=== PATIENT | male | born 1995 | race Caucasian/White ===

== ENCOUNTER 2023-02-12 14:50 | Outpatient (OUT) | payer BC, OTHER, SELFPAY ==
--- NOTE | 2023-02-12 15:43 | NUTR.NU ---
Diet education was provided for weight loss. Building a balanced meal handout was provided CBW 329.2#
== END 2023-02-12 14:51 | disposition home or self-care (01) ==
LOC: DE 14:56
PROVIDERS: PCP Family Medicine; Visit Provider Family Medicine
DX: E66.01 Morbid (severe) obesity due to excess calories (principal); Z68.41 Body mass index [BMI] 40.0-44.9, adult
CPT/HCPCS: 97802

== ENCOUNTER 2023-02-19 14:43 | Outpatient (OUT) | payer BC, OTHER, SELFPAY ==
--- OUTSIDE RECORDS SUMMARY | 2023-02-19 14:50 | XMS_ITS | CCD ---
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 Signed By:ANA GARCIA DO Transcribed By: MUS Dictated By: Ana Garcia DO 10/12/20 170 Signed By: 10/13/20 0154 Normal [facility] Magnesiumon 10-12-2020 Magnesium [Mass/Vol] 2.4 mg/dL Normal 1.6-2.6 [facility] Comment on above: Result Comment: PERF ORMED BY: [facility] [address] [place] [id number] PATHOLOGIST DOLL MAKER MYLA DOSHI M.D. Performed By: #### H S TROP, MG, BMP, CBC #### [facility] [address] [place] [id number] [facility] Troponin I High Sensitivityo n 10-12-2020 Troponin I High Sensitivity 9 pg/mL Normal 0-20 [facility] Comment on above: Result Comment: PERF ORMED BY: [facility] [address] [place] [address] PATHOLOGIST DOLL MAKER MYLA DOSHI M.D. Performed By: #### H S TROP, MG, BMP, CBC #### [facility] [address] [place] [address] [facility] [place] 09-20-2020 Consent [id number]#[id number]:127 Normal [facility] Registrationon 09-20-2020 Registration [id number]:127 Normal [facility] Covid-19 PCR (CVDTBH)on 06-09 SARS-CoV-2 (COVID-19) RNA KING+probe Ql (Unsp spec) Not detected Normal NOT DETECTED [facility] Comment on above: Result Comment: This test is not yet approved or cleared by the [place] FDA. When there are no FDA-approved or cleared tests available, and other criteria are met, FDA can make tests available under an emergency access mechanism called an Emergency Use Authorization (EUA). The EUA for this test is supported by the [place] of Health and Human Service's (HHS's) declaration that circumstances exist to justify the emergency use of in vitro diagnostics for the detection and/or diagnosis of the virus that causes COVID-19. This EUA will remain in effect (meaning this test can be used) for the duration of the COVID-19 declaration justifying emergency of IVDs, unless it is terminated or revoked by FDA (after which the test may no longer be used). When diagnostic testing is negative, the possibility of a false negative should be considered in the context of a patient's recent exposures and the presence of clinical signs and symptoms consistent with SARS-CoV-2. Performed By: #### [facility] #### [facility] [address] [address] Leonor Taylor Juan 06-06-2017 CNPN Telephone (FVPRAD) RAQUEL BLANCHARD JR ([id number]) 1995 MDate Time Provider Department06/06/17 GRACIE HURLEY During your visit today, we recorded the following information about you:Gracie Hurley MD 06/06/2017 10:06 AM SignedPatient called after hours Sat night feeling fatigue/tired on current dose ofKeppra 1000 mg BID; he works different shifts difficult to take med. Wanting totry extended release or different dose if possible.I told patient will pass this to his neurologist today and he will be in touchwith him.Neli Oliver NeurologyNeurological InstituteCherrington HospitalPager: [phone] Bailey MD PHD 06/07/2017 1:54 PM SignedCan we reach out. I will switch to extended release. It is once a day butsame total dose.Yazmin Bailey MD PHDApril 2017 1:52 PMWendy Moon RN, RN 06/07/2017 3:03 PM SignedI tried calling the patient to advise that Dr. Bailey ordered him Keppra 500 mgER to take 4 tablets by mouth once daily. His VM will not except any calls.Please advise patient if he calls back.'Owen Macias [facility] 06/07/2017 4:24 PM SignedPatient called back and message below was relayed.Allergies As of Date: 06/06/2017 Noted Allergy ReactionSULFA (SULFONAMIDE ANTIBIOTICS) 05/07/2017 10 - AnaphylaxisDate Reviewed: 05/20/2017Reviewed by: Yoon Hay Ma - Fully AssessedReason for Visit: Medication Problem [65]Order(s):levETIRAcetam XR (KEPPRA XR) 500 mg 24 hr tabletTake 4 tablets by mouth once daily.Disp: 120 tabletRfl: 11Prescriptions as of 06/06/2017 Sig: LEVETIRACETAM ER 500 MG TABLE* Take 4 tablets by mouth once * CALCIUM 600 ORAL Take by mouth once daily. CHOLECALCIFEROL (VITAMIN D3) * Take by mouth once daily. Not* LEVETIRACETAM 1,000 MG TABLET Take 1 tablet by mouth twice *Problem List As Of Date 06/06/2017 Noted Resolved Status epilepticus (HCC) [G40.901] INVALID FOR* Nicotine use disorder, F17.2 [F17.200] INVALID FOR*Prescriptions ordered this encounter Disp Refills Start End LEVETIRACETAM ER 500 MG TABLET,EXTEN* 120 * 11 06/07/2017 06/07/2018 Route: ORAL Sig: Take 4 tablets by mouth once daily. Status:Closed by YOHAN HUITORN, YAZMIN PHD on 06/07/17 [facility] CNCOon 05-20-2017 CNCO Letter TextApril 2017Grant Blanchard JRMRN: [id number] whom it may concern-Patient may return to work May 23, 2017 without restrictions.Thank you for your time and consideration.Sincerely,Yazmin Bailey MD, PhDStaff, [facility] NeurologyClinical Trust Manager Assistantmagneto specialist, CCLBoard Certified, Epilepsy and Neurology Normal [facility] CNOVon 05-20-2017 CNOV Office Visit (NEEPFV) RAQUEL BLANCHARD JR ([id number]) 1995 MDate Time Provider Department05/20/17 9:40 AM YAZMIN BAILEY During your visit today, we recorded the following information about you: Temperature Pulse Respiration Blood pressure 98.1 degrees 121/minute 20/minute 135/69 Weight Height 113.5 kg 1.829 Walter Bailey MD PHD 05/25/2017 1:34 PM SignedCCNI- CLINIC NOTE - INITIAL VISITReferral:SELFCHIEF COMPLAINT: This is a 21 year old right-handed man here for evaluation ofseizures.PRESENT ILLNESS:21 year old man here for follow up from hospital after presenting with seizure.He had a seizure on Good Wednesday. He was eating dinner. He was ANDquot;actingweirdANDquot; he fell asleep. He was not responding to questions, just veryslowly. No other behaviors. He is stable now, no seizures since being in thehospital. No other behavior changes or other neurological complaints. Noprior history of seizures and no known seizure risk factors.Prior History:He presented to with a 5 day history which began with some fatigue andheadache. He was not feeling well, missing work. He reported had episodeswhere he would ANDquot;stare,not respondANDquot;. He then presented after having [address] Mcdermott and Mark (see below and hospitalizaitonreviewed); treated with keppra; extensive imaging, lab work up unrevealing.Possible lateralizing signs by history: NoneBirth and Early Development: normalRISK FACTORS FOR SEIZURES:1. Head Trauma (Yes, concussion from football)2. LEAD INSTALLER Infections (Yes, see history)3. Family History of Seizures (yes, greatgrandmother, grandmother)4. Developmental Delay (No)5. Febrile Seizures (No)6. LEAD INSTALLER Tumors (No)7. LEAD INSTALLER Vascular Disease (No)8. Significant Medical History (No)CURRENT ANTICONVULSANTS:Keppra 1000 mg XR 1000 mg bidThe patient's side effects to the current medications: tired, fatiguePRIOR ANTICONVULSANT HISTORY: NonePrior Consult form Dr Mcdermott:Ruth;This is Grant Blanchard JR a 21 year old with history of insomniatakes Lunesta at times male who [facility] with a statusepilepticus. Mother at bedside is providing history.?~3 weeks ago patient developed infection in his right finger started antibioticciprofloxacin for 3 doses and stopped after pain resolved according to hismother he didn't not continue antibiotics.?~1 week mother reports her son having an upper respiratory tract infection. Hedid not seek any attention for that.?May 03, 2017 his mother reported her son having headaches and not feelingwell. She also tells me that he started to act weird, confused. He would notput his clothes on and walk in the house, when his mother asked him to putclothes on he goes back to his in his room when he comes back again with noclothes on. When she asked him again to put clothes on he becomes angryagitated and he tells her that he did, despite him not having any close on.The mother reports multiple episodes of around 1 per hour of blank stares andthen he would continue the conversation or whatever he was doing. Motherreported multiple episodes where he jerks in his sleep she reported no bloodfound on the peripheral or loss of bladder or bowels.?May 06, 2017 patient went to the ER for increased headaches and he wasdischarged. Patient followed up with his primary care and it took some bloodtests.?May 07, 2017 patient reported being with his girlfriend 1 he stopped to getat the gas station and he dropped to the floor according to the mother she wastold that he was having jerks police came and called the ambulance and theytook him to the ER. Mother denied any drug use. [facility] blood sugar was 90. While in the ER his blood pressure dropped to80/50 and he was given fluids. His WBC count was 11.64 hemoglobin 17hematocrit 48 and platelet counts were 371. Sodium level was 143, potassium of3.9, glucose of 104, BUN 17, creatinine of 1.05, ALT 47, AST 26,ANDquot;phosphatase 52, total bilirubin of 0.7. [facility] and I recommended another load of Keppra 15 mg and to assessfosphenytoin if he continues to seize at that time patient had received 7 mg ofAtivan and a load of 50 mg Keppra. He was not intubated at that time andaccording to the notes she was transferred to [facility] and he was not intubatedeither. Urine drug screen was negative. [facility] showed a WBC count of 21.89 with a hemoglobin of 16 and a plateletcount of 314. Urine drug screen was negative. His blood glucose was 141, BUN14, creatinine 0.088, sodium 141, potassium 4.1, chloride 103, CO2 25. She hadan LP done showed CSF culture stain no organism a few mononuclear cells. CSFcomponent results showed color of the CSF to be colorless clear fluid with atotal RBC of 40 and total nucleated cells of 11. His neutrophils were 2lymphocytes 91. CSF protein was 60 and glucose 91. His magnesium was 2.2.and phosphorus 4.3.MRI of the brain was within normal limits and EEG showed ANDquot;Impression:Continuous video-EEG monitoring was reviewed from 05/08/17 0053 until 0810 andis suggestive of bilateral cortical dysfunction maximum in the right parietaloccipital region. There is also evidence of a severeencephalopathy. No epileptiform discharges or EEG seizures wererecorded.ANDquot;. Per report. ANDquot;PAST MEDICAL HISTORY:PAST SURGICAL HISTORY:No past surgical history on file.SOCIAL HISTORY:Social History Marital status: Single Spouse name: Years of education: Number of children:Social History Main Topics Smoking status: Former Smoker Packs/day: 0.00 Years: 0.00 Quit date: 05/21/2015 Smokeless status: Current User Types: Chew Alcohol use: No Comment: Not drinking since seizure Good Wednesday Drug use: NoREVIEW OF SYSTEMS:The review of systems is positive for the symptoms mentioned in the history ofpresent illness. Additional review as follows:All other organ systems are unremarkable.GENERAL EXAMINATION:BP 135/69 (BP Site: Left Arm, BP Position: Sitting, BP Cuff Size: RegularAdult) Pulse (!) 121 Temp 36.7 ?C (98.1 ?F) Resp 20 Ht 182.9 cm (6') Wt 113.5 kg (250 lb 4.8 oz) SpO2 96% BMI 33.95 kg/c4Hsplj, in no acute distress. Skin is normal without neurocutaneous stigmata.Neurological:? Mental Status: Alert, oriented to person, place and time and Follows commands.Cranial Nerves:CNII: Visual acuity normal, Visual francisco full to confrontationCNIII, IV, : Pupils equal, round and reactive to light, full extraoccularmovements without nystagmusCN V: Facial sensation intact bilaterally to fine touch and pinprick, masseter5/5CN VII: Facial muscles symmetric and strongCN VIII: Hears finger rub well bilaterallyCN IX: Gag Reflex Not examinedCN X: Palate elevates symmetricallyCN XI: Full strength shoulder shrug bilaterallyCN XII: Tongue protrusion full and midline? Non-Dilated Fundiscopic Examination: Deferred Examination? Motor Exam: Tone - Normal Bulk - no muscle atrophy Delt Biceps Triceps Wrist Ext Wrist Flex Finger Flex Finger Ext Finger AbdFinger AddRight 5/5 5/5 5/5 5/5 5/5 5/5 5/5 5/5 5/5Left 5/5 5/5 5/5 5/5 5/5 5/5 5/5 5/5 5/5 Hip Flex Hip Ext BiFem (knee flex) Quads (knee ext) Gastroc (plantflx) TibAnt(Dorsiflx) TibPost (ank add) Ankle Eversion Ankle Inversion FlxHLong (ToeFlex)ExtHLong (ToeExt)Right 5/5 5/5 5/5 5/5 5/5 5/5 5/5 5/5 5/5 5/5 5/5Left /5 5/5 5/5 5/5 5/5 5/5 5/5 5/5 5/5 5/5 5/5Neck Flexors 5/5Neck Extensors /5REFLEXES Right LeftBicep 2/ 2/4Tricep 2/ 2/4BrRad 2/ 2/4Knee 2/ 2/4Ankle / 2/4Pathological Reflexes:none? Sensation: Intact to proprioception, light touch and stereognosis.? Coordination: Finger-to- nose-finger intact bilaterally.? Gait: Patient's gait is normalDATA:MRI brain personally reviewed and discussed with patientIMPRESSION:Normal study.Classification? Abnormal II (Awake, Sleep, 10-20 Scalp Electrodes, Standard electrodes,? Anterior temporal electrodes)? 1 ? ?Intermittent Slow, Generalized, Maximum Right tempro-parietal? 2 ? ?Background SlowImpression? Continuous video-EEG monitoring was reviewed from 0520 to 1047 on05/11/17? and shows evidence of a cortical dysfunction in the right temporal? parietal region. There is also evidence of a mild diffuse? encephalopathy. No epileptiform discharges or EEG seizures were? recorded.Classification? Abnormal II (Awake, Sleep, 10-20 Scalp Electrodes, Standard electrodes,? Anterior temporal electrodes)? 1 ? ?Intermittent Slow, Generalized, Maximum Right tempro-parietal? 2 ? ?Intermittent Rhythmic Slow, Generalized? 3 ? ?Background SlowImpression? Continuous video-EEG monitoring was reviewed from 0459 on 05/10/2017 to? 0520 on 05/11/2017 and shows evidence of a cortical dysfunction in the? right temporal parietal region. There is also evidence of a milddiffuse? encephalopathy, which improved towards the end of recording. No? epileptiform discharges or EEG seizure were recorded.Classification? Abnormal III (Awake, Sleep, Stupor, 10-20 Scalp Electrodes, Anterior? temporal electrodes, Standard electrodes)? 1 ? ?Continuous Slow, Generalized, Maximum Right temporal parietal? 2 ? ?Intermittent Rhythmic Slow, GeneralizedImpression? Continuous video-EEG monitoring was reviewed from 0721 on 05/09/2017 to? 0459 on 05/10/2017 and shows evidence of a right temporal parietal? dysfunction. There is also evidence of a moderate diffuse? encephalopathy. No epileptiform discharges or EEG seizure wererecorded.Classification? Abnormal III (10-20 Scalp Electrodes, Anterior temporal electrodes,? Coma)? 1 ? ?Continuous Slow, Generalized, Maximum right parietal occipital? 2 ? ?Intermittent Rhythmic Slow, GeneralizedImpression? Continuous video-EEG monitoring?was reviewed from 05/08/17 0053 until? 0810 and is suggestive of bilateral cortical dysfunction maximum in the? right parietal occipital region. There is also evidence of a severe? encephalopathy. No epileptiform discharges or EEG seizures were? recorded.? Addendum:? Continuous video-EEG monitoring was reviewed from 05/08/17 0810 until? 05/09/17720and is suggestive of bilateral cortical dysfunction maximum? in the right parietal occipital region. There is also evidence of a? severe encephalopathy. No epileptiform discharges or EEG seizures were? recorded.Component 05/08/2017 05/09/2017 05/09/2017 05/09/2017 05/09/2017 05/09/201705/10/2017 05/11/2017 05/20/2017 2:09 AM 2:10 AM 6:19 AM 10:14 AM 11:47 AM 5:27 PM 5:42 PMWBC 12.93 (H) 10.55 7.51RBC 4.76 5.01 5.11Hemoglobin 14.5 15.3 15.5Hematocrit 41.7 43.2 43.3MCV 87.6 86.2 84.7MCH 30.5 30.5 30.3MCHC 34.8 35.4 35.8Diff Type Auto Diff Auto Diff Auto DiffGlucose 109 (H) 106 (H) 90 90 92BUN 10 8 (L) 9 (L) 8 (L) 12Creatinine 0.85 0.84 0.84 0.75 0.76Sodium 143 141 143 140 141Potassium 4.1 3.7 3.9 3.5 3.8Chloride 108 105 105 101 103CO2 27 26 26 24 21 (L)Anion Gap 8 (L) 10 12 15 17Calcium 8.3 (L) 8.4 (L) 8.6 9.4 9.4eGFR- ANDgt;60 ANDgt;60 ANDgt;60 ANDgt;60 ANDgt;60eGFR-All Other Races ANDgt;60 ANDgt;60 ANDgt;60 ANDgt;60 ANDgt;60Hep A Ab, IgM NegativeHep B Surface Ag NegativeHep C Antibody IA NegativeHep B Core Ab, IgM NegativeHSV IgG 1 Qualitative NegativeHerpes simplex 1, IgG ANDlt;0.2HSV IgG 2 Qualitative Positive (A)Herpes simplex 2, IgG 7.1HIV 12 Combo (Ag/Ab) Non ReactiveSodium, Urine Random 71Osmolality, Urine 402Magnesium 2.2 2.2 2.2Phosphorus 2.7 2.6 3.6Glucose, Point of Care 100 96 80 89 92Neosensory Neuro Paraneo Prof (NOTE)Levetiracetam 26.8basic paraneoplatic negative (anti-Hu)anti-NMDA pendingComponent Latest Ref Rng ANDamp; Units 05/08/2017 05/08/2017 05/08/201705/08/2017 5:20 AM 5:20 AM 5:20 AM 5:20 AM 5:20 AM 5:41 AMColor, CSF Colorless ColorlessClarity, CSF Clear ClearRBC, CSF 0 - 1 /uL 40 (H)Total Nucleated Cells, CSF 0 - 5 /uL 11 (H)Neut%, CSF 0 - 3 % 2Lymph%, CSF 50 - 90 % 91 (H)Richardson%, CSF 10 - 50 % 7 (L)CSF Tube Nbr No 4Comment, CSF Some reference ranges and other method performance specificationshave not been . . .Specimen Request Less than optimal volume of specimen received and processed.Smear Result No organisms seen Few . . . Gram stain performed on cytospunspecimen. Gram stain results reviewed and confirmed by [facility]Micro[facility].Culture No growth 14 daysHSV PCR Spec Source Cerebrospinal FluidHSV-1 Negative for Herpes Simplex Virus Type 1 by PCRHSV-2 Negative for Herpes Simplex Virus Type 2 by PCREnterovirus PCR Negative for Enterovirus by PCR.Source (Enterovirus PCR) Cerebrospinal FluidGlucose, CSF 50 - 75 mg/dL 91 (H)Protein, CSF 15 - 45 mg/dL 60 (H)Director Product Specimen [facility] from [facility] . . .VDRL, CSF Non Reactive DILS Non ReactiveIMPRESSION:21 year old with new onset seizures etiology unclear. Testing to this pointunrevealing but for marginally abnormal CSF which could be from seizures butstill could be concerning for autoimmune/inflammatory condition. He is stablenow and back at baseline. Will pursue further testing and monitoring in lightof explosive on set of seizure and abnormal CSF.PLAN:Specific tests order in the case include:1. repeat MRI in 6 months2. paraneoplastic panel3. repeat EEG; in house eeg complicated by encephalopatic pattern from meds-look to see if pattern cleared and more evidence of epileptogencity.Following treatment in this case include:1. continue keppra2. baseline levelThe following instructions, counseling were provided to the patient:1. The following issues were discussed with the patient: no bathing, noswimming unsupervised, no driving, no use of heavy machinery, no use of sharpmoving objects, risks related to continued seizures and medication treatmentand testing2. Risks, benefits, side effects, and alternatives to use of Levetiracetamwere discussed with the patient.Return to clinic is planned for approximately 3-4 monthsAll questions were answered to the best of my ability and patient verbalizedunderstanding of the plan of care and agreed.Total time spent 50 minutes, ANDgt;50% of the time spent on support andcounseling.A copy of this note was electronically submitted to the referring physician:SELF. A copy of this note was also forwarded to the primary care physician by thesame route:To use this Smartlink, specify the provider ID whose address you want todisplay, e.g., .PROVADDR[1 (where 1 is the provider ID).Thank you for allowing me to participate in the neurologic care of this patient.Yazmin Bailey MD, PhDStaff, [facility] General NeurologyClinical Trust Manager Assistantmagneto specialist, [facility]IN[facility] CAMPUSBoard Certified, Epilepsy and NeurologyReferring Provider: SELF [[id number]]Allergies As of Date: 05/20/2017 Noted Allergy ReactionSULFA (SULFONAMIDE ANTIBIOTICS) 05/07/2017 10 - AnaphylaxisDate Reviewed: 05/20/2017Reviewed by: Yoon Hay Ma - Fully AssessedReason for Visit: New Patient [[id number]]Primary Visit Diagnosis:Partial idiopathic epilepsy with seizures of localized onset, not intractable, without status epilepticus (HCC) [G40.009] Other Visit Diagnosis:Abnormal finding in CSF [R83.9]Order(s):EEG LONG [[id number]] Order #: [id number] TUBES - DRAW EXTRA [SQXTUBE] Order #: [id number] FUTURE LEVETIRACETAM [SQLEVET] Order #: [id number] FUTURE MRI BRAIN WO IVCON [[id number]] Order #: [id number] FUTURE levETIRAcetam (KEPPRA) 1,000 mg tabletTake 1 tablet by mouth twice daily.Disp: 60 tabletRfl: 11Prescriptions as of 05/20/2017 Sig: CALCIUM 600 ORAL Take by mouth once daily. CHOLECALCIFEROL (VITAMIN D3) * Take by mouth once daily. Not* LEVETIRACETAM 1,000 MG TABLET Take 1 tablet by mouth twice *Problem List As Of Date 05/20/2017 Noted Resolved Status epilepticus (HCC) [G40.901] INVALID FOR* Nicotine use disorder, F17.2 [F17.200] INVALID FOR*Prescriptions ordered this encounter Disp Refills Start End LEVETIRACETAM 1,000 MG TABLET 60 t* 11 05/20/2017 Route: ORAL Sig: Take 1 tablet by mouth twice daily.Medications Discontinued During This Encounter levETIRAcetam (KEPPRA) 1,000 mg tabl* 60 t* 1 05/11/2017 05/20/2017 Class: Print RX Route: ORAL Sig: Take 1 tablet by mouth twice daily. Disc: Reason for discontinue is not on file.Disposition: Return in about 6 months (around 11/19/2017).Follow-up and Disposition History RecordedEncounter Number: [id number] Status:Closed by YOHAN HUITRON, YAZMIN PHD on 05/25/17 Normal [facility] Levetiracetamon 05-20-2017 Levetiracetam mass conc 26.8 ug/mL Normal 12.0-46.0 [facility] Comment on above: Result Comment: This test was developed and its performance characteristics determined by [facility]'s Adina Goetz [facility] Pathology [facility] [place] ([facility]). It has not been cleared or approved by the FDA. -[facility] is regulated under CLIA as qualified to perform high-complexity testing. This test is used for clinical purposes. It should not be regarded as investigational or for research. Performed By: #### L KULWANT ####[facility] [place], [place] [phone]#### MARILYN #### [facility]-[address] [phone] PROGRESSon 05-20-2017 PROGRESS HNO ID: [id number] thor: Yazmin Meade Ivoneice: (none)Author Type: PhysicianType: Progress NotesFiled: 05/25/2017 1:34 PMNote Text:CCNI- CLINIC NOTE - INITIAL VISITReferral:SELFCHIEF COMPLAINT: This is a 21 year old right-handed man here forevaluation of seizures.PRESENT ILLNESS:21 year old man here for follow up from hospital after presenting withseizure.He had a seizure on Good Wednesday. He was eating dinner. He was actingweird he fell asleep. He was not responding to questions, just veryslowly. No other behaviors. He is stable now, no seizures since being inthe hospital. No other behavior changes or other neurological complaints. No prior history of seizures and no known seizure risk factors.Prior History:He presented to with a 5 day history which began with some fatigue andheadache. He was not feeling well, missing work. He reported hadepisodes where he would stare,not respond . He then presented afterhaving [address] Mcdermott and [facility] treated with keppra; extensive imaging, labwork up unrevealing.Possible lateralizing signs by history: NoneBirth and Early Development: normalRISK FACTORS FOR SEIZURES:1. Head Trauma (Yes, concussion from football)2. LEAD INSTALLER Infections (Yes, see history)3. Family History of Seizures (yes, greatgrandmother, grandmother)4. Developmental Delay (No)5. Febrile Seizures (No)6. LEAD INSTALLER Tumors (No)7. LEAD INSTALLER Vascular Disease (No)8. Significant Medical History (No)CURRENT ANTICONVULSANTS:Keppra 1000 mg XR 1000 mg bidThe patient's side effects to the current medications: tired, fatiguePRIOR ANTICONVULSANT HISTORY: NonePrior Consult form Dr Mcdermott: This is Mr. Grant Blanchard JR a 21 year old with history of insomniatakes Lunesta at times male who presents to the [facility] with astatus epilepticus. Mother at bedside is providing history.?~3 weeks ago patient developed infection in his right finger startedantibiotic ciprofloxacin for 3 doses and stopped after pain resolvedaccording to his mother he didn't not continue antibiotics.?~1 week mother reports her son having an upper respiratory tractinfection. He did not seek any attention for that.?May 03, 2017 his mother reported her son having headaches and notfeeling well. She also tells me that he started to act weird, confused.He would not put his clothes on and walk in the house, when his motherasked him to put clothes on he goes back to his in his room when he comesback again with no clothes on. When she asked him again to put clothes onhe becomes angry agitated and he tells her that he did, despite him nothaving any close on. The mother reports multiple episodes of around 1 perhour of blank stares and then he would continue the conversation orwhatever he was doing. Mother reported multiple episodes where he jerksin his sleep she reported no blood found on the peripheral or loss ofbladder or bowels.?May 06, 2017 patient went to the ER for increased headaches and he wasdischarged. Patient followed up with his primary care and it took someblood tests.?May 07, 2017 patient reported being with his girlfriend 1 he stopped toget at the gas station and he dropped to the floor according to the mothershe was told that he was having jerks police came and called the ambulanceand they took him to the ER. Mother denied any drug use. Upon arrival [facility] patient's blood sugar was 90. While in the ER his blood pressuredropped to 80/50 and he was given fluids. His WBC count was 11.64hemoglobin 17 hematocrit 48 and platelet counts were 371. Sodium levelwas 143, potassium of 3.9, glucose of 104, BUN 17, creatinine of 1.05, ALT47, AST 26, phosphatase 52, total bilirubin of 0.7. [place] and I recommended another load of Keppra 15mg and to assess fosphenytoin if he continues to seize at that timepatient had received 7 mg of Ativan and a load of 50 mg Keppra. He wasnot intubated at that time and according to the notes she was transferredto [facility] and he was not intubated either. Urine drug screen wasnegative. Patient arrived to the ER at [facility] repeat CBC showed a WBCcount of 21.89 with a hemoglobin of 16 and a platelet count of 314. Urinedrug screen was negative. His blood glucose was 141, BUN 14, creatinine0.088, sodium 141, potassium 4.1, chloride 103, CO2 25. She had an LPdone showed CSF culture stain no organism a few mononuclear cells. CSFcomponent results showed color of the CSF to be colorless clear fluid witha total RBC of 40 and total nucleated cells of 11. His neutrophils were 2lymphocytes 91. CSF protein was 60 and glucose 91. His magnesium was2.2. and phosphorus 4.3.MRI of the brain was within normal limits and EEG showed Impression:Continuous video-EEG monitoring was reviewed from 05/08/17 0053 until 0810and is suggestive of bilateral cortical dysfunction maximum in the rightparietal occipital region. There is also evidence of a severeencephalopathy. No epileptiform discharges or EEG seizures wererecorded. . Per report. PAST MEDICAL HISTORY:PAST SURGICAL HISTORY:No past surgical history on file.SOCIAL HISTORY:Social History Marital status: Single Spouse name: Years of education: Number of children:Social History Main Topics Smoking status: Former Smoker Packs/day: 0.00 Years: 0.00 Quit date: 05/21/2015 Smokeless status: Current User Types: Chew Alcohol use: No Comment: Not drinking since seizure Good Wednesday Drug use: NoREVIEW OF SYSTEMS:The review of systems is positive for the symptoms mentioned in thehistory of present illness. Additional review as follows:All other organ systems are unremarkable.GENERAL EXAMINATION:BP 135/69 (BP Site: Left Arm, BP Position: Sitting, BP Cuff Size: RegularAdult) Pulse (!) 121 Temp 36.7 ?C (98.1 ?F) Resp 20 Ht 182.9 cm(6') Wt 113.5 kg (250 lb 4.8 oz) SpO2 96% BMI 33.95 kg/o0Kuker, in no acute distress. Skin is normal without neurocutaneousstigmata.Neurologi vanessa:? Mental Status: Alert, oriented to person, place and time and Followscommands.Cranial Nerves:CNII: Visual acuity normal, Visual francisco full to confrontationCNIII, IV, : Pupils equal, round and reactive to light, fullextraoccular movements without nystagmusCN V: Facial sensation intact bilaterally to fine touch and pinprick,masseter 5/5CN VII: Facial muscles symmetric and strongCN VIII: Hears finger rub well bilaterallyCN IX: Gag Reflex Not examinedCN X: Palate elevates symmetricallyCN XI: Full strength shoulder shrug bilaterallyCN XII: Tongue protrusion full and midline? Non-Dilated Fundiscopic Examination: Deferred Examination? Motor Exam: Tone - Normal Bulk - no muscle atrophy Delt Biceps Triceps Wrist Ext Wrist Flex Finger Flex Finger Ext FingerAbd Finger AddRight 06/12 06/12 06/12 06/12 06/12 06/12 06/12 06/12 06/12Left 06/12 06/12 06/12 06/12 06/12 06/12 06/12 06/12 06/12 Hip Flex Hip Ext BiFem (knee flex) Quads (knee ext) Gastroc (plantflx)TibAnt (Dorsiflx) TibPost (ank add) Ankle Eversion Ankle InversionFlxHLong (ToeFlex) ExtHLong (ToeExt)Right 06/12 06/12 06/12 06/12 06/12 06/12 06/12 06/12 06/12 06/12 06/12Left 06/12 06/12 06/12 06/12 06/12 06/12 06/12 06/12 06/12 06/12 06/12Neck Flexors 06/12Neck Extensors 06/12REFLEXES Right LeftBicep 2/ 2/4Tricep 2/ 2/4BrRad 2/4 2/4Knee /05 10/4Ankle /05 10/4Pathological Reflexes:none? Sensation: Intact to proprioception, light touch and stereognosis.? Coordination: Finger-to- nose-finger intact bilaterally.? Gait: Patient's gait is normalDATA:MRI brain personally reviewed and discussed with patientIMPRESSION:Normal study.Classification? Abnormal II (Awake, Sleep, 10-20 Scalp Electrodes, Standardelectrodes,? Anterior temporal electrodes)? 1 ? ?Intermittent Slow, Generalized, Maximum Righttempro-parietal? 2 ? ?Background SlowImpression? Continuous video-EEG monitoring was reviewed from 519 to 1046 on05/11/17? and shows evidence of a cortical dysfunction in the right temporal? parietal region. There is also evidence of a mild diffuse? encephalopathy. No epileptiform discharges or EEG seizures were? recorded.Classification? Abnormal II (Awake, Sleep, 10-20 Scalp Electrodes, Standardelectrodes,? Anterior temporal electrodes)? 1 ? ?Intermittent Slow, Generalized, Maximum Righttempro-parietal? 2 ? ?Intermittent Rhythmic Slow, Generalized? 3 ? ?Background SlowImpression? Continuous video-EEG monitoring was reviewed from 0459 on 05/10/2017to? 0520 on 05/11/2017 and shows evidence of a cortical dysfunction inthe? right temporal parietal region. There is also evidence of a milddiffuse? encephalopathy, which improved towards the end of recording. No? epileptiform discharges or EEG seizure were recorded.Classification? Abnormal III (Awake, Sleep, Stupor, 10-20 Scalp Electrodes,Anterior? temporal electrodes, Standard electrodes)? 1 ? ?Continuous Slow, Generalized, Maximum Right temporalparietal? 2 ? ?Intermittent Rhythmic Slow, GeneralizedImpression? Continuous video-EEG monitoring was reviewed from 07 on 05/09/2017to? 0459 on 05/10/2017 and shows evidence of a right temporal parietal? dysfunction. There is also evidence of a moderate diffuse? encephalopathy. No epileptiform discharges or EEG seizure wererecorded.Classification? Abnormal III (10-20 Scalp Electrodes, Anterior temporalelectrodes,? Coma)? 1 ? ?Continuous Slow, Generalized, Maximum right parietaloccipital? 2 ? ?Intermittent Rhythmic Slow, GeneralizedImpression? Continuous video-EEG monitoring?was reviewed from 05/08/17 0053until? 0810 and is suggestive of bilateral cortical dysfunction maximumin the? right parietal occipital region. There is also evidence of asevere? encephalopathy. No epileptiform discharges or EEG seizures were? recorded.? Addendum:? Continuous video-EEG monitoring was reviewed from 05/08/17 0810until? 05/09/17 0721and is suggestive of bilateral cortical dysfunctionmaximum? in the right parietal occipital region. There is also evidence ofa? severe encephalopathy. No epileptiform discharges or EEG seizureswere? recorded.Component 05/08/2017 05/09/2017 05/09/2017 05/09/2017 05/09/2017 05/09/201705/10/2017 05/11/2017 05/20/2017 2:09 AM 2:10 AM 6:19 AM 10:14 AM 11:47 AM 5:27 PM 5:42 PMWBC 12.93 (H) 10.55 7.51RBC 4.76 5.01 5.11Hemoglobin 14.5 15.3 15.5Hematocrit 41.7 43.2 43.3MCV 87.6 86.2 84.7MCH 30.5 30.5 30.3MCHC 34.8 35.4 35.8Diff Type Auto Diff Auto Diff Auto DiffGlucose 109 (H) 106 (H) 90 90 92BUN 10 8 (L) 9 (L) 8 (L) 12Creatinine 0.85 0.84 0.84 0.75 0.76Sodium 143 141 143 140 141Potassium 4.1 3.7 3.9 3.5 3.8Chloride 108 105 105 101 103CO2 27 26 26 24 21 (L)Anion Gap 8 (L) 10 12 15 17Calcium 8.3 (L) 8.4 (L) 8.6 9.4 9.4eGFR- >60 >60 >60 >60 >60eGFR-All Other Races >60 >60 >60 >60 >60Hep A Ab, IgM NegativeHep B Surface Ag NegativeHep C Antibody IA NegativeHep B Core Ab, IgM NegativeHSV IgG 1 Qualitative NegativeHerpes simplex 1, IgG <0.2HSV IgG 2 Qualitative Positive (A)Herpes simplex 2, IgG 7.1HIV 12 Combo (Ag/Ab) Non ReactiveSodium, Urine Random 71Osmolality, Urine 402Magnesium 2.2 2.2 2.2Phosphorus 2.7 2.6 3.6Glucose, Point of Care 100 96 80 89 92Neosensory Neuro Paraneo Prof (NOTE)Levetiracetam 26.8basic paraneoplatic negative (anti-Hu)anti-NMDA pendingComponent Latest Ref Rng AND Units 05/08/2017 05/08/2017 05/08/201705/08/2017 5:20 AM 5:20 AM 5:20 AM 5:20 AM 5:20 AM 5:41 AMColor, CSF Colorless ColorlessClarity, CSF Clear ClearRBC, CSF 0 - 1 /uL 40 (H)Total Nucleated Cells, CSF 0 - 5 /uL 11 (H)Neut%, CSF 0 - 3 % 2Lymph%, CSF 50 - 90 % 91 (H)Richardson%, CSF 10 - 50 % 7 (L)CSF Tube Nbr No 4Comment, CSF Some reference ranges and other method performancespecifications have not been . . .Specimen Request Less than optimal volume of specimen received andprocessed.Smear Result No organisms seen Few . . . Gram stain performed oncytospun specimen. Gram stain results reviewed and confirmed by [facility] Microbiology.Culture No growth 14 daysHSV PCR Spec Source Cerebrospinal FluidHSV-1 Negative for Herpes Simplex Virus Type 1 by PCRHSV-2 Negative for Herpes Simplex Virus Type 2 by PCREnterovirus PCR Negative for Enterovirus by PCR.Source (Enterovirus PCR) Cerebrospinal FluidGlucose, CSF 50 - 75 mg/dL 91 (H)Protein, CSF 15 - 45 mg/dL 60 (H)Director Product Specimen [facility] . . .VDRL, CSF Non Reactive DILS Non ReactiveIMPRESSION:21 year old with new onset seizures etiology unclear. Testing to thispoint unrevealing but for marginally abnormal CSF which could be fromseizures but still could be concerning for autoimmune/inflammatorycondition . He is stable now and back at baseline. Will pursue furthertesting and monitoring in light of explosive on set of seizure andabnormal CSF.PLAN:Specific tests order in the case include:1. repeat MRI in 6 months2. paraneoplastic panel3. repeat EEG; in house eeg complicated by encephalopatic pattern frommeds- look to see if pattern cleared and more evidence of epileptogencity.Following treatment in this case include:1. continue keppra2. baseline levelThe following instructions, counseling were provided to the patient:1. The following issues were discussed with the patient: no bathing, noswimming unsupervised, no driving, no use of heavy machinery, no use ofsharp moving objects, risks related to continued seizures and medicationtreatment and testing2. Risks, benefits, side effects, and alternatives to use ofLevetiracetam were discussed with the patient.Return to clinic is planned for approximately 3-4 monthsAll questions were answered to the best of my ability and patientverbalized understanding of the plan of care and agreed.Total time spent 50 minutes, >50% of the time spent on support andcounseling.A copy of this note was electronically submitted to the referringphysician:SELF. A copy of this note was also forwarded to the primary care physician bythe same route:To use this Smartlink, specify the provider ID whose address you want todisplay, e.g., .PROVADDR[1 (where 1 is the provider ID).Thank you for allowing me to participate in the neurologic care of thispatient.Yazmin Bailey MD, PhDStaff, [facility] General NeurologyClinical Trust Manager Assistantmagneto specialist, [facility] CAMPUSBoard Certified, Epilepsy and Neurology Normal [facility] Paraneoplast Autoabson 05-20 ACh Receptor Bind Ab 0.00 nmol/L Normal <=0.02 [facility] Comment on above: Result Comment: (NOT E) ADDITIONAL INFORMATION This test was developed and its performance characteristicsdetermined by [facility] in a manner consistent with CLIArequirements. This test has not been cleared or approved bythe U.S. Food and Drug Administration. Performed By: #### L KULWANT ####[facility] [address] [place], [place] [phone]#### MARILYN #### [facility]-[address] [phone] AChR Ganglionic Neur 0.00 nmol/L Normal <=0.02 [facility] Comment on above: Result Comment: (NOT E) ADDITIONAL INFORMATION This test was developed and its performance characteristicsdetermined by [facility] in a manner consistent with CLIArequirements. This test has not been cleared or approved bythe .. Food and Drug Administration. Performed By: #### L EVET ####[address] [phone]#### GERTRUDISO #### [facility] [place] [place], [place] [phone] Amphiphysin Ab, S Negative Normal <1:240 [facility] Comment on above: Result Comment: (NOT E) ADDITIONAL INFORMATION This test was developed and its performance characteristicsdetermined by [facility] in a manner consistent with CLIArequirements. This test has not been cleared or approved bythe .. Food and Drug Administration. Performed By: #### L EVET ####[address] [phone]#### GERTRUDISO #### [facility] [address] [place], [place] [phone] LEANDER 1, S Negative Normal <1:240 [facility] Comment on above: Performed By: #### L EVET ####[address] [phone]#### PARNEO #### [facility] [place] [facility], [place] [phone] LEANDER 2, S Negative Normal <1:240 [facility] Comment on above: Result Comment: (NOT E) ADDITIONAL INFORMATION This test was developed and its performance characteristicsdetermined by [facility] in a manner consistent with CLIArequirements. This test has not been cleared or approved bythe U.S. Food and Drug Administration. Performed By: #### L LETHAET ####[place] [id number] [place], [place] [phone]#### MARILYN #### [facility] [address] [place], [place] [phone] LEANDER 3, S Negative Normal <1:240 [facility] Comment on above: Result Comment: (NOT E) ADDITIONAL INFORMATION This test was developed and its performance characteristicsdetermined by [facility] in a manner consistent with CLIArequirements. This test has not been cleared or approved bythe .[place]. Food and Drug Administration. Performed By: #### L EVET ####[address] [phone]#### MARILYN #### [facility] [place] [place], [place] [phone] Anti-glial Nuc Ab 1 Negative Normal <1:240 [facility] Comment on above: Result Comment: (NOT E) ADDITIONAL INFORMATION This test was developed and its performance characteristicsdetermined by [facility] in a manner consistent with CLIArequirements. This test has not been cleared or approved bythe U.S. Food and Drug Administration. Performed By: #### L EVET ####[address] [phone]#### GERTRUDISO #### [facility] [place] [place], [place] [phone] Ca Ch Bind Ab,N Type 0.00 nmol/L Normal <=0.03 [facility] Comment on above: Result Comment: (NOT E) ADDITIONAL INFORMATION This test was developed and its performance characteristicsdetermined by [facility] in a manner consistent with CLIArequirements. This test has not been cleared or approved by[facility] Food and Drug Administration. Performed By: #### L LETHAET ####[address] [phone]#### MARILYN #### [address] [phone] Ca Chn Bind Ab, P/Q 0.00 nmol/L Normal <=0.02 [facility] Comment on above: Result Comment: (NOT E) ADDITIONAL INFORMATION This test was developed and its performance characteristicsdetermined by [facility] in a manner consistent with CLIArequirements. This test has not been cleared or approved by[facility] Food and Drug Administration. Performed By: #### L EVET ####[address] [phone]#### MARILYN #### [address] [phone] CRMP 5 IgG, S Negative Normal <1:240 [facility] Comment on above: Result Comment: (NOT E) ADDITIONAL INFORMATION This test was developed and its performance characteristicsdetermined by [facility] in a manner consistent with CLIArequirements. This test has not been cleared or approved by[facility].S. Food and Drug Administration. Performed By: #### L EVET ####[address] [phone]#### GERTRUDISO #### [facility], [place] [place], [place] [phone] Interpretive Comment (NOTE) Normal [facility] Comment on above: Result Comment: No i nformative autoantibodies were detected in theParaneoplastic Evaluation. However, a negative result doesnot exclude neurological autoimmunity with or withoutassociated neoplasia. Sensitivity and specificity ofantibody testing are enhanced by testing both serum andCSF. Performed By: #### L EVET ####[address] [phone]#### GERTRUDISO #### [facility] [place] [place], [place] [phone] Neur V-G K+ Chann Ab 0.00 nmol/L Normal <=0.02 [facility] Comment on above: Result Comment: (NOT E) ADDITIONAL INFORMATION This test was developed and its performance characteristicsdetermined by [facility] in a manner consistent with CLIArequirements. This test has not been cleared or approved bythe .[place]. Food and Drug Administration. Performed By: #### L EVET ####[address] [phone]#### GERTRUDISO #### [facility] [place] [place], [place] [phone] PARNEO Reflex Tests None. Normal [facility] Comment on above: Result Comment: (NOT E) ADDITIONAL INFORMATION This test was developed and its performance characteristicsdetermined by [facility] in a manner consistent with CLIArequirements. This test has not been cleared or approved bythe U.S. Food and Drug Administration. Performed By: #### L EVET ####[address] [phone]#### MARILYN #### [facility], [place] [facility], [place] [phone] SPRAY OPERATOR 1, S Negative Normal <1:240 [facility] Comment on above: Result Comment: (NOT E) ADDITIONAL INFORMATION This test was developed and its performance characteristicsdetermined by [facility] in a manner consistent with CLIArequirements. This test has not been cleared or approved bythe U.S. Food and Drug Administration. Performed By: #### L EVET ####[address] [phone]#### MARILYN #### [facility], [place] [facility], [place] [phone] SPRAY OPERATOR 2, S Negative Normal <1:240 [facility] Comment on above: Result Comment: (NOT E) ADDITIONAL INFORMATION This test was developed and its performance characteristicsdetermined by [facility] in a manner consistent with CLIArequirements. This test has not been cleared or approved bythe U.S. Food and Drug Administration. Performed By: #### L EVET ####[address] [phone]#### PARNEO #### [facility], [place] [facility], [place] [phone] SPRAY OPERATOR Tr, S Negative Normal <1:240 [facility] Comment on above: Result Comment: (NOT E) ADDITIONAL INFORMATION This test was developed and its performance characteristicsdetermined by [facility] in a manner consistent with CLIArequirements. This test has not been cleared or approved bythe U.S. Food and Drug Administration. Performed By: #### Susie MONAEET ####[place] [id number] [place], [place] [phone]#### MARILYN #### [facility], [place] [place], [place] [phone] Striational Ab, S Negative Normal <1:120 [facility] Comment on above: Result Comment: (NOT E) ADDITIONAL INFORMATION This test was developed and its performance characteristicsdetermined by [facility] in a manner consistent with CLIArequirements. This test has not been cleared or approved bythe .S. Food and Drug Administration. Performed By: #### L EVET ####[place] [id number] [place], [place] [phone]#### MARILYN #### [facility], [place] [place], [place] [phone] Basic Metabolic Panlon 05-11 Anion gap 3 molar conc 17 mmol/L Normal 9-18 [facility] Comment on above: Performed By: #### C BCDIF, BMP, MG1, PHOS ####[facility] [place], [place] [phone] Calcium mass conc 9.4 mg/dL Normal 8.5-10.5 [facility] Comment on above: Performed By: #### C BCDIF, BMP, MG1, PHOS ####[facility] [place] [address] [phone] Chloride molar conc 103 mmol/L Normal 98-110 [facility] Comment on above: Performed By: #### C BCDIF, BMP, MG1, PHOS ####[place] [phone] CO2 molar conc 21 mmol/L Low 23-32 [facility] Comment on above: Performed By: #### C BCDIF, BMP, MG1, PHOS ####[place] [phone] Creatinine mass conc 0.76 mg/dL Normal 0.70-1.40 [facility] Comment on above: Performed By: #### C BCDIF, BMP, MG1, PHOS ####[place] [phone] eGFR- Amer. >60 Normal >60 [facility] Comment on above: Performed By: #### C BCDIF, BMP, MG1, PHOS ####[place] [phone] GFR/1.73 sq M predicted among non-blacks MDRD vol rate/area (S/P/Bld) mL/min/{1.73_m2} Normal >60 [facility] Comment on above: Performed By: #### C BCDIF, BMP, MG1, PHOS ####[place] [phone] Glucose mass conc 92 mg/dL Normal 65-100 [facility] Comment on above: Performed By: #### C BCDIF, BMP, MG1, PHOS ####[place] [phone] Potassium molar conc 3.8 mmol/L Normal 3.5-5.0 [facility] Comment on above: Performed By: #### C BCDIF, BMP, MG1, PHOS ####[place] [phone] Sodium molar conc 141 mmol/L Normal 135-146 [facility] Comment on above: Performed By: #### C BCDIF, BMP, MG1, PHOS ####[place] [phone] Urea nitrogen mass conc 12 mg/dL Normal 10-25 [facility] Comment on above: Performed By: #### C BCDIF, BMP, MG1, PHOS ####[place] [phone] CBC and Differentialon 05-11 Abs Baso 0.04 k/uL Normal <0.11 [facility] Comment on above: Performed By: #### C BCDIF, BMP, MG1, PHOS ####[place] [phone] Abs Richardson 0.69 k/uL Normal <0.87 [facility] Comment on above: Performed By: #### C BCDIF, BMP, MG1, PHOS ####[address] Abs Neut 4.43 k/uL Normal 1.45-7.50 [facility] Comment on above: Performed By: #### C BCDIF, BMP, MG1, PHOS ####[address]10 Basophils/100 WBC Auto (Bld) 0.5 % Normal [facility] Comment on above: Performed By: #### C BCDIF, BMP, MG1, PHOS ####[place] [phone] DTYPE Auto Diff Normal [facility] Comment on above: Performed By: #### C BCDIF, BMP, MG1, PHOS ####[place] [phone] Eosinophils Auto #/vol (Bld) 0.24 10*3/uL Normal <0.46 [facility] Comment on above: Performed By: #### C BCDIF, BMP, MG1, PHOS ####[place] [phone] Eosinophils/100 WBC Auto (Bld) 3.2 % Normal [facility] Comment on above: Performed By: #### C BCDIF, BMP, MG1, PHOS ####[place] [address] Erythrocyte distribution width Auto Ratio (RBC) 11.9 % Normal 11.5-15.0 [facility] Comment on above: Performed By: #### C BCDIF, BMP, MG1, PHOS ####[place] [address] Hematocrit Auto Volume Fraction (Bld) 43.3 % Normal 39.0-51.0 [facility] Comment on above: Performed By: #### C BCDIF, BMP, MG1, PHOS ####[place] [address] Hemoglobin mass conc (Bld) 15.5 g/dL Normal 13.0-17.0 [facility] Comment on above: Performed By: #### C BCDIF, BMP, MG1, PHOS ####[place] [address] Lymphocytes Auto #/vol (Bld) 2.11 10*3/uL Normal 1.00-4.00 [facility] Comment on above: Performed By: #### C BCDIF, BMP, MG1, PHOS ####[place] [address] Lymphocytes/100 WBC Auto (Bld) 28.1 % Normal [facility] Comment on above: Performed By: #### C BCDIF, BMP, MG1, PHOS ####[place] [address] MCH Auto Entitic mass (RBC) 30.3 pG Normal 26.0-34.0 [facility] Comment on above: Performed By: #### C BCDIF, BMP, MG1, PHOS ####[place] [phone] MCHC Auto mass conc (RBC) 35.8 g/dL Normal 30.5-36.0 [facility] Comment on above: Performed By: #### C BCDIF, BMP, MG1, PHOS ####[place] [address] MCV Auto Entitic volume (RBC) 84.7 fL Normal 80.0-100.0 [facility] Comment on above: Performed By: #### C BCDIF, BMP, MG1, PHOS ####[place] [phone] Monocytes/100 WBC Auto (Bld) 9.2 % Normal [facility] Comment on above: Performed By: #### C BCDIF, BMP, MG1, PHOS ####[place] [address] Neutrophils/100 WBC Auto (Bld) 59.0 % Normal [facility] Comment on above: Performed By: #### C BCDIF, BMP, MG1, PHOS ####[place] [address] Platelet mean volume Auto Entitic volume (Bld) 9.9 fL Normal 9.0-12.7 [facility] Comment on above: Performed By: #### C BCDIF, BMP, MG1, PHOS ####[place] [phone] Platelets Auto #/vol (Bld) 286 10*3/uL Normal 150-400 [facility] Comment on above: Performed By: #### C BCDIF, BMP, MG1, PHOS ####[place] [phone] RBC Auto #/vol (Bld) 5.11 10*6/uL Normal 4.20-6.00 [facility] Comment on above: Performed By: #### C BCDIF, BMP, MG1, PHOS ####[place] [phone] WBC Auto #/vol (Bld) 7.51 10*3/uL Normal 3.70-11.00 [facility] Comment on above: Performed By: #### C BCDIF, BMP, MG1, PHOS ####[facility] [place], [place] [phone] CNDSon 05-11-2017 CNDS HNO ID: [id number] thor: Arvind Huervice: General Internal MedicineAuthor Type: PhysicianType: Discharge SummariesFiled: 05/18/2017 12:37 PMNote Text:DISCHARGE NOTE (Patient Admitted Less than 48 Hours)ADMISSION DATE: 05/07/2017CONDITION OF PATIENT ON DISCHARGE: STABLEDIET: RESUME DIETACTIVITY: Resume pre-hospital activityFOLLOW UP CARE REQUIRED: PCPDISCHARGE MEDICATIONS: Discharge Medication List as of 05/11/2017 11:11 AMSTART taking these medicationslevETIRAcetam (KEPPRA) 1,000 mg tabletTake 1 tablet by mouth twice daily.Print RX, Disp-60 tablet, R-1, Long-termFINAL DIAGNOSIS: LOSS OF CONSCIOUSNESSArvind Prado MD [facility] CONSULT PROGon 05-11-2017 Protein mass conc HNO ID: [id number] thor: Mónica Barreraervice: NeurologyAuthor Type: PhysicianType: Consult Progress NoteFiled: 05/11/2017 10:36 AMNote Text:As per the patient's nurse, patient has been alert and oriented ?3. Thisincludes 24 hours without confusion. EEG report until 5 p.m. yesterday didnot show any seizures or seizure propensity. There was some slowing righttemporal parietal.Paraneoplastic panel still pending. But patient wants to go home andyesterday threatened to leave AMA.Bedside EEG monitoring can be discontinued and patient can be dischargedhome with follow-up in epilepsy clinic. He should continue same outpatientdose of Keppra until he comes to clinic.Mónica Flores [facility] [id number] [facility]/ [place] [phone] [facility] HSVG Typ 1 and 2 Abson 05-11 Herpes Simplex IgG 1 <0.2 [facility] Comment on above: Result Comment: INDE X VALUES ARE INTERPRETED FOLLOWS:NEGATIVE SPECIMENS <0.9EQUIVOCAL SPECIMENS 0.9 TO 1.0POSITIVE SPECIMENS >=1.1 Performed By: #### H SVG12 ####[place] [address] Herpes Simplex IgG 2 7.1 AI Normal [facility] Comment on above: Result Comment: INDE X VALUES ARE INTERPRETED FOLLOWS:NEGATIVE SPECIMENS <0.9EQUIVOCAL SPECIMENS 0.9 TO 1.0POSITIVE SPECIMENS >=1.1 Performed By: #### H SVG12 ####[place] [address] HSV IgG 1 Qualitative Negative Normal Negative [facility] Comment on above: Result Comment: No H SV-1 IgG antibodies detected.Patient is presumed not to have hada previous HSV-1 infection. 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 Performed By: #### H SVG12 ####[place] [address] Magnesiumon 05-11-2017 Magnesium mass conc 2.2 mg/dL Normal 1.7-2.6 [facility] Comment on above: Performed By: #### C BCDIF, BMP, MG1, PHOS ####[facility] [place], [place] [phone] NURSING PROGon 05-11-2017 Protein mass conc HNO ID: [id number] thor: Ambrose (Rn) Ryan, RNService: (none)Author Type: Registered NurseType: Nursing Progress NoteFiled: 05/11/2017 1:28 PMNote Text: Nursing Progress NotePatient Name: Grant Blanchard JRMRN: [id number] Location: [place] [address]/BM-ICLZ-23 Daily Note: Patient discharged to home with instructions given, verbalizedunderstanding on medications, diet, activity and follow up.This note was completed by: Ambrose Davis RN [facility] Protein mass conc HNO ID: [id number] thor: Ambrose Bose) Maki Davisice: (none)Author Type: Registered NurseType: Nursing Progress NoteFiled: 05/11/2017 10:54 AMNote Text: Nursing Progress NotePatient Name: Grant Blanchard JRMRN: [id number] Location: /KM-FXQY-64 Daily Note: Patient alert and oriented, denies dizziness, denies pain,anxious to leave this morning, BEM still on but is discontinued, waitingfor last reading from , lungs clear, 96 RA, Tele SR 94, toleratingregular diet, ambulates with stable gait, will continue Seizureprecautions, family at bedside, currently resting in bed with call lightin reach.This note was completed by: Ambrose Davis RN [facility] Protein mass conc HNO ID: [id number] thor: Michelle Porter Rn: (none)Author Type: Registered NurseType: Nursing Progress NoteFiled: 05/11/2017 5:56 AMNote Text: Nursing Progress NotePatient Name: Grant Blanchard JRMRN: [id number] Location: TB/DQ-QFFK-97 Daily Note:Pt AANDOx3 and appears easily arousable. 24 hour EEG ongoing. Pt told EEGtech he did not want to be on EEG any more. RN convinced pt to have it onovernight and pt accepted. Normal Sinus Rhythm/ Sinus Tachycardia on tele.Call light in reach and bed alarm on. No further complaints at this time.This note was completed by: Karen Frey RN [facility] PLAN OF CAREon 05-11-2017 PLAN OF CARE HNO ID: [id number] thor: Karen Marin (Pharmacist)Service: PharmacyAuthor Type: PharmacistType: Plan of CareFiled: 05/11/2017 1:30 PMNote Text:DISCHARGE MEDICATION REVIEW BY PHARMACYPatient Name: Grant Blanchard JR : [id number] Admission Date: 05/07/2017Date of Contact: May 11, 2017 Time of Contact: 1:30 PMMedication list was reviewed by a Pharmacist for drug interactions or drugrelated problems:YesBelow is a summary of pharmacist recommendations discussed with LIP:No Recommendations at this time from Discharge Medication List.Karen Marin PharmacistApril 2017 1:30 PMPager: [phone]/04/2017 1:30 PMMedication ListSTART taking these medications levETIRAcetam 1,000 mg tabletCommonly known as: KEPPRATake 1 tablet by mouth twice daily.Where to Get Your MedicationsInformation about where to get these medications is not yet available ! Ask your nurse or doctor about these medications - levETIRAcetam 1,000 mg tablet Normal [facility] Phosphoruson 05-11-2017 Phosphate mass conc 3.6 mg/dL Normal 2.5-4.5 [facility] Comment on above: Performed By: #### C BCDIF, BMP, MG1, PHOS ####[facility] [place], [place] [phone] Basic Metabolic Panlon 05-10 Anion gap 3 molar conc 15 mmol/L Normal 9-18 [facility] Comment on above: Performed By: #### C BCDIF, BMP ####[facility] [place], [place] [phone] Calcium mass conc 9.4 mg/dL Normal 8.5-10.5 [facility] Comment on above: Performed By: #### C BCDIF, BMP ####[place] [phone] Chloride molar conc 101 mmol/L Normal 98-110 [facility] Comment on above: Performed By: #### C BCDIF, BMP ####[place] [phone] CO2 molar conc 24 mmol/L Normal 23-32 [facility] Comment on above: Performed By: #### C BCDIF, BMP ####[place] [phone] Creatinine mass conc 0.75 mg/dL Normal 0.70-1.40 [facility] Comment on above: Performed By: #### C BCDIF, BMP ####[place] [phone] eGFR- Amer. >60 Normal >60 [facility] Comment on above: Performed By: #### C BCDIF, BMP ####[place] [phone] GFR/1.73 sq M predicted among non-blacks MDRD vol rate/area (S/P/Bld) mL/min/{1.73_m2} Normal >60 [facility] Comment on above: Performed By: #### C BCDIF, BMP ####[place] [phone] Glucose mass conc 90 mg/dL Normal 65-100 [facility] Comment on above: Performed By: #### C BCDIF, BMP ####[place] [phone] Potassium molar conc 3.5 mmol/L Normal 3.5-5.0 [facility] Comment on above: Performed By: #### C BCDIF, BMP ####[place] [phone] Sodium molar conc 140 mmol/L Normal 135-146 [facility] Comment on above: Performed By: #### C BCDIF, BMP ####[facility] [place], [place] [phone] Urea nitrogen mass conc 8 mg/dL Low 10- [facility] Comment on above: Performed By: #### C BCDIF, BMP ####[facility] [place], [place] [phone] CASE MGT INIT ASSNICOon 2017 CASE MGT INIT AUBREY HNO ID: [id number]: Katerine () GurgolService: Case ManagementAuthor Type: Social WorkerType: Care Mgt Initial AssessmentFiled: 05/10/2017 1:14 PMNote Text:CARE MANAGEMENT: ASSESSMENT AND DISCHARGE PLANSERVICE DATE: 05/10/2017SERVICE TIME: 12:03 PMPRIMARY CARE PHYSICIAN:Pt reports primary PCP is Dr. Glen Coombsone: NoneADMISSION STATUS: InpatientNeeds Prior to Discharge: To Be Determined;OT/PT EvaluationMEDICAL:Patient/Repres entative Stated Goals:To return home to life as it [facility] Insurance:Firecomms Issues Impacting Discharge Plan: Newly diagnosed seizuresLast Admission Date: noneIs this Within the Past 30 days? N/AAdvance Directive:Health Literacy:1. How often do you need to have someone help you when you readinstructions, pamphlets, or other written material from your doctor orpharmacy? Never - 12. How confident are you filling out medical forms by yourself? Extremely- 1If Patient scores > 3 on either question, the following interventions wereput into place:Patient did not score > 3FUNCTIONAL AND COGNITIVE/BEHAVIORALPRIOR TO ADMISSION:Baseline Mental Status: Alert AND Oriented, Person, Place , Time andSituationFunctional Status: IndependentDoes Patient Currently Receive Any Community Services or Home Care? NoneEquipment Prior to Admission: NoneHas the Patient Been in a Fdc Facility in the Past 30 days?N/ASOCIAL:Living Arrangement: HomeLives With: familyFinancial Resources: Employed: [employer]Primary Contact: Extended Emergency Contact InformationPrimary Emergency Contact: Grant Henning [place]: ParentSupportive: YesOther Important Patient Contacts: Family: Name: mother, Mai Duenas Cchvcczmg Assessment:Caregiver is ready, willing and able to meet the patient's needs asrecommended by the inter-professional team? No Caregiver NeededPatient's transition needs and plan for meeting these needs: TBD; possiblehome with self-careDoes the patient have an acute stroke diagnosis, or has the patient had astroke during this admission? NoMedication Adherence:I am convinced of the importance of my prescription medication: Agreecompletely - 0I worry that my prescription medication will do more harm than good to meDisagree completely - 0I feel financially burdened by my ytf-or-ugulra expenses for myprescription medication: Disagree completely - 0Patient is categorized as low risk < 2Are you interested in bedside delivery of your medications? YesFood Concerns:In the Last Month, Have You had Trouble Getting Food? No trouble gettingfoodDuring the Last Month, Have You Worried Whether Your Food Would Run OutBefore You Had Enough Money to Buy More? NoIs the Patient Psychosocially Complex? NoASSESSMENT AND PLAN:Medical Needs: NonePsychosocial Needs: NoneFREEDOM OF CHOICE EXPLAINED:N/APOTENTIAL TRANSITION PLANSHomeTo Be DeterminedMet with Pt and family at bedside to complete assessment and introducerole of CM. Pt presented after having a seizure at a local gas station. Ptreports no prior history of seizures. Pt was previously intubated; is nowextubated and is alert and appropriate. [place] with [place], he is working and is fully independent. Pt denies needs at thistime. Discussed CM will follow in his care to assist with his transitionplanning as needs evolve.ADDENDUM 12:45PMPt requested to meet with CM again. Pt inquired if he could be D/C'dtoday; expressing some level of wanting to leave AMA. Advised will notifyPt's MD.Dr. Juan Daniel phan and discharge specialist notified of Pt's request.SIGNATURE: SOPHIA Brown PATIENT NAME: Grant Blanchard JRDATE: May 10, 2017 : 12:03 PM PAGER/CONTACT #: [phone] [facility] and Differentialon 05-10 Abs Baso 0.05 k/uL Normal <0.11 [facility] Comment on above: Performed By: #### C BCDIF, BMP ####[place] [address] Abs Richardson 0.89 k/uL High <0.87 [facility] Comment on above: Performed By: #### C BCDIF, BMP ####[place] [address] Abs Neut 6.62 k/uL Normal 1.45-7.50 [facility] Comment on above: Performed By: #### C BCDIF, BMP ####[address] Basophils/100 WBC Auto (Bld) 0.5 % Normal [facility] Comment on above: Performed By: #### C BCDIF, BMP ####[place] [address] DTYPE Auto Diff Normal [facility] Comment on above: Performed By: #### C BCDIF, BMP ####[place] [address] Eosinophils Auto #/vol (Bld) 0.18 10*3/uL Normal <0.46 [facility] Comment on above: Performed By: #### C BCDIF, BMP ####[place] [address] Eosinophils/100 WBC Auto (Bld) 1.7 % Normal [facility] Comment on above: Performed By: #### C BCDIF, BMP ####[place] [phone] Erythrocyte distribution width Auto Ratio (RBC) 11.7 % Normal 11.5-15.0 [facility] Comment on above: Performed By: #### C BCDIF, BMP ####[place] [phone] Hematocrit Auto Volume Fraction (Bld) 43.2 % Normal 39.0-51.0 [facility] Comment on above: Performed By: #### C BCDIF, BMP ####[place] [phone] Hemoglobin mass conc (Bld) 15.3 g/dL Normal 13.0-17.0 [facility] Comment on above: Performed By: #### C BCDIF, BMP ####[place] [phone] Lymphocytes Auto #/vol (Bld) 2.81 10*3/uL Normal 1.00-4.00 [facility] Comment on above: Performed By: #### C BCDIF, BMP ####[place] [phone] Lymphocytes/100 WBC Auto (Bld) 26.6 % Normal [facility] Comment on above: Performed By: #### C BCDIF, BMP ####[place] [phone] MCH Auto Entitic mass (RBC) 30.5 pG Normal 26.0-34.0 [facility] Comment on above: Performed By: #### C BCDIF, BMP ####[place] [phone] MCHC Auto mass conc (RBC) 35.4 g/dL Normal 30.5-36.0 [facility] Comment on above: Performed By: #### C BCDIF, BMP ####[place] [phone] MCV Auto Entitic volume (RBC) 86.2 fL Normal 80.0-100.0 [facility] Comment on above: Performed By: #### C BCDIF, BMP ####[place] [phone] Monocytes/100 WBC Auto (Bld) 8.4 % Normal [facility] Comment on above: Performed By: #### C BCDIF, BMP ####[place] [phone] Neutrophils/100 WBC Auto (Bld) 62.8 % Normal [facility] Comment on above: Performed By: #### JAMES WELDON ####[place] [phone] Platelet mean volume Auto Entitic volume (Bld) 9.7 fL Normal 9.0-12.7 [facility] Comment on above: Performed By: #### Kj MIRANDA, BMP ####[place] [phone] Platelets Auto #/vol (Bld) 260 10*3/uL Normal 150-400 [facility] Comment on above: Performed By: #### Kj MIRANDA, BMP ####[place] [phone] RBC Auto #/vol (Bld) 5.01 10*6/uL Normal 4.20-6.00 [facility] Comment on above: Performed By: #### Kj MIRANDA, BMP ####[place] [phone] WBC Auto #/vol (Bld) 10.55 10*3/uL Normal 3.70-11.00 [facility] Comment on above: Performed By: #### jK MIRANDA, BMP ####[place] [phone] CONSULT PROGon 05-10-2017 Protein mass conc HNO ID: [id number] thor: Mónica Barreraervice: NeurologyAuthor Type: PhysicianType: Consult Progress NoteFiled: 05/10/2017 4:00 PMNote Text:TEAM PROGRESS NOTE (GENERAL) NEUROLOGYSERVICE DATE: 05/10/2017SERVICE TIME: 230 PMSubjectivePatient evaluated in ICU bed. Surrounded by family.Current hospital medications:levETIRAcetam 1,000 mg tab(s) (KEPPRA) 1,000 mg ORAL BIDheparin 5,000 Units injection 5,000 Units SUBCUTANEOUS q 12 Hmetoclopramide HCl 5 mg injection (REGLAN) 5 mg INTRAVENOUS q 6 H PRNlactated ringers infusion 150 mL/hr INTRAVENOUS CONTINUOUSdextrose 40 % 15 g 15 g ORAL PRNglucagon 1 mg injection (GLUCAGEN) 1 mg INTRAMUSCULAR PRNdextrose 50% in water 25 mL syringe 12.5 g INTRAVENOUS PRNacetaminophen 650 mg suppository (TYLENOL) 650 mg RECTAL q 4 H PRNVITAL SIGNS 24 HOUR REVIEW:BP 128/72 Pulse 109 Temp 37.4 ?C (99.3 ?F) (Oral) Resp 16 Ht 180.3cm (5' 11 ) Wt 119.2 kg (262 lb 12.6 oz) SpO2 96% BMI 36.65 kg/r6RvgghscxdMfrlbbg is alert and oriented to time person and place.All questions answered appropriately. Following commands.Pupils reactive to light. Extraocular movements intact.Moves all extremities spontaneously. No focal weakness.DATA:BEMDiagnostic tests reviewed for today's visit:Most recent labs and imaging results.Assessment/Plan- HSV was negative. Paraneoplastic panel still pending. Likelyencephalitic process of unknown etiology. Since he has become orientedsince this morning. I want him to keep the bedside EEG monitoring for 24hours, at least until tomorrow morning and we should watch clinically forany altered mental status. If he continues oriented and there are noabnormalities on EEG tomorrow morning then it can be discontinued. Sinceetiology of encephalopathy at home not clear, and inclined to continue hisKeppra outpatient and reevaluate him in clinic and assess for need ofcontinuous antiepileptic medication.I have requested a follow-up with outpatient neurology.I spent 25 minutes with this patient, more than half that time oneducation.SIGNATURE: Mónica Flores MD PATIENT NAME: Grant Blanchard DATE: May 10, 2017 : 3:53 PM PAGER/CONTACT #: Normal [facility] Magnesiumon 05-10-2017 Magnesium mass conc 2.2 mg/dL Normal 1.7-2.6 [facility] Comment on above: Performed By: #### M THOMAS Terrell ####[facility] [place], [place] [phone] NURSING PROGon 05-10-2017 Protein mass conc HNO ID: [id number] thor: Darcy Bose) CrumService: NursingAuthor Type: Registered NurseType: Nursing Progress NoteFiled: 05/10/2017 5:27 PMNote Text: Nursing Progress NotePatient Name: Grant Blanchard JRMRN: [id number] [facility]VT-[id number] Transfer Note:Patient transferred into room/unit pk in stable condition. Actionstaken: No futher actions taken at this time. Will continue to monitor andcheck with patient.1723- Pt c/o generalized throbbing headache after ambulating x1 assist tothe bathroom, x1 unwitnessed bm. Pt resting in bed, follow up orderentered for tylenol po from tylenol sup, awaiting pharmacy to verify.Seizure px maintained, call light within reach, girlfriend and family atbedside.This note was completed by: Darcy Ramirez RN [facility] Protein mass conc HNO ID: [id number] thor: Kari (Rn) NEFTALY Maguireervice: NursingAuthor Type: Registered NurseType: Nursing Progress NoteFiled: 05/10/2017 2:34 PMNote Text: Nursing Progress NotePatient Name: Grant Blanchard JRMRN: [id number] [facility]Q-DSZ-83 Daily Note:0700 Report received from cooler service supervisor RN.0800 Assessment completed, see ICU flow sheet.0845 ICU team rounding. Patient updated on Plan of care.0900 Trauma at bedside to see patient.1200 No changes in assessment.1430 Report called to PKT.This note was completed by: Kari Duenas RN [facility] PLAN OF CAREon 05-10-2017 PLAN OF CARE HNO ID: [id number] Author: Reji Frances MD Service: General Internal Medicine Author Type: Resident Type: Plan of Care Filed: 05/10/2017 2:05 PM Note Text: Dr. Copeland spoke to Dr. Fermin and agreed to transfer the patient under his service [facility] PROGRESSon 05-10-2017 Protein mass conc HNO ID: [id number] thor: Shay Echeverriaice: Infectious DiseaseAuthor Type: PhysicianType: Progress NotesFiled: 05/10/2017 4:21 PMNote Text:INPATIENT PROGRESS NOTESPATIENT NAME: Grant Blanchard JRMRN: [id number] DATE: 05/10/2017SERVICE TIME: 4:12 PMPRIMARY SERVICE: Infectious DiseaseASSESSMENT AND PLANSeizures Assessment: has awakened, out of ICU. Initial temps gone. Wbcsnormalized. ATBs stopped after single doses, cxs neg. Ddx then is ofan encephalitis or just a primary seizure disorder. Favoringencephalitis is the initial fever, and leukocytosis to some degree. TheCSF is consistent with that, but the CSF was also typical of any seizure,50% of seizure produce CSF like this. Encephalitis due to causes otherthan HSV is unusual in the winter - arboviruses are not present. Againsta primary seizure disorder is an absence of a seizure focus on EEG. Atthis point, I am ok with stopping acyclovir. If neurology wishes toretap, I think that is reasonable. If not, should this be pcr neg HSVencephalitis, I would expect a deterioration with recurrence of confusionand fever, and should those recur, he should be readmitted and retapped. Plan: Dc acyclovir. I will send HSV 1 and 2 antibodies, their absencewould further exclude HSV encephalitisSUBJECTIVEINTERVAL HPI: No new symptoms defining new problems.CURRENT ANTI-INFECTIVES: noneOBJECTIVEPHYSICAL EXAM:Temp (24hrs), Av.2 ?C (99 ?F), Min:37.1 ?C (98.8 ?F), Max:37.4 ?C(99.3 ?F)Patient Vitals for the past 24 hrs: BP Temp Temp src Pulse Resp LaA407/18 1528 128/72 37.4 ?C (99.3 ?F) Oral 109 16 96 %05/10/17 1400 123/76 - - 110 20 -05/10/17 1300 131/76 - - 114 22 -05/10/17 1200 139/79 37.2 ?C (99 ?F) Oral 99 17 95 %05/10/17 1100 128/83 - - 96 (!) 33 99 %05/10/17 1000 136/68 - - 95 20 -05/10/17 0900 139/71 - - 115 23 97 %05/10/17 0800 138/85 37.1 ?C (98.8 ?F) Oral 93 - 99 %05/10/17 0700 133/95 - - 112 22 97 %05/10/17 0600 130/87 - - 107 20 -05/10/17 0500 122/65 - - 106 27 -05/10/17 0400 132/93 37.2 ?C (99 ?F) Oral 103 (!) 35 -05/10/17 0300 139/90 - - 106 15 91 %05/10/17 0200 131/81 - - 101 25 95 %05/10/17 0100 133/92 - - 109 - 88 %05/10/17 0000 138/87 - - 111 - (!) 84 %05/09/17 2300 148/92 - - 112 - (!) 84 %05/09/17 2200 146/83 - - 117 24 98 %05/09/17 2100 132/80 - - 113 21 95 %05/09/17 2000 130/80 37.3 ?C (99.1 ?F) Oral 114 22 97 %05/09/17 1900 (!) 152/131 - - (!) 121 16 (!) 87 %05/09/17 1800 142/96 - - 110 21 94 %05/09/17 1700 115/74 - - 97 25 95 %Body mass index is 36.65 kg/(m2).General - no distress, alert and oriented x 3, getting EEG placed again.DATA: Diagnostic tests reviewed for today's visit.WBCDate Value Ref Range Yqnmab7405/10/2017 10.55 3.70 - 11.00 k/uL Final05/09/2017 12.93 (H) 3.70 - 11.00 k/uL Final05/07/2017 21.89 (H) 3.70 - 11.00 k/uL Final ]SIGNATURE: Shay Gomez MDDATE: May 10, 2017TIME: 4:12 PM [facility] Protein mass conc HNO ID: [id number] thor: Alex Osorioe: General Internal MedicineAuthor Type: PhysicianType: Progress NotesFiled: 05/10/2017 4:00 PMNote Text:MICU PROGRESS NOTE WITH COORD CARESERVICE DATE: 05/10/2017SERVICE TIME: 9:30 AMADMISSION DATE: 05/07/2017Day #: 2 in the MICU.HPI on admission:This is a 21 year old male with no significant PMHx who presents withseizure like activity. ?This history was taken from chart as patient isnon responsive. ?For the prior week the patient has been acting oddaccording to his mother. ?He has been coming out to the hallway naked andnot realizing it. ?He has head headaches and is vomiting. ?According tohis girlfriend he has been feeling off balance, dizzy and havingheadaches. ?Him and his girlfriend went to the gas station and he turnedand grabbed her and said he was going to fall. ?After this he hit his headand started to have tonic and clonic movements along with bladderincontinence. ?They than presented to [facility] where he was found in apost-itcal state. ?He went for CT scan of the head where he had anotherseizure and was given ativan. ?CT scan of the head was limited due toasymmetry and atrifact from backboard. ?However the radiologist did callthe ED physician and raised concern for possible subdural hematoma alongthe tentorium and posterior falx. ?[facility] ?[facility] he was intubated due to hismental status and transferred to SICU and than a MRI was done which wasnormal. ?A LP was done and the patient was than transferred to MICU forfurther management.??Interval events:- May 09, 2017Overnight, no issuesToday, patient extubated. Tolerate it well.EEG: evidence of a severe encephalopathyLabs: WBC dropped from 21 to 12. creatinine 0.84Urine osmolarity, NMDA receptor antibody pendingMicro: acute hepatitis panel and cultures negative till nowPlan for today:Monitor mental status off extubationContinue EEG and watch for seizuresContinue acyclovir and Keppra and reassess tomorrow.- May 10, 2017Neurology yesterday: continue BEM, Keppra and acyclovir.No seizures on EEGOvernight, no issuesLabs: WBC 10.55 (from 12.9), Hb 15.3, PLT 260, K 3.5, Na 140, creatinine0.75Plan for today:Transfer outMonitor overnight for mental status change and seizures on the floorStop acyclocir (spoke with Dr. Gomez)??Assessment and plan:?Summary:21 y old male presented for altered mental status due to viralencephalitis. Extubated and stable to go to the floor.??Altered mental status due to viral encephalitis- Today back to his baseline mental status- patient presented with seizure like activity- Wbc count 21.89 on admission, currently 10.55- LP was done which showed colorless CSF with high opening pressure 37 cmof water with a corrected WBC in the CSF of 11 with predominantlylymphocytes, and elevated glucose and elevated protein., consistent withviral encephalitis. However hsv pcr of CSF is negative along withenterovirus pcr- ID and Neuro on consultPlan:- keppra 1000 mg bid and continue EEG- per ID can stop acyclovir since herpes PCR negative- Was intubated for airway protection, extubated yesterday?DVT prophylaxis: heparinGI prophylaxis: not indicated???Plan discussed with Dr. ShinjectivePHYSICAL EXAM PERFORMED: VITAL SIGNS (last 24hrs min/max):Temp Av.2 ?C (98.9 ?F) Min: 36.9 ?C (98.5 ?F) Max: 37.3 ?C (99.1?F)Pulse Av.6 Min: 93 Max: 122No Data RecordedCuff BP Min: 115/74 Max: 152/131Pain Score: 0/10Vital signs reviewed. Relevant comments- stableNET FLUID BALANCEIntake/Output Summary (Last 24 hours) at 05/10/17 0824Last data filed at 05/10/17 0600 Gross per 24 hourIntake 2194 mlOutput 2565 mlNet -371 mlMEDICATIONS Hospital/inpatient medications reviewedHEENT:Oral Mucosa: Moist mucous membranes Feeding Tube: NoEyes: PERRLA Neck: Unremarkable; No adenopathy or JVDCardiovascular: Regular rhythmRelevant Hemodynamic Data: stableRespiratory: Clear to auscultationRoom airAbdomen: Soft, Nontender and Positive bowel soundsExtremities: Edema- No Peripheral Pulses- Present all extremitiesCapillary Refill- less than 3 secondsSkin: Abnormalities- No Breakdown- NoNeurologic: Awake, oriented, Alert, Follows commands, Moving allextremities and motor power/cranial nerves grossly normalNUTRITION: regularEnteral Feeds: NoDATA:Diagnostic tests reviewed for today's visit:Most recent labs and imaging results.Assessment/PlanActive Hospital Problems Diagnosis- Nicotine use disorder, F17.2- Status epilepticus (HCC)PATIENT CHECKLIST? Are restraints necessary: No? Deep vein thrombosis prophylaxis administered? Yes? Stress ulcer prophylaxis? No, not indicated.? Nasogastric tube? No? Hogan catheter necessary? No? Is central line essential? No? Plan discussed with assigned RN? Yes? Family updated within last 24 hours? YesSIGNATURE: Reji Frances MD PATIENT NAME: Grant Blanchard JRDATE: May 10, 2017 : 8:24 AM PAGER/CONTACT #: [phone] [place] PH[facility]ICIAN NOTE OF PERSONAL INVOLVEMENT IN CAREI have reviewed the progress note obtained and documented by the residentand I personally participated in the renae components. I have discussed thecase and management of the patient's care. The following comments reviseor confirm relevant renae components of the note.IMPRESSION: 21 yo m with h/o insomnia admitted in setting of fall withwitnessed seizure activity intubated for airway protection s/p extubationwith viral encephalitis1. Viral encephalitis2. seizuresPLAN:Cont IV acylovirAlert, followign commandsID on boardCont keppraHeparin for VTE pxTransfer to floorSIGNATURE: NEPTALI Quiroz INSTITUTEPAGER:[id number] of SERVICE: 05/10/17TIME of SERVICE: 3:59 PM [facility] Protein mass conc HNO ID: [id number] thor: George Meade ([facility]) SereikaService: TraumaAuthor Type: Nurse PractitionerType: Progress NotesFiled: 05/10/2017 9:14 AMNote Text:TRAUMA PROGRESS NOTESERVICE DATE: 05/10/2017SERVICE TIME: 7:40 AMSubjectiveHISTORY (LAST 24 HOURS): pt is 21 yo male who was in gas station when hesuddenly fell having seizures. sent to [facility] ED where on scan leesathey saw small SDh ( now thought to be false read, MRI ruled out anybleed) s/p seizures requiring intubation upon tx and arrival at ED . Ptworkup and thought to have viral encephalitis. Extubated. A and O x3 Cspine cleared. no acute traumatic injuries found. trauma service will signoff . please reconsult if neededPERTINENT ROS:REVIEW OF SYSTEMSGENERAL: No weight loss, malaise or feversHEENT: SEE HPINECK: Negative for lumps, goiter, pain and significant neck swellingRESPIRATORY: Negative for cough, hemoptysis, wheezing, COPD, dyspnea orshortness of breathCARDIOVASCULAR: Negative for chest pain, leg swelling, hypertension, CHFor palpitationsGI: No nausea, vomiting, or diarrheaMUSCULOSKELETAL: Negative for joint pain or swelling, back pain or musclepainSKIN: Negative for lesions, rash, and itchingPSYCH: Negative for sleep disturbance, mood disorder and recentpsychosocial stressorsNEURO: SEE HPICurrent hospital medications:fentaNYL 20 mcg/mL iv infusion in NaCl 0.9% 100 mL 25-250 mcg/hrINTRAVENOUS CONTINUOUSheparin 5,000 Units injection 5,000 Units SUBCUTANEOUS q 12 Hacyclovir 750 mg in D5W 250 mL (ZOVIRAX) 10 mg/kg/dose ([place]) INTRAVENOUSq 8 Hmetoclopramide HCl 5 mg injection (REGLAN) 5 mg INTRAVENOUS q 6 H PRNlevETIRAcetam 1,000 mg in NaCl 0.9% 100 mL (KEPPRA) 1,000 mg INTRAVENOUSBIDlactated ringers infusion 150 mL/hr INTRAVENOUS CONTINUOUSfentaNYL 50 mcg/mL 25-50 mcg injection (SUBLIMAZE) 25-50 mcg INTRAVENOUS q5 MIN PRNpantoprazole 40 mg injection (PROTONIX) 40 mg INTRAVENOUS DAILY (6 AM)propofol infusion (DIPRIVAN) 5-50 mcg/kg/min INTRAVENOUS CONTINUOUSdextrose 40 % 15 g 15 g ORAL PRNglucagon 1 mg injection (GLUCAGEN) 1 mg INTRAMUSCULAR PRNdextrose 50% in water 25 mL syringe 12.5 g INTRAVENOUS PRNacetaminophen 650 mg suppository (TYLENOL) 650 mg RECTAL q 4 H PRNObjectiveASSESSMENT:BP 133/95 Pulse 112 Temp (Src) 99 (Oral) Resp 22 Ht 5' 11 (1.80m) Wt 262 lb 12.6 oz (119.2kg) SpO2 79% BMI 36.67 kg/(m2).NEURO: Alert AND Oriented x 3, GCS 15, Cranial Nerves II-XII Intact, MovesAll Extremities, Strength Symmetrical, No Sensory DeficitsHEENT: Head: No lacerations or abrasions, no bony step offs, midfacestable to palpation, Eyes: PERRL, conjunctiva/corneas without lesions, EOMintact, Ears: Canals without blood or CSF drainage, TMs clear, externalears without lacerations, Nose: Septum midline, no crepitus with motion,Throat: Oral mucosa without lacerations, teeth in place, tongue withoutlacerationsNECK: No midline pain with palpation, No pain with active ROM, Nolacerations/wounds, No JVD, Trachea midlineRESPIRATORY:No abrasions or contusions, No crepitus, No TTP, EqualExcursionCARDIOVASCULAR: Heart rate regular, S1S2 with no R/M/G, Radial pulsepresent bilaterally, Femoral pulse present bilaterally, Dorsalis pulsepresent bilaterallyABDOMEN: Non-distended, No scars or lacerations, Non-tenderness orperitoneal signs, No masses or organomegaly, Bowel sounds present allquadsPELVIC/PERINEAL: Normal male genitalia, Pelvis stable to palpationBACK/SPINE: Thoracolumbar spinal column non-tender, No step off ordeformity noted, No external injury notedEXTREMITIES: Arm/Shoulder normal bilaterally, Forearm/Elbow normalbilaterally, Hand/Wrist normal bilaterally, Thigh/Hip normal bilaterally,Leg/Knee normal bilaterally, Foot/Ankle normal bilaterallyDATA:LABS:Recent Labs 549 0405/09/1801854WBC 10.55 -- 12.93* -- -- -- 21.89* 11.64*HB 15.3 -- 14.5 -- -- -- 16.0 17.0HCT 43.2 -- 41.7 -- -- -- 44.4 48.8PLT 260 -- 235 -- -- -- 314 371NA 140 143 -- 141 < > 137 141 143K 3.5 3.9 -- 3.7 < > 5.5* 4.1 3.9CHLOR 101 105 -- 105 < > 103 103 102CO2 24 26 -- 26 < > 16* 25 24CREAT 0.75 0.84 -- 0.84 < > 0.90 0.88 1.05P 2.6 -- 2.7 -- -- 4.3 -- --BUN 8* 9* -- 8* < > 13 14 17GLUC 90 90 -- 106* < > 128* 141* 104*TPROT -- -- -- -- -- -- 7.1 8.1ALB -- -- -- -- -- -- 4.4 4.8MG 2.2 -- 2.2 -- -- 2.2 -- --CA 9.4 8.6 -- 8.4* < > 8.9 7.9* 9.5ALKPHOS -- -- -- -- -- -- 44 52TBILI -- -- -- -- -- -- 0.7 0.7AST -- -- -- -- -- -- 25 26ALT -- -- -- -- -- -- 45 47AMYLASE -- -- -- -- -- -- 43 --LIPASE -- -- -- -- -- -- 24 --APTT -- -- -- -- -- -- 23.3 22.0*INR -- -- -- -- -- -- 1.1 1.0< > = values in this interval not displayed.Assessment/PlanACTIVE PROBLEM LISTStatus Epilepticus (Hcc)Nicotine use disorder, F17.2Seizure activity with fallNo traumatic injuries noted on tertiary exam or all imaging- Transfer to MICU/Medicine service- EEG in place and neuro followingNo acute traumatic injuriestrauma service will sign off. Please re consult if neededSIGNATURE: George Jeronimo APRN.PLANT CUSTODIAN PATIENT NAME: Grant Blanchard JRDATE: May 10, 2017 : 7:40 AM PAGER/CONTACT #: [phone] cell [facility] Phosphoruson 05-10-2017 Phosphate mass conc 2.6 mg/dL Normal 2.5-4.5 [facility] Comment on above: Performed By: #### M G1, PHOS ####[place] [phone] Basic Metabolic Panlon 05-09 Anion gap 3 molar conc 12 mmol/L Normal 9-18 [facility] Comment on above: Performed By: #### B MP ####[place] [phone] Calcium mass conc 8.6 mg/dL Normal 8.5-10.5 [facility] Comment on above: Performed By: #### B MP ####[place] [phone] Chloride molar conc 105 mmol/L Normal 98-110 [facility] Comment on above: Performed By: #### B MP ####[place] [phone] CO2 molar conc 26 mmol/L Normal 23-32 [facility] Comment on above: Performed By: #### B MP ####[place] [phone] Creatinine mass conc 0.84 mg/dL Normal 0.70-1.40 [facility] Comment on above: Performed By: #### B MP ####[place] [phone] eGFR- Amer. >60 Normal >60 [facility] Comment on above: Performed By: #### B MP ####[place] [phone] GFR/1.73 sq M predicted among non-blacks MDRD vol rate/area (S/P/Bld) mL/min/{1.73_m2} Normal >60 [facility] Comment on above: Performed By: #### B MP ####[place] [phone] Glucose mass conc 90 mg/dL Normal 65-100 [facility] Comment on above: Performed By: #### B MP ####[place] [phone] Potassium molar conc 3.9 mmol/L Normal 3.5-5.0 [facility] Comment on above: Performed By: #### B MP ####[place] [phone] Sodium molar conc 143 mmol/L Normal 135-146 [facility] Comment on above: Performed By: #### B MP ####[place] [phone] Urea nitrogen mass conc 9 mg/dL Low 10-25 [facility] Comment on above: Performed By: #### B MP ####[place] [phone] Anion gap 3 molar conc 10 mmol/L Normal 9-18 [facility] Comment on above: Performed By: #### B MP ####[place] [phone] Calcium mass conc 8.4 mg/dL Low 8.5-10.5 [facility] Comment on above: Performed By: #### B MP ####[place] [phone] Chloride molar conc 105 mmol/L Normal 98-110 [facility] Comment on above: Performed By: #### B MP ####[place] [phone] CO2 molar conc 26 mmol/L Normal 23-32 [facility] Comment on above: Performed By: #### B MP ####[place] [phone] Creatinine mass conc 0.84 mg/dL Normal 0.70-1.40 [facility] Comment on above: Performed By: #### B MP ####[place] [phone] eGFR- Amer. >60 Normal >60 [facility] Comment on above: Performed By: #### B MP ####[place] [phone] GFR/1.73 sq M predicted among non-blacks MDRD vol rate/area (S/P/Bld) mL/min/{1.73_m2} Normal >60 [facility] Comment on above: Performed By: #### B MP ####[place] [phone] Glucose mass conc 106 mg/dL High 65-100 [facility] Comment on above: Performed By: #### B MP ####[place] [phone] Potassium molar conc 3.7 mmol/L Normal 3.5-5.0 [facility] Comment on above: Performed By: #### B MP ####[place] [phone] Sodium molar conc 141 mmol/L Normal 135-146 [facility] Comment on above: Performed By: #### B MP ####[place] [phone] Urea nitrogen mass conc 8 mg/dL Low 10-25 [facility] Comment on above: Performed By: #### B MP ####[place] [phone] CBC and Differentialon 05-09 Abs Baso 0.03 k/uL Normal <0.11 [facility] Comment on above: Performed By: #### C BCDIF ####[place] [phone] Abs Richardson 1.30 k/uL High <0.87 [facility] Comment on above: Performed By: #### C BCDIF ####[place] [phone] Abs Neut 9.13 k/uL High 1.45-7.50 [facility] Comment on above: Performed By: #### C BCDIF ####[place] [phone] Basophils/100 WBC Auto (Bld) 0.2 % [facility] Comment on above: Performed By: #### C BCDIF ####[address] DTYPE Auto Diff [facility] Comment on above: Performed By: #### C BCDIF ####[address] Eosinophils Auto #/vol (Bld) 10*3/uL Normal <0.46 [facility] Comment on above: Performed By: #### C BCDIF ####[place] [phone] Eosinophils/100 WBC Auto (Bld) 0.2 % [facility] Comment on above: Performed By: #### C BCDIF ####[address] Erythrocyte distribution width Auto Ratio (RBC) 12.1 % Normal 11.5-15.0 [facility] Comment on above: Performed By: #### C BCDIF ####[address] Hematocrit Auto Volume Fraction (Bld) 41.7 % Normal 39.0-51.0 [facility] Comment on above: Performed By: #### C BCDIF ####[place] [phone] Hemoglobin mass conc (Bld) 14.5 g/dL Normal 13.0-17.0 [facility] Comment on above: Performed By: #### C BCDIF ####[place] [phone] Lymphocytes Auto #/vol (Bld) 2.45 10*3/uL Normal 1.00-4.00 [facility] Comment on above: Performed By: #### C BCDIF ####[phone] Lymphocytes/100 WBC Auto (Bld) 18.9 % [facility] Comment on above: Performed By: #### C BCDIF ####[place] [phone] MCH Auto Entitic mass (RBC) 30.5 pG Normal 26.0-34.0 [facility] Comment on above: Performed By: #### C BCDIF ####[place] [phone] MCHC Auto mass conc (RBC) 34.8 g/dL Normal 30.5-36.0 [facility] Comment on above: Performed By: #### C BCDIF ####[place] [phone] MCV Auto Entitic volume (RBC) 87.6 fL Normal 80.0-100.0 [facility] Comment on above: Performed By: #### C BCDIF ####[place] [phone] Monocytes/100 WBC Auto (Bld) 10.1 % [facility] Comment on above: Performed By: #### C BCDIF ####[place] [phone] Neutrophils/100 WBC Auto (Bld) 70.6 % [facility] Comment on above: Performed By: #### C BCDIF ####[place] [phone] Platelet mean volume Auto Entitic volume (Bld) 10.0 fL Normal 9.0-12.7 [facility] Comment on above: Performed By: #### C BCDIF ####[place] [phone] Platelets Auto #/vol (Bld) 235 10*3/uL Normal 150-400 [facility] Comment on above: Performed By: #### C BCDIF ####[place] [phone] RBC Auto #/vol (Bld) 4.76 10*6/uL Normal 4.20-6.00 [facility] Comment on above: Performed By: #### C BCDIF ####[place] [phone] WBC Auto #/vol (Bld) 12.93 10*3/uL High 3.70-11.00 [facility] Comment on above: Performed By: #### C BCDIF ####[phone] Magnesiumon 05-09-2017 Magnesium mass conc 2.2 mg/dL Normal 1.7-2.6 [facility] Comment on above: Performed By: #### M G1, PHOS ####[phone] NMDA-Receptor Ab CBA LAB USE ONLYon 05-09-2017 NMDA-Receptor Ab CBA View results in Scanned Documents link when available. [facility] Comment on above: Performed By: #### N MDCBA ####[facility] [address] [place], [place] [phone] NURSING PROGon 05-09-2017 Protein mass conc HNO ID: [id number] thor: Danika (Rn) Jose Miguel, RNService: Critical CareAuthor Type: Registered NurseType: Nursing Progress NoteFiled: 05/10/2017 6:45 AMNote Text: Nursing Progress NotePatient Name: Grant Blanchard JRMRN: [id number] Location: [place] [address]/[id number]-BUI-[id number] Daily Note:1930 Report received from day shift RN. VSS, complete assessment tofollow.2000 Assessment performed and documented. See ICU flowsheet.2200 Pt restless at times and confused but not combative. VSS.0000 Reassessment performed and documented. See ICU flowsheet. Pt is nowAANDOx3, no other changes from previous assessment.0200 Pt resting quietly, VSS.0400 Reassessment performed and documented. See ICU flowsheet. No changesfrom previous assessment.0545 Lab at bedside for AM labs.0600 Pt resting comfortably, VSS.0700 Report given to day shift RN.This note was completed by: Danika Gillespie RN [facility] Protein mass conc HNO ID: [id number] thor: Paty (Rn) NEFTALY Orrervice: NursingAuthor Type: Registered NurseType: Nursing Progress NoteFiled: 05/09/2017 3:55 PMNote Text: Nursing Progress NotePatient Name: Grant Blanchard Location: [place] [address]/YC-[id number] Daily Note:0800 Assessment as charted. Family at bedside. Support given. Ptopening one eye with noxious stimuli. Weaning Fentanyl and Propofol downfor SBT.1000 Continuing to wean sedation. Pt more awake. Maintaining eyecontact and following commands.1200 Dr. Singh at bedside. ETT removed after successful SBT. Pt isalert and awake, oriented to self and able to follow commands.1400 Family at bedside. Neck brace remains in place.1535 Neck brace removed by trauma resident. Edison d/c'bonita by RN.This note was completed by: Paty Orr RN [facility] Protein mass conc HNO ID: [id number] thor: Brandie BradfordRn) NEFTALY Duranervice: NursingAuthor Type: Registered NurseType: Nursing Progress NoteFiled: 05/09/2017 1:10 PMNote Text: Nursing Progress NotePatient Name: Grant Blanchard JRMRN: [id number] Location: [place] [address]/BL-[id number] Daily Note:1305: Dr. Singh by to see patient. Updated that SROC was paged to clearc-spine. Order to stop maintenance fluids.This note was completed by: Brandie Duran RN [facility] Protein mass conc HNO ID: [id number] thor: Paty Bose) NEFTALY Orrervice: NursingAuthor Type: Registered NurseType: Nursing Progress NoteFiled: 05/09/2017 2:04 PMNote Text: Nursing Progress: Topic: RESTRAINT NON-VIOLENTPATIENT NAME: Grant Blanchard JRMRN: [id number] LOCATION: [place] [id number] patient demonstrates Attempting to Remove Medical Devices Vital toMedical Stability, Confusion, Lack of Understanding/Ability to Comply withSafety Directions, Impulsive Behavior as evidenced by the followingbehaviors reaching for ETT which pose an imminent danger to self orothers.The following interventions were attempted but were not effective inprotecting the patient's safety: Bed in Low/Locked Position, Call LightWithin Reach, IV/Feeding Bag/Pump Out of Vision, Frequent Observation,Pain/Discomfort ReliefNext, a comprehensive assessment was performed and warranted placing thepatient in Soft Bilateral Wrists, the least restrictive restraint neededto protect the patient's safety.Ongoing safety assessments and evaluation for earliest removal ofrestraints will be performed.DATE: May 09, 2017TIME: 0800 AMPaty Orr RN [facility] [place] Neuro Paraneoon 05-09 Neosens Neur Paraneo (NOTE) [facility] Comment on above: Result Comment: INTE RPRETATIONNEGATIVEThis panel of tests did not identify any positive results.TECHNICAL RESULTS Interpretive Result Table --------TEST: anti-amphiphysinMETHODOLOGY: Nanoliter scale immunoassayINTERPRETATION: NegativeTECHNICAL RESULT: <1:100REFERENCE RANGE: Serum <1:100 ---------TEST: anti-GE0LYMRNSIRUXN: Nanoliter scale immunoassayINTERPRETATION: NegativeTECHNICAL RESULT: <1:100REFERENCE RANGE: Serum <1:100 ---------TEST: anti-HuMETHODOLOGY: Nanoliter scale immunoassayINTERPRETATION: NegativeTECHNICAL RESULT: <1:100REFERENCE RANGE: Serum <1:100 COMMENTSThis result does not exclude a diagnosis of an autoimmuneetiology for PNS.Recommendations:Health care providers, please contact the [facility] ClientServices Department at if you wish to consult with [facility] Director regarding this test result.Background information: Paraneoplastic neurological syndromes ordisorders (PNS or PND) are rare immune-mediated disorders resultingfrom nervous system damage due to the remote effects of a tumor. PNDof the central nervous system may occur in association with eitheronconeural antibodies directed against intracellular antigens, orantibodies targeted against neuronal surface antigens. Theseautoantibodies have been associated with various clinicalpresentations and malignancies.Methods: Detection of antibodies was performed by automated nanoliterscale immunoassay.Limitations of analysis: Although rare, false positive or falsenegative results may occur in any of the methods used. All resultsshould be interpreted in the context of clinical findings, relevanthistory, and other laboratory data.Background References:1. ZAIRA Hannah, et al. (2011) Eur J Neurol 18: 19-e3. (PMID:95565592)2. Susie Holcomb et al. (2012) J Neurol Neurosurg Psychiatry 83: 638-45.(PMID: 40763317)This test was developed and its analytical performance characteristicshave been determined by [facility]. It has not been cleared orapproved by the U.S. Food and Drug Administration. This assay has beenvalidated pursuant to the CLIA regulations and is used for clinicalpurposes.Laboratory oversight provided by Hans Leon, Ph.D., [facility], [place], [facility] (CLIA# [id number])Testing performed at:[facility] [address] [place] [id number] PROGRESSon 05-09-2017 Protein mass conc HNO ID: [id number] thor: Anusha Ferreraice: NeurologyAuthor Type: PhysicianType: Progress NotesFiled: 05/09/2017 4:17 PMNote Text: Neurology ConsultDate: May 08, 2017Patient Name: Grant Blanchard JRMRN: [id number] Attending Provider: Greg Bell for Evaluation: SeizuresHistory of Present Illness:This is Mr. Grant Blanchard JR a 21 year old with history of insomnia takesLunesta at times male who presents to the [facility] with a statusepilepticus. Mother at bedside is providing history.~3 weeks ago patient developed infection in his right finger startedantibiotic ciprofloxacin for 3 doses and stopped after pain resolvedaccording to his mother he didn't not continue antibiotics.~1 week mother reports her son having an upper respiratory tractinfection. He did not seek any attention for that.May 03, 2017 his mother reported her son having headaches and notfeeling well. She also tells me that he started to act weird, confused.He would not put his clothes on and walk in the house, when his motherasked him to put clothes on he goes back to his in his room when he comesback again with no clothes on. When she asked him again to put clothes onhe becomes angry agitated and he tells her that he did, despite him nothaving any close on. The mother reports multiple episodes of around 1 perhour of blank stares and then he would continue the conversation orwhatever he was doing. Mother reported multiple episodes where he jerksin his sleep she reported no blood found on the peripheral or loss ofbladder or bowels.May 06, 2017 patient went to the ER for increased headaches and he wasdischarged. Patient followed up with his primary care and it took someblood tests.May 07, 2017 patient reported being with his girlfriend 1 he stopped toget at the gas station and he dropped to the floor according to the mothershe was told that he was having jerks police came and called the ambulanceand they took him to the ER. Mother denied any drug use. Upon arrival [facility] patient's blood sugar was 90. While in the ER his blood pressuredropped to 80/50 and he was given fluids. His WBC count was 11.64hemoglobin 17 hematocrit 48 and platelet counts were 371. Sodium levelwas 143, potassium of 3.9, glucose of 104, BUN 17, creatinine of 1.05, ALT47, AST 26, phosphatase 52, total bilirubin of 0.7. Contacted [facility] emergency physician and I recommended another load of Keppra 15mg and to assess fosphenytoin if he continues to seize at that timepatient had received 7 mg of Ativan and a load of 50 mg Keppra. He wasnot intubated at that time and according to the notes she was transferredto [facility] and he was not intubated either. Urine drug screen wasnegative. Patient arrived to the ER at [facility] repeat CBC showed a WBCcount of 21.89 with a hemoglobin of 16 and a platelet count of 314. Urinedrug screen was negative. His blood glucose was 141, BUN 14, creatinine0.088, sodium 141, potassium 4.1, chloride 103, CO2 25. She had an LPdone showed CSF culture stain no organism a few mononuclear cells. CSFcomponent results showed color of the CSF to be colorless clear fluid witha total RBC of 40 and total nucleated cells of 11. His neutrophils were 2lymphocytes 91. CSF protein was 60 and glucose 91. His magnesium was2.2. and phosphorus 4.3.MRI of the brain was within normal limits and EEG showed Impression:Continuous video-EEG monitoring was reviewed from 05/08/17 0053 until 0810and is suggestive of bilateral cortical dysfunction maximum in the rightparietal occipital region. There is also evidence of a severeencephalopathy. No epileptiform discharges or EEG seizures wererecorded. . Per report.May 09, 2017 patient evaluated bedside continued to be on both propofoland fentanyl. Per note he was agitated last night. No other acutechanges.Medical History:No past medical history on file.Surgical History:No past surgical history on file.Social History:Social History Marital status: Single Spouse name: Years of education: Number of children:Social History Main TopicsFamily history:No family history on file.Allergies:ALLERGIESAllergen Reactions- Sulfa (Sulfonamide * UnknownGeneral Physical Examination:Vital Signs: BP 151/93 Pulse 110 Temp 36.9 ?C (98.5 ?F) (Oral) Resp12 Ht 180.3 cm (5' 11 ) Wt 119.2 kg (262 lb 12.6 oz) SpO2 94% BMI36.65 kg/k8CDFAFDXJ EXAM:Neurological Examination:? Mental Status: Does not follow commands would with painful stimuli rub.Cranial Nerves: Pupils equal round reactive to light although sluggish,corneals reflexes intact, VOR intact, intact cough and gag.? Motor Exam: He doesn't be assessed properly but patient exhibitsmovements in all extremities.? Reflexes: Full symetrical and toes down-going.? Sensation: Withdraws to painful stimuli.? Coordination: Unable to assess due to condition.? Gait: Deferred due to condition.Labs/Data:BLOODWORK:WB C (k/uL)Date Value05/09/2017 12.9305/07/2017 21.8905/07/2017 11.64 RBC (m/uL)Date Value05/09/2017 4.7603 5.21005/07/2017 5.73 Platelet Count (k/uL)Date Value05/09/2017 61161 9988805/07/2017 371 BUN (mg/dL)Date Value05/09/2017 904 803 1003/ 1303 14 Creatinine (mg/dL)Date Value05/09/2017 0.8404 0.8403 0.8503 0.90005/07/2017 0.88 Lab ResultsComponent Value DateNEUTP 85.7 05/07/2017ABSNEUT 18.74 05/07/2017LYMPHP 8.0 05/07/2017ABSLYMPH 1.76 05/07/2017ABSMONO 1.36 05/07/2017EODINP 0.0 05/07/2017ABSEOSIN <0.03 05/07/2017BASOP 0.1 05/07/2017ABSBASO 0.03 05/07/2017Lab ResultsComponent Value DatePLT 314 05/07/2017HB 16.0 05/07/2017HCT 44.4 05/07/2017ALB 4.4 05/07/2017CA 8.9 05/08/2017TBILI 0.7 05/07/2017ALKPHOS 44 05/07/2017AST 25 05/07/2017GLUC 128 05/08/2017BUN 13 05/08/2017NA 137 05/08/2017K 5.5 05/08/2017CHLOR 103 05/08/2017CO2 16 05/08/2017ANION 18 05/08/2017ALT 45 05/07/2017No results found for: WSR, CRP, IGGIMAGING:Mentioned in the HPIFormulation:May 10, 2007 This is Grant Blanchard JR, a 21 year old male with a historyof insomnia who presents with status epilepticus. So far his MRI showedno evidence of an intracranial mass, CSF studies showed high openingpressure 37 cm of water with a corrected WBC in the CSF of 11 withpredominantly lymphocytes, and elevated glucose and elevated protein.Gram stain showed mononuclear cells without organisms. His CSF picturemay reflect vital meningitis, like picture. On the differentialautoimmune encephalitis although EEG is not suggestive.Current Hospital Diagnosis List:Status epilepticus (HCC) (05/07/2017)Nicotine use disorder, F17.2 (05/08/2017)Plan:-Continue BEM for monitoring for subclinical status-Seizure precautions:-We'll obtain paraneoplastic from the serum.-Continue Keppra 1000mg IV form 750 mg IV.-Currently on acyclovirFabio Pratt Neurology and Neuroimmunology/Multiple SclerosisPager: [phone]:[phone]/ 11:42 AM [facility] Protein mass conc HNO ID: [id number] thor: Iris (Do) BishopService: Critical CareAuthor Type: PhysicianType: Progress NotesFiled: 05/09/2017 3:03 PMNote Text:[facility] [place] PHYSICIAN NOTE OF PERSONAL INVOLVEMENT IN CAREI have reviewed the progress note obtained and documented by the residentand I personally participated in the renae components. I have discussed thecase and management of the patient's care. The following comments reviseor confirm relevant renae components of the note.IMPRESSION: 21 yo m with h/o insomnia admitted in setting of fall withwitnessed seizure activity intubated for airway protection. Initially feltto be in status now with burst suppression on EEG.Admitted to traumaservice due to initial concerns for SDH-->now negative on repeat CTH andMRI. Following d/w pts mom he has been acting unusual x 1 week (awalkingnaked around the house) c/o HERRERA. No reported fevers. Pt transferred to [facility] with :?Acute respiratory failure; intubated due to MSEncephalopathy lumbar puncture results: rbc 40 tnc 11 lymph 91% prot 60gluc 91SeizureFeverVomiting . KUB normal?Sedation minima on exam pt awake following commands.Moving all extremities. Perrl. Lungs clear, no rash. New tattoos per fam.UOP decreased to normal range.Family reports recent RUE infection, no appreciable infections on digits?PLAN:Cont MV:tolerating CPAP; unable to extubate given neuro statusCont BEM monitoring. Cont Keppra 1g bid. Neuro followingPicture c/w viral encephalitis. Neg hsv pcr however ID recommends contacyclovir-will dw. IDHigh uop initially concerning for DI -brain imaging is normal, Na 143,plasma osm not obtained. DC ivfAcute hepatitis panel pending given recent tattoosVomiting resolved.Trauma team following, pt remains in c-collar, cspine not yet clearedmicu prophPatient/Family Updated: Patient's Next of Kin/Point of Contact,spouse/significant other and parents, updated regarding the goals of care, medical plan for the day, solutions sales consultant recommendations, medical dispositionand current medical condition/prognosis as and if clinically indicated.All questions and concerns were answered and addressed at this juncture.They were notified on May 09, 2017.This patient has a high probability of sudden, clinically significantdeterioration, which requires the highest level of physician preparednessto intervene urgently. I managed/supervised life or organ supportinginterventions that required frequent physician assessment. I devoted myfull attention to the direct care of this patient for the amount of timeindicated below. Time I spent with family or surrogate(s) is includedonly if the patient was incapable of providing the necessary informationor participating in medical decision making. Time devoted to teaching andto any procedures I billed separately is not included.Critical Care Documentation: The patient has the following organ/systemimpairment(s): Encephalopathy and Respiratory failure (Acute)Time spent providing critical care services: 40 minutes.SIGNATURE: ENA Montez INSTITUTEPAGER: [id number] of SERVICE: 05/09/2017 [facility] Protein mass conc HNO ID: [id number] thor: Reji (Res) Zenaida Francesice: General Internal MedicineAuthor Type: ResidentType: Progress NotesFiled: 05/09/2017 4:41 PMNote Text:MICU PROGRESS NOTE WITH COORD CARESERVICE DATE: 05/09/2017SERVICE TIME: 7:30 AMADMISSION DATE: 05/07/2017Day #: 1 in the MICU.HPI on admission:This is a 21 year old male with no significant PMHx who presents withseizure like activity. This history was taken from chart as patient isnon responsive. For the prior week the patient has been acting oddaccording to his mother. He has been coming out to the hallway naked andnot realizing it. He has head headaches and is vomiting. According tohis girlfriend he has been feeling off balance, dizzy and havingheadaches. Him and his girlfriend went to the gas station and he turnedand grabbed her and said he was going to fall. After this he hit his headand started to have tonic and clonic movements along with bladderincontinence. They than presented to [facility] where he was found in apost-itcal state. He went for CT scan of the head where he had anotherseizure and was given ativan. CT scan of the head was limited due toasymmetry and atrifact from backboard. However the radiologist did callthe ED physician and raised concern for possible subdural hematoma alongthe tentorium and posterior falx. Due to this [facility] he was intubated due to hismental status and transferred to SICU and than a MRI was done which wasnormal. A LP was done and the patient was than transferred to MICU forfurther management.Interval events:- May 09, 2017Overnight, no issuesToday, patient extubated. Tolerate it well.EEG: evidence of a severe encephalopathyLabs: WBC dropped from 21 to 12. creatinine 0.84Urine osmolarity, NMDA receptor antibody pendingMicro: acute hepatitis panel and cultures negative till nowPlan for today:Monitor mental status off extubationContinue EEG and watch for seizuresContinue acyclovir and Keppra and reassess tomorrow.Assessment and plan:Summary:21 y old male presented for altered mental status due to viralencephalitis. Extubated today.Altered mental status due to viral encephalitis- patient presented with seizure like activity- Wbc count 21.89 on admission, currently 12.93- LP was done which showed colorless CSF with high opening pressure 37 cmof water with a corrected WBC in the CSF of 11 with predominantlylymphocytes, and elevated glucose and elevated protein., consistent withviral encephalitis. However hsv pcr of CSF is negative along withenterovirus pcr- ID and Neuro on consultPlan:- keppra 1000 mg bid and continue EEG- per ID no need for antibiotics but will continue acyclovir- Was intubated for airway protection, extubate today.- Still confused after extubation: monitor mental status??PolyuriaResolved todaySerum osmolarity: 294, urine osmolarity: 402, urine sodium 71, Na 143Urine osmolarity too high for diabetes insipidusIntake/Output Summary (Last 24 hours) at 05/09/17 1622Last data filed at 05/09/17 1600 Gross per 24 hourIntake 5522.5 mlOutput 2636 mlNet 2886.5 mlContinue to monitor I/ODVT prophylaxis: heparinGI prophylaxis: protonixPlan discussed with Dr. SinghObjectivePHYSICAL EXAM PERFORMED: VITAL SIGNS (last 24hrs min/max):Temp Av.6 ?C (99.7 ?F) Min: 37.3 ?C (99.1 ?F) Max: 38.4 ?C (101.1?F)Pulse Av.7 Min: 94 Max: 121No Data RecordedCuff BP Min: 109/62 Max: 129/106Pain Score: 0/10Vital signs reviewed. Relevant comments- stableNET FLUID BALANCEIntake/Output Summary (Last 24 hours) at 05/09/17 0713Last data filed at 05/09/17 0600 Gross per 24 hourIntake 4887.5 mlOutput 5111 mlNet -223.5 mlMEDICATIONS Hospital/inpatient medications reviewedHEENT:Oral Mucosa: Moist mucous membranes Feeding Tube: NoEyes: PERRLA Neck: Unremarkable; No adenopathy or JVDCardiovascular: Regular rhythmRelevant Hemodynamic Data: stableRespiratory: Rhonchi bilatRoom airAbdomen: Soft, Nontender and Positive bowel soundsExtremities: Edema- No Peripheral Pulses- Present all extremitiesCapillary Refill- less than 3 secondsSkin: Abnormalities- No Breakdown- NoNeurologic: Alert and ConfusedNUTRITION: liquid dietEnteral Feeds: NoDATA:Diagnostic tests reviewed for today's visit:Most recent labs and imaging results.Assessment/PlanActive Hospital Problems Diagnosis- Nicotine use disorder, F17.2- Status epilepticus (HCC)PATIENT CHECKLIST? Are restraints necessary: No? Deep vein thrombosis prophylaxis administered? Yes? Stress ulcer prophylaxis? Yes? Nasogastric tube? No? Hogan catheter necessary? No? Is central line essential? No? Plan discussed with assigned RN? Yes? Family updated within last 24 hours? YesSIGNATURE: Reji Frances MD PATIENT NAME: Grant Blanchard JRDATE: May 09, 2017 : 7:13 AM PAGER/CONTACT #: [phone] [facility] Phosphoruson 05-09-2017 Phosphate mass conc 2.7 mg/dL Normal 2.5-4.5 [facility] Comment on above: Performed By: #### M G1, PHOS ####[place] [phone] ABG Complete Eval FOR WEST U SE ONLYon 05-08-2017 Base Excess 1 mmol/L [facility] Comment on above: Result Comment: -3 t o 3 Performed By: #### A BGRTC, VENTLA ####[place] [id number] [place] [phone] Calcium mass conc 1.18 mmol/L Normal 1.15-1.35 [facility] Comment on above: Performed By: #### A BGRTC, VENTLA ####[place] [phone] Carboxyhemoglobin, Art 1.2 % Normal <2.0 [facility] Comment on above: Performed By: #### A BGRTC, VENTLA ####[place] [phone] [place] [phone] Chloride, Whole Bld FOR WEST USE ONLY 109 mmol/L High 98-107 [facility] Comment on above: Performed By: #### A BGRTC, VENTLA ####[place] [phone] CO2 molar conc 27 mmol/L Normal 22.0-28.0 [facility] Comment on above: Performed By: #### A BGRTC, VENTLA ####[place] [phone] Device Ventilator [facility] Comment on above: Performed By: #### A BGRTC, VENTLA ####[place] [phone] Drawsite Rt Radial + [facility] Comment on above: Performed By: #### A BGRTC, VENTLA ####[place] [phone] Glucose mass conc 110 mg/dL High 65-100 [facility] Comment on above: Performed By: #### A BGRTC, VENTLA ####[place] [phone] HCO3 molar conc (Bld) 25 mmol/L Normal 22-26 [facility] Comment on above: Performed By: #### A BGRTC, VENTLA ####[place] [phone] Hematocrit Auto Volume Fraction (Bld) 46 % Normal 42.0-52.0 [facility] Comment on above: Performed By: #### A BGRTC, VENTLA ####[place] [phone] Hemoglobin mass conc (Bld) 15 g/dL Normal 14-18 [facility] Comment on above: Performed By: #### A BGRTC, VENTLA ####[place] [phone] Lactate molar conc 1.1 mmol/L Normal 0.4-2.0 [facility] Comment on above: Performed By: #### A BGRTC, VENTLA ####[place] [phone] Methemoglobin 0.7 % Normal 0.4-1.5 [facility] Comment on above: Performed By: #### A BGRTC VENTLA ####[place] [phone] O2 Administered 30.0 [facility] Comment on above: Performed By: #### A BGRTC VENTLA ####[place] [phone] Oxygen ppres (Bld) 97 % Normal 90-98 [facility] Comment on above: Performed By: #### A BGRTC VENTLA ####[place] [phone] Oxygen ppres (BldA) 88 mm Hg Normal 80-100 [facility] Comment on above: Performed By: #### A BGRTC VENTLA ####[place] [phone] Oxyhemoglobin, Art. 96 % Normal 94-100 [facility] Comment on above: Performed By: #### A [facility]RTC VENTLA ####[place] [phone] pCO2 42 mm Hg Normal 35-48 [facility] Comment on above: Performed By: #### A BGRTC VENTLA ####[place] [phone] pH (Bld) 7.40 [pH] Normal 7.35-7.45 [facility] Comment on above: Performed By: #### A [facility]RTC VENTLA ####[place] [phone] PO2FI FOR WEST USE ONLY 293 mmHG Low 400-500 [facility] Comment on above: Performed By: #### A [facility]RTC VENTLA ####[place] [phone] Potassium molar conc 3.7 mmol/L Normal 3.5-5.0 [facility] Comment on above: Performed By: #### A BGRTC, VENTLA ####[place] [phone] Sodium molar conc 142 mmol/L Normal 135-145 [facility] Comment on above: Performed By: #### A BGRTC, VENTLA ####[place] [phone] Base Excess Negative [facility] Comment on above: Result Comment: -3 t o 3 Performed By: #### A BGRTC, VENTLA ####[place] [phone] Calcium mass conc 1.08 mmol/L Low 1.15-1.35 [facility] Comment on above: Performed By: #### A BGRTC, VENTLA ####[place] [phone] Carboxyhemoglobin, Art 0.9 % Normal <2.0 [facility] Comment on above: Performed By: #### A BGRTC, VENTLA ####[place] [phone] Chloride, Whole Bld FOR WEST USE ONLY 109 mmol/L High 98-107 [facility] Comment on above: Performed By: #### A BGRTC, VENTLA ####[place] [phone] CO2 molar conc 26 mmol/L Normal 22.0-28.0 [facility] Comment on above: Performed By: #### A BGRTC, VENTLA ####[place] [phone] Device Ventilator [facility] Comment on above: Performed By: #### A BGRTC, VENTLA ####[place] [phone] Drawsite Left Radial + [facility] Comment on above: Performed By: #### A BGRTC, VENTLA ####[place] [phone] Glucose mass conc 136 mg/dL High 65-100 [facility] Comment on above: Performed By: #### A BGRTC VENTLA ####[place] [phone] HCO3 molar conc (Bld) 25 mmol/L Normal 22-26 [facility] Comment on above: Performed By: #### A [facility]RTC VENTLA ####[place] [phone] Hematocrit Auto Volume Fraction (Bld) 46 % Normal 42.0-52.0 [facility] Comment on above: Performed By: #### A [facility]RTC VENTLA ####[place] [phone] Hemoglobin mass conc (Bld) 15 g/dL Normal 14-18 [facility] Comment on above: Performed By: #### A [facility] VENTLA ####[place] [phone] Lactate molar conc 1.0 mmol/L Normal 0.4-2.0 [facility] Comment on above: Performed By: #### A [facility]RTC VENTLA ####[place] [phone] Methemoglobin 0.6 % Normal 0.4-1.5 [facility] Comment on above: Performed By: #### A [facility]RTC VENTLA ####[place] [phone] O2 Administered 30.0 [facility] Comment on above: Performed By: #### A BGRTC VENTLA ####[place] [phone] Oxygen ppres (Bld) 97 % Normal 90-98 [facility] Comment on above: Performed By: #### A [facility] VENTLA ####[place] [phone] Oxygen ppres (BldA) 95 mm Hg Normal 80-100 [facility] Comment on above: Performed By: #### A BGRTC, VENTLA ####[place] [phone] Oxyhemoglobin, Art. 96 % Normal 94-100 [facility] Comment on above: Performed By: #### A BGRTC, VENTLA ####[place] [phone] pCO2 45 mm Hg Normal 35-48 [facility] Comment on above: Performed By: #### A BGRTC, VENTLA ####[place] [address] pH (Bld) 7.36 [pH] Normal 7.35-7.45 [facility] Comment on above: Performed By: #### A BGRTC, VENTLA ####[place] [address] PO2FI FOR WEST USE ONLY 317 mmHG Low 400-500 [facility] Comment on above: Performed By: #### A BGRTC, VENTLA ####[place] [address] Potassium molar conc 3.7 mmol/L Normal 3.5-5.0 [facility] Comment on above: Performed By: #### A BGRTC, VENTLA ####[place] [address] Sodium molar conc 136 mmol/L Normal 135-145 [facility] Comment on above: Performed By: #### A BGRTC, VENTLA ####[place] [phone] Base Excess Negative Normal [facility] Comment on above: Result Comment: -3 t o 3 Performed By: #### A BGRTC, VENTLA ####[place] [phone] Calcium mass conc 1.06 mmol/L Low 1.15-1.35 [facility] Comment on above: Performed By: #### A BGRTC, VENTLA ####[place] [phone] Carboxyhemoglobin, Art 0.8 % Normal <2.0 [facility] Comment on above: Performed By: #### A BGRTC, VENTLA ####[place] [phone] Chloride, Whole Bld FOR WEST USE ONLY 111 mmol/L High 98-107 [facility] Comment on above: Performed By: #### A BGRTC, VENTLA ####[place] [phone] CO2 molar conc 25 mmol/L Normal 22.0-28.0 [facility] Comment on above: Performed By: #### A BGRTC, VENTLA ####[place] [phone] Device Ventilator Normal [facility] Comment on above: Performed By: #### A BGRTC, VENTLA ####[phone] Drawsite Left Radial + Normal [facility] Comment on above: Performed By: #### A BGRTC, VENTLA ####[place] [phone] Glucose mass conc 133 mg/dL High 65-100 [facility] Comment on above: Performed By: #### A BGRTC, VENTLA ####[place] [phone] HCO3 molar conc (Bld) 24 mmol/L Normal 22-26 [facility] Comment on above: Performed By: #### A BGRTC, VENTLA ####[place] [phone] Hematocrit Auto Volume Fraction (Bld) 48 % Normal 42.0-52.0 [facility] Comment on above: Performed By: #### A BGRTC, VENTLA ####[place] [phone] Hemoglobin mass conc (Bld) 15.8 g/dL Normal 14-18 [facility] Comment on above: Performed By: #### A BGRTC VENTLA ####[place] [address] Lactate molar conc 0.7 mmol/L Normal 0.4-2.0 [facility] Comment on above: Performed By: #### A BGRTC VENTLA ####[place] [address] Methemoglobin 0.7 % Normal 0.4-1.5 [facility] Comment on above: Performed By: #### A BGRTCALESHALA ####[place] [address] O2 Administered 100.0 Normal [facility] Comment on above: Performed By: #### A BGRTC VENTLA ####[place] [address] Oxygen ppres (Bld) 99 % High 90-98 [facility] Comment on above: Performed By: #### A BGRTC VENTLA ####[place] [address] Oxygen ppres (BldA) 193 mm Hg High 80-100 [facility] Comment on above: Performed By: #### A BGRTC VENTLA ####[place] [address] Oxyhemoglobin, Art. 98 % Normal 94-100 [facility] Comment on above: Performed By: #### A BGRTC VENTLA ####[place] [phone] pCO2 47 mm Hg Normal 35-48 [facility] Comment on above: Performed By: #### A BGRTC, VENTLA ####[place] [phone] pH (Bld) 7.33 [pH] Low 7.35-7.45 [facility] Comment on above: Performed By: #### A BGRTC, VENTLA ####[place] [address] [place], [place] [phone] PO2FI FOR WEST USE ONLY 193 mmHG Low 400-500 [facility] Comment on above: Performed By: #### A BGRTC, VENTLA ####[place] [address] [place], [place] [phone] Potassium molar conc 3.7 mmol/L Normal 3.5-5.0 [facility] Comment on above: Performed By: #### A BGRTC, VENTLA ####[place] [address] [place] [phone] Sodium molar conc 136 mmol/L Normal 135-145 [facility] Comment on above: Performed By: #### A BGRTC, VENTLA ####[facility] [place], [place] [phone] ALLIED HEALTHon 05-08-2017 ALLIED HEALTH HNO ID: [id number] thor: Cathy Hutchins RTService: (none)Author Type: (none)Type: Allied HealthFiled: 05/08/2017 6:51 AMNote Text: Radiology Service Progress NotePATIENT NAME: Grant Blanchard OF SERVICE: May 08, 2017TIME: 6:51 AMPATIENT IDENTITY VERIFICATION COMPLETED USING TWO (2) METHODS: ID Band .PATIENT GENDER DATA: MalePATIENT RELEVANT IMPLANT DATA REVIEWED: Not ApplicableRADIOLOGY DEPARTMENT: General X-ray: Exam(s) Completed: Chest X-RayAbdomen X-Ray AbdomenPERIPHERAL IV DATA: Not applicableSIGNED BY: Cathy Hutchins [facility] 2017 6:51 AM Normal [facility] APTTon 05-08-2017 aPTT Coag time (Bld) 23.3 s Normal 23.0-32.4 [facility] Comment on above: Result Comment: Unfr actionated Heparin Therapeutic Ranges:Standard Heparin Nomogram: 53 to 78 seconds (anti-Xa level of 0.3 to 0.7 U/ml)Low Dose/ACS Nomogram: 49 to 67 seconds (anti-Xa level of 0.2 to 0.5 U/ml)Stroke Treatment Nomogram: 49 to 67 seconds (anti-Xa level of 0.2 to 0.5 U/ml)Note: The APTT therapeutic range has been determined for the current lot of laboratory APTT reagent in use throughout the [facility]. Performed By: #### C BCDIF, AMYL, CMP, LIPA, ROSIE, PT, PTT ####[place] [phone] Amylaseon 05-08-2017 Amylase enzyme act/vol 43 U/L Normal 0-137 [facility] Comment on above: Performed By: #### C BCDIF, AMYL, CMP, LIPA, ROSIE, PT, PTT ####[place] [phone] Basic Metabolic Panlon 05-08 Anion gap 3 molar conc 8 mmol/L Low 9-18 [facility] Comment on above: Performed By: #### B MP ####[place] [phone] Calcium mass conc 8.3 mg/dL Low 8.5-10.5 [facility] Comment on above: Performed By: #### B MP ####[place] [phone] Chloride molar conc 108 mmol/L Normal 98-110 [facility] Comment on above: Performed By: #### B MP ####[place] [phone] CO2 molar conc 27 mmol/L Normal 23-32 [facility] Comment on above: Performed By: #### B MP ####[place] [phone] Creatinine mass conc 0.85 mg/dL Normal 0.70-1.40 [facility] Comment on above: Performed By: #### B MP ####[place] [phone] eGFR- Amer. >60 Normal >60 [facility] Comment on above: Performed By: #### B MP ####[place] [phone] GFR/1.73 sq M predicted among non-blacks MDRD vol rate/area (S/P/Bld) mL/min/{1.73_m2} Normal >60 [facility] Comment on above: Performed By: #### B MP ####[place] [phone] Glucose mass conc 109 mg/dL High 65-100 [facility] Comment on above: Performed By: #### B MP ####[place] [phone] Potassium molar conc 4.1 mmol/L Normal 3.5-5.0 [facility] Comment on above: Performed By: #### B MP ####[place] [phone] Sodium molar conc 143 mmol/L Normal 135-146 [facility] Comment on above: Performed By: #### B MP ####[place] [phone] Urea nitrogen mass conc 10 mg/dL Normal 10-25 [facility] Comment on above: Performed By: #### B MP ####[place] [phone] Anion gap 3 molar conc 18 mmol/L Normal 9-18 [facility] Comment on above: Performed By: #### B JOSE MILLER PHOS ####[place] [phone] Calcium mass conc 8.9 mg/dL Normal 8.5-10.5 [facility] Comment on above: Result Comment: Revi ewed Performed By: #### B JOSE MILLER PHOS ####[place] [phone] Chloride molar conc 103 mmol/L Normal 98-110 [facility] Comment on above: Performed By: #### B JOSE MILLER PHOS ####[place] [phone] CO2 molar conc 16 mmol/L Low 23-32 [facility] Comment on above: Performed By: #### B ANGELA MG1, PHOS ####[place] [phone] Creatinine mass conc 0.90 mg/dL Normal 0.70-1.40 [facility] Comment on above: Performed By: #### B ANGELA MGHerson, PHOS ####[place] [phone] eGFR- Amer. >60 Normal >60 [facility] Comment on above: Performed By: #### B ANGELA MGHerson, PHOS ####[place] [phone] GFR/1.73 sq M predicted among non-blacks MDRD vol rate/area (S/P/Bld) mL/min/{1.73_m2} Normal >60 [facility] Comment on above: Performed By: #### B ANGELA MGHerson, PHOS ####[place] [phone] Glucose mass conc 128 mg/dL High 65-100 [facility] Comment on above: Performed By: #### B ANGELA MG1, PHOS ####[place] [phone] Potassium molar conc 5.5 mmol/L High 3.5-5.0 [facility] Comment on above: Result Comment: Resu lts may be falsely increased due to interference by hemolysis. Suggest reorder as clinically indicated.Reviewed Performed By: #### B ANGELA MG1, PHOS ####[place] [phone] Sodium molar conc 137 mmol/L Normal 135-146 [facility] Comment on above: Performed By: #### B ANGELA MG1, PHOS ####[place] [phone] Urea nitrogen mass conc 13 mg/dL Normal 10-25 [facility] Comment on above: Performed By: #### B MP, MG1, PHOS ####[place] [address] CBC and Differentialon 05-08 Abs Baso 0.03 k/uL Normal <0.11 [facility] Comment on above: Performed By: #### C BCDIF, AMYL, CMP, LIPA, ROSIE, PT, PTT ####[place] [address] Abs Richardson 1.36 k/uL High <0.87 [facility] Comment on above: Performed By: #### C BCDIF, AMYL, CMP, LIPA, ROSIE, PT, PTT ####[place] [address] Abs Neut 18.74 k/uL High 1.45-7.50 [facility] Comment on above: Performed By: #### C BCDIF, AMYL, CMP, LIPA, ROSIE, PT, PTT ####[place] [address] Basophils/100 WBC Auto (Bld) 0.1 % [facility] Comment on above: Performed By: #### C BCDIF, AMYL, CMP, LIPA, ROSIE, PT, PTT ####[address] DTYPE Auto Diff Normal [facility] Comment on above: Performed By: #### C BCDIF, AMYL, CMP, LIPA, ROSIE, PT, PTT ####[place] [phone] Eosinophils Auto #/vol (Bld) 10*3/uL Normal <0.46 [facility] Comment on above: Performed By: #### C BCDIF, AMYL, CMP, LIPA, ROSIE, PT, PTT ####[address] Eosinophils/100 WBC Auto (Bld) 0.0 % Normal [facility] Comment on above: Performed By: #### C BCDIF, AMYL, CMP, LIPA, ROSIE, PT, PTT ####[place] [address] Erythrocyte distribution width Auto Ratio (RBC) 11.8 % Normal 11.5-15.0 [facility] Comment on above: Performed By: #### C BCDIF, AMYL, CMP, LIPA, ROSIE, PT, PTT ####[place] [phone] Hematocrit Auto Volume Fraction (Bld) 44.4 % Normal 39.0-51.0 [facility] Comment on above: Performed By: #### C BCDIF, AMYL, CMP, LIPA, ROSIE, PT, PTT ####[address] Hemoglobin mass conc (Bld) 16.0 g/dL Normal 13.0-17.0 [facility] Comment on above: Performed By: #### C BCDIF, AMYL, CMP, LIPA, ROSIE, PT, PTT ####[place] [phone] Lymphocytes Auto #/vol (Bld) 1.76 10*3/uL Normal 1.00-4.00 [facility] Comment on above: Performed By: #### C BCDIF, AMYL, CMP, LIPA, ROSIE, PT, PTT ####[place] [phone] Lymphocytes/100 WBC Auto (Bld) 8.0 % Normal [facility] Comment on above: Performed By: #### C BCDIF, AMYL, CMP, LIPA, ROSIE, PT, PTT ####[place] [phone] MCH Auto Entitic mass (RBC) 30.7 pG Normal 26.0-34.0 [facility] Comment on above: Performed By: #### C BCDIF, AMYL, CMP, LIPA, ROSIE, PT, PTT ####[place] [phone] MCHC Auto mass conc (RBC) 36.0 g/dL Normal 30.5-36.0 [facility] Comment on above: Performed By: #### C BCDIF, AMYL, CMP, LIPA, ROSIE, PT, PTT ####[place] [phone] MCV Auto Entitic volume (RBC) 85.2 fL Normal 80.0-100.0 [facility] Comment on above: Performed By: #### C BCDIF, AMYL, CMP, LIPA, ROSIE, PT, PTT ####[place] [phone] Monocytes/100 WBC Auto (Bld) 6.2 % Normal [facility] Comment on above: Performed By: #### C BCDIF, AMYL, CMP, LIPA, ROSIE, PT, PTT ####[place] [phone] Neutrophils/100 WBC Auto (Bld) 85.7 % Normal [facility] Comment on above: Performed By: #### C BCDIF, AMYL, CMP, LIPA, ROSIE, PT, PTT ####[place] [phone] Platelet mean volume Auto Entitic volume (Bld) 9.6 fL Normal 9.0-12.7 [facility] Comment on above: Performed By: #### C BCDIF, AMYL, CMP, LIPA, ROSIE, PT, PTT ####[place] [phone] Platelets Auto #/vol (Bld) 314 10*3/uL Normal 150-400 [facility] Comment on above: Performed By: #### C BCDIF, AMYL, CMP, LIPA, ROSIE, PT, PTT ####[place] [phone] RBC Auto #/vol (Bld) 5.21 10*6/uL Normal 4.20-6.00 [facility] Comment on above: Performed By: #### C BCDIF, AMYL, CMP, LIPA, ROSIE, PT, PTT ####[facility] [place], [place] [phone] WBC Auto #/vol (Bld) 21.89 10*3/uL High 3.70-11.00 [facility] Comment on above: Performed By: #### C BCDIF, AMYL, CMP, LIPA, ROSIE, PT, PTT ####[facility] [place], [place] [phone] CONSULTon 05-08-2017 CONSULT HNO ID: [id number] thor: Shay Scottervice: Infectious DiseaseAuthor Type: PhysicianType: ConsultsFiled: 05/08/2017 8:25 PMNote Text:[facility] - ConsultationGRANT BLANCHARD PDOB: 1995 AGE: 21 SEX: MMRN: [id number] ACCTNUM: [id number] SVC: PULM LOCATION: [id number] PHYSICIAN: IRIS GONSALEZENCOMPASS HEALTHDATE OF CONSULTATION: 05/08/2017CONSULTING PHYSICIAN: Shay Gomez M.D.REASON FOR CONSULT: Consult is requested to rule out meningitis.HISTORY OF PRESENT ILLNESS: This is a 21-year-old, who presents to the emergency room in transfer from [facility] due to statusepilepticus.The patient apparently was acting strangely for the previous 4-5days prior to admission, confused, complaining of headache, walkingaround, taking his clothes off, and not realizing when they were off. Hewas described to be dizzy. He was in a car with his girlfriend, at [facility], where he said he began to feel funny, held on to her,but fell to the ground, and did strike his head, tonic- colonicseizures were described, with urine incontinence. He was sent to the Emergency Room at [facility] and transferred to [facility] and had moreseizures on the way, despite th increasing benzodiazepine and Kepprause. Imaging does show a small subdural, which has been thought notimportant.He is reported to have had did have a finger infection, and a short courseof ciprofloxacin 3 weeks ago, which resolved. His mother also said hehad a URI a week ago, which resolved..Here, he has as spinal tap performed around at 0500 this morning.Looking thru the MAR, ceftriaxone and vancomycin were given thereafter.There is no visible MAR from [facility], but the only meds mentioned wereseizure meds in the notes. There were no preceding steroids. He then was seen by Neurology later, and has orders for acyclovir primitivo begun, that begun later this morning.The spinal tap results showed about 40 red cells, 11 white cells of which91% were polys, 60% proteins, 91 mg% glucose. These have been sent forherpes simplex PCR and enteroviral PCR, and they are resulted alreadynegative for both. I do not know the sensitivity of either of thesetests, or where they were done, I am surprised at the rapidity of theresults, and no one else seems to have noticed those results.. CSFculture and VDRL are also underway.The patient has been febrile and the temperature is 38.4,leukocytosis has developed. White count yesterday 11.6, up to21.2 last evening. Hepatic transaminases, chemistries are allunremarkable.The patient has no history of illicit drug use. Drug tox tests werenegative, both at [facility] and at [facility], looks like the same simpletest.The patient is undergoing 24-hour EEG. He has sedated appearance andgirlfriend Remained.Review of systems is not possible.PHYSICAL EXAMINATION: Sedated young person, looking well-developed,well-nourished. Pharynx poorly seen. Lungs: Clear anteriorly andposteriorly. Heart: No murmur or gallop. Abdomen: Muscular,nonrigid. No masses. Extremities: Without lesions.LABORATORY DATA: Fairly well described above.IMPRESSION: Subacute personality changes for half a week, moving ontostatus epilepticus, is compatible with a seizure disorder of its own, butthat can be compatible to seizures that are triggered by somethingelse. With fevers, this is compatible with herpes encephalitis. Fevers are common in HSV encephalitis, and the CSF cell counts here arereasonable for herpes encephalitis. However the HSV PCR here isnegative, which almost excludes the diagnosis. I do not know thesensitivity of the test used here, so it is possible this is afalse-negative. Because of that, I will continue acyclovir nonetheless,since clinically, herpes simplex encephalitis is still possible. Ifthere is clinical improvement, I would consider requesting another spinaltap to repeat this test at a 2nd point.The mosquito borne vencephalitis viruses are very uncommon in the winterhere, and can be disregarded.This is not likely bacterial meningitis by its presentation, or bythe cell counts. Antibiotics can be stopped now or he can wait untilthe cultures are negative. It appears that cultures were obtainedprior to antibiotics.SUGGESTIONS:1. I will add an HIV serology out of thoroughness.2. Continue acyclovir empirically, consider repeat LP later looking atHSV PCR 2nd time.3. Okay to discontinue antibiotics at any time.Shay Gomez M.D.Infectious DiseaseWR:[id number]: 05/08/2017 15:49:34T: 05/08/2017 17:12:15Job #: [id number] or bedside care time approximately 75 minutes. Normal [facility] CONSULT HNO ID: [id number] thor: Anusha Ferreraice: NeurologyAuthor Type: PhysicianType: ConsultsFiled: 05/08/2017 12:17 PMNote Text: Neurology ConsultDate: May 08, 2017Patient Name: Grant Blanchard JRMRN: [id number] Attending Provider: Greg Bell for Evaluation: SeizuresHistory of Present Illness:This is Mr. Grant Blanchard JR a 21 year old with history of insomnia takesLunesta at times male who presents to the [facility] with a statusepilepticus. Mother at bedside is providing history.~3 weeks ago patient developed infection in his right finger startedantibiotic ciprofloxacin for 3 doses and stopped after pain resolvedaccording to his mother he didn't not continue antibiotics.~1 week mother reports her son having an upper respiratory tractinfection. He did not seek any attention for that.May 03, 2017 his mother reported her son having headaches and notfeeling well. She also tells me that he started to act weird, confused.He would not put his clothes on and walk in the house, when his motherasked him to put clothes on he goes back to his in his room when he comesback again with no clothes on. When she asked him again to put clothes onhe becomes angry agitated and he tells her that he did, despite him nothaving any close on. The mother reports multiple episodes of around 1 perhour of blank stares and then he would continue the conversation orwhatever he was doing. Mother reported multiple episodes where he jerksin his sleep she reported no blood found on the peripheral or loss ofbladder or bowels.May 06, 2017 patient went to the ER for increased headaches and he wasdischarged. Patient followed up with his primary care and it took someblood tests.May 07, 2017 patient reported being with his girlfriend 1 he stopped toget at the gas station and he dropped to the floor according to the mothershe was told that he was having jerks police came and called the ambulanceand they took him to the ER. Mother denied any drug use. Upon arrival [facility] ER patient's blood sugar was 90. While in the ER his blood pressuredropped to 80/50 and he was given fluids. His WBC count was 11.64hemoglobin 17 hematocrit 48 and platelet counts were 371. Sodium levelwas 143, potassium of 3.9, glucose of 104, BUN 17, creatinine of 1.05, ALT47, AST 26, phosphatase 52, total bilirubin of 0.7. [facility] [place] [place] I recommended another load of Keppra 15mg and to assess fosphenytoin if he continues to seize at that timepatient had received 7 mg of Ativan and a load of 50 mg Keppra. He wasnot intubated at that time and according to the notes she was transferredto [facility] and he was not intubated either. Urine drug screen wasnegative. Patient arrived to the ER at [facility] repeat CBC showed a WBCcount of 21.89 with a hemoglobin of 16 and a platelet count of 314. Urinedrug screen was negative. His blood glucose was 141, BUN 14, creatinine0.088, sodium 141, potassium 4.1, chloride 103, CO2 25. She had an LPdone showed CSF culture stain no organism a few mononuclear cells. CSFcomponent results showed color of the CSF to be colorless clear fluid witha total RBC of 40 and total nucleated cells of 11. His neutrophils were 2lymphocytes 91. CSF protein was 60 and glucose 91. His magnesium was2.2. and phosphorus 4.3.MRI of the brain was within normal limits and EEG showed Impression:Continuous video-EEG monitoring was reviewed from 05/08/17 0053 until 0810and is suggestive of bilateral cortical dysfunction maximum in the rightparietal occipital region. There is also evidence of a severeencephalopathy. No epileptiform discharges or EEG seizures wererecorded. . Per report.Medical History:No past medical history on file.Surgical History:No past surgical history on file.Social History:Social History Marital status: Single Spouse name: Years of education: Number of children:Social History Main TopicsFamily history:No family history on file.Allergies:ALLERGIESAllergen Reactions- Sulfa (Sulfonamide * UnknownReview of Systems:GENERAL: He is a modest sleep patient sleeps 2-3 hours per day. He takesLunesta at times.HEENT: Positive for headaches.NECK: Unable to obtainRESPIRATORY: Suspect respiratory infectionCARDIOVASCULAR: Negative for chest pain, syncope, lightheadness or heartracing.GI: Negative for abdominal discomfort, blood in stools or black stools orchange in bowel habitsGU: No history of dysuria, frequency or incontinenceMUSCULOSKELETAL: Negative for joint pain or swelling, back pain or musclepain.SKIN: Negative for lesions, rash, and itching.NEURO: See HPIGeneral Physical Examination:Vital Signs: BP 116/68 Pulse 103 Temp (Src) 101.1 (Axillary) Resp 21 Ht 5' 11 (1.80m) Wt 262 lb 12.6 oz (119.2kg) SpO2 98% BMI 36.67kg/(m2).General appearance: IntubatedSkin: Not examinedHead: Normocephalic.Nose/Sinuses: Not examinedOropharynx: Patient is intubatedNeck: SuppleLungs: no wheezing.Heart: Regular rate and rhythmCarotid Auscultation: Without bruitsAbdomen: Normal abdominal examExtremities: Negative findings: No cyanosis, clubbing or edemaPeripheral pulses: NormalPHYSICAL EXAM:Neurological Examination:? Mental Status: Does not follow commands would not wake up one calledupon or 2 painful stimuli rub.Cranial Nerves: Pupils equal round reactive to light although sluggish,corneals reflexes intact, VOR intact, intact cough and gag.? Motor Exam: He doesn't be assessed properly but patient exhibitsmovements in all extremities.? Reflexes: Full symetrical and toes down-going.? Sensation: Withdraws to painful stimuli.? Coordination: Unable to assess due to condition.? Gait: Deferred due to condition.Labs/Data:BLOODWORK:WB C (k/uL)Date Value05/07/2017 21.8903 11.64 RBC (m/uL)Date Value05/07/2017 5.2103 5.73 Platelet Count (k/uL)Date Value05/07/2017 55576 371 BUN (mg/dL)Date Value05/08/2017 1303 1403 17 Creatinine (mg/dL)Date Value05/08/2017 0.9003 0.8805/07/2017 1.05 Lab ResultsComponent Value DateNEUTP 85.7 05/07/2017ABSNEUT 18.74 05/07/2017LYMPHP 8.0 05/07/2017ABSLYMPH 1.76 05/07/2017ABSMONO 1.36 05/07/2017EODINP 0.0 05/07/2017ABSEOSIN <0.03 05/07/2017BASOP 0.1 05/07/2017ABSBASO 0.03 05/07/2017Lab ResultsComponent Value DatePLT 314 05/07/2017HB 16.0 05/07/2017HCT 44.4 05/07/2017ALB 4.4 05/07/2017CA 8.9 05/08/2017TBILI 0.7 05/07/2017ALKPHOS 44 05/07/2017AST 25 05/07/2017GLUC 128 05/08/2017BUN 13 05/08/2017NA 137 05/08/2017K 5.5 05/08/2017CHLOR 103 05/08/2017CO2 16 05/08/2017ANION 18 05/08/2017ALT 45 05/07/2017No results found for: WSR, CRP, IGGIMAGING:Mentioned in the HPIFormulation: May 08, 2017 This is Grant Blanchard JR, a 21 year old male with ahistory of insomnia who presents with status epilepticus. So far his MRIshowed no evidence of an intracranial mass, CSF studies showed highopening pressure 37 cm of water with a corrected WBC in the CSF of 11 withpredominantly lymphocytes, and elevated glucose and elevated protein.Gram stain showed mononuclear cells without organisms. His CSF picturemay reflect vital meningitis, like picture.Current Hospital Diagnosis List:Status epilepticus (HCC) (05/07/2017)Plan:-Continue BEM for monitoring for subclinical status-Seizure precautions: Currently sedation is off propofol and fentanyl.-Increase Keppra 1000mg IV form 750 mg IV.-Start acyclovir-Recommend infectious disease consult.Of the 80 minutes long appointment visit, I spent at least 50% of [id number] time in counseling, explanation of diagnosis and planning offurther management.Fabio Pratt Neurology and Neuroimmunology/Multiple SclerosisPager: [phone]:[phone]/ 11:42 AM [facility] CONSULT PROGon 05-08-2017 Protein mass conc HNO ID: [id number] thor: Shay Echeverriaice: Infectious DiseaseAuthor Type: PhysicianType: Consult Progress NoteFiled: 05/08/2017 3:40 PMNote Text:Consult dictated.Subacute personality changes evolving to status epilepticus can be seen inherpes encephalitis, but HSV pcrs are neg, which almost excludes thatdiagnosis. I will continue acyclovir nonetheless, and if there isclinical improvement, would consider getting another sample. This is notlikely bacterial meningitis, so ATBs can be stopped now, or wait tillcultures are negative. [facility] CSF Cult and Stainon 018 CSF Cult and Stain Sp. Request/Comment: - Less than optimal volume of specimen received and processed.Smear Result - No organisms seen Few Mononuclear cells Gram stain performed on cytospun specimen. Gram stain results reviewed and confirmed by [facility] Microbiology.Culture Result - No growth 14 days [facility] Comment on above: Performed By: #### C SFCUL ####[facility] [place], [place] [phone] Cell Count/Diff CSFon 2017 Clarity Nom (U) Clear Normal Clear [facility] Comment on above: Performed By: #### C CCSF ####[place] [phone] Color Nom (U) Colorless Normal Colorless [facility] Comment on above: Performed By: #### C CCSF ####[place] [phone] CSF Comment Some reference range s and other method performance specifications have not been established for this body fluid. Normal [facility] Comment on above: Performed By: #### C CCSF ####[place] [phone] CSF Tube No. FOR EAST AND WEST USE ONLY No 4 [facility] Comment on above: Performed By: #### C CCSF ####[place] [phone] Lymphocytes/100 WBC Auto (Bld) 91 % High 50-90 [facility] Comment on above: Performed By: #### C CCSF ####[place] [phone] Monocytes/100 WBC Auto (Bld) 7 % Low 10-50 [facility] Comment on above: Performed By: #### C CCSF ####[place] [phone] Neutrophils/100 WBC Auto (Bld) 2 % Normal 0-3 [facility] Comment on above: Performed By: #### C CCSF ####[place] [phone] Nucleated Cells, CSF 11 /uL High 0-5 [facility] Comment on above: Result Comment: This test was developed and its performance characteristics determined by [facility] [place] ([facility]).It has not been cleared or approved by the FDA. [facility] is regulated under CLIA as qualified to perform high-complexity testing.This test is used for clinical purposes. It should not be regarded as investigational or for research. Performed By: #### C CCSF ####[place] [phone] RBC Auto #/vol (Bld) 0.53127 10*6/uL High 0-1 [facility] Comment on above: Performed By: #### C CCSF ####[place] [phone] Comp Metabolic Panelon 05-08 Albumin mass conc 4.4 g/dL Normal 3.5-5.0 [facility] Comment on above: Performed By: #### C BCDIF, AMYL, CMP, LIPA, ROSIE, PT, PTT ####[place] [phone] ALP enzyme act/vol 44 U/L Normal 40-150 [facility] Comment on above: Performed By: #### C BCDIF, AMYL, CMP, LIPA, ROSIE, PT, PTT ####[place] [phone] ALT enzyme act/vol 45 U/L Normal 5-50 [facility] Comment on above: Performed By: #### C BCDIF, AMYL, CMP, LIPA, ROSIE, PT, PTT ####[place] [phone] Anion gap 3 molar conc 13 mmol/L Normal 9-18 [facility] Comment on above: Performed By: #### C BCDIF, AMYL, CMP, LIPA, ROSIE, PT, PTT ####[address] AST enzyme act/vol 25 U/L Normal 7-40 [facility] Comment on above: Performed By: #### C BCDIF, AMYL, CMP, LIPA, ROSIE, PT, PTT ####[place] [phone] Bilirubin mass conc 0.7 mg/dL Normal 0.0-1.5 [facility] Comment on above: Performed By: #### C BCDIF, AMYL, CMP, LIPA, ROSIE, PT, PTT ####[place] [address] Calcium mass conc 7.9 mg/dL Low 8.5-10.5 [facility] Comment on above: Performed By: #### C BCDIF, AMYL, CMP, LIPA, ROSIE, PT, PTT ####[place] [address] Chloride molar conc 103 mmol/L Normal 98-110 [facility] Comment on above: Performed By: #### C BCDIF, AMYL, CMP, LIPA, ROSIE, PT, PTT ####[place] [address] CO2 molar conc 25 mmol/L Normal 23-32 [facility] Comment on above: Performed By: #### C BCDIF, AMYL, CMP, LIPA, ROSIE, PT, PTT ####[place] [address] Creatinine mass conc 0.88 mg/dL Normal 0.70-1.40 [facility] Comment on above: Performed By: #### C BCDIF, AMYL, CMP, LIPA, ROSIE, PT, PTT ####[place] [phone] eGFR- Amer. >60 Normal >60 [facility] Comment on above: Performed By: #### C BCDIF, AMYL, CMP, LIPA, ROSIE, PT, PTT ####[place] [phone] GFR/1.73 sq M predicted among non-blacks MDRD vol rate/area (S/P/Bld) mL/min/{1.73_m2} Normal >60 [facility] Comment on above: Performed By: #### C BCDIF, AMYL, CMP, LIPA, ROSIE, PT, PTT ####[place] [phone] Glucose mass conc 141 mg/dL High 65-100 [facility] Comment on above: Performed By: #### C BCDIF, AMYL, CMP, LIPA, ROSIE, PT, PTT ####[place] [phone] Potassium molar conc 4.1 mmol/L Normal 3.5-5.0 [facility] Comment on above: Performed By: #### C BCDIF, AMYL, CMP, LIPA, ROSIE, PT, PTT ####[place] [phone] Protein mass conc 7.1 g/dL Normal 6.0-8.4 [facility] Comment on above: Performed By: #### C BCDIF, AMYL, CMP, LIPA, ROSIE, PT, PTT ####[place] [phone] Sodium molar conc 141 mmol/L Normal 135-146 [facility] Comment on above: Performed By: #### C BCDIF, AMYL, CMP, LIPA, ROSIE, PT, PTT ####[place] [phone] Urea nitrogen mass conc 14 mg/dL Normal 10-25 [facility] Comment on above: Performed By: #### C BCDIF, AMYL, CMP, LIPA, ROSIE, PT, PTT ####[place] [phone] Enterovirus PCRon 05-08-2017 Enterovirus PCR Negative [facility] Comment on above: Result Comment: This test was developed and its performance characteristics determined by [facility] [place] ([facility]).It has not been cleared or approved by the FDA. [facility] is regulated under CLIA as qualified to perform high-complexity testing.This test is used for clinical purposes. It should not be regarded as investigational or for research. Performed By: #### E NTPCR ####[facility] [address] [place], [place] [phone] Enterovirus PCR Srce Cerebrospinal Fluid [facility] Comment on above: Performed By: #### E NTPCR ####[facility] [address] [place], [place] [phone] Ethanolon 05-08-2017 Ethanol mass conc mg/dL Normal <11 [facility] Comment on above: Performed By: #### A LCO ####[facility] [place], [place] [phone] Glucose, CSFon 05-08-2017 Glucose, CSF 91 mg/dL High 50-75 [facility] Comment on above: Performed By: #### C GLUC, CPROT ####[facility] [place], [place] [phone]#### HSPCRC, VDRLCF ####[facility] [place], [place] [phone] HISTORY PHYSICALon 8 HISTORY PHYSICAL HNO ID: [id number] thor: ANDREA Randhawa Reservice: General Internal MedicineAuthor Type: ResidentType: HANDPFiled: 05/08/2017 5:54 PMNote Text:HISTORY AND PHYSICAL EXAMINATIONSERVICE DATE: 05/08/2017SERVICE TIME: 5:23 [facility]PR[facility] PH[facility]ICIAN: No primary care provider on file.Kai is a 21 year old male with no significant PMHx who presents withseizure like activity. This history was taken from chart as patient isnon responsive. For the prior week the patient has been acting oddaccording to his mother. He has been coming out to the hallway naked andnot realizing it. He has head headaches and is vomiting. According tohis girlfriend he has been feeling off balance, dizzy and havingheadaches. Him and his girlfriend went to the gas station and he turnedand grabbed her and said he was going to fall. After this he hit his headand started to have tonic and clonic movements along with bladderincontinence. They than presented to [facility] where he was found in apost-itcal state. He went for CT scan of the head where he had anotherseizure and was given ativan. CT scan of the head was limited due toasymmetry and atrifact from backboard. However the radiologist did callthe ED physician and raised concern for possible subdural hematoma alongthe tentorium and posterior falx. Due to this [facility] he was intubated due to hismental status and transferred to SICU and than a MRI was done which wasnormal. A LP was done and the patient was than transferred to MICU forfurther management.FUNCTIONAL STATUS: IndependentNo past medical history on file.No past surgical history on file.No family history on file.Social HistorySubstance Use Topics- Smoking status: Not on file- Smokeless tobacco: Not on file- Alcohol use Not on fileNo prescriptions prior to admission.ALLERGIESAllergen Reactions- Sulfa (Sulfonamide * UnknownCOMPLETE REVIEW OF SYSTEMS:Review of SystemsUnable to obtain as patient is intubated and sedatedObjectivePHYSICAL EXAM:Physical ExamBP 112/59 Pulse 108 Temp 37.6 ?C (99.7 ?F) (Oral) Resp 22 Ht 180.3cm (5' 11 ) Wt 119.2 kg (262 lb 12.6 oz) SpO2 97% BMI 36.65 kg/m2Body mass index is 36.65 kg/(m2).Neuro: patient is non responsive to pain, moves limbs randomlyHEENT: No JVD, no tongue bitesCardiac: normal s1 and s2, no murmurs or gallopsRespiratory:Clear breath sounds bilaterally, no wheezing or cracklesAbdomen:Soft non tender abdomen, no rebound tenderness or guardingExtremities: no pitting edemaPulses: 2 plus radial pulsesIntegument: No rash seenDATA:Diagnostic tests reviewed for today's visit:Most recent labs and imaging results.Assessment/PlanActive Problems:Neuro- patient presented with seizure like activity- at OSH received 7 mg of ativan and 3 mg of phenytoin- elevated wbc count 21.89- LP was done which showed colorless CSF fluid, clear looking, 40 rbc,total nucleated cells 11, lymphocyte 91 percent- protein elevated at 60 and glucose elevated at 91- consistent with viral encephalitis- however hsv pcr of CSF is negative along with enterovirus pcr- ID and Neuro on consult- keppra 1000 mg bid- EEG- per ID no need for antibiotics but will continue acyclovir- f/u LP labs- SAT dailyRespiratory- patient intubated due to mental status- continue mechanical ventilation with SBT dailyNephrology- patient making lots of urine 200 cc/hr- r/o Diabetes Insipidus- bmp q 8- f/u urine sodium, urine osmolarity,- unable to get blood osmolarity due to hard stick- IVF LR 150 cc/hrGI- patient is vomiting- reglan- hepatitis panel due to new tatoo'sDVT Prophylaxis - subq heparinGI Prophylaxis - protonixDiscussed with GNATURE: Qasim Holly MD PATIENT NAME: Grant Blanchard JRDATE: May 08, 2017 : 5:22 PM PAGER/CONTACT #: [phone] [facility] HISTORY PHYSICAL HNO ID: [id number] thor: Iris (Do) Service: Critical CareAuthor Type: PhysicianType: HANDPFiled: 05/08/2017 4:45 PMNote Text:[facility] [place] PH[facility]IC[facility] NOTE OF PERSONAL INVOLVEMENT IN CAREI have reviewed the history and physical examination obtained anddocumented by the resident and I personally participated in the keycomponents. I have discussed the case and management of the patient'scare. The following comments revise or confirm relevant renae components ofthe note.IMPRESSION: 21 yo m with h/o insomnia admitted in setting of fall withwitnessed seizure activity intubated for airway protection. Initially feltto be in status now with burst suppression on EEG.Admitted to traumaservice due to initial concerns for SDH-->now negative on repeat CTH andMRI. Following d/w pts mom he has been acting unusual x 1 week (awalkingnaked around the house) c/o HERRERA. No reported fevers. Pt transferred to [facility] with :Acute respiratory failure; intubated due to MSEncephalopathy lumbar puncture results: rbc 40 tnc 11 lymph 91% prot 60gluc 91SeizureFeverVomiting . KUB normalSedation held, on exam pt remains lethargic does not follow commands.Moving all extremities. Perrl. Lungs clear, no rash. New tattoos per fam.Per nursing had high urinary output as well as multiple episodes of emesisFamily reports recent RUE infection, no appreciable infections on digitsPLAN:Cont MV:tolerating CPAP; unable to extubate given neuro statusCont BEM monitoring. Cont Keppra 1g bid Neuro consultedI do not suspect bacterial meningitis based on LP results. May dc abx.Picture c/w viral encephalitis. Await hsv pcr. Cont acyclovirHigh uop is concerning for DI however brain imaging is normal--will repeatBMP, check UA with urine and serum osm and NA. COnt IVF to match UOP. Mayneed ddavpCheck acute hepatitis panelTF held due to vomitingMonitor QTC-cont reglan prnmicu prophPatient/Family Updated: Patient's Next of Kin/Point of Contact, parent,updated regarding the goals of care, medical plan for the day, consultantrecommendations, medical disposition and current medicalcondition/prognosis as and if clinically indicated. All questions andconcerns were answered and addressed at this juncture.They were notified on May 08, 2017 . The duration of the conversationwas 16 minutes.This patient has a high probability of sudden, clinically significantdeterioration, which requires the highest level of physician preparednessto intervene urgently. I managed/supervised life or organ supportinginterventions that required frequent physician assessment. I devoted myfull attention to the direct care of this patient for the amount of timeindicated below. Time I spent with family or surrogate(s) is includedonly if the patient was incapable of providing the necessary informationor participating in medical decision making. Time devoted to teaching andto any procedures I billed separately is not included.Critical Care Documentation: The patient has the following organ/systemimpairment(s): Complex life-threatening medical problem(s),Encephalopathy, Respiratory failure (Acute) and seizureTime spent providing critical care services: 46 minutes.SIGNATURE: ENA Montez INSTITUTEPAGER:[id number] of SERVICE: 05/08/2017 [facility] HISTORY PHYSICAL HNO ID: [id number] thor: Greg Mckeon: TraumaAuthor Type: PhysicianType: HANDPFiled: 05/08/2017 10:47 AMNote Text:TRAUMA HANDP CCHSARRIVAL DATE: 05/07/2017ARRIVAL TIME: 2119CATEGORY: Level 1INJURY DATE: 05/07/2017INJURY TIME: ~1800SubjectiveThiedmar is a 21 year old White male. GCS at Scene was 3 .HPI/CHIEF COMPLAINT:This is a 21 year old male h/o insomnia on who presents after fallfrom standing and new-onset seizure like activity. History obtained fromchart and family. Per mother pt has been acting strangely since Wednesday. he would come out into the hallway naked and not realize it He c/oheadaches and vomited occasionally . They took him to the ED and was told to get more sleep . Today he was at a gas station with his girlfriend andsuddenly felt unwell, fell and began having tonic clonic seizure likeactivity. +urinary incontinence. Per the girlfriend a nearby policeofficer began compressions and gave mouth to mouth before EMS arrived. Hewas then taken to [facility] where he continued to have seizures andgiven 7mg ativan and 1.5g Keppra x2. A CT Head and C-spine was performedbut limited 2/2 motion artifact. A hogan was placed and he was trans[facility]to [facility].BRIEF DESCRIPTION OF INJURIES: superficial abrasion to lateral left elbowLAST FLUIDS/MEAL: unknownALLERGIESAllergen Reactions- Sulfa (Sulfonamide * UnknownNo prescriptions prior to admission.DATE OF LAST TETANUS: unknwonThere is no immunization history on file for this patient.No past medical history on file.No past surgical history on file.Social History Marital status: Single Spouse name: Years of education: Number of children:Social History Main TopicsROS:Is the patient having any pain? No 0 on a scale of 0 to 10Constitutional: Unable to obtain due to mental status or language barrierEye/Ear/Nose: Unable to obtain due to mental status or language barrierRespiratory: Unable to obtain due to mental status or language barrierCardiovascular: Unable to obtain due to mental status or language barrierGI/Liver/Biliary: Unable to obtain due to mental status or languagebarrierGenitourinary: Unable to obtain due to mental status or language barrierPsychiatric: Unable to obtain due to mental status or language barrierNeurologic: Unable to obtain due to mental status or language barrierMusculoskeletal: Unable to obtain due to mental status or language barrierIntegument: Unable to obtain due to mental status or language barrierEndocrine: Unable to obtain due to mental status or language barrierHeme/Lymph: Unable to obtain due to mental status or language barrierObjectivePRIMARY SURVEYAIRWAY: Patent and Suction RequiredBREATHING: Breath sounds equalCIRCULATION: PT/DP 2, Radials 2, Femoral 2DISABILITY: Eye: 1=No Response Verbal: 2=Incomprehensible Sounds Motor: 2=Extension Total GCS: 5=1 Resp Rate: 10 to 29=4 Syst BP: > than 89=4REVISED TRAUMA SCORE: 9EXPOSE / ENVIRONMENT: Warm Blankets PROCEDURES: Intubation: OralSECONDARY SURVEYVITALS: 105 140/68 20 37.3NEURO: Obtunded, moves limbs spontaneously, not purposefullyHEENT: Head: No lacerations or abrasions, no bony step offs, midfacestable to palpation, Eyes: PERRL, conjunctiva/corneas without lesions, EOMintact, Ears: Canals without blood or CSF drainage, TMs clear, externalears without lacerations, Nose: Septum midline, no crepitus with motion,Throat: Oral mucosa without lacerations, teeth in place, tongue withoutlacerationsNECK: No midline pain with palpation, No JVD, Trachea midlineRESPIRATORY: No abrasions or contusions, No crepitus, Equal ExcursionCARDIOVASCULAR: Heart rate regular, S1S2 with no R/M/GABDOMEN: Non-distended, No scars or lacerations, No masses or organomegalyPELVIC/PERINEAL: Normal male genitalia, Pelvis stable to palpation, Noblood noted at urethra meatusBACK/SPINE: No step off or deformity noted, No external injury notedEXTREMITIES: Forearm/Elbow left superficial abrasion RADIOLOGICAL/OTHERTEST DATA:CXR: No traumatic injuriesCervical Spine Clearance: No traumatic injuriesCT Head: No traumatic injuriesPRIOR TO ARRIVAL: C.P.R.Loss of Consciousness for unknown minutesIMAGESLABS: CBC, Coags, BMP, Mg, PhosRecent Labs 05/07/18214WBC -- 21.89* -- 11.64*HB -- 16.0 -- 17.0HCT -- 44.4 -- 48.8PLT -- 314 -- 371INR -- 1.1 -- 1.0APTT -- 23.3 -- 22.0*NA -- 141 -- 143K -- 4.1 -- 3.9CHLOR -- 103 -- 102CO2 -- 25 -- 24BUN -- 14 -- 17CREAT -- 0.88 -- 1.05GLUC -- 141* -- 104*IC 1.08* -- 1.06* --CA -- 7.9* -- 9.5Liver Function, Amylase, AND LipaseRecent Labs 05/07/1821TPROT -- 7.1 -- -- 8.1ALB -- 4.4 -- -- 4.8ALT -- 45 -- -- 47AST -- 25 -- -- 26ALKPHOS -- 44 -- -- 52TBILI -- 0.7 -- -- 0.7AMYLASE -- 43 -- -- --LIPASE -- 24 -- -- --LACT 1.0 -- 0.7 1.03 --ABGsRecent Labs 05/07/1821PH 7.36 7.33*PCO2 45 47PO2 95 193*BE NEG 1 NEG 2HCO3 25 52WY1SS 26 25O2HB 96 98COHB 0.9 0.8MHGB 0.6 0.7O2AD 30.0 100.0Assessment/PlanDIAGNOSES: New onset seizuresTREATMENT/EVALUATION PLANS: IntubationED DISPOSITION: To ICUFINAL INJURIES: No new injuries were identified after physical examinationand review of final radiological reading(s) of all studies.SENIOR RESIDENT NOTE:- Admit to Inpatient - ICU - Trauma Surgery - Dr. Boyle forTrauma/Fall/Seizures- Condition: Stable but critically ill requiring ventilator support- Vitals/Neurochecks q1h. BEM/EEG- Activity: Bedrest- GI/Diet: NPO, IVFs, Zofran PRN- Abx: None. But high c/f asp PNA- Labs: CMP, CBC, Mg/Phos, PT/PTT, A/L, T+S/Con ABO- Tests: EKG, CXR, KUB, EEG- Pain: Fentanyl- PPx: SQH q12, SCDs,- Consults: Neurology, ?NSGY- Will need MRI, Epilepsy/seizure work-up- Patient seen and examined. To be d/w Surgery Staff Dr. Aamir Davis MDHighlands Medical Center SurgeryFor any questions please contactSurgery Green Team pager [phone] weekdays.Or [phone] weeknights (6pm - 6am) and weekends.Date: 05/08/2017Time: 2:03 AMGreg Boyle, [facility] 2017 10:47 AM [facility] HISTORY PHYSICAL HNO ID: [id number] thor: Barrera (Do) EloService: Critical CareAuthor Type: AnesthesiologistType: HANDPFiled: 05/08/2017 9:38 AMNote Text:.CRITICAL CAREHISTORY AND PHYSICAL EXAMINATIONPLEASE DO NOT REMOVE FROM THE CHART OR MODIFY PRINTED COPYPatient Name: Grant Blanchard CARE PHYSICIAN: No primary care provider on file.CHIEF COMPLAINT: Trauma - Fall from standing/SeizureHPI: This is a 21 year old male h/o insomnia on who presentsafter fall from standing and new-onset seizure like activity. Historyobtained from chart and family. Per mother pt has been acting strangelysince Wednesday. he would come out into the hallway naked and not realizeit He c/o headaches and vomited occasionally . They took him to the EDand was told to get more sleep . Today he was at a gas station with hisgirlfriend and suddenly felt unwell, fell and began having tonic clonicseizure like activity. +urinary incontinence. Per the girlfriend a nearbypolice officer began compressions and gave mouth to mouth before EMSarrived. He was then taken to [facility] where he continued to haveseizures and given 7mg ativan and 1.5g Keppra x2. A CT Head and C-spinewas performed but limited 2/2 motion artifact. A hogan was placed and hewas transfered to [facility]. On arrival he was intubated and taken for repeatscans which were negative.PAST MEDICAL HISTORY: InsomniaPAST SURGICAL HISTORY: No prior SurgeriesFAMILY HISTORY: DM, Brain tumorsSOCIAL HISTORY:Per mother3 cigs/dayNo Recreational Drug useNo daily EtOH useMEDICATIONS:Prior to Admission Medications:- [facility] hospital medications:fentaNYL 20 mcg/mL iv infusion in NaCl 0.9% 100 mL 25-250 mcg/hrINTRAVENOUS CONTINUOUSfentaNYL 50 mcg/mL 25-50 mcg injection (SUBLIMAZE) 25-50 mcg INTRAVENOUS q5 MIN PRNpropofol infusion (DIPRIVAN) 5-50 mcg/kg/min INTRAVENOUS CONTINUOUSNaCl 0.9% iv infusion 150 mL/hr INTRAVENOUS CONTINUOUSfosphenytoin 2,000 mg PE in NaCl 0.9% 100 mL (CEREBYX) 2,000 mg PEINTRAVENOUS ONCE[START ON 05/08/2017] pantoprazole 40 mg injection (PROTONIX) 40 mgINTRAVENOUS DAILY (6 AM)ALLERGIES:ALLERGIESAllergen Reactions- Sulfa (Sulfonamide * UnknownCOMPLETE REVIEW OF SYSTEMS:Unable to completePHYSICAL EXAM: BP 134/90 Pulse 87 Temp 37.1 ?C (98.8 ?F) (Oral) Resp21 Wt 119.2 kg (262 lb 12.6 oz) SpO2 100%General appearance/Neuro: Obtunded, GCS 2/2/2 = 6Skin: skin color, texture, turgor normal, small superficial abrasion tolateral left elbowHEENT: Normocephalic, fixed gaze, pupils equal and reactive, emesis inmouth around ETT noted. OG placedLungs: b/l rohnci, cracklesHeart: RRR without murmur, gallop, or rubs.Abdomen: Abdomen soft, non-tender, non-distended. bowel sounds normal. Nomasses, organomegaly.Lines/Tubes/Drains: [id number]: No deformities, edema, normal peripheral pulsesDATA: Laboratory:CBC, Coags, BMP, Mg, PhosRecent Labs 05/07/18214WBC 21.89* -- 11.64*HB 16.0 -- 17.0HCT 44.4 -- 48.8PLT 314 -- 371INR 1.1 -- 1.0APTT 23.3 -- 22.0*NA 141 -- 143K 4.1 -- 3.9CHLOR 103 -- 102CO2 25 -- 24BUN 14 -- 17CREAT 0.88 -- 1.05GLUC 141* -- 104*IC -- 1.06* --CA 7.9* -- 9.5Liver Function, Amylase, AND LipaseRecent Labs 05/07/1821TPROT 7.1 -- -- 8.1ALB 4.4 -- -- 4.8ALT 45 -- -- 47AST 25 -- -- 26ALKPHOS 44 -- -- 52TBILI 0.7 -- -- 0.7AMYLASE 43 -- -- --LIPASE 24 -- -- --LACT -- 0.7 1.03 --Cardiac EnzymesRecent Labs TROPT <0.010ABGsRecent Labs 05/07/1821PH 7.36 7.33*PCO2 45 47PO2 95 193*BE NEG 1 NEG 2HCO3 25 58ZF2JO 26 25O2HB 96 98COHB 0.9 0.8MHGB 0.6 0.7O2AD 30.0 100.0Lactate, POC (mmol/L)Date Value05/07/2017 1.03 Radiology:No acute fracture identified cervical spine.No acute intracranial hemorrhage or acute intracranial abnormalityidentified.Question some low lying cerebellar tonsils in the foramen magnum whichcould be further and better evaluated with MRI.ASSESSMENT/PLAN:Grant Blanchard JR is a 21 year old male with no significant past medicalhistory who was admitted on 05/07/2017 for trauma/mall in the setting ofnew onset seizures. Intubated in ED. High likelyhood of aspiration PNA.Indication for ICU admission: respiratory support and neuro monitoring inthe setting of the above surgeryNeuro:- Seizure W/o: MRI, LP- Analgesia: Fentanyl prn- Anxiety/Sedation: propofol gttCardiovascular:- ICU monitoring- IV Access: pIVRespiratory:- Respiratory Insufficiency on Mechanical Ventilator- ABG- Daily CXRGI:- Nutrition/Diet: NPO- OGT to LIWS.Renal: (Baseline sCr: 1.05)- Urine output will follow. sCr 1.05. Hogan indicated.- IVF NS at 100- Electrolytes replete K >4, Phos >3, Mag >2.Heme/ID:- Hemoglobin 16. No evidence of bleeding. Transfuse for hgb < 7- WBC 21- Abx: None- DVT Prophylaxis: IPCs, SQH tomorrowEndo:- Glucose 141.MSK- Activity Level: BedrestDispo: SICUPlan to be discussed with ICU Staff Dr. Pedersen.Cirilo Davis MDHigh[facility] Surgery[C]: [phone] [P]: [id number]: 05/07/2017Time: 10:32 [facility] STAFF PHYSICIAN NOTE OF PERSONAL INVOLVEMENT IN CAREI have reviewed the progress note obtained and documented by the residentand I personally participated in the renae components. I have discussed thecase and management of the patient's care. The following comments reviseor confirm relevant renae components of their note.IMPRESSION/PLAN:21M benign pMHx with about 1 weeks worth of vague mental status changespresented with seizure complicated by fall.Initial head CT positive for SDH - not seen on repeat - likely movementartifact - NSGY signed off - does not explain seizure activity.MRI negative for abnormalities.LP thus far negative for bacterial etiology - labs pending - will leaveABX for now (vanco/Rocephin) - ?Viral---?need anit-viral - will discusswith ID - consult placed.BEM - no seizure activity seen - will continue Keppra and defer toneurology.Minimize sedation - off if possible.C-collar until cleared.Intubated, aspiration/hypoxic respiratory failure - wean to extubate astolerated.NPO for now.Adequate UOP.PPI/SQH.CARE COORDINATION: Critical Care: I personally spent 60 minutes ofcritical care time involved in the care of this patient.SIGNATURE: Barrera Pedersen DOPAGER: [id number] of SERVICE: May 08, 2017TIME of SERVICE: 9:38 AM [facility] HIV 12 Combo (Ag/Ab)on 05-08 HIV 12 Ag/Ab Non Reactive Normal Non Reactive [facility] Comment on above: Result Comment: (NOT E)HIV Information: [place] Rev. Code 3701.243(E):This information has been disclosed to you from confidential recordsprotected from disclosure by state law. You shall make no furtherdisclosure of this information without the specific, written, andinformed release of the individual to whom it pertains, or asotherwise permitted by state law. A general authorization for therelease of medical or other information is not sufficient for thepurpose of the release of HIV test results or diagnoses. Performed By: #### H IV12C ####[place] [id number] Hepatitis Acute Panel * OUTS [place] CLIENTS ONLY *on 05-08-2017 Hep B Core Ab, IgM Negative Normal Negative [facility] Comment on above: Performed By: #### H ACUTP ####[place] [address] Hepatitis A Ab IgM Negative Normal Negative [facility] Comment on above: Performed By: #### H ACUTP ####[address] Hepatitis C Ab IA Negative Normal Negative [facility] Comment on above: Performed By: #### H ACUTP ####[address] Herpes Simpl PCR CSFon 05-08 HSV PCR Spec Source Cerebrospinal Fluid [facility] Comment on above: Performed By: #### C GLUC, CPROT ####[address]#### HSPCRC, VDRLCF ####[place] [address] HSV-1 Negative [facility] Comment on above: Performed By: #### C GLUC, CPROT ####[address]#### HSPCRC, VDRLCF ####[address], [place] [phone] HSV-2 Negative [facility] Comment on above: Performed By: #### C GLUC, CPROT ####[facility] [place], [place] [phone]#### HSPCRC, VDRLCF ####[place] [id number] [place], [place] [phone] Lipaseon 05-08-2017 Lipase enzyme act/vol 24 U/L Normal 12-70 [facility] Comment on above: Performed By: #### C BCDIF, AMYL, CMP, LIPA, ROSIE, PT, PTT ####[facility] [place], [place] [phone] MRI BRAIN WO/W IVCONon 05-08 MRI BRAIN WO/W IVCON * * *Final Report* * *DATE OF EXAM: May 08 2017 3:05AM [facility] 0295 - MRI BRAIN WO/W IVCON / REASON: Seizure (HCC) * * * * Physician Interpretation * * * * EXAMINATION: MRI BRAIN WO/W IVCONHISTORY: Seizures, increased white blood cell countTECHNIQUE: Routine brain MRI protocol without and with contrast including diffusion and gradient echo images.M: [id number]: 20CC mL Dotarem IVCOMPARISON: None.RESULT:Acute Change: There is no evidence of restricted diffusion to suggest an acute infarct.Hemorrhage: No evidence of prior parenchymal hemorrhage on the gradient echo images.Mass Lesion/ Mass Effect: No evidence of an intracranial mass or extra-axial fluid collection. No significant mass effect.Chronic Change: The white matter is within normal limits of signal intensity for age.Parenchyma: No significant volume loss for age. The brain parenchyma is otherwise within normal limits of signal intensity and morphology. No abnormal enhancement is present.Ventricles: Normal caliber and morphology.Skull Base: Cerebellar tonsils show minimal ectopia, within normal limits. Hypothalamic and pituitary region are grossly normal. No significant marrow replacement process.Vasculature: Major intracranial arterial structures, and dural venous sinuses show typical flow void, suggesting patency by spin echo criteria.Other: The visualized paranasal sinuses and mastoid air cells are clear. The orbits and extracranial soft tissues are unremarkable.IMPRESSION:Normal study.Ssn/Ssbn Weapons Equipment Operator: PSCB Transcribe Date/Time: May 08 2017 3:08ADictated by : DAVID NAYLOR MDThis examination was interpreted and the report reviewed and electronically signed by: DAVID NAYLOR MD on May 08 2017 3:11AM [id number] [facility] Magnesiumon 05-08-2017 Magnesium mass conc 2.2 mg/dL Normal 1.7-2.6 [facility] Comment on above: Performed By: #### B MP, MG1, PHOS ####[facility] [place] [phone] NURSING PROGon 05-08-2017 Protein mass conc HNO ID: [id number] thor: Danika BradfordRnNEFTALY Jaimeservice: Critical CareAuthor Type: Registered NurseType: Nursing Progress NoteFiled: 05/08/2017 7:27 PMNote Text: Nursing Progress: Topic: RESTRAINT NON-VIOLENTPATIENT NAME: Grant Elaine Santo JRMRN: [id number] LOCATION: [place] [address]/[id number] patient demonstrates Attempting to Remove Medical Devices Vital toMedical Stability as evidenced by the following behaviors attempting toremoved medical devices which pose an imminent danger to self or others.The following interventions were attempted but were not effective inprotecting the patient's safety: Contraindicated - Imminent Safety RiskNext, a comprehensive assessment was performed and warranted placing thepatient in Soft Bilateral Wrists, the least restrictive restraint neededto protect the patient's safety.Ongoing safety assessments and evaluation for earliest removal ofrestraints will be performed.DATE: May 08, 2017TIME: 7:26 PMDanika Gillespie RN [facility] Protein mass conc HNO ID: [id number] thor: NEFTALY Piper Rnervice: Critical CareAuthor Type: Registered NurseType: Nursing Progress NoteFiled: 05/09/2017 7:32 AMNote Text: Nursing Progress NotePatient Name: Grant Elaine Santo JRMRN: [id number] Location: [place] [address]/SG-FGL-[id number] Daily Note:1920 Report received from day shift RN. VSS, complete assessment tofollow.2000 Assessment performed and documented. See ICU flowsheet.2200 Pt repositioned, VSS.0000 Reassessment performed and documented. See ICU flowsheet. No changesfrom previous assessment.0130 Pt becoming increasingly restless, Dr. Gregg notified will orderFentanyl gtt.0200 Pt repositioned, VSS.0400 Reassessment performed and documented. See ICU flowsheet. No changesfrom previous assessment.0600 Pt repositioned.0700 Report given to day shift RN.This note was completed by: Danika Gillespie RN [facility] Protein mass conc HNO ID: [id number] thor: Renae (Rn) Coty, RNService: NursingAuthor Type: Registered NurseType: Nursing Progress NoteFiled: 05/08/2017 7:56 PMNote Text: Nursing Progress NotePatient Name: Grant Blanchard JRMRN: [id number] Location: [place] [address]/JN-[id number]-25 Daily Note: Received pt on CPAP with ET tube 7.5 with setting PS 5, PEEP 5, Fio2 30%., at Lip Line 26cm. Pt on Propofol drip @ 35mcg/hr. Family atbedside. Foleys catheter drining clear yellow urine. Urine sent forOsmolality AND Sodium. Pt repositioned q 2 hrs,. Pt undergoing EEGmonitoring. Maintained on Seizure Precautions with seizure Pads on. Alsomaintained on Tel;e with Sinus Tachy. WBC -21.89. Pt on IV Vanco, IVAcylovir AND IV Rocephine. Maintained on soft bilateral wrist Restraints.Would monitor.This note was completed by: Renae Ansari RN [facility] Protein mass conc HNO ID: [id number] thor: Katerine (Rn) NEFTALY Gomeservice: Critical CareAuthor Type: Registered NurseType: Nursing Progress NoteFiled: 05/08/2017 3:39 PMNote Text: Nursing Progress NotePatient Name: Grant Blanchard JRMRN: [id number] Location: [place] [address]/YE-ZQK-31 Daily Note:0700: Bedside report received from ZEFERINO Sultana. Patient intubated, sedated,and restrained. Full assessment to follow.0800: Full assessment completed. See documentation for details.0815: Patient placed in CPAP per Dr. Pedersen.0830: Pt began vomiting, oral suctioned for about 200 mL.0900: Dr. Mcdermott bedside.0945: Dr. Pedersen bedside to replace darrick collar.1245: Patient now on MICU service, Dr. Singh bedside for assessment.1500: Patient moved to ICU 31, report given ZEFERINO Robertson and ZEFERINO Guevara.This note was completed by: Katerine Gomes RN [facility] Protein mass conc HNO ID: [id number] thor: Katerine (Rn) NEFTALY Gomeservice: Critical CareAuthor Type: Registered NurseType: Nursing Progress NoteFiled: 05/08/2017 8:08 AMNote Text: Nursing Progress: Topic: RESTRAINT NON-VIOLENTPATIENT NAME: Grant Blanchard JRMRN: [id number] LOCATION: [place] [address]/[id number] patient demonstrates Attempting to Remove Medical Devices Vital toMedical Stability as evidenced by the following behaviors attempting toremove ETT which pose an imminent danger to self or others.The following interventions were attempted but were not effective inprotecting the patient's safety: Contraindicated - Imminent Safety RiskNext, a comprehensive assessment was performed and warranted placing thepatient in Soft Bilateral Wrists, the least restrictive restraint neededto protect the patient's safety.Ongoing safety assessments and evaluation for earliest removal ofrestraints will be performed.DATE: May 08, 2017TIME: 8:08 Dot Gomes RN [facility] Protein mass conc HNO ID: [id number] thor: Debo BradfordRn) NEFTALY Marinervice: NursingAuthor Type: Registered NurseType: Nursing Progress NoteFiled: 05/08/2017 4:52 AMNote Text: Nursing Progress NotePatient Name: Grant Blanchard JRMRN: [id number] Location: [place] [address]/QG-ILL-13 Daily Note:0425: RT called to bedside to prepare for lumbar puncture.0435: chemistry technical officer to come in at 0500 to replace EEG leads.0438: Dr. Godfrey at bedside to supervise. Kristopher Irwin at bedside as well.0441: Timeout completed for procedure.0451: 100 mcg fentanyl given per Dr. Godfrey.This note was completed by: Debo Marin RN [facility] Protein mass conc HNO ID: [id number] thor: Gavi BradfordRn) NEFTALY Payneervice: (none)Author Type: Registered NurseType: Nursing Progress NoteFiled: 05/07/2017 10:24 PMNote Text: Nursing Progress: Topic: RESTRAINT NON-VIOLENTPATIENT NAME: Grant Blanchard LOCATION: [place] [address]/[id number]-STM-05Hvn patient demonstrates Attempting to Remove Medical Devices Vital toMedical Stability, Inability to be Redirected, Inability to RetainInformation Regarding Safety Directions as evidenced by the followingbehaviors attempting to pull ET tube which pose an imminent danger to selfor others.The following interventions were attempted but were not effective inprotecting the patient's safety: Contraindicated - Imminent Safety RiskNext, a comprehensive assessment was performed and warranted placing thepatient in Soft Bilateral Wrists, the least restrictive restraint neededto protect the patient's safety.Ongoing safety assessments and evaluation for earliest removal ofrestraints will be performed.DATE: May 07, 2017TIME: 10:24 PMGavi Payne RN [facility] Osmolality, Urineon 05-09-19 18 Osmolality, Urine 402 mOsm/kg Normal 50-1200 [facility] Comment on above: Performed By: #### U [place] ####[facility] [address] [place], [place] [phone]#### UOSM ####[facility] [place], [place] [phone] PROCEDUREon 05-08-2017 Protein mass conc HNO ID: [id number] thor: Cirilo (Res) PhilipService: Critical CareAuthor Type: ResidentType: ProceduresFiled: 05/08/2017 5:40 AMNote Text: Attestation signed by Jerrell Godfrey at 05/08/2017 6:54 AMAttending NoteFor the Bedside procedure, I was physically present during the entireprocedure.Signature: Jerrell Godfrey,MDDate: 05/08/2017Time: 6:54 AM SICU PROCEDURE NOTEPROCEDURE DATE: 05/08/2017PROCEDURE START TIME: 0500INFORMED CONSENTPlease refer to the signed consent form, located in the paper chart andscanned into the electronic medical record on hospital discharge.[place] Protocol / Safety ChecklistThe sign in communication was completed.The procedural team confirmed the correct patient, the correct procedureand the correct site during the audible time out.The time out was affirmed.The sign out discussion was completed.UNIVERSAL PROTOCOL / SAFETY CHECKLISTSign in Communication: CompletedTime Out: Team Confirms the Correct Patient, Correct Procedure, CorrectSite and Site Marking, Correct Position (if applicable), Prep and Dry Time(if applicable). Time: 0500Affirmation of Time Out: YESSign Out Discussion: CompletedLUMBAR PUNCTUREIndication: New Onset SeizuresAnesthesia: Anesthesia was obtained with local infiltration of 1%lidocaine.Patient Position: Lateral DecubitusSite: L3-4 spaceSite Prep: Povidone iodine, allowed to dry for 30 secondsThe subarachnoid space was located using the iliac crests and spinousprocesses as landmarks. A 22 gauge spinal needle was introduced into thearachnoid space. The stylet was removed with 2mL fluid return. The needlewas removed after adequate fluid (roughly 15cc) was collected.Opening Pressure: 37 cm Q2COmpdklm Pressure: Not assessedFluid Appearance: ClearPatient tolerated procedure well.Complications: NoneSpecimens: Cell Count, Culture, Gram Stain, Glucose, Protein and CytologyEstimated Blood Loss 0ccSIGNATURE: Cirilo Davis MD PATIENT NAME: Grant Blanchard JRDATE: May 08, 2017 : 5:36 AM PAGER/CONTACT #: [phone] [facility] PROGRESSon 05-08-2017 Protein mass conc HNO ID: [id number] thor: Greg BoyleService: TraumaAuthor Type: PhysicianType: Progress NotesFiled: 05/08/2017 10:49 AMNote Text:TRAUMA TERTIARY SURVEYSERVICE DATE: 05/08/2017SERVICE TIME: 8:54 AMTERTIARY SURVEYSUBJECTIVE: Unable to obtain. No injuries found on CT scan afterintubation. EEG in place. Transfer to MICU/ medicine for seizure work upand extubationBP 111/65 Pulse 94 Temp (Src) 99.9 (Oral) Resp 20 Ht 5' 11 (1.80m) Wt 262 lb 12.6 oz (119.2kg) SpO2 97% BMI 36.67 kg/(m2).GCS: 3NEURO: Unable to obtain due to mental status or language barrierHEENT: Unable to obtain due to mental status or language barrierNECK: Unable to obtain due to mental status or language barrierRESPIRATORY: Unable to obtain due to mental status or language barrierCARDIOVASCULAR: Unable to obtain due to mental status or language barrierABDOMEN: Unable to obtain due to mental status or language barrierPELVIC/PERINEAL: Unable to obtain due to mental status or language barrierBACK/SPINE: Unable to obtain due to mental status or language barrierEXTREMITIES: Unable to obtain due to mental status or language barrierMEDICATIONS:Current hospital medications:cefTRIAXone 2 g in D5W 100 mL MB+ (ROCEPHIN) 2 g INTRAVENOUS q 24 Hvancomycin 1.5 g in D5W 250 mL (VANCOCIN) 1.5 g INTRAVENOUS q 12 HRfentaNYL 50 mcg/mL 25-50 mcg injection (SUBLIMAZE) 25-50 mcg INTRAVENOUS q5 MIN PRNNaCl 0.9% iv infusion 150 mL/hr INTRAVENOUS CONTINUOUSpantoprazole 40 mg injection (PROTONIX) 40 mg INTRAVENOUS DAILY (6 AM)propofol infusion (DIPRIVAN) 5-50 mcg/kg/min INTRAVENOUS CONTINUOUSdextrose 40 % 15 g 15 g ORAL PRNglucagon 1 mg injection (GLUCAGEN) 1 mg INTRAMUSCULAR PRNdextrose 50% in water 25 mL syringe 12.5 g INTRAVENOUS PRNinsulin lispro injection (rapid acting) (HumaLOG) SUBCUTANEOUS q 6 Hacetaminophen 650 mg suppository (TYLENOL) 650 mg RECTAL q 4 H PRNiv contrast (radiology procedure) INTRAVENOUS DIRECTED PRNlevETIRAcetam 750 mg in NaCl 0.9% 100 mL (KEPPRA) 750 mg INTRAVENOUS BIDPHYSICAL EXAM:BP 97/57 Pulse 71 Resp 15 Ht 167.6 cm (5' 6 ) Wt 70.8 kg (156 lb) SpO2 (!) 94% BMI 25.18 kg/m2Genl: Appears age appropriate. No acute distress. Resting comfortably.Head/Face: Normocephalic. Atraumatic. EEG in placeNeck: Soft darrick C- collar in placeBack: T AND L Spine non-tender, no step-offs noted. No flank tenderness.Resp: Lungs clear bilat. No wheezes. No rales. ON vent and INtubatedCVS: RRR. No murmur, rub, gallop. 2+ pulses at RA, DP, PT bilat.GI: Abdomen is soft, non-tender, not distended. Bowel sounds normal. Noperitonitis.MSK: Extremities without clubbing, cyanosis, edema.Skin: Warm and dry. No lesions of concern. Not jaundiced. Noabrasions/contusions.Neuro: Intubated and non respsoinve AANDOx0 GCS3.LABS/IMAGING (pertinent to today's evaulation):CBC, Coags, BMP, Mg, PhosRecent Labs 05/07/1821WBC -- 21.89* -- 11.64*HB -- 16.0 -- 17.0HCT -- 44.4 -- 48.8PLT -- 314 -- 371INR -- 1.1 -- 1.0APTT -- 23.3 -- 22.0*NA -- 141 -- 143K -- 4.1 -- 3.9CHLOR -- 103 -- 102CO2 -- 25 -- 24BUN -- 14 -- 17CREAT -- 0.88 -- 1.05GLUC -- 141* -- 104*IC 1.08* -- 1.06* --CA -- 7.9* -- 9.5Liver Function, Amylase, AND LipaseRecent Labs 05/07/1821TPROT -- 7.1 -- -- 8.1ALB -- 4.4 -- -- 4.8ALT -- 45 -- -- 47AST -- 25 -- -- 26ALKPHOS -- 44 -- -- 52TBILI -- 0.7 -- -- 0.7AMYLASE -- 43 -- -- --LIPASE -- 24 -- -- --LACT 1.0 -- 0.7 1.03 --Cardiac EnzymesRecent Labs TROPT <0.010A/PSeizure activity with fallNo traumatic injuries noted on tertiary exam or all imaging- Transfer to MICU/Medicine- EEG in place and neuro followingSIGNATURE: RICK Menard PATIENT NAME: Grant Blanchard JRDATE: May 08, 2017 : 8:54 AM PAGER/CONTACT #:Agree with above note. Patient has no evidence of injury/trauma. Suspectsame level fall after seizures began.He has cleared trauma evaluation and workup.Plan transfer to MICU/Medical service for ongoing workup and treatment ofseizure disorder.Greg Boyle, [facility] 2017 10:49 AM [facility] PROGRESS HNO ID: [id number] thor: Madeline (Elevator Attendant) Ludin: (none)Author Type: Nurse PractitionerType: Progress NotesFiled: 05/08/2017 2:34 AMNote Text:[facility] TRANSPORT NOTEPatient Name: Grant Blanchard JRMRN: [id number]: 1995Service Date: May 07, 2017Referring Facility: Health system [facility] Phys[facility]: [place] Accepting Physician: LisaJECTIVE/CHIEF COMPLAINT: Fall/SeizureREASON FOR TRANSPORT: Necessary services unavailable at referring facilityHistory of Present Illness/Injury: Known to CCT team at time of given careand summarized through review of available medical records, patient/familyinterview and from referring physician and staff.Grant Blanchard JR is a 21 year old male with a past history known to [facility] at time of transport, significant for nothing who presented [facility] s/p fall. Patient was walking out of a gas station with hisgirlfriend when he stated he didn't feel well, grabbed her arm then fellto the ground, hitting his head on the cement. Patient then began havingwhat was described as tonic-clonic seizures. Positive loss of bladderfunction. Patient was postictal upon arrival to ER. He had a secondseizure in CT and also vomited. Patient was given Ativan 2 mg [address] Zofran [address]. [address] head showed suspected subdural hematoma. Patient then had 6 moreseizures per RN. Patient received a total of Ativan 7 mg and Keppra 3 gm.Patient did at one point become hypotensive into the 80's and desaturated.He was given 1 liter IVF and placed on a NRB. Lab work unremarkable exceptfor elevated WBC's. Tox screen negative. Per family, no history of druguse. Had been acting strange over the last couple days per report, but nofevers. At time of transport arrival, patient was in c-collar, moaning.Does not follow commands or attempt to open eyes. With minimalstimulation, patient does become rigid initially, but then will move feetand upper extremities spontaneously. Per RN, his movements would stop whennot stimulated. Patient protecting airway.At this time, the physician managing the patient requested transfer to [facility] for tertiary and/or quaternary trauma services unavailable at thereferring facility.The physician managing the patient requested the [facility] CriticalCare Transport Team transport and treat the patient for the purpose oftertiary care, evaluation, and management of his emergent medicalcondition. Patient condition at time of exam was: acutely ill andcritically ill. Due to the unique circumstances of the patient, it wasdetermined that this was the closest, most appropriate facility byreferring physician.ROS:Unable to complete secondary inability to communicate due to alteredmental status.PAST MEDICAL HISTORY:None reported to transport teamPAST SURGICAL HISTORY:None reported to transport teamALLERGIES:Sulfa (Sulfonamide Antibiotics)SOCIAL HISTORY:Unknown to transport teamFAMILY HISTORY:Unknown to transport teamHOME MEDICATIONS:Unknown to transport teamMedications Administered by Referring Facility:Ativan 7 mg totalKeppra 1.5 gm x 2 dosesZofran 4 mg x 1 doseNS x 2 literOBJECTIVE:Recent Labs, Diagnostics AND Procedure Reports reviewed as available.Referring Facility LabsCBC: WBC 11.64k, Hgb 17.0, Plt 371KCHEMISTRY: Na 143, K 3.9, Cl 102, CO2 24, BUN 17, SCr 1.05, Glu 104Coags: INR 1.0Drug Screen: negativeLactate 1.03Diagnostics AND Procedure ReportsECG: Results reviewed, Rhythm STCXR: Results reviewed, Unremarkable chest x-rayHead CT Scan: Results reviewed Possible small Subdural Hematoma along thetentorium and posterior falxC-Cpine CT Scan: Results reviewed No fractureInvasive Lines/Devices/Tubes Placed by Referring Facility:PIV x 2Foley CatheterPHYSICAL EXAM: Upon CCT Arrival at Referring FacilityVital Signs: BP 128/76mmHg, HR 122bpm, RR 20, SpO2 100%Oxygen/Ventilator Settings: 15 lpm via NRBPrimary Survey:Airway/C-Spine: Patent. Patient only moaning. Cervical collar in placewith inline stabilizationBreathing: Spontaneous, tachypneic, trachea midline, lung sounds withscattered rhonchi equal. Oxygen in place via NRBCirculation: Strong carotid, radial and femoral pulses. No bleedingnoted. Skin pink, warm and dry. IV access obtained and labs sent by ER.Disability: GCS 7.Exposure: Exposure achieved. Warming blankets placed on patient.Secondary Survey:General: Obtunded, no open eyes. Moans with stimulation Lying on cotwith cervical spine precautions in place. Patient in mild distress.Appears stated age.Head: Atraumatic/normocephalic, no abrasions, contusions, swelling,tenderness or wounds noted, no step-off or deformities noted. Does notfollow commandsEENT: Atraumatic. JANIA ~ 4mm/brisk, EOMI, conjunctiva slightly reddened,no contusions or bony step-off noted around orbit, face or sinuses. Nodrainage noted from ears. No ecchymosis to posterior ear. Nasal mucosapink without drainage. No attempts to verbalize. Able to handlesecretions without difficulty.Neck: Supple, no crepitus noted, trachea midline, no JVD, no abrasions,cervical collar in place, no midline tenderness with palpation.Chest: Lungs with scattered rhonchi bilaterally, good air exchange, equalrise and fall of chest, apical regular rate and rhythm, S1S2, no murmurs,rubs, gallops noted, no abrasions, contusions, ecchymosis, crepitus ortenderness to chest wall and clavicles.Carotid, radial, femoral, and pedalpulses are intact and equal.No edema of the extremities.Abdomen: Abdomen soft, non-tender, no rebound, non-distended with + bowelsounds present. No abrasions, contusions, ecchymosis or wounds noted.Pelvis: Stable, no crepitus, no bleeding , abrasions, contusions, orhematomas noted in perineal or rectal area. No meatus bleeding noted.Extremities: Able to move all extremities spontaneously with stimulation,no deformities, abrasions, contusions, swelling noted. Radial, brachial,carotid, femoral and dorsalis pedis pulses 2+ bilaterally. Strength in allfour extremities difficult to ascertain secondary to rigidity withstimulation.Back/Spine: Patient not turned to assessSkin: Normal color, warm to touch, normal skin texture. Capillary refillbrisk.CRITICAL CARE TRANSPORT COURSEUpon bedside arrival at referring facility the patient was assessedaccording to ATLS standards. Initial exam findings as described above. Thepatient was placed on the transport monitor and all transport equipmenttransitioned in standard fashion. The patient was transferred to thetransport cot and transported to the aircraft and loaded without incident.The patient was medically managed, monitored, and reassessed duringtransport. Patient respiratory status was monitored closely throughouttransport. No obvious seizures noted. Patient noted to have increasedmoaning and rigidity primarily with stimulation.Medications Managed AND Administered by CCT:NoneProcedures Performed by CCT:NoneASSESSMENT/PLAN:Seizures - Patient given a total of 7 mg Ativan in an effort to control seizures- Patient given Keppra 1.5 gm x 2 doses at referring facility- Patient able to protect airway- No obvious seizures noted during transport- Neurologic and respiratory status monitored closely throughout transportS/p Fall with possible Subdural Hematoma- Unclear if fall or seizure came first- CT head showed possible small SDH but repeat imaging recommendedsecondary to artifact- C-Collar maintained- C-Spine imaging negative for fractureThe transport was completed without significant incident or change in thepatient's status. The patient was transported to [facility] by Rotor(Helicopter) for tertiary and/or quaternary evaluation and management ofhis Emergent and Critical Medical condition.Upon arrival to the receiving facility, a [id number]-[id number]-iliv report was [facility]. Patient care was transferred. The patientcondition was Critical at the time of transferVital Signs at time care transferred to the receiving facility unit:BP 127/78 mmHg, HR 125bpm, RR 39, SpO2 100% on 15 lpm NRBSPECIAL EQUIPMENT: NoneMODE OF TRANSPORT: Rotor (Helicopter)CRITICAL CARE TIME:I personally performed 30 minutes of critical care time exclusive of separately billable procedures, ambulance charges andtreating other patients. This was necessary to treat or prevent furtherdeterioration of the following condition(s): Respiratory compromise andSeizures Cardiovascular impairment, Respiratory impairment and CNSimpairment which the patient had and/or had a high probability of suddenlydeveloping.SIGNATURE:Frank Mccullough APRN-CNPAcute Care Nurse PractitionerCherrington Hospital Critical Care Transport Team Normal [facility] Phosphoruson 05-08-2017 Phosphate mass conc 4.3 mg/dL Normal 2.5-4.5 [facility] Comment on above: Performed By: #### B MP, MG1, PHOS ####[facility] [place], [place] [phone] Protein, CSFon 05-08-2017 Protein, CSF 60 mg/dL High 15-45 [facility] Comment on above: Performed By: #### C GLUC, CPROT ####[place] [id number] [place], [place] [phone]#### HSPCRC, VDRLCF ####[facility] [address] [place], [place] [phone] Protimeon 05-08-2017 INR Coag RelTime (Bld) 1.1 {INR} Normal 0.9-1.3 [facility] Comment on above: Result Comment: Xiao min K Antagonist (VKA) Therapeutic Range: INR 2 to 3 (Target INR of 2.5)Note: For patients treated with VKA drugs, such as warfarin, the [employer] 2012 Guideline recommends a therapeutic INR range of 2 to 3 (target INR of 2.5). This recommendation includes high-risk patients with antiphospholipid syndrome with previous arterial or venous thromboembolism, current-generation mechanical or bioprosthetic aortic heart valve replacement.Note: Patients with mechanical aortic valve replacement and additional risk factors for thromboembolic events (atrial fibrillation, previous thromboembolism, LV dysfunction, hypercoagulable conditions) or an older generation mechanical AVR (i.e., ball in-Cage) or any mechanical MVR should have a INR therapeutic range of 2.5 to 3.5 (target INR of 3).Vasiliy GH, et al. Chest 2012, 141:7S-47SDany CHEW et al. [facility] 2017, 70: 252-289 Performed By: #### C BCDIF, AMYL, CMP, LIPA, ROSIE, PT, PTT ####[place] [phone] PT Sec 10.9 sec Normal 9.7-13.0 [facility] Comment on above: Performed By: #### C BCDIF, AMYL, CMP, LIPA, ROSIE, PT, PTT ####[place] [phone] Sodium,Urine,Randomon 2017 Sodium,Urine,Rando m 71 mmol/L Normal 14-216 [facility] Comment on above: Performed By: #### U VIRGINIA ####[facility] [address] [place] [phone]#### UOSM ####[place] [phone] Toxicology Screen,Uron 05-08 Amphetamines, Urine Negative Normal Negative [facility] Comment on above: Result Comment: Cuto ff threshold at 1000 ng/mL. Performed By: #### U TOX2, UAWMIC ####[place] [phone] Barbiturates, Urine Negative Normal Negative [facility] Comment on above: Result Comment: Cuto ff threshold at 200 ng/mL. Performed By: #### U TOX2, UAWMIC ####[place] [phone] Benzodiazepines, Ur Negative Normal Negative [facility] Comment on above: Result Comment: Cuto ff threshold at 200 ng/mL. Performed By: #### U TOX2, UAWMIC ####[place] [phone] Cannabinoids, Urine Negative Normal Negative [facility] Comment on above: Result Comment: Cuto ff threshold at 50 ng/mL. Performed By: #### U TOX2, UAWMIC ####[place] [phone] Cocaine, Urine Negative Normal Negative [facility] Comment on above: Result Comment: Cuto ff threshold at 300 ng/mL. Performed By: #### U TOX2, UAWMIC ####[place] [phone] Ethanol, Urine <11 Normal <11 [facility] Comment on above: Performed By: #### U TOX2, UAWMIC ####[place] [phone] Opiates, Urine Negative Normal Negative [facility] Comment on above: Result Comment: Cuto ff threshold at 300 ng/mL. Performed By: #### U TOX2, UAWMIC ####[place] [phone] Oxycodone, Urine Negative Normal Negative [facility] Comment on above: Result Comment: Cuto ff threshold at 100 ng/mL.Comment:Immunoassay screen only. Cross reactivity with other substances can occur with immunoassay screening. Detection of any drug(s) in this urine toxicology panel is presumptive only. These tests are for medical purposes only and should not be used for compliance monitoring, legal, or forensic use.In clinical settings, confirmatory testing is at the practitioner's discretion [1]. If clinically indicated, confirmation by high specificity, quantitative methodology may be requested on the same specimen through Client Services ([phone]) if contacted within 48 hours of initial testing.[1]Substance Abuse and Mental Health Services Administration (2012). Clinical Drug Testing in Primary Care Technical Assistance Publication Series 32. Department of Health and Human Services, [place], p.10. Performed By: #### U TOX2, UAWMIC ####[place] [phone] Phencyclidine, Urine Negative Normal Negative [facility] Comment on above: Result Comment: Cuto ff threshold at 25 ng/mL. Performed By: #### U TOX2, UAWMIC ####[phone] Troponin Ton 05-08-2017 Troponin T.cardiac mass conc ug/L Normal 0.000-0.02 9 [facility] Comment on above: Performed By: #### C BCDIF, AMYL, CMP, LIPA, ROSIE, PT, PTT ####[place] [phone] Type and Screenon 05-08-2017 ABO/RH(D) Positive Normal [facility] Comment on above: Performed By: #### T SCR ####[place] [address] Urinalysison 05-08-2017 Bilirubin, Urine Negative Normal Negative [facility] Comment on above: Performed By: #### U A ####[place] [address] Clarity Clear Normal Clear [facility] Comment on above: Performed By: #### U A ####[place] [address] Color Straw Critically abnormal Yellow [facility] Comment on above: Performed By: #### U A ####[address] Comments SEE COMMENT Normal [facility] Comment on above: Result Comment: Micr oscopic not warranted Performed By: #### U A ####[address] Glucose Ql (U) Negative Normal Negative [facility] Comment on above: Performed By: #### U A ####[address] Hemoglobin/Blood,U r Negative Normal Negative [facility] Comment on above: Performed By: #### U A ####[place] [address] Ketones Ql (U) Negative Normal Negative [facility] Comment on above: Performed By: #### U A ####[address] Leukest Negative Normal Negative [facility] Comment on above: Performed By: #### U A ####[address] Nitrites Negative Normal Negative [facility] Comment on above: Performed By: #### U A ####[place] [phone] pH 6.0 Normal 5.0-8.0 [facility] Comment on above: Performed By: #### U A ####[place] [address] Protein, Urine Negative Normal Negative [facility] Comment on above: Performed By: #### U A ####[place] [address] Specific [place], Ur <1.005 Low 1.005-1.03 0 [facility] Comment on above: Result Comment: Resu lt checked and verified Performed By: #### U A ####[place] [address] Urobilinogen <2.0 Normal <2.0 [facility] Comment on above: Performed By: #### U A ####[place] [address] Urinalysis with Microscopico n 05-08-2017 Bilirubin, Urine Negative Normal Negative [facility] Comment on above: Performed By: #### U TOX2, UAWMIC ####[place] [address] Clarity Clear Normal Clear [facility] Comment on above: Performed By: #### U TOX2, UAWMIC ####[place] [address] Color Yellow Normal Yellow [facility] Comment on above: Performed By: #### U TOX2, UAWMIC ####[place] [address] Comments SEE COMMENT Normal [facility] Comment on above: Result Comment: Micr oscopic Examination Performed Performed By: #### U TOX2, UAWMIC ####[place] [address] Glucose Ql (U) Negative Normal Negative [facility] Comment on above: Performed By: #### U TOX2, UAWMIC ####[place] [phone] Hemoglobin/Blood,U r Small Critically abnormal Negative [facility] Comment on above: Performed By: #### U TOX2, UAWMIC ####[place] [address] INR Coag RelTime (Bld) 0-5 Critically abnormal Negative [facility] Comment on above: Performed By: #### U TOX2, UAWMIC ####[place] [address] Ketones Ql (U) Trace Critically abnormal Negative [facility] Comment on above: Performed By: #### U TOX2, UAWMIC ####[place] [address] Leukest Negative Normal Negative [facility] Comment on above: Performed By: #### U TOX2, UAWMIC ####[place] [address] Mucus Present Normal [facility] Comment on above: Performed By: #### U TOX2, UAWMIC ####[address] Nitrites Negative Normal Negative [facility] Comment on above: Performed By: #### U TOX2, UAWMIC ####[address] pH 7.0 Normal 5.0-8.0 [facility] Comment on above: Performed By: #### U TOX2, UAWMIC ####[address] Protein, Urine Negative Normal Negative [facility] Comment on above: Performed By: #### U TOX2, UAWMIC ####[address] Specific [place], Ur 1.014 Normal 1.005-1.03 0 [facility] Comment on above: Performed By: #### U TOX2, UAWMIC ####[place] [phone] Urobilinogen <2.0 Normal <2.0 [facility] Comment on above: Performed By: #### U TOX2, UAWMIC ####[place] [address] WBC Rare Critically abnormal Negative [facility] Comment on above: Performed By: #### U TOX2, UAWMIC ####[address] VDRL on CSFon 05-08-2017 VDRL on CSF Non Reactive Normal Non Reactive [facility] Comment on above: Performed By: #### C GLUC, CPROT ####[address]#### HSPCRC, VDRLCF ####[facility] [place] [phone] Vent Settings FOR WEST USE O NLYon 05-08-2017 MODE CPAP/PS [facility] Comment on above: Performed By: #### A BGRTC, VENTLA ####[place] [phone] PEEP 5 [facility] Comment on above: Performed By: #### A BGRTC, VENTLA ####[address] PRESSURE SUPPORT 5 [facility] Comment on above: Performed By: #### A BGRTC, VENTLA ####[address] MODE Mode Assist Control [facility] Comment on above: Performed By: #### A BGRTC, VENTLA ####[address] PEEP 10 [facility] Comment on above: Performed By: #### A BGRTC, VENTLA ####[place] [phone] RATE 14 [facility] Comment on above: Performed By: #### A BGRTC, VENTLA ####[facility] [address] [place] [phone] MODE Mode Assist Control [facility] Comment on above: Performed By: #### A BGRTC, VENTLA ####[facility] [address] [place] [phone] PEEP 5 [facility] Comment on above: Performed By: #### A BGRTC, VENTLA ####[phone] RATE 16 [facility] Comment on above: Performed By: #### A BGRTC, VENTLA ####[facility] [place] [phone] TIDAL VOLUME 480 [facility] Comment on above: Performed By: #### A BGRTC, VENTLA ####[facility] [place] [phone] XR ABDOMEN 1V SUPINEon 05-08 XR ABDOMEN 1V SUPINE * * *Final Report* * *DATE OF EXAM: May 08 2017 6:50AM FVX 5289 - XR ABDOMEN 1V SUPINE / REASON: Encounter for feeding tube placement * * * * Physician Interpretation * * * * KUB:INDICATION: Encounter for feeding tube placementTECHNIQUE: XR ABDOMEN 1V SUPINECOMPARISON:IMPRESSION: Single image of the lower chest and upper abdomen for NG tube placement. The tip of the NG tube is in the region of the gastric antrum. An endotracheal tube is noted with the tip appropriately above the jose. Visualized bowel gas pattern is nonobstructive.Ssn/Ssbn Weapons Equipment Operator: PSCRenata Transcribe Date/Time: May 08 2017 2:51PDictated by : NATA PEREZ MDThis examination was interpreted and the report reviewed and electronically signed by: NATA PEREZ MD on May 08 2017 2:52PM [id number] [facility] XR CHEST 1V FRONTAL PORTon 0 05-08-2017 XR CHEST 1V FRONTAL PORT * * *Final Report* * *DATE OF EXAM: May 08 2017 6:50AM FVX 5376 - XR CHEST 1V FRONTAL PORT / REASON: On mechanically assisted ventilation (HCC) * * * * Physician Interpretation * * * * EXAMINATION: CHEST RADIOGRAPH (PORTABLE SINGLE VIEW AP)Exam Date/Time: 05/08/2017 6:50 AMIndication: On mechanically assisted ventilation (HCC)MQ: XCPR_5Comparison: 1 day priorRESULT:Lines, tubes, and devices: Endotracheal tube appears appropriate in positioning. NG tube travels into the region of the stomach.Lungs and pleura: Mild left basilar subsegmental atelectasis. Other interstitial opacities have largely resolvedCardiomediastinal silhouette: Stable cardiomediastinal silhouette.Other: .IMPRESSION:Mild left basilar subsegmental atelectasis. Near-complete resolution of vascular congestionTranscriptionist: NICO Transcribe Date/Time: May 08 2017 9:34ADictated by : PAM LEWIS MDThis examination was interpreted and the report reviewed and electronically signed by: PAM LEWIS MD on May 08 2017 9:35AM [id number] [facility] HNO ID: [id number] thor: Ra Moreno (Rt): RadiologyAuthor Type: TechnicianType: [facility] HealthFiled: 05/07/2017 9:46 PMNote Text: Radiology Service Progress NotePATIENT NAME: Grant Blanchard JRMRN: [id number] OF SERVICE: May 07, 2017TIME: 9:45 PMPATIENT IDENTITY VERIFICATION COMPLETED USING TWO (2) METHODS: Patientconfirmed name verbally and ID band matches..PATIENT GENDER DATA: MalePATIENT RELEVANT IMPLANT DATA REVIEWED: Not ApplicableRADIOLOGY DEPARTMENT: CT; Exam(s) Completed: Brain and NeckPERIPHERAL IV DATA: Not applicableSIGNED BY: RT JoshMay 07, 2017 9:45 PM [facility] HNO ID: [id number] thor: Ra Moore (Rt): RadiologyAuthor Type: TechnicianType: Allied HealthFiled: 05/07/2017 9:36 PMNote Text: Radiology Service Progress NotePATIENT NAME: Grant Blanchard JRMRN: [id number] OF SERVICE: May 07, 2017TIME: 9:35 PMPATIENT IDENTITY VERIFICATION COMPLETED USING TWO (2) METHODS: ID Band .PATIENT GENDER DATA: MalePATIENT RELEVANT IMPLANT DATA REVIEWED: Not ApplicableRADIOLOGY DEPARTMENT: General X-ray: Exam(s) Completed: Chest X-RayPERIPHERAL IV DATA: Not applicableSIGNED BY: Jewell Moore 2017 9:35 PM Normal [facility] APTTon 05-07-2017 aPTT 22.0 s Low 23.0-32.4 [facility] Comment on above: Result Comment: Unfr actionated Heparin Therapeutic Ranges:Standard Heparin Nomogram: 53 to 78 seconds (anti-Xa level of 0.3 to 0.7 U/ml)Low Dose/ACS Nomogram: 49 to 67 seconds (anti-Xa level of 0.2 to 0.5 U/ml)Stroke Treatment Nomogram: 49 to 67 seconds (anti-Xa level of 0.2 to 0.5 U/ml)Note: The APTT therapeutic range has been determined for the current lot of laboratory APTT reagent in use throughout the [facility]. CBC and Differentialon 05-07 Abs Baso 0.06 k/uL Normal <0.11 [facility] Abs Richardson 1.37 k/uL High <0.87 [facility] Abs Neut 5.42 k/uL Normal 1.45-7.50 [facility] Basophils/100 WBC Auto (Bld) 0.5 % Normal [facility] Eosinophils 0.10 10*3/uL Normal <0.46 [facility] Eosinophils/100 leukocytes 0.9 % Normal [facility] Erythrocyte distribution width Auto Ratio (RBC) 12.1 % Normal 11.5-15.0 [facility] Erythrocytes (RBC) 5.73 10*6/uL Normal 4.20-6.00 [facility] Hematocrit (HCT) 48.8 % Normal 39.0-51.0 [facility] Hemoglobin mass conc (Bld) 17.0 g/dL Normal 13.0-17.0 [facility] Lymphocytes 4.69 10*3/uL High 1.00-4.00 [facility] Lymphocytes/100 leukocytes 40.3 % Normal [facility] MCH 29.7 pG Normal 26.0-34.0 [facility] MCHC mass conc (RBC) 34.8 g/dL Normal 30.5-36.0 [facility] MCV 85.2 fL Normal 80.0-100.0 [facility] Monocytes/100 leukocytes 11.8 % Normal [facility] Neutrophils/100 WBC Auto (Bld) 46.5 % Normal [facility] Platelet mean volume (PMV) 9.2 fL Normal 9.0-12.7 [facility] Platelets 371 10*3/uL Normal 150-400 [facility] WBC (Leukocytes) 11.64 10*3/uL High 3.70-11.00 [facility] CNCRITCRon 05-07-2017 CNCRITCR Critical Care Transp ort (CCT) GRANT BLANCHARD JR ([id number]) 1995 [facility] Department05/07/17 MADELINE MCCULLOUGH (ANNA) CCT During your visit today, we recorded the following information about you:Madeline Mccullough APRN.CNP 05/08/2017 2:[address] [facility] TRANSPORT NOTEPatient Name: Grant Blanchard JRMRN: [id number]: 1995Service Date: May 07, 2017Referring Facility: Health [facility] Phys[facility]: Brandon Accepting Physician: LisaJECTIVE/CHIEF COMPLAINT: Fall/SeizureREASON FOR TRANSPORT: Necessary services unavailable at referring facilityHistory of Present Illness/Injury: Known to CCT team at time of given care andsummarized through review of available medical records, patient/familyinterview and from referring physician and staff.Grant Blanchard JR is a 21 year old male with a past history known to our team attime of transport, significant for nothing who presented to Health system s/bhavin. Patient was walking out of a gas station with his girlfriend when hestated he didn't feel well, grabbed her arm then fell to the ground, hittinghis head on the cement. Patient then began having what was described astonic-clonic seizures. Positive loss of bladder function. Patient was postictalupon arrival to ER. He had a second seizure in CT and also vomited. Patient wasgiven Ativan 2 mg and Zofran [address] head showed suspected subdural hematoma.Patient then had 6 more seizures per RN. Patient received a total of Ativan 7mg and Keppra 3 gm. Patient did at one point become hypotensive into the 80'sand desaturated. He was given 1 liter IVF and placed on a NRB. Lab workunremarkable except for elevated WBC's. Tox screen negative. Per family, nohistory of drug use. Had been acting strange over the last couple days perreport, but no fevers. At time of transport arrival, patient was in c-collar,moaning. Does not follow commands or attempt to open eyes. With minimalstimulation, patient does become rigid initially, but then will move feet andupper extremities spontaneously. Per RN, his movements would stop when notstimulated. Patient protecting airway.At this time, the physician managing the patient requested transfer to [facility] for tertiary and/or quaternary trauma services unavailable at thereferring facility.The physician managing the patient [facility] and treat the patient for the purpose of tertiarycare, evaluation, and management of his emergent medical condition. Patientcondition at time of exam was: acutely ill and critically ill. Due to theunique circumstances of the patient, it was determined [facility] by referring physician.ROS:Unable to complete secondary inability to communicate due to altered mentalstatus.PAST MEDICAL HISTORY:None reported to transport teamPAST SURGICAL HISTORY:None reported to transport teamALLERGIES:Sulfa (Sulfonamide Antibiotics)SOCIAL HISTORY:Unknown to transport teamFAMILY HISTORY:Unknown to transport teamHOME MEDICATIONS:Unknown to transport teamMedications Administered by Referring Facility:Ativan 7 mg totalKeppra 1.5 gm x 2 dosesZofran 4 mg x 1 doseNS x 2 literOBJECTIVE:Recent Labs, Diagnostics ANDamp; Procedure Reports reviewed as available.Referring Facility LabsCBC: WBC 11.64k, Hgb 17.0, Plt 371KCHEMISTRY: Na 143, K 3.9, Cl 102, CO2 24, BUN 17, SCr 1.05, Glu 104Coags: INR 1.0Drug Screen: negativeLactate 1.03Diagnostics ANDamp; Procedure ReportsECG: Results reviewed, Rhythm STCXR: Results reviewed, Unremarkable chest x-rayHead CT Scan: Results reviewed Possible small Subdural Hematoma along thetentorium and posterior falxC-Cpine CT Scan: Results reviewed No fractureInvasive Lines/Devices/Tubes Placed by Referring Facility:PIV x 2Foley CatheterPHYSICAL EXAM: Upon CCT Arrival at Referring FacilityVital Signs: BP 128/76mmHg, HR 122bpm, RR 20, SpO2 100%Oxygen/Ventilator Settings: 15 lpm via NRBPrimary Survey:Airway/C-Spine: Patent. Patient only moaning. Cervical collar in place withinline stabilizationBreathing: Spontaneous, tachypneic, trachea midline, lung sounds with scatteredrhonchi equal. Oxygen in place via NRBCirculation: Strong carotid, radial and femoral pulses. No bleeding noted.Skin pink, warm and dry. IV access obtained and labs sent by ER.Disability: GCS 7.Exposure: Exposure achieved. Warming blankets placed on patient.Secondary Survey:General: Obtunded, no open eyes. Moans with stimulation Lying on cot withcervical spine precautions in place. Patient in mild distress. Appears statedage.Head: Atraumatic/normocephalic, no abrasions, contusions, swelling, tendernessor wounds noted, no step-off or deformities noted. Does not follow commandsEENT: Atraumatic. JANIA ~ 4mm/brisk, EOMI, conjunctiva slightly reddened, nocontusions or bony step-off noted around orbit, face or sinuses. No drainagenoted from ears. No ecchymosis to posterior ear. Nasal mucosa pink withoutdrainage. No attempts to verbalize. Able to handle secretions withoutdifficulty.Neck: Supple, no crepitus noted, trachea midline, no JVD, no abrasions,cervical collar in place, no midline tenderness with palpation.Chest: Lungs with scattered rhonchi bilaterally, good air exchange, equal riseand fall of chest, apical regular rate and rhythm, S1S2, no murmurs, rubs,gallops noted, no abrasions, contusions, ecchymosis, crepitus or tenderness tochest wall and clavicles.Carotid, radial, femoral, and pedal pulses are intactand equal.No edema of the extremities.Abdomen: Abdomen soft, non-tender, no rebound, non-distended with + bowelsounds present. No abrasions, contusions, ecchymosis or wounds noted.Pelvis: Stable, no crepitus, no bleeding , abrasions, contusions, or hematomasnoted in perineal or rectal area. No meatus bleeding noted.Extremities: Able to move all extremities spontaneously with stimulation, nodeformities, abrasions, contusions, swelling noted. Radial, brachial, carotid,femoral and dorsalis pedis pulses 2+ bilaterally. Strength in all fourextremities difficult to ascertain secondary to rigidity with stimulation.Back/Spine: Patient not turned to assessSkin: Normal color, warm to touch, normal skin texture. Capillary refillbrisk.CRITICAL CARE TRANSPORT COURSEUpon bedside arrival at referring facility the patient was assessed accordingto ATLS standards. Initial exam findings as described above. The patient wasplaced on the transport monitor and all transport equipment transitioned instandard fashion. The patient was transferred to the transport cot andtransported to the aircraft and loaded without incident. The patient wasmedically managed, monitored, and reassessed during transport. Patientrespiratory status was monitored closely throughout transport. No obviousseizures noted. Patient noted to have increased moaning and rigidity primarilywith stimulation.Medications Managed ANDamp; Administered by CCT:NoneProcedures Performed by CCT:NoneASSESSMENT/PLAN:Seizures - Patient given a total of 7 mg Ativan in an effort to control seizures- Patient given Keppra 1.5 gm x 2 doses at referring facility- Patient able to protect airway- No obvious seizures noted during transport- Neurologic and respiratory status monitored closely throughout transportS/p Fall with possible Subdural Hematoma- Unclear if fall or seizure came first- CT head showed possible small SDH but repeat imaging recommended secondary toartifact- C-Collar maintained- C-Spine imaging negative for fractureThe transport was completed without significant incident or change in thepatient's status. The patient was transported to [place] by [facility]otor(Helicopter) for tertiary and/or quaternary evaluation and management of hisEmergent and Critical Medical condition.Upon arrival to the receiving facility, a [id number] report was given [facility] in [facility]. Patient care was transferred. The patientcondition was Critical at the time of transferVital Signs at time care transferred to the receiving facility unit:BP 127/78 mmHg, HR 125bpm, RR 39, SpO2 100% on 15 lpm NRBSPECIAL EQUIPMENT: NoneMODE OF TRANSPORT: [employer]otor (Helicopter)CRITICAL CARE TIME:I personally performed 30 minutes of critical care timeexclusive of separately billable procedures, ambulance charges and treatingother patients. This was necessary to treat or prevent further deteriorationof the following condition(s): Respiratory compromise and SeizuresCardiovascular impairment, Respiratory impairment and LEAD INSTALLER impairment which thepatient had and/or had a high probability of suddenly developing.SIGNATURE:Madeline Mccullough APRN-CNPAcute Care Nurse PractitionerCherrington Hospital Critical Care Transport TeamAllergies As of Date: 05/07/2017 Noted Allergy ReactionSULFA (SULFONAMIDE ANTIBIOTICS) 05/07/2017 16 - UnknownDate Reviewed: 05/07/2017Reviewed by: Nasreen (Rn) Martinez - Cristela AssessedReason for Visit: Critical Care Transport [1718]Problem List As Of Date 05/07/2017 Noted Resolved Status epilepticus (HCC) [G40.901] INVALID FOR*Follow-up and Disposition History RecordedEncounter Number: [id number] Status:Closed by MADELINE MCCULLOUGH on 05/08/17 Normal [facility] CT BRAIN WO IVCONon 05-08-[address] BRAIN WO IVCON * * *Final Report* * *DATE OF EXAM: May 07 2017 9:43PM [facility] 0504 - CT BRAIN WO IVCON / REASON: Trauma * * * * Physician Interpretation * * * * EXAMINATION: CT BRAIN WO IVCON, CT CERVICAL SPINE WO IVCONHISTORY: Trauma. Repeat.TECHNIQUE: Serial axial images without IV contrast were obtained from the vertex to the foramen magnum. Axial unenhanced imaging through the cervical spine with coronal and sagittal reconstructed images generated.MQ: CTBWO_3CT Dose-Length Product (DLP): 1287 mGy*cmCT Dose Reduction Employed: No dose reduction techniques were requiredCOMPARISON: CT brain and cervical spine earlier same date.RESULT:CT BRAIN:Post-operative change: None.Hemorrhage: No evidence of acute intracranial hemorrhage.Mass Lesion / Mass Effect: There is no evidence of an intracranial mass or extraaxial fluid collection. No significant mass effect.Chronic change: None apparent.Parenchyma: There is no significant volume loss. There is question of some cerebellar tonsillar tissue in the foramen magnum which could indicate low-lying cerebellar tonsils. The brain parenchyma is otherwise within normal limits for age.Ventricles: The ventricles are within normal limits of size and configuration for age.Paranasal sinuses and skull: Small polyp left maxillary sinus. The visualized paranasal sinuses are otherwise grossly clear. No skull fracture.CT CERVICAL SPINE:No cervical spine malalignment. Body heights and disc spaces are maintained. Prevertebral soft tissues within normal limits. No acute fracture identified.There is a endotracheal tube present.IMPRESSION:No acute fracture identified cervical spine.No acute intracranial hemorrhage or acute intracranial abnormality identified.Question some low lying cerebellar tonsils in the foramen magnum which could be further and better evaluated with MRI.Details above.Ssn/Ssbn Weapons Equipment Operator: PSCB Transcribe Date/Time: May 07 2017 9:55PDictated by : CAYLA DOBBINS MDThis examination was interpreted and the report reviewed and electronically signed by: CAYLA DOBBINS MD on May 07 2017 10:30PM [id number] [facility] CT BRAIN WO IVCON * * *Final Report* * * * SEE BOTTOM OF REPORT FOR ADDENDED TEXT * * *DATE OF EXAM: May 07 2017 7:13PM [facility] 0504 - CT BRAIN WO IVCON / REASON: Seizure (HCC) * * * * Physician Interpretation * * * * * * * * * * * * ORIGINAL REPORT * * * * * * * *EXAMINATION: CT BRAIN WO IVCONHISTORY: Seizure (HCC) status post fallTECHNIQUE: Serial axial images without IV contrast were obtained from the vertex to the foramen magnum.MQ: CTBWO_3CT Dose-Length Product (DLP): 906 mGy*cmCT Dose Reduction Employed: No dose reduction techniques were requiredCOMPARISON: None.RESULT:Exam is limited by asymmetric positioning and artifact from a backboardPost-operative change: None.Acute change: No obvious acute infarct or other acute parenchymal process.Hemorrhage: No definite acute intracranial hemorrhage.Mass Lesion / Mass Effect: There is no evidence of an intracranial mass or extraaxial fluid collection. No significant mass effect.Chronic change: None apparent.Parenchyma: There is no significant volume loss. The brain parenchyma is otherwise within normal limits for age.Ventricles: The ventricles are within normal limits of size and configuration for age.Paranasal sinuses and skull : The visualized paranasal sinuses demonstrate polyp or mucous retention cyst in the left maxillary sinus The skull and imaged soft tissues are grossly unremarkable.IMPRESSION:Very limited exam due to asymmetry and artifact from a backboard. Suggest a follow-up study when clinically possible.* * * * * * * * ADDENDUM #1 * * * * * * * *There may be a small subdural hematoma along the tentorium and posterior falx. This was discussed with the emergency room doctor on 05/07/2017 at 8:00 PM.Ssn/Ssbn Weapons Equipment Operator: NICO Transcribe Date/Time: May 07 2017 7:58PDictated by : KAYLAH COOPER MDThiedmar examination was interpreted and the report reviewed and electronically signed by: KAYLAH COOPER MD on May 07 2017 7:31PM ESTThis document has been addended by: KAYLAH COOPER MD on May 07 2017 8:03PM [id number] Normal [facility] CT CERVICAL SPINE WO IVCONon 05-07-2017 CT CERVICAL SPINE WO IVCON * * *Final Report* * *DATE OF EXAM: May 07 2017 9:43PM [facility] 0505 - CT CERVICAL SPINE WO IVCON / REASON: Trauma * * * * Physician Interpretation * * * * EXAMINATION: CT BRAIN WO IVCON, CT CERVICAL SPINE WO IVCONHISTORY: Trauma. Repeat.TECHNIQUE: Serial axial images without IV contrast were obtained from the vertex to the foramen magnum. Axial unenhanced imaging through the cervical spine with coronal and sagittal reconstructed images generated.MQ: CTBWO_3CT Dose-Length Product (DLP): 1287 mGy*cmCT Dose Reduction Employed: No dose reduction techniques were requiredCOMPARISON: CT brain and cervical spine earlier same date.RESULT:CT BRAIN:Post-operative change: None.Hemorrhage: No evidence of acute intracranial hemorrhage.Mass Lesion / Mass Effect: There is no evidence of an intracranial mass or extraaxial fluid collection. No significant mass effect.Chronic change: None apparent.Parenchyma: There is no significant volume loss. There is question of some cerebellar tonsillar tissue in the foramen magnum which could indicate low-lying cerebellar tonsils. The brain parenchyma is otherwise within normal limits for age.Ventricles: The ventricles are within normal limits of size and configuration for age.Paranasal sinuses and skull: Small polyp left maxillary sinus. The visualized paranasal sinuses are otherwise grossly clear. No skull fracture.CT CERVICAL SPINE:No cervical spine malalignment. Body heights and disc spaces are maintained. Prevertebral soft tissues within normal limits. No acute fracture identified.There is a endotracheal tube present.IMPRESSION:No acute fracture identified cervical spine.No acute intracranial hemorrhage or acute intracranial abnormality identified.Question some low lying cerebellar tonsils in the foramen magnum which could be further and better evaluated with MRI.Details above.Ssn/Ssbn Weapons Equipment Operator: NICO Transcribe Date/Time: May 07 2017 9:55PDictated by : CAYLA DOBBINS MDThis examination was interpreted and the report reviewed and electronically signed by: CAYLA DOBBINS MD on May 07 2017 10:30PM [id number] [facility] CT CERVICAL SPINE WO IVCON * * *Final Report* * *DATE OF EXAM: May 07 2017 7:13PM [facility] 0505 - CT CERVICAL SPINE WO IVCON / REASON: Trauma * * * * Physician Interpretation * * * * EXAMINATION: CT CERVICAL SPINE WO IVCONHISTORY: TraumaTECHNIQUE: CT of the cervical spine without IV contrast. Spiral, high resolution axial images were obtained from the skull base to the cervicothoracic junction with sagittal and coronal planar reconstructions.MQ: CTCSPWO_4CT Dose-Length Product (DLP): 536 mGy*cmCT Dose Reduction Employed: Automated exposure control (AEC)COMPARISON: None.RESULT:Limited by asymmetric position.Counting reference: Craniocervical junction.Alignment: Alignment is anatomic.Osseous structures/fracture: No evidence of a lytic or blastic process in the visualized spine. No obvious acute or chronic fracture.Cervical soft tissues: No prevertebral soft tissue swelling.Degenerative changes: No significant degenerative changes.IMPRESSION:Limited study. No obvious displaced fracture.Ssn/Ssbn Weapons Equipment Operator: PSCB Transcribe Date/Time: May 07 2017 7:32PDictated by : KAYLAH COOPER MDThiedmar examination was interpreted and the report reviewed and electronically signed by: KAYLAH COOPER MD on May 07 2017 7:36PM [id number] Normal [facility] Comp Metabolic Panelon 05-07 Alanine aminotransferase (ALT) 47 U/L Normal 5-50 [facility] Albumin 4.8 g/dL Normal 3.5-5.0 [facility] Alkaline phosphatase (ALP) 52 U/L Normal 40-150 [facility] Anion gap 17 mmol/L Normal 9-18 [facility] Aspartate aminotransferase (AST) 26 U/L Normal 7-40 [facility] Bilirubin (total) 0.7 mg/dL Normal 0.0-1.5 [facility] Calcium 9.5 mg/dL Normal 8.5-10.5 [facility] Chloride 102 mmol/L Normal 98-110 [facility] CO2 24 mmol/L Normal 23-32 [facility] Creatinine 1.05 mg/dL Normal 0.70-1.40 [facility] Glucose mass conc 104 mg/dL High 65-100 [facility] Potassium molar conc 3.9 mmol/L Normal 3.5-5.0 [facility] Protein 8.1 g/dL Normal 6.0-8.4 [facility] Sodium 143 mmol/L Normal 135-146 [facility] Urea nitrogen 17 mg/dL Normal 10-25 [facility] ED NOTEon 05-07-2017 ED NOTE HNO ID: [id number] Author: Kalyn (Rn) Jason, RN Service: Quality Author Type: Registered Nurse Type: ED Notes Filed: 05/07/2017 9:27 PM Note Text: propofol started at 10mcg, c-collar in place, ET size 7.5, 26mm at lip. Normal [facility] ED NOTE HNO ID: [id number] thor: Ernie Yanez (Rn) Sasha, RNService: Emergency MedicineAuthor Type: Registered NurseType: ED NotesFiled: 05/07/2017 8:23 PMNote Text:Dr. Taylor ordered Not to continue external stimuli to for full NeuroAssessment at this time. Due to increased agitation Normal [facility] ED NOTE HNO ID: [id number] Author: Dieter BradfordMinilab Operator) CHALO Sheriff Service: Emergency Medicine Author Type: Registered Resp Therapist Type: ED Notes Filed: 05/07/2017 8:08 PM Note Text: Pt placed on 100% NRB. Pt did vomit and started to desat. Normal [facility] ED PROV NOTEon 05-07-2017 Protein mass conc HNO ID: [id number] thor: Romulo Osorio, ANDREAervice: (none)Author Type: PhysicianType: ED Provider NotesFiled: 05/07/2017 9:49 PMNote Text:ED Provider NotePatient Name: Grant Blanchard DATE: 05/07/17HistoryNo chief complaint on file.History provided by: EMS personnelChief Complaint: SeizuresHistory: Approximately 3 hours prior to presentation, the patient was [place] [employer] [place] and fell striking his head. There is a question of whetherhe had a seizure first or a seizure after he had his head. The patienthas had multiple seizures since that time. He was taking a [facility] and treated with multiple doses of Ativan and IVKeppra. He arrives obtunded as a level I TRAUMA ALERT. [place] there was a question of whether the patient also had a subduralhematoma. The patient is obtunded and no further history is obtainable.EMS reports the patient vomited multiple times before they picked him up.Quality: UnresponsiveSeverity: SevereTiming: For: Approximately 3 hours Constant/Present NowModifying Factors: NoneContext: Normal setting and activityAssociated Symptoms: None, except as noted above.Due to the patient's current condition and mental status I am unable toget any history from the patient.I am also unable to obtain a complete review of systems, past medicalhistory, medications, family history, social history, and allergies due tothis altered mental state.Review of SystemsNeurological: Positive for seizures.Due to the patient's current condition and mental status I am unable toobtain a review of systems from the patient.Physical ExamBP 134/90 Pulse 112 Wt 220 lb 7.4 oz (100.0kg) SpO2 100%Physical Exam Vitals signs and Nurses Notes reviewed General Appearance: The patient arrives lethargic Neck: Arrives in C-collar Trachea midline No JVD No subcutaneous air Eyes: Pupils equal round and reactive No hyphema No diplopia EOMI No proptosis No racoon's eyes ENT/Mouth: Pooling of secretions in the oropharynx No hoarse voice or voice change No Facial laceration No Nasal bleeding No CSF rhinnorhea No hemotympanum No CSF otorrhea Teeth and facial bones stable and non-tender to palpation No intraoral laceration It does appear the patient bit his tongue No Salmeron sign Diminished gag reflex Cardiovascular: Regular rate and rhythm but tachycardic No murmurs, gallops, or rubs 2+ R/U/DP/PT pulses equal and symmetric bilaterally No carotid bruits Respiratory: Lungs show rhonchi bilaterally No flail segments No subcutaneous air No wheeze or rubs No rales or rhonchi GI: No abdominal tenderness or distention No rebound or guarding : No blood at urethral meatus No bladder enlargement/tenderness Musculoskeletal: No upper extremity tenderness No lower extremity tenderness No thoracic spine crepitus or stepoff No lumbar spine crepitus or stepoff No Pelvis instability or tenderness No open fractures Neurological: Plantar reflexes are equivocal bilaterally No response to pain in all extremities Psychiatric: Obtunded Skin: No lacerationsDiagnostic TestingED Labs Ordered and ReviewedEMERGENCY RELEASEABG COMPLETE EVALUATION (RT) (AV,FV)ALCOHOL / ETHANOL BLOOD (AK,AV,EU,FV,HL,SUSHANT,MM,SP)CBC + AUTO DIFF (AK,AV,EU,FV,HL,SUSHANT,MM,SP)LIPASE BLOOD (AK,AV,EU,FV,HL,SUSHANT,MM,SP)PROTHRO MBIN TIME / PT (AK,AV,EU,FV,HL,SUSHANT,MM,SP)ACTIVAT ED PTT (AK,AV,EU,FV,HL,SUSHANT,MM,SP)COMPREH ENSIVE METABOLIC PANEL (AK,AV,EU,FV,HL,SUSHANT,MM,SP)AMYLASE BLOOD (AK,AV,EU,FV,HL,SUSHANT,MM,SP)TROPONI N T (AV,EU,FV,HL,SUSHANT,MM,SP)URINALYSIS WITH MICROSCOPIC (AK,AV,EU,FV,HL,SUSHANT,MM,SP)URINE DRUG SCREEN (AK,AV,EU,FV,HL,SUSHANT,MM,SP)TYPE + SCREEN (AK,AV,EU,FV,HL,SUSHANT,MM,SP)Procedu resProcedure Note: Endotracheal Intubation.RSI was performed with etomidate and zemuron.Manual in line stabilization was maintained.Number 7.5 endotracheal tube was placed to 26 cm at the lip.Equal breath sounds were heard bilaterally.No breath sounds were heard over the abdomen.Good capnography color change was noted after 6 breaths were instilled.Patient tolerated procedure well. No complications.Medical Decision Making / ED CourseED CourseStatus epilepticus. Reported subdural hematoma.Neurosurgery/neurology/ ICU consultation.Encounter Diagnosis ICD-10-CM1. Acute respiratory failure, unspecified whether with hypoxia orhypercapnia ([facility]) J96.002. Status epilepticus ([facility]) G40.9013. Subdural hematoma ([facility]) I62.00PlanThe Patient was ADMITTED TO: SICU.Case discussed with admitting physician, Dr. Boyle.Condition at time of disposition: criticalCritical CareI spent a total of 40 minutes of critical care time in the evaluation andmanagement of this patient. This was necessary to treat or preventdeterioration of the following condition(s): Respiratory impairment andCNS impairment, which the patient had and/or has a high probability ofsuddenly developing. The patient received Ventilator management, andConsultation by Critical care medicine, neurology, and neurosurgery duringthe time that critical care was provided. Critical care time excludesseparately billed procedures.SIGNATURE: OSCAR Flores NOTE: Portions of the medical record may have been produced usingelectronic assurance assistant and may contain errors with respect totranslation of words which may not have been identified prior tofinalization of the chart.Romulo Osorio MD05/07/17 2149 [facility] ED PROV NOTE HNO ID: [id number] thor: ANDREA Álvarezervice: Emergency MedicineAuthor Type: PhysicianType: ED Provider NotesFiled: 05/07/2017 9:25 PMNote Text:ED Provider NotePatient Name: Grant Blanchard JRMRN: [id number] DATE: 05/07/17HistoryPatient presents with:SeizuresHPIHPI:21-year-old male with negative past medical history presents to theemergency department by EMS for evaluation of a seizure. Patient isunable to provide history upon arrival. History is provided by hisgirlfriend. She states that for the past couple days patient has givingcomplaining that he does not feel well. He went to see his familyphysician and had blood work ordered. Patient was unable to have theblood work drawn yet because girlfriend states he is terrified of needles. Patient's girlfriend states they went to the gas station and were walkingout after getting something to drink. She states the patient grabbed herand said that he felt like he was going to fall. She states he fell tothe ground, hit his head off the cement and started seizing. Shedescribes tonic-clonic activity. Patient did urinate himself. She deniesany past history of seizures. She denies any drug use to her knowledge.Patient arrived on a backboard with c-collar in place. Fingerstick glucosewas 90.Patient's girlfriend denies any trauma prior to the patient's seizure. Shestates he has been complaining of feeling off balance, dizzy and aheadache for the past couple days.PMH:No past medical history on file.No past surgical history on file.Medications:No current facility-administered medications on file prior to encounter.No current outpatient prescriptions on file prior to encounter.Allergies:Sulfa (Sulfonamide Antibiotics)Family History:No family history on file.Social History:Social History Marital status: Single Spouse name: Years of education: Number of children:Social History Main TopicsReview of SystemsUnable to perform ROS: Patient unresponsivePhysical ExamBP 156/76 Pulse 109 Resp 24 SpO2 92%Physical Exam Nurses note and vital signs reviewed and patient is not hypoxic.General: Patient is on back board and c-collar. He is postictal and notresponding.Skin: Warm, dry, no pallor noted.Head: Normocephalic, atraumaticNeck: Patient is in c-collar.Eyes: Pupils are fixed and deviated.ENT: TM's clear, no hemotympanum detected, no blood in posteriororopharynxCardiovascula r: Regular tachycardiaRespiratory: Patient is in no distress, no accessory muscle use, lungsare clear to auscultation, no wheezing, rales or rhonchiChest Wall: no tenderness, no flail chest, contusion, abrasion, or signsof trauma.Back: Back has no evidence of trauma, including contusion, abrasion,swelling or ecchymosis. Patient is on back board.Musculoskeletal: No swelling. Pulses at femoral, DP, PT, and popitealwere 2+ bilaterally.GI: Normal bowel sounds, no tenderness to palpation, no massesappreciated. No rebound, guarding, or rigidity noted.Neurological: Patient is postictal. He responds to painful stimuli.Diagnostic TestingResults for orders placed or performed during the hospital encounter of05/07/17CBC + DIFFResult Value Ref Range WBC 11.64 (H) 3.70 - 11.00 k/uL RBC 5.73 4.20 - 6.00 m/uL Hemoglobin 17.0 13.0 - 17.0 g/dL Hematocrit 48.8 39.0 - 51.0 % MCV 85.2 80.0 - 100.0 fL MCH 29.7 26.0 - 34.0 pG MCHC 34.8 30.5 - 36.0 g/dL RDW-CV 12.1 11.5 - 15.0 % Platelet Count 371 150 - 400 k/uL MPV 9.2 9.0 - 12.7 fL Neut% 46.5 % Abs Neut (ANC) 5.42 1.45 - 7.50 k/uL Lymph% 40.3 % Abs Lymph 4.69 (H) 1.00 - 4.00 k/uL Richardson% 11.8 % Abs Richardson 1.37 (H) <0.87 k/uL Eosin% 0.9 % Abs Eosin 0.10 <0.46 k/uL Baso% 0.5 % Abs Baso 0.06 <0.11 k/uLCOMP METABOLIC PANELResult Value Ref Range Protein, Total 8.1 6.0 - 8.4 g/dL Albumin 4.8 3.5 - 5.0 g/dL Calcium 9.5 8.5 - 10.5 mg/dL Bilirubin, Total 0.7 0.0 - 1.5 mg/dL Alkaline Phosphatase 52 40 - 150 U/L AST 26 7 - 40 U/L Glucose 104 (H) 65 - 100 mg/dL BUN 17 10 - 25 mg/dL Creatinine 1.05 0.70 - 1.40 mg/dL Sodium 143 135 - 146 mmol/L Potassium 3.9 3.5 - 5.0 mmol/L Chloride 102 98 - 110 mmol/L CO2 24 23 - 32 mmol/L Anion Gap 17 9 - 18 mmol/L ALT 47 5 - 50 U/LTOX SCREEN ROUT URResult Value Ref Range Phencyclidine Negative Negative Benzodiazepines Urine Negative Negative Cocaine Urine Negative Negative Amphetamines Negative Negative Cannabinoids, Urine Negative Negative Opiates Negative Negative Barbiturates Negative Negative Ethanol, Urine <11 <11 mg/dL Oxycodone, Urine Negative NegativeUA DIP, URINE (POC)Result Value Ref Range GLUCOSE UA (POCT) Negative Negative mg/dL BILIRUBIN UA (POCT) Small (A) Negative KETONE UA (POCT) Negative Negative mg/dL SPECIFIC GRAVITY UA (POCT) >=1.030 1.005 - 1.030 HEMOGLOBIN/BLOOD UA (POCT) Negative Negative PH UA (POCT) 5.0 4.5 - 8.0 PROTEIN UA (POCT) 100 (A) Negative mg/dL UROBILINOGEN UA (POCT) 0.2 Normal E.U./dL NITRITE UA (POCT) Negative Negative LEUKOCYTES UA (POCT) Negative Negative COLOR UA (POCT) Dark yellow CLARITY UA (POCT) ClearProceduresMedical Decision Making / ED CourseED CourseThe patient upon arrival was postictal. Vital signs were reviewed andnoted to be stable. Patient is presenting as described above. Patient'sgirlfriend was providing history. She denies any past history of seizuredisorder. She denies any drug use. She states the patient had not beenfeeling well over the past couple days. EKG was obtained. Laboratorystudies were drawn. Chest x-ray as well as CT brain and cervical spinewere ordered.While in CT scan the patient had another seizure. He was given 2 mg ofAtivan. He did vomit. He was given 4 mg of Zofran.Urinalysis reveals small bilirubin and 100 protein. CBC reveals a whitecount 11,600. Comprehensive metabolic panel unremarkable except a glucoseof 104. Chest x-ray reveals hypoinflation, no obvious acute findings. CTof the brain was a very limited exam due to asymmetry and artifact from abackboard. CT scan was also limited study but there is no obviousdisplaced fracture. Radiology does recommend repeat imaging when thepatient's condition allows.Patient had a second seizure since arriving to the emergency department.He was given an additional 2 mg of Ativan. Patient will be given aloading dose of Keppra. Patient was taken off of the backboard. Iordered repeat scans to be done.Patient had a drop in blood pressure to 80s/50s. He was given additionalIV fluids in a second line. Patient had more vomiting and desatted.Patient was suctioned and put on a ventimask. Pulse ox is now 100%.While I was on the phone discussing the patient with the hospitalist [facility], Dr. Love, the radiologist called to speak to my attending, and she suspects the patient may have a small subdural hematomaalong the tentorium and posterior falx.CCT was contacted. I spoke to the trauma ED physician at [facility], . He accepts the patient for transfer. Patient will go by air.Dr. Taylor consulted with neurology at [facility]. Patient has had 7 mg ofativan and 1,500 mg of Keppra at this point. He continues to seize. He hashad 5-6 seizures at this point. Neurology recommends giving another1,500mg of Keppra or fosphenytoin. Pharmacy also calls and recommendsvalproic acid if needed.Encounter Diagnosis ICD-10-CM1. Subdural hematoma (HCC) I62.002. Nonintractable epilepsy with status epilepticus, unspecified epilepsytype (HCC) G40.901PlanThe Patient was Case discussed with accepting physician, Dr. Osorio.TRANSFERRED to: [facility] EDCondition at time of disposition: criticalThe attending who evaluated and managed this patient was Dr. Kovacs.SIGNATURE: KIMBERLY Henderson Interpretation:RHYTHM: Sinus tachycardia at 107 beats per minuteAXIS: Normal axisINTERVALS: Normal NV intervalQRS COMPLEX: NormalST SEGMENT: Normal ST-T segmentsQT INTERVAL: NormalCOMPARED WITH PRIOR: unchangedHeather Elba (Rick) Brock, RICK05/07/172019Heather Elba (Rick) Brock, RICK05/07/17ttending NoteI have personally performed a face to face assessment of the patient andhave reviewed the PA/HIGH PRESSURE BOILER OPERATOR note. My renae findings include:History: Patient presents after having a first ever seizure. He then felland may have sustained an injury as well. No history of prior seizures.His mother who is a nurse notes he did have some absence type seizureactivity over the past couple days. He been complaining of a headache.No fever or chills.Assessment/Plan: Patient continued to have repetitive episodes of seizureactivity here. Many of them seem to be initiated with any stimulationsuch as neuro checks with lites in the eyes or painful stimuli. He wastreated with multiple doses of Ativan totaling 7 mg intravenously. He wasalso loaded with 1500 mg of Keppra. When he still continued to haveseizures. I contacted the neurologist from [facility]. He recommendedloading with another 1500 mg of Keppra and then possibly addingfosphenytoin or valproate if he was still having issues after that. Aftergetting the second loading dose of Keppra, CCT arrived for transfer. Hiscondition was stable at that time. He was maintaining an airway andoxygenation was 100%. Decision was made to not provide any furtherantiepileptics and not intubated. We agreed on this plan. [facility] the traumasustained by the fall and status epilepticus.Critical CareI spent a total of 30 minutes of critical care time in the evaluation andmanagement of this patient. This was necessary to treat or preventdeterioration of the following condition(s): LEAD INSTALLER impairment, which thepatient had and/or has a high probability of suddenly developing. Thepatient received antiepileptics and IV Fluids during the time thatcritical care was provided.I discussed the plan of care with the PA/APNand agree with the findings documented. Critical care time excludesseparately billed procedures.Adina Taylor MDOther additions or changes: NoneSignature: Adina Taylor MDDate: 05/07/2017Time: 9:22 PMAdina Taylor MD05/07/17 2125 Normal [facility] HISTORY PHYSICALon 8 HISTORY PHYSICAL HNO ID: [id number] thor: Ceferino (ANDREA Cohenervice: General SurgeryAuthor Type: ResidentType: HANDPFiled: 05/08/2017 5:13 AMNote Text:TRAUMA HANDP CCHSARRIVAL DATE: 05/07/17ARRIVAL TIME: 9:25PMCATEGORY: Level 1INJURY DATE: 05/07/2017INJURY TIME: 9:00PMSubjectYandel is a 21 year old White male. GCS at Scene was 11.HPI/CHIEF COMPLAINT: Seiz[facility]Pt [facility] [place] [facility], possible fall - 7mg ativan and1.5g Keppra x2 given PSYCHOLOGY PROFESSOR.BRIEF DESCRIPTION OF INJURIES: Status epilepticusLAST FLUIDS/MEAL: unknownALLERGIESAllergen Reactions- Sulfa (Sulfonamide * UnknownNo prescriptions prior to admission.DATE OF LAST TETANUS: unknownThere is no immunization history on file for this patient.No past medical history on file.No past surgical history on file.Social History Marital status: Single Spouse name: Years of education: Number of children:Social History Main TopicsROS:Is the patient having any pain? NAConstitutional: Unable to obtain due to mental status or language barrierEye/Ear/Nose: Unable to obtain due to mental status or language barrierRespiratory: Unable to obtain due to mental status or language barrierCardiovascular: Unable to obtain due to mental status or language barrierGI/Liver/Biliary: Unable to obtain due to mental status or languagebarrierGenitourinary: Unable to obtain due to mental status or language barrierPsychiatric: Unable to obtain due to mental status or language barrierNeurologic: Unable to obtain due to mental status or language barrierMusculoskeletal: Unable to obtain due to mental status or language barrierIntegument: Unable to obtain due to mental status or language barrierEndocrine: Unable to obtain due to mental status or language barrierHeme/Lymph: Unable to obtain due to mental status or language barrierObjectivePRIMARY SURVEYAIRWAY: Suction RequiredBREATHING: no air movementCIRCULATION: PT/DP 2+, Radials 2+, Femoral 2+DISABILITY: Eye: 1=No Response Verbal: 1=No Response Motor: 5=Purposeful Movements Total GCS: 7=2 Resp Rate: 10 to 29=4 Syst BP: > than 89=4REVISED TRAUMA SCORE: 10EXPOSE / ENVIRONMENT: Warm Blankets PROCEDURES: Intubation: OralSECONDARY SURVEYVITALS: BP (!) 103/41 Pulse 102 Temp 37.7 ?C (99.9 ?F) (Oral) Resp14 Ht 180.3 cm (5' 11 ) Wt 119.2 kg (262 lb 12.6 oz) SpO2 99% BMI36.65 kg/p6JGJDD: GCS 7HEENT: Head: No lacerations or abrasions, no bony step offs, midfacestable to palpation, Eyes: PERRL, conjunctiva/corneas without lesions, EOMintact, Ears: Canals without blood or CSF drainage, TMs clear, externalears without lacerations, Nose: Septum midline, no crepitus with motion,Throat: Oral mucosa without lacerations, teeth in place, tongue withoutlacerationsNECK: No JVD, Trachea midlineRESPIRATORY: No abrasions or contusions, No crepitus, Equal ExcursionCARDIOVASCULAR: Heart rate regularABDOMEN: Non-distendedPELVIC/PERINEAL: Pelvis stable to palpationBACK/SPINE: not performedEXTREMITIES: unremarkable RADIOLOGICAL/OTHER TEST DATA:CT C-spine: low lying cerebellar tonsilsCXR: edemaCT Brain: low lying cerebellar tonsilsMRI Brain: No traumaPRIOR TO ARRIVAL: Loss of Consciousness for ? minutesMedications Given: AtJayme morenoraIMAGESLABS: CBC, Coags, BMP, Mg, PhosRecent Labs 05/07/1821854WBC -- 21.89* -- 11.64*HB -- 16.0 -- 17.0HCT -- 44.4 -- 48.8PLT -- 314 -- 371INR -- 1.1 -- 1.0APTT -- 23.3 -- 22.0*NA -- 141 -- 143K -- 4.1 -- 3.9CHLOR -- 103 -- 102CO2 -- 25 -- 24BUN -- 14 -- 17CREAT -- 0.88 -- 1.05GLUC -- 141* -- 104*IC 1.08* -- 1.06* --CA -- 7.9* -- 9.5CSF AND DilantinLiver Function, Amylase, AND LipaseRecent Labs 05/07/1821TPROT -- 7.1 -- -- 8.1ALB -- 4.4 -- -- 4.8ALT -- 45 -- -- 47AST -- 25 -- -- 26ALKPHOS -- 44 -- -- 52TBILI -- 0.7 -- -- 0.7AMYLASE -- 43 -- -- --LIPASE -- 24 -- -- --LACT 1.0 -- 0.7 1.03 --Cardiac EnzymesRecent Labs TROPT <0.010ABGsRecent Labs 05/07/1821PH 7.36 7.33*PCO2 45 47PO2 95 193*BE NEG 1 NEG 2HCO3 25 18AY1QT 26 25O2HB 96 98COHB 0.9 0.8MHGB 0.6 0.7O2AD 30.0 100.0Assessment/PlanDIAGNOSES: Status epilepticusTREATMENT/EVALUATION PLANS: IntubationED DISPOSITION: To ICUFINAL INJURIES: No new injuries were identified after physical examinationand review of final radiological reading(s) of all studies.SENIOR RESIDENT NOTE:ATTENDING NOTE: see noteSIGNATURE: Ceferino Manuel MD PATIENT NAME: Grant Blanchard JRDATE: May 08, 2017 : 5:05 AM PAGER/CONTACT #: [facility] NURSING PROGon 05-07-2017 Protein mass conc HNO ID: [id number] thor: Nasreen BradfordRn) Alexe: NursingAuthor Type: Registered NurseType: Nursing Progress NoteFiled: 05/08/2017 5:49 AMNote Text: Nursing Progress NotePatient Name: Grant Blanchard JRMRN: [id number] Location: [place] [id number] Daily Note:2144: Arrived to SICU 5, intubated, placed on vent by RT, chlorhexidinebath completed, placed on fkvtfbl9667: Chlorhexidine bath completed; the patient's gown was changed.Preventative allevyn was applied to the coccyx.2244: Family brought to bedside;Dr. Potts at bedside to answerquestions.2245: Arturo Pham CNP states that there are no neurosurgical needs atthis time after consultation with Dr. Johnson. Defer to neurology to breakseizure activity. Possible plan for MRI in the future.2250: EEG paged for the third time. Returned page; states will be aftershift change at 2300. Made aware of the urgency of the situation.230: Family at bedside, MD Ryan updated pt family on plan of care.223: chemistry technical officer and lab at bedside.0000: Pt reassessed. See flow sheet.0017: solar maintenance technician updated on STAT MRI ordered.0057: MD Ryan rounded. to order AM labs, KUB and ordered to holdKeppra dose until 0900.0151: Pt to MRI with transport, RT, and RN.0336: Pt returned from MRI and reconnected to all monitors. Familyupdated.0441: Time completed for LP.0530: chemistry technical officer at bedside to place leads; LP complete. ZEFERINO Milton to lab todeliver spinal fluid samples. Family at bedside.This note was completed by: Gavi Payne RN [facility] PROGRESSon 05-07-2017 Protein mass conc HNO ID: [id number] thor: Greg Mckeon: General SurgeryAuthor Type: PhysicianType: Progress NotesFiled: 05/07/2017 9:31 PMNote Text:Full trauma HANDP in process. Brief Trauma Attending Note documentation forLevel I activation.21 yo male air transport in from [facility]. Had ? fall with seizures orseizures that preceded a same level fall.CT brain at facility showed possible small SDH, but scan quality was poordue to seizure activity.On arrival here he was having seizure activity. Intubated by ED staff forairway protection.Will repeat CT brain.To ICUNeurosurg and Neurology consults. Will admit to trauma. If no injuries,can transfer to medical service for seizure management.Greg Boyle, [facility] 2017 9:31 PM [facility] PROGRESS HNO ID: [id number] thor: Leander Esteban (Rt): (none)Author Type: TechnicianType: Progress NotesFiled: 05/07/2017 8:08 PMNote Text: Radiology Service Progress NotePATIENT NAME: Grant Blanchard OF SERVICE: May 07, 2017TIME: 8:07 PMPATIENT IDENTITY VERIFICATION COMPLETED USING TWO (2) METHODS: Patientconfirmed name verbally and Date of .PATIENT GENDER DATA: MalePATIENT RELEVANT IMPLANT DATA REVIEWED: Not ApplicableRADIOLOGY DEPARTMENT: General X-ray: Exam(s) Completed: Chest X-RayPERIPHERAL IV DATA: Not applicableSIGNED BY: RT NamTrinity Health System [facility] 2017 8:07 PM Normal [facility] PROGRESS HNO ID: [id number] thor: Ra Mcintosh (Rt): (none)Author Type: TechnicianType: Progress NotesFiled: 05/07/2017 7:20 PMNote Text: Radiology Service Progress NotePATIENT NAME: Grant Blanchard OF SERVICE: May 07, 2017TIME: 7:19 PMPATIENT IDENTITY VERIFICATION COMPLETED USING TWO (2) METHODS: ID Bandand Family member confirmed name verbally.PATIENT GENDER DATA: MalePATIENT RELEVANT IMPLANT DATA REVIEWED: Not ApplicableRADIOLOGY DEPARTMENT: General X-ray: Exam(s) Completed: Chest X-RayPERIPHERAL IV DATA: Not applicableSIGNED BY: RT Dayna/Leander Varela RT(R)May 07, 2017 7:19 PM [facility] PROGRESS HNO ID: [id number] thor: Ra Mathis (Tech): (none)Author Type: TechnicianType: Progress NotesFiled: 05/07/2017 7:19 PMNote Text: Radiology Service Progress NotePATIENT NAME: Grant Blanchard OF SERVICE: May 07, 2017TIME: 7:17 PMPATIENT IDENTITY VERIFICATION COMPLETED USING TWO (2) METHODS: ID Bandand Other ER staff with patient verified PT, PT unresponsive.PATIENT GENDER DATA: MalePATIENT RELEVANT IMPLANT DATA REVIEWED: Not ApplicableRADIOLOGY DEPARTMENT: CT; Exam(s) Completed: Brain and NeckPERIPHERAL IV DATA: Not applicableSIGNED BY: Fernanda BossTrinity Health System [facility] 2017 7:17 PM Normal [facility] Protimeon 05-07-2017 INR Coag RelTime (Bld) 1.0 {INR} Normal 0.9-1.3 [facility] Comment on above: Result Comment: Xiao min K Antagonist (VKA) Therapeutic Range: INR 2 to 3 (Target INR of 2.5)Note: For patients treated with VKA drugs, such as warfarin, the [place] [employer] 2012 Guideline recommends a therapeutic INR range of 2 to 3 (target INR of 2.5). This recommendation includes high-risk patients with antiphospholipid syndrome with previous arterial or venous thromboembolism, current-generation mechanical or bioprosthetic aortic heart valve replacement.Note: Patients with mechanical aortic valve replacement and additional risk factors for thromboembolic events (atrial fibrillation, previous thromboembolism, LV dysfunction, hypercoagulable conditions) or an older generation mechanical AVR (i.e., ball in-Cage) or any mechanical MVR should have a INR therapeutic range of 2.5 to 3.5 (target INR of 3).Vasiliy GH, et al. Chest 2012, 141:7S-47SNishimura RA, et al. [facility] 2017, 70: 252-289 PT Sec 10.4 sec Normal 9.7-13.0 [facility] Toxicology Screen,Uron 05-07 Amphetamines, Urine Negative Normal Negative [facility] Comment on above: Result Comment: Cuto ff threshold at 1000 ng/mL. Barbiturates, Urine Negative Normal Negative [facility] Comment on above: Result Comment: Cuto ff threshold at 200 ng/mL. Benzodiazepines, Ur Negative Normal Negative [facility] Comment on above: Result Comment: Cuto ff threshold at 200 ng/mL. Cannabinoids, Urine Negative Normal Negative [facility] Comment on above: Result Comment: Cuto ff threshold at 50 ng/mL. Cocaine, Urine Negative Normal Negative [facility] Comment on above: Result Comment: Cuto ff threshold at 300 ng/mL. Ethanol, Urine <11 Normal <11 [facility] Opiates, Urine Negative Normal Negative [facility] Comment on above: Result Comment: Cuto ff threshold at 300 ng/mL. Oxycodone, Urine Negative Normal Negative [facility] Comment on above: Result Comment: Cuto ff threshold at 100 ng/mL.Comment:Immunoassay screen only. Cross reactivity with other substances can occur with immunoassay screening. Detection of any drug(s) in this urine toxicology panel is presumptive only. These tests are for medical purposes only and should not be used for compliance monitoring, legal, or forensic use.In clinical settings, confirmatory testing is at the practitioner's discretion [1]. If clinically indicated, confirmation by high specificity, quantitative methodology may be requested on the same specimen through Client Services ([phone]) if contacted within 48 hours of initial testing.[1]Substance Abuse and Mental Health Services Administration (2012). Clinical Drug Testing in Primary Care Technical Assistance Publication Series 32. Department of Health and Human Services, [place], p.10. Phencyclidine, Urine Negative Normal Negative [facility] Comment on above: Result Comment: Cuto ff threshold at 25 ng/mL. XR CHEST 1V FRONTAL PORTon 0 05-07-2017 XR CHEST 1V FRONTAL PORT * * *Final Report* * *DATE OF EXAM: May 07 2017 9:36PM [id number] - XR CHEST 1V FRONTAL PORT / REASON: Trauma * * * * Physician Interpretation * * * * EXAMINATION: CHEST RADIOGRAPH (PORTABLE SINGLE VIEW AP)Exam Date/Time: 05/07/2017 9:36 PMIndication: TraumaMQ: XCPR_5Comparison: 05/07/20172007 hoursRESULT:Lines, tubes, and devices: The tip of endotracheal tube is approximately 2.7 cm above the carinaLungs and pleura: Increased interstitial markings have developed in both lungs since the prior study.Cardiomediastinal silhouette: The cardiac silhouette is prominent in size. There is prominence of the pulmonary vasculatureIMPRESSION:PULMONARY VENOUS CONGESTION WITH INTERSTITIAL EDEMA THAT HAS DEVELOPED SINCE THE PRIOR STUDYSATISFACTORY POSITION OF THE ENDOTRACHEAL TUBETranscriptionist: [facility] Transcribe Date/Time: May 07 2017 9:36PDictated by : Thu QUIROZ examination was interpreted and the report reviewed and electronically signed by: DILLON LOPEZ MD on May 07 2017 9:38PM [id number] Normal [facility] XR CHEST 1V FRONTAL PORT * * *Final Report* * *DATE OF EXAM: May 07 2017 8:07PM [id number] - XR CHEST 1V FRONTAL PORT / REASON: Oxygen desaturation * * * * Physician Interpretation * * * * EXAMINATION: CHEST RADIOGRAPH (PORTABLE SINGLE VIEW AP)Exam Date/Time: 05/07/2017 8:07 PMIndication: Oxygen desaturationMQ: XCPR_5Comparison: 05/07/2017 at 7:18 PMRESULT:Lines, tubes, and devices: None.Lungs and pleura: The trachea is slightly deviated to the right due to rotation. Lungs are hypoinflated with crowding of markings. There is mild opacity in both lower lungs which likely represents atelectasis. No obvious pneumothoraxCardiomediastinal silhouette: Stable cardiomediastinal silhouette.IMPRESSION:Hypoinflat ion. Atelectasis.Ssn/Ssbn Weapons Equipment Operator: [facility] Transcribe Date/Time: May 07 2017 8:12PDictated by : Thu GERMAN examination was interpreted and the report reviewed and electronically signed by: KAYLAH COOPER MD on May 07 2017 8:14PM [id number] Normal [facility] XR CHEST 1V FRONTAL PORT * * *Final Report* * *DATE OF EXAM: May 07 2017 7:18PM [id number] - XR CHEST 1V FRONTAL PORT / REASON: Seizure (HCC) * * * * Physician Interpretation * * * * EXAMINATION: CHEST RADIOGRAPH (PORTABLE SINGLE VIEW AP)Exam Date/Time: 05/07/2017 7:18 PMIndication: Seizure (HCC)MQ: XCPR_5Comparison: NoneRESULT:Lines, tubes, and devices: None.Lungs and pleura: The trachea is normal in position. Lungs are hypoinflated with crowding of markings. There is artifact from a backboard which obscures part of the right thorax. No parenchymal consolidation, large pleural effusion or obvious pneumothorax is seen.Cardiomediastinal silhouette: Cardiac silhouette is not enlargedIMPRESSION:Hypoinflation . No obvious acute findings.Ssn/Ssbn Weapons Equipment Operator: NICO Transcribe Date/Time: May 07 2017 7:39PDictated by : KAYLAH COOPER MDThis examination was interpreted and the report reviewed and electronically signed by: KAYLAH COOPER MD on May 07 2017 7:40PM [id number] Normal [facility] Vital Signs Date Time Vital Sign Value Performing Clinician Facility 02-15-2023 19:11-0500 Body temperature 99.3 [degF] [facility] 02-15-2023 19:11-0500 Body weight 145.78 kg [facility] 02-15-2023 19:11-0500 Diastolic blood pressure 102 mm[Hg] [facility] 02-15-2023 19:11-0500 Heart rate 88 /min [facility] 02-15-2023 19:11-0500 Respiratory rate 20 /min [facility] 02-15-2023 19:11-0500 SaO2% (BldA) [Mass fraction] 96 % [facility] 02-15-2023 19:11-0500 Systolic blood pressure 151 mm[Hg] [facility] 05-08-2017 19:43-0400 Body surface area Derived from formula [facility] Comment on above: Performed By: #### HACUTP ####[facility], [place] [phone] 05-08-2017 07:41-0400 Body mass index (BMI) [Ratio] [facility] Comment on above: Performed By: #### FLCSF ####[id number] [place] [address] Encounters Encounter Date Encounter Type Care Provider Facility Start: 02-15-2023 End: 02-15-2023 Emergency department patient visit ER [facility] Start: 11-27-2020 End: 11-28-[address] GLEN WALKER Facility:[facility] Start: 11-21-2020 End: 11-22-[address] GLEN WALKER Facility:[facility] Start: 10-31-2020 End: 10-31-[address] GLEN WALKER Facility:[facility] Start: 07-05-2020 End: 07-06-[address] GLEN WALKER Facility:[facility] Start: 05-20-2017 Patient encounter procedure YAZMIN S [facility] Start: 05-20-2017 End: 05-20-2017 Ambulatory YAZMIN Meade [facility] Start: 05-07-2017 End: 05-11-2017 Evaluation and management of inpatient [facility] Start: 05-07-2017 End: 05-07-2017 Emergency department patient visit ADINA TAYLOR [facility] Procedures Date Procedure Procedure Detail Performing Clinician Start: 05-08-2017 Antibody screen GREGYANG BOYLE Comment on above: Performed By: #### [facility] ####[facility] [place], [place] [id number] Payers Date Payer Category Payer Self-pay 2023 Unknown [id number] 1995 Unknown [id number] 1996 Unknown [id number] 1996 Unknown [id number] 1996 Unknown [id number] 1959 Unknown [id number] Unknown [id number] Social History Date Type Detail Facility NEGATED: Highlighted row Unknown if ever smoked [facility] Hospital Discharge instructions Note Date & Type Note Facility Hospital Discharge instructions No known hospital discharge instructions. [facility] Summary Purpose Family History No Family History Records FoundNo Family History Records FoundNo Family History Records FoundNo Family History Records FoundNo Family History Records FoundNo Family History Records Found Advance Directives No Advanced Directives Records FoundNo Advanced Directives Records FoundNo Advanced Directives Records FoundNo Advanced Directives Records FoundNo Advanced Directives Records FoundNo Advanced Directives Records Found Additional Source Comments (unrecognized sect ion and content) No Status Records FoundNo Status Records FoundNo Status Records FoundNo Status Records FoundNo Status Records FoundNo Status Records Found INFORMATION SOURCE (unrecogn ized section and content) DATE CREATED AUTHOR 07/29/2017 [facility] DATE CREATED AUTHOR AUTHOR'S ORGANIZ ATION 01/31/2018 [facility] DATE CREATED AUTHOR AUTHOR'S ORGANIZ ATION 09/22/2020 [facility] DATE CREATED AUTHOR AUTHOR'S ORGANIZ ATION 12/05/2020 [facility] DATE CREATED AUTHOR AUTHOR'S ORGANIZ ATION 03/16/2021 [facility] DATE CREATED AUTHOR AUTHOR'S ORGANIZ ATION 02/19/2023 [facility] FOR RECORDS PERTAINING TO PATIENTS WHO ARE OR HAVE BEEN ENROLLED IN A CHEMICAL DEPENDENCY/SUBSTANCEABUSE PROGRAM, SOME INFORMATION MAY BE OMITTED. This clinical summary was aggregated from multiple sources. Caution should be exercised in using it in the provision of clinical care. This summary normalizes information from multiple sources, and as a consequence, information in this document may materially change the coding, format and clinical context of patient data. In addition, data may be omitted in some cases. CLINICAL DECISIONS SHOULD BE BASED ON THE PRIMARY CLINICAL RECORDS. [facility]. provides no warranty or guarantee of the accuracy or completeness of information in this document.
--- NOTE | 2023-02-19 15:12 | XR_ITS ---
The [address] [address] Patient Name: XAVIER SOLER MRN: [id number] date: 1995 Sex: M Assigned Patient Location: RAD Current Patient Location: RAD Accession/Order Number: [id number] Exam Date: 02/19/2023 14:57 Report Date: 02/19/2023 15:52 At the request of: GLORIA WALKER Procedure: XR knee CLAUDIA 3V EXAMINATION: XR knee CLAUDIA 3V HISTORY: Morbid Obesities E66.01 COMPARISON: No relevant comparison available. FINDINGS: RIGHT FINDINGS: BONES: Normal. No significant arthropathy or acute abnormality. SOFT TISSUES: Negative. No visible soft tissue swelling. OTHER: Negative. LEFT FINDINGS: BONES: Normal. No significant arthropathy or acute abnormality. SOFT TISSUES: Negative. No visible soft tissue swelling. OTHER: Negative. XR/XR knee CLAUDIA 3V IMPRESSION: RIGHT CONCLUSION: No acute abnormality LEFT CONCLUSION: No acute abnormality Electronically authenticated by: SAMUEL SORIA Date: 02/19/2023 15:52
== END 2023-02-19 14:44 | disposition home or self-care (01) ==
PROVIDERS: PCP Family Medicine; Visit Provider Family Medicine
DX: E66.01 Morbid (severe) obesity due to excess calories (principal)
CPT/HCPCS: 73562

== ENCOUNTER 2023-04-12 13:39 | Outpatient (RCR) | payer SELFPAY | END 2023-04-13 11:44 | disposition home or self-care (01) | LOC: PT 13:39 | PROVIDERS: PCP Family Medicine; Visit Provider Family Medicine | DX: M25.561 Pain in right knee (principal); M25.562 Pain in left knee; M17.9 Osteoarthritis of knee, unspecified | CPT/HCPCS: 97110; 97161 ==

== ENCOUNTER 2023-07-19 11:26 | Emergency (ER) | payer OTHER, SELFPAY ==
[2023-07-19] VITALS (8 sets, daily range): BP systolic 147–148; BP diastolic 94–101; PULSE 77–98; TEMP 37; O2SAT 97–99; BMI 39.3
--- NOTE | 2023-07-19 12:18 | ED_ITS ---
HPI HPI - General Adult General Chief complaint: Recheck/Abnormal Lab/Rx Stated complaint: HIGH BLOOD PRESSURE Time Seen by Provider: 07/19/23 12:17 Source: patient Mode of arrival: walk-in History of Present Illness HPI narrative: Patient is a 28-year-old male who is presenting to the ER today with chief complaint of midepigastric and chest pain/gastritis. Patient will either drink a couple coffee or a energy drink in the morning. Patient excellently grabbed a new energy drink this morning call [employer], and it was noted to have 300 mg of caffeine in it compared to other energy drinks that have less caffeine. Patient started having some midepigastric pain, heartburn, pain to the middle of his chest. Patient has some left lower chest pain along with some mild shortness of breath. Patient works at a [employer] in [place]. Patient went to the nurses station, they checked his blood pressure and it was significantly elevated. Patient sat in the nurses station and they checked his blood pressure a few more times, and it had decreased without patient doing anything. Patient states that he has known anxiety, panic attacks. 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 Patient takes no medications daily. Patient has lost 50 pounds. Patient stopped using to list tobacco for 1.5 months so far. Patient was a short-term smoker for a few years. No cocaine use. No family history. Patient heart score is 1 for obesity. All systems are negative except as noted/marked. All systems reviewed and otherwise negative. Nurses note and vital signs reviewed and patient is not hypoxic. General: The patient appears well and in no apparent distress. Patient is resting comfortably on cart. Patient is not toxic, lethargic, or listless Skin: Warm, dry, no pallor noted. There is no rash noted. No petechiae, purpura. Head: Normocephalic, atraumatic Eye: Normal conjunctiva, no drainage, EOMI. PERRL Ears, Nose, Mouth, and Throat: oral mucosa is moist. Nares patent. Mouth without vesicles. Cardiovascular: Regular Rate and Rhythm, no murmur, gallop, rub Respiratory: Patient is in no distress, no accessory muscle use, lungs are clear to auscultation, no wheezing, rales or rhonchi Back: non-tender, no CVA tenderness bilaterally to percussion. No CT LS midline pain GI: No reproducible midepigastric pain, no peritoneal signs, benign abdomen. no tenderness to palpation, no masses appreciated. No rebound, guarding, or rigidity noted. No distention Musculoskeletal: Patient has full range of motion of all of the extremities, no motor, sensory, or focal neurological deficits Neurological: A&O x4, normal speech Psychiatric: Cooperative Related Data Allergies Allergy/AdvReac Type Severity Reaction Status Date / Time Sulfa (Sulfonamide Allergy Severe Verified 07/19/23 11:34 Antibiotics) Opioid HPI Opioid Management Most Recent Opioid Data: Last Pain Scale 0 07/19/23 12:01 Last ED Pain Assessment 07/19/23 12:01 Exam Constitutional Vital Signs, click to edit/add: Last Vital Signs Temp 98.6 F 07/19/23 11:30 Pulse 83 07/19/23 12:20 Resp 23 H 07/19/23 12:20 BP 147/94 H 07/19/23 11:32 Pulse Ox 98 07/19/23 12:01 O2 Del Method Room Air 07/19/23 12:01 Course Vital Signs Vital signs: Vital Signs Temperature 98.6 F 07/19/23 11:30 Pulse Rate 98 H 07/19/23 11:30 Respiratory Rate 18 07/19/23 11:30 Blood Pressure 147/94 H 07/19/23 11:30 Pulse Oximetry 99 07/19/23 11:30 Oxygen Delivery Method Room Air 07/19/23 11:30 Temperature 98.6 F 07/19/23 11:30 Pulse Rate 83 07/19/23 12:20 Respiratory Rate 23 H 07/19/23 12:20 Blood Pressure 147/94 H 07/19/23 11:32 Pulse Oximetry 98 07/19/23 12:01 Oxygen Delivery Method Room Air 07/19/23 12:01 Medical Decision Making MDM Narrative Medical decision making narrative: EKG shows no acute findings. Patient has similar changes to EKG that was done on May 12, 2017. Patient is asymptomatic. Patient was in the ER for lengthy amount of time secondary to ER volume. Blameless apologies were given, patient was very understanding. Patient will follow-up with PCP for outpatient cardiac testing is indicated. Patient understands this, no questions at discharge. ECG Data Attestation: I personally reviewed and interpreted this ECG as follows: (EKG interpretation. Normal sinus rhythm at 94 beats a minute. Normal axis deviation. T wave inversion noted in lead III, aVF, nonspecific ST changes. No old EKG for comparison.) Discharge Plan Discharge Stand Alone Forms: Work/School Release, Portal Instructions Chief Complaint: Recheck/Abnormal Lab/Rx Clinical Impression: Chest pain, Gastritis Patient Disposition: Home, Self-Care Time of Disposition Decision: 13:14 Condition: Fair Print Language: Slovenian Instructions: Chest Pain (ED), Gastritis (ED) Additional Instructions: Limit caffeine intake as discussed. We did discuss the heart score, which discusses the risk factors for cardiac disease. Continue being tobacco free, good job Follow-up with PCP for further testing as indicated and possible outpatient cardiac stress test or echocardiogram if indicated. If you are having daily anxiety, stress, depression, you may need a daily medication to help control symptoms. Discussed this with your PCP. Referrals: Glen Alba MD [Primary Care Provider] - 1 week
--- NOTE | 2023-07-19 13:31 | ECG_ITS ---
The [facility] Test Date: 2023-07-19 Pat Name: XAVIER SOLER Department: Room: - Gender: Male [employer] [place]: : 1995 Requested By: [id number] Order Number: [id number] Reading MD: GLORIA WALKER Measurements Intervals [place] Rate: 94 P: 43 ME: 132 QRS: 45 QRSD: 84 T: -16 QT: 336 QTc: 387 Interpretive Statements 1100 Sinus rhythm [address] depression [address] & Twave abnormality - possible inf wall ischemia 9130 borderline ECG Compared to ECG 05/12/2017 19:17:21 ST (T wave) deviation now present Short ME interval no longer present Possible ischemia no longer present Electronically Signed On 07-21-2023 7:38:01 EDT by GLORIA WALKER
== END 2023-07-19 13:24 | disposition home or self-care (01) ==
PROVIDERS: Emergency Provider Emergency Medicine; PCP Family Medicine
DX: R07.9 Chest pain, unspecified (principal); K29.70 Gastritis, unspecified, without bleeding; Z87.891 Personal history of nicotine dependence; E66.9 Obesity, unspecified; F41.9 Anxiety disorder, unspecified; F42.9 Obsessive-compulsive disorder, unspecified; Z68.39 Body mass index [BMI] 39.0-39.9, adult
CPT/HCPCS: 93005; 99283

== ENCOUNTER 2023-08-04 09:16 | Outpatient (OUT) | payer OTHER, SELFPAY ==
--- NOTE | 2023-08-04 08:15 | NM_ITS ---
Patient Name: XAVIER SOLER MR#: [id number] : 1995 Exam Date: 08/04/2023 Ordering Doctor: DR Glen Alba . RADIOLOGY REPORT PROCEDURE: NM SANGEETA PERF SPECT REST STR COMPARISON: None. INDICATIONS: ABNORMAL EKG, CHEST PAIN, HYPERTENSION TECHNIQUE: Exam Description: Stress/Rest two day protocol gated SPECT Rest Imagin.2 mCi Tc-99m Cardiolite IV on 08/04/2023 Stress Imaging 25.1 mCi Tc-99m Cardiolite IV on 08/05/2023 Exercise Protocol: Donald Heart Rate (bpm): Rest: 84 Max: 169 PMHR: 87 Blood Pressure: Rest: 130/88 Max: 148/88 Exercise Time: Minutes: 7 Seconds: 50 Stage Reached: Stage: 3 Mets 10.1 Symptoms: Rest and peak stress ECG findings were pending and the exercise portion of the study was pending per attending physician Dr. LEGER . For more details please see separate cardiac stress test report. FINDINGS: QUALITY OF STUDY: Good. PERFUSION DEFECT: LOCATION: Basal inferoseptal. Mid-inferoseptal. [place]. SIZE: Medium (3-4 segments). SEVERITY: TYPE: Persistent. WALL MOTION: Normal. LV SIZE: Enlarged; EDV 160 mL. TID / TCD: None; 0.9 LVEF: Normal. Calculated EF 58%. SUMMARY: Myocardial perfusion imaging study has ABNORMAL findings. CONCLUSION: 1. Fixed defect inferior septal wall extending the apex 2. No reversible ischemia 3. Dilated left ventricle, EDV 160 milliliters 4. Pending exercise test result Dictated by: Karan Morgan MD on 08/05/2023 at 14:51 Approved by: Karan Morgan MD on 08/05/2023 at 14:52
--- OUTSIDE RECORDS SUMMARY | 2023-08-04 09:21 | XMS_ITS | CCD ---
Author Organization [facility] Care Team Providers Care Hearing Aid Repairer Name Role Phone ADINA TAYLOR Unavailable Unavailable [...] Allergy Type Date of Onset Reaction(s) Facility (4 sources) Sulfonamides (Antibiotic); Translations: [SULFA (SULFONAMIDE ANTIBIOTICS)] Propensity to adverse reactions to drug (disorder) 8 [facility]OF, Unknown Reaction [facility] Repository (1 source) Sulfonamides (Antibiotic) Drug allergy (disorder) 5 [facility] Repository (2 sources) Sulfonamides (Antibiotic); Translations: [Sulfa Antibiotics] Allergy to Substance 4 [facility] Repository (1 source) Naproxen Drug Allergy 03-15-202 4 Unknown Reaction [facility] Medications Current Medications Medication Drug Class(es) Dates Sig (Normalized) Sig (Original) acetaminophen 325 mg / HYDROcodone bitartrate 5 mg oral tablet (1 source) Opioid Agonist Start: 11-08-2020 take 1 tablet by mouth every eight hours Hydrocodone-Aceta minophen Active 1 TAB PO Q8H 10 3 November 08, 2020 doxycycline hyclate 100 mg oral capsule (1 source) Tetracycline-class Drug Start: 11-08-2020 take 100 mg by mouth twice daily Doxycycline Hyclate Active 100 MG PO Twice daily 14 November 08, 2020 12:00am hydrOXYzine hydrochloride 25 mg oral tablet (2 sources) Antihistamine Start: 10-12-2020 take 25 mg by mouth every six hours Hydroxyzine Hcl Active 25 MG PO Q6H October 12, 2020 12:00am Start: 07-13-2018 End: 10-12-2020 take 25 mg by mouth once daily Hydroxyzine Hcl Discont inued 25 MG PO Daily July 13, 2018 12:00am October 12, 2020 4:53pm ibuprofen 800 mg oral tablet (2 sources) Nonsteroidal Anti-inflammatory Drug Start: 11-08-2020 take 800 mg by mouth every eight hours Ibuprofen Active 800 MG PO Q8H November 08, 2020 12:00am Start: 08-30-2018 End: 09-12-2018 take 800 mg by mouth every eight hours Ibuprofen Discontinued 800 MG PO Q8H August 30, 2018 12:00am September 12, 2018 4:11pm lurasidone hydrochloride 20 mg oral tablet (1 source) Atypical Antipsychotic Start: 11-08-2020 take 1 tablet by mouth once daily Lurasidone (Latuda) 20 mg tablet Active 20 MG PO Daily November 08, 2020 12:00am phentermine hydrochloride 37.5 mg oral tablet (1 source) Sympathomimetic Amine Anorectic Start: 04-23-2023 take 1 tablet by mouth once daily 30 minutes after breakfast Phentermine (Adipex-P) 37.5 mg tablet Active 37.5 MG PO Daily April 23, 2023 12:00am must administer 30 minutes before or 1-2 hours after breakfast SUMAtriptan 100 mg oral tablet (1 source) Serotonin-1b and Serotonin-1d Receptor Agonist Start: 10-12-2020 take 100 mg by mouth once daily Sumatriptan Succinate Active 100 MG PO Daily October 12, 2020 12:00am Completed/Discontinued Medications Medication Drug Class(es) Dates Sig (Normalized) Sig (Original) ALPRAZolam 0.5 mg oral tablet (1 source) Benzodiazepine Start: 07-13-2018 End: 07-13-2018 Alprazolam Discontinued TABLET July 13, 2018 12:00am July 13, 2018 5:47pm cephalexin 500 mg oral capsule (1 source) Cephalosporin Antibacterial Start: 10-22-2017 End: 11-01-2017 take 1 capsule by mouth every six hours Cephalexin (Keflex) 500 mg capsule Discontinued 500 MG PO Q6H 40 October 22, 2017 12:00am November 01, 2017 12:01am citalopram 10 mg oral tablet (1 source) Serotonin Reuptake Inhibitor Start: 07-13-2018 End: 08-23-2018 take 20 mg by mouth once daily Citalopram Discontinued 20 MG PO Daily July 13, 2018 12:00am August 23, 2018 12:57pm famotidine 20 mg oral tablet (1 source) Histamine-2 Receptor Antagonist Start: 01-11-2019 End: 10-12-2020 take 20 mg by mouth once daily Famotidine Discontinued 20 MG PO Daily January 11, 2019 1:00am October 12, 2020 4:53pm FLUoxetine 20 mg oral capsule (2 sources) Serotonin Reuptake Inhibitor Start: 11-08-2020 End: 04-23-2023 take 20 mg by mouth once daily Fluoxetine Discontinued 20 MG PO Daily November 08, 2020 12:00am April 23, 2023 11:40am Start: 08-23-2018 End: 10-12-2020 take 20 mg by mouth once daily Fluoxetine Discontinued 20 MG PO Daily August 23, 2018 12:00am October 12, 2020 4:53pm ketorolac tromethamine 5 mg/ml ophthalmic solution (1 source) Nonsteroidal Anti-inflammatory Drug, Cyclooxygenase Inhibitor Start: 08-23-2018 End: 08-30-2018 take 1 drop(s) into the eye(s) every six hours Ketorolac (Acular) 0.5 % drops Discontinued 2 DROPS OPHTHALMIC Q6H August 23, 2018 12:00am August 30, 2018 10:50pm lamoTRIgine 150 mg oral tablet (1 source) Mood Stabilizer, Anti-epileptic Agent Start: 10-12-2020 End: 11-08-2020 take 150 mg by mouth once daily Lamotrigine Discontinued 150 MG PO Daily October 12, 2020 12:00am November 08, 2020 11:47am methocarbamol 750 mg oral tablet (1 source) Muscle Relaxant Start: 08-21-2018 End: 09-12-2018 take 750 mg by mouth three times daily Methocarbamol Discontinued 750 MG PO Three times daily August 21, 2018 12:00am September 12, 2018 4:11pm methylPREDNISolone 4 mg oral tablet (1 source) Corticosteroid Start: 10-04-2017 End: 10-22-2017 take 1 tablet by mouth once Methylprednisolone (Medrol (Maxim)) 4 mg tablets,dose pack Discontinued 0 PO per package directions October 04, 2017 12:00am October 22, 2017 7:24am PO PER PKG DIR promethazine hydrochloride 25 mg oral tablet (1 source) Phenothiazine Start: 03-21-2018 End: 07-13-2018 take 25 mg by mouth every six hours Promethazine Discontinued 25 MG PO Q6H March 21, 2018 1:00am July 13, 2018 5:45pm traZODone hydrochloride 50 mg oral tablet (1 source) Serotonin Reuptake Inhibitor Start: 07-13-2018 End: 01-11-2019 take 50 mg by mouth once daily at bedtime Trazodone Discontinued 50 MG PO Daily at bedtime July 13, 2018 12:00am January 11, 2019 9:29am divalproex sodium 500 mg delayed release oral tablet (1 source) Mood Stabilizer, Anti-epileptic Agent Start: 10-04-2017 End: 10-22-2017 take 500 mg by mouth twice daily Divalproex Discontinued 500 MG PO Twice daily October 04, 2017 12:00am October 22, 2017 7:24am Problems Active Problems Problem Classification Problem Date Documented Da te Episodic/Chronic Abdominal pain (5 sources) Left lower quadrant pain; Translations: [Indigestion] Onset: 11-27-2020 Episodic Acute bronchitis (1 source) Acute bronchitis, unspecified; Translations: [ACUTE BRONCHITIS UNSPECIFIED] Onset: 11-13-2020 Episodic Acute cerebrovascular disease (2 sources) Nontraumatic subdural hemorrhage, unspecified; Translations: [Nontraumatic subdural hemorrhage, unspecified] Onset: 05-07-2017 Chronic Anxiety disorders (1 source) Anxiety; Translations: [Anxiety disorder, unspecified] 10-12-2020 Chronic Cardiac dysrhythmias (1 source) Palpitations; Translations: [Palpitations] 10-12-2020 Episodic Epilepsy; convulsions (2 sources) Epilepsy, unspecified, not intractable, with status epilepticus; Translations: [Epilepsy, unspecified, not intractable, with status epilepticus] Onset: 05-07-2017 Chronic Immunizations and screening for infectious disease (1 source) Contact with or exposure to other viral diseases; Translations: [Exposure to 2019 novel coronavirus] 04-23-2023 Episodic Inflammation; infection of eye (except that caused by tuberculosis or sexually transmitteddisease) (1 source) Allergic conjunctivitis; Translations: [Acute atopic conjunctivitis, unspecified eye] 08-23-2018 Episodic Malaise and fatigue (1 source) Fatigue; Translations: [Other fatigue] 05-04-2017 Episodic Nonspecific chest pain (1 source) Atypical chest pain; Translations: [Other chest pain] 01-11-2019 Episodic Open wounds of head; neck; and trunk (1 source) Laceration - injury; Translations: [Laceration] 01-28-2021 Episodic Other connective tissue disease (1 source) Tendinitis of left elbow; Translations: [Other enthesopathies, not elsewhere classified] 08-30-2018 Episodic Other diseases of bladder and urethra (1 source) Other specified disorders of bladder; Translations: [OTHER SPECIFIED DISORDERS BLADDER] Onset: 11-29-2020 Chronic Other injuries and conditions due to external causes (2 sources) Injury of head; Translations: [Unspecified injury of head, initial encounter] 09-12-2018 Episodic Other male genital disorders (1 source) Cyst of epididymis; Translations: [Cyst of epididymis] 11-08-2020 Episodic Other nervous system disorders (1 source) Encephalopathy, unspecified; Translations: [Encephalopathy, unspecified] Onset: 05-07-2017 Chronic Other nervous system disorders (1 source) Paresthesia; Translations: [Paresthesia of skin] 06-08-2017 Episodic Other non-traumatic joint disorders (1 source) Pain in unspecified knee; Translations: [Pain in unspecified knee] Onset: 02-15-2023 Episodic Superficial injury; contusion (1 source) Contusion of head; Translations: [Contusion of unspecified part of head, initial encounter] 09-12-2018 Episodic Unclassified (1 source) Unknown / UNK(Unknown) Onset: 05-20-2017 Unclassified (3 sources) LOW BACK PAIN, UNSPECIFIED; Translations: [LOW BACK PAIN, UNSPECIFIED] Onset: 11-29-2020 Unclassified (3 sources) CONTACT W/AND (SUSP) EXPOS COVID-19; Translations: [CONTACT W/AND (SUSP) EXPOS COVID-19] Onset: 11-13-2020 Viral infection (1 source) COVID-19; Translations: [Other specified viral infection] 04-23-2023 Episodic Past or Other Problems Problem Classification Problem [...] Test Name Value Interpretation Reference Range Facility COVID Cepheidon 04-23-2023 SARS-CoV-2 (COVID-19) RNA KING+probe Ql (Unsp spec) Negative [facility] Laboratory - Microbiology an d Antimicrobial susceptibilityon 04-23-2023 SARS-CoV-2 (COVID-19) RNA KING+probe Ql (Unsp spec) Positive [facility] No Panel Informationon 04-22 POC Influenza A (PCR) Negative [facility] POC Influenza B (PCR) Negative [facility] CT cervical spine wo conon 1 03-31-2020 CT cervical spine wo con [facility] Main [place] [address] [place], [place] [id number] CT Scan Report Signed Patient: Grant Blanchard JR MR#: [id number] : 1995 Acct:[id number] Age/Sex: 25 / M ADM Date: 01/28/21 Loc: ER Room: Type: [facility] ER Attending Dr: Ordering Provider: Greg Kitchen [...] Morgan Young M.D.01/28/2021 6:17 PM Dictation Location: [place] [address] Transcribed By: [facility] 01/28/211816 Dictated By: Morgan Young DO 01/28/211814 Signed By: 01/28/211816 [facility] CT head/brain wo conon 01-28 CT head/brain wo con [facility] Main [address] [address] [address] Scan Report Signed Patient: Grant Blanchard JR MR#: [id number] : 1995 Acct:[id number] Age/Sex: 25 / M ADM Date: 01/28/21 Loc: ER Room: Type: [facility] ER Attending Dr: Ordering Provider: Greg Kitchen [...] Morgan Young M.D.01/28/2021 6:15 PM Dictation Location: [place] [address] Transcribed By: [facility] 01/28/211814 Dictated By: Morgan Young DO 01/28/211812 Signed By: 01/28/211814 Normal [facility] XR KUB 1 VIEWon 11-27-2020 XR KUB [...] NICHOLAS CEDILLO Date: 2020-11-27 16:34 Normal [facility] CULTURE URINEon 11-21-2020 CULTURE URINE Culture Observations : VERY LIGHT GROWTH OF MIXED SKIN SERGEI. NO POTENTIAL PATHOGENS SEEN. Normal [facility] Comment on above: Performed By: #### U RCX #### [facility] [address] [place] [address] Dr. Dyan Tierney UA RANDOM W/MICROSCOPICon 10 -14-2021 BACTERIA NONE SEEN Normal NONE SEEN [facility] Comment on above: Performed By: #### U AMIC #### [facility] [address] [address] [address] Dyan Tierney Bilirubin Ql (U) Negative Normal NEGATIVE [facility] Comment on above: Performed By: #### U AMIC #### [facility] [address] [place] [address] Dr. Dyan Tierney CAST NONE SEEN Normal NONE SEEN [facility] Comment on above: Performed By: #### U AMIC #### [facility] [address] [place] [address] [address] Dyan Tierney Clarity (U) CLEAR Normal CLEAR [facility] Comment on above: Performed By: #### U AMIC #### [facility] [address] [place] [address] Dr. Dyan Tierney Color (U) YELLOW Normal YELLOW [facility] Comment on above: Performed By: #### U AMIC #### [facility] [address] [place] [address] Dr. Dyan Tierney Crystals LM Nom (Urine sed) NONE SEEN Normal NONE SEEN [facility] Comment on above: Performed By: #### U AMIC #### [facility] [address] [place] [address] Dr. Dyan Tierney Epithelial cells LM Ql (Urine sed) NONE SEEN Normal NONE SEEN /RARE [facility] Comment on above: Performed By: #### U AMIC #### [facility] [address] [place] [address] Dr. Dyan Tierney Glucose Ql (U) Negative Normal NEGATIVE [facility] Comment on above: Performed By: #### U AMIC #### [facility] [address] [place] [address] [address] Dyan Tierney Hemoglobin Ql (U) Negative Normal NEGATIVE [facility] Comment on above: Performed By: #### U AMIC #### [facility] [address] [place] [address] Dr. Dyan Tierney Ketones Ql (U) Negative Normal NEGATIVE [facility] Comment on above: Performed By: #### U AMIC #### [facility] [address] [address] [address] Dayn Tierney LEUKOCYTES Negative Normal NEGATIVE [facility] Comment on above: Performed By: #### U AMIC #### [facility] [address] [address] [address] Dyan Tierney MUCOUS NONE SEEN Normal NONE SEEN [facility] Comment on above: Performed By: #### U AMIC #### [facility] [address] [address] [address] Dyan Tierney Nitrite Ql (U) Negative Normal NEGATIVE [facility] Comment on above: Performed By: #### U AMIC #### [facility] [address] [place] [address] Dr. Dyan Tierney pH (U) 6.0 [pH] Normal 5-9 [facility] Comment on above: Performed By: #### U AMIC #### [facility] [address] [place] [address] Dr. Dyan Tierney RBC 0-2 Normal 0-2 [facility] Comment on above: Performed By: #### U AMIC #### [facility] [address] [place] [address] Dr. Dyan Tierney SPEC GRAVITY 1.025 Normal 1.005-<=1. 025 [facility] Comment on above: Performed By: #### U AMIC #### [facility] [address] [place] [address] Dr. Dyan Tierney UA PROTEIN Negative Normal NEGATIVE/ TRACE [facility] Comment on above: Performed By: #### U AMIC #### [facility] [address] [place] [address] Dr. Dyan Tierney Urobilinogen Qn (U) 0.2 {Boubacar'U}/dL Normal 0.2 - 1.0 [facility] Comment on above: Performed By: #### U AMIC #### [facility] [address] [place] [address] Dr. Dyan Tierney WBC 0-2 Abnormal NONE SEEN [facility] Comment on above: Performed By: #### U AMIC #### [facility] [address] [place] [address] [address] Dyan Tierney Chlamydia/GC Amplificationon 11-08-2020 Chlamydia Trachomotis, KING Negative Normal Negative [facility] Comment on above: Performed By: #### G CCHLAMAMP #### [facility] , #### UA #### [address] Neisseria Gonorrhoeae, KING Negative Normal Negative [facility] Comment on above: Result Comment: Perf ormed at: =G - [facility] [address] [id number] Ship Captain: Junie Peña MD, Phone: [phone] PERFORMED BY: [place] [address] PATHOLOGIST DETAIL MAKER AND FITTER MYLA DOSHI M.D. Performed By: #### G CCHLAMAMP #### [facility] , #### UA #### [address] US scrotumon 11-08-2020 US scrotum [facility] [address] Ultrasound Report Signed Patient: Grant Blanchard JR MR#: [id number] : 1995 Acct:[id number] Age/Sex: 25 / M ADM Date: 11/08/20 Loc: ER Room: Type: [facility] ER Attending Dr: Ordering Provider: Greg Kitchen [...] Major Jr., M.D.11/08/2020 2:08 PM Dictation Location: [place] [address] Tech: Jayshree Sargent Transcribed By: SEFERINO 11/08/201407 Dictated By: Bandar Major Jr, MD 11/08/201402 Signed By: 11/08/201407 Normal [facility] Urinalysison 11-08-2020 Appearance (U) Clear Normal Clear [facility] Comment on above: Order Comment: Name Collection Type:: Clean-Voided Midstream Performed By: #### G CCHLAMAMP #### [facility] , #### UA #### [facility] [address] [place] [address] [place] Bilirubin,Urine Negative Normal Negative [facility] Comment on above: Order Comment: Name Collection Type:: Clean-Voided Midstream Performed By: #### G CCHLAMAMP #### [facility] , #### UA #### [facility] [address] [place] [address] [place] Color (U) Yellow Normal Yellow [facility] Comment on above: Order Comment: Name Collection Type:: Clean-Voided Midstream Performed By: #### G CCHLAMAMP #### [facility] , #### UA #### [facility] [address] [place] [id number] [place] Glucose Ql (U) Normal Normal Normal [facility] Comment on above: Order Comment: Name Collection Type:: Clean-Voided Midstream Performed By: #### G CCHLAMAMP #### [facility] , #### UA #### [address] Ketones Ql (U) Trace High Negative [facility] Comment on above: Order Comment: Name Collection Type:: Clean-Voided Midstream Performed By: #### G CCHLAMAMP #### [facility] , #### UA #### [facility] [address] [place] [address] Leukocyte esterase Test strip Ql (U) Negative Normal Negative [facility] Comment on above: Order Comment: Name Collection Type:: Clean-Voided Midstream Performed By: #### G CCHLAMAMP #### [facility] , #### UA #### [facility] [address] [place] [address] Nitrite,Urine Negative Normal Negative [facility] Comment on above: Order Comment: Name Collection Type:: Clean-Voided Midstream Performed By: #### G CCHLAMAMP #### [facility] , #### UA #### [address] Occult Blood,Urine Negative Normal Negative [facility] Comment on above: Order Comment: Name Collection Type:: Clean-Voided Midstream Result Comment: PERF ORMED BY: [place] [address] PATHOLOGIST DETAIL MAKER AND FITTER MYLA DOSHI M.D. Performed By: #### G CCHLAMAMP #### [facility] , #### UA #### [address] pH (U) 7.5 [pH] Normal 5.0-9.0 [facility] Comment on above: Order Comment: Name Collection Type:: Clean-Voided Midstream Performed By: #### G CCHLAMAMP #### [facility] , #### UA #### [place] [address] [place] Protein,Urine Negative Normal Negative [facility] Comment on above: Order Comment: Name Collection Type:: Clean-Voided Midstream Performed By: #### G CCHLAMAMP #### [facility] , #### UA #### [address] Specificy Premium,Urine 1.027 Normal 1.001-1.03 0 [facility] Comment on above: Order Comment: Name Collection Type:: Clean-Voided Midstream Performed By: #### G CCHLAMAMP #### [facility] , #### UA #### [address] Urobilinogen,Urine Normal Normal Normal [facility] Comment on above: Order Comment: Name Collection Type:: Clean-Voided Midstream Performed By: #### G CCHLAMAMP #### [facility] , #### UA #### [address] Covid-19 PCR (CVDTBH)on 10-10 SARS-CoV-2 (COVID-19) RNA KING+probe Ql (Unsp spec) Not detected Normal NOT DETECTED [facility] Comment on above: Result Comment: This test is not yet approved or cleared by the [place] FDA. When there are no FDA-approved or cleared tests available, and other criteria are met, FDA can make tests available under an emergency access mechanism called an Emergency Use Authorization (EUA). The EUA for this test is supported by the [place] of Health and Human Service's (HHS's) declaration [...] SARS-CoV-2. Performed By: #### C VDTBH #### [facility] [address] [address] [address] Dyan Tierney XR chest 1V portableon 10-13 XR chest 1V portable [facility] Main [place] [address] [place] [address] XRay Report Signed Patient: Grant Blanchard JR MR#: [id number] : 1995 Acct:[id number] Age/Sex: 25 / M ADM Date: 10/12/20 Loc: ER Room: Type: [facility] ER Attending Dr: Ordering Provider: [...] Teddy Montelongo M.D.10/13/2020 9:12 AM Dictation Location: [place] [address] Transcribed By: [facility] 10/13/20911 Dictated By: Teddy Montelongo II, MD 10/13/20910 Signed By: 10/13/20911 [facility] Basic Metabolic Panelon Calcium [Mass/Vol] 9.6 mg/dL Normal 8.2-10.2 [facility] Comment on above: Performed By: #### H S TROP, MG, BMP, CBC #### [facility] [address] [place] [address] [place] Chloride [Moles/Vol] 107 mmol/L Normal 95-114 [facility] Comment on above: Performed By: #### H S TROP, MG, BMP, CBC #### [facility] [address] [place] [address] [place] CO2 [Moles/Vol] 20.4 mmol/L Low 22.0-30.0 [facility] Comment on above: Performed By: #### H S TROP, MG, BMP, CBC #### [facility] [address] Creatinine [Mass/Vol] 1.01 mg/dL Normal 0.64-1.27 [facility] Comment on above: Performed By: #### H S TROP, MG, BMP, CBC #### [facility] [address] [place] [address] [place] Creatinine Clr Calc Pharmacy 169.57 [facility] Comment on above: Performed By: #### H S TROP, MG, BMP, CBC #### [facility] [address] Estimated GFR ( Va > 60 [facility] Comment on above: Result Comment: GFR estimated reference range: According to KDOQI guidelines, <60 ml/min/1.73m2 is sufficient to diagnose a patient with chronic kidney disease. Performed By: #### H S TROP, MG, BMP, CBC #### [facility] [address] Estimated GFR (Non- Am > 60 [facility] Comment on above: Performed By: #### H S TROP, MG, BMP, CBC #### [facility] [address] Glucose [Mass/Vol] 92 mg/dL Normal 70-100 [facility] Comment on above: Result Comment: [place] Glucose Reference Range is dependent on time and content of last meal. Glucose of more than 200 mg/dL in a nonstressed, ambulatory subject supports the diagnosis of Diabetes Mellitus. ADA recommended reference range Performed By: #### H S TROP, MG, BMP, CBC #### [facility] [address] Potassium [Moles/Vol] 3.5 mmol/L Normal 3.5-5.1 [facility] Comment on above: Performed By: #### H S TROP, MG, BMP, CBC #### [facility] [address] [place] [address] [place] Sodium [Moles/Vol] 138 mmol/L Normal 136-146 [facility] Comment on above: Performed By: #### H S TROP, MG, BMP, CBC #### [address] Urea nitrogen [Mass/Vol] 12 mg/dL Normal 9-23 [facility] Comment on above: Performed By: #### H S TROP, MG, BMP, CBC #### [address] Complete Blood Count Auto Di ffon 10-12-2020 Basophils (Bld) [#/Vol] 0.1 10*3/uL Normal 0.0-0.2 [facility] Comment on above: Result Comment: PERF ORMED BY: [place] [address] PATHOLOGIST DETAIL MAKER AND FITTER MYLA DOSHI M.D. Performed By: #### H S TROP, MG, BMP, CBC #### [address] Basophils/100 WBC (Bld) 1.0 % Normal . [facility] Comment on above: Performed By: #### H S TROP, MG, BMP, CBC #### [address] Eosinophils (Bld) [#/Vol] 0.1 10*3/uL Normal 0.0-0.45 [facility] Comment on above: Performed By: #### H S TROP, MG, BMP, CBC #### [address] Eosinophils/100 WBC (Bld) 0.6 % Normal . [facility] Comment on above: Performed By: #### H S TROP, MG, BMP, CBC #### [address] Erythrocyte distribution width (RBC) [Ratio] 12.5 % Normal 12.0-14.8 [facility] [facility] Comment on above: Performed By: #### H S TROP, MG, BMP, CBC #### [address] Hematocrit (Bld) [Volume fraction] 51.5 % High 38.8-50.0 [facility] Comment on above: Performed By: #### H S TROP, MG, BMP, CBC #### [address] Hemoglobin (Bld) [Mass/Vol] 18.0 g/dL High 13.0-17.0 [facility] Comment on above: Performed By: #### H S TROP, MG, BMP, CBC #### [address] Lymphocytes (Bld) [#/Vol] 3.1 10*3/uL Normal 1.00-4.8 [facility] Comment on above: Performed By: #### H S TROP, MG, BMP, CBC #### [address] Lymphocytes/100 WBC (Bld) 31.0 % Normal . [facility] Comment on above: Performed By: #### H S TROP, MG, BMP, CBC #### [address] MCH (RBC) [Entitic mass] 30.6 pg Normal 27.5-35.2 [facility] Comment on above: Performed By: #### H S TROP, MG, BMP, CBC #### [address] MCV (RBC) [Entitic vol] 87.5 fL Normal 83.5-101 [facility] Comment on above: Performed By: #### H S TROP, MG, BMP, CBC #### [address] Mean Corpuscular HGB Conc 35.0 g/dL Normal 32.5-35.6 [facility] Comment on above: Performed By: #### H S TROP, MG, BMP, CBC #### [address] Monocytes (Bld) [#/Vol] 1.0 10*3/uL High 0.0-0.8 [facility] Comment on above: Performed By: #### H S TROP, MG, BMP, CBC #### [facility] [address] Monocytes/100 WBC (Bld) 9.6 % Normal . [facility] Comment on above: Performed By: #### H S TROP, MG, BMP, CBC #### [facility] [address] [place] [address] Neutrophils (Bld) [#/Vol] 5.9 10*3/uL Normal 1.8-7.7 [facility] Comment on above: Performed By: #### H S TROP, MG, BMP, CBC #### [address] Neutrophils/100 WBC (Bld) 57.8 % Normal . [facility] Comment on above: Performed By: #### H S TROP, MG, BMP, CBC #### [facility] [address] [place] [address] Nucleated RBC/100 WBC (Bld) [Ratio] 0.4 % Normal 0-0.5 [facility] Comment on above: Performed By: #### H S TROP, MG, BMP, CBC #### [address] Platelet mean volume (Bld) [Entitic vol] 7.5 fL Normal 6.6-10.1 [facility] Comment on above: Performed By: #### H S TROP, MG, BMP, CBC #### [place] [address] [place] Platelets (Bld) [#/Vol] 337 10*3/uL Normal 150-450 [facility] Comment on above: Performed By: #### H S TROP, MG, BMP, CBC #### [place] [address] [place] RBC (Bld) [#/Vol] 5.89 10*6/uL High 3.90-5.60 [facility] Comment on above: Performed By: #### H S TROP, MG, BMP, CBC #### [address] [address] [place] WBC (Bld) [#/Vol] 10.2 10*3/uL Normal 4.5-11.0 [facility] Comment on above: Performed By: #### H S TROP, MG, BMP, CBC #### [facility] [address] [place] [address] ECG 12 lead ECGon 10-12-2020 ECG 12 lead ECG [facility] Main [place] [address] [place] [address] Electrocardiograph Report Signed Patient: Grant Blanchard JR MR#: [id number] : 1995 Acct:[id number] Age/Sex: 25 / M ADM Date: 10/12/20 Loc: ER Room: Type: [facility] ER Attending Dr: Ordering Provider: [...] has shortened Confirmed by ANA GARCIA DO ([id number]) on 10/13/2020 1:54:37 AM Referred By: Electronically Signed By:ANA GARCIA DO Transcribed By: MUS Dictated By: Ana Garcia DO 10/12/20 1700 Signed By: 10/13/20 0154 Normal [facility] Magnesiumon 10-12-2020 Magnesium [Mass/Vol] 2.4 mg/dL Normal 1.6-2.6 [facility] Comment on above: Result Comment: PERF ORMED BY: [place] [address] PATHOLOGIST DETAIL MAKER AND FITTER MYLA DOSHI M.D. Performed By: #### H S TROP, MG, BMP, CBC #### [facility] [address] [place] [address] Troponin I High Sensitivityo n 10-12-2020 Troponin I High Sensitivity 9 pg/mL Normal 0-20 [facility] Comment on above: Result Comment: PERF ORMED BY: [facility] [address] [id number] PATHOLOGIST DETAIL MAKER AND FITTER MYLA DOSHI M.D. Performed By: #### H S TROP, MG, BMP, CBC #### [facility] [address] [id number] [place] Cons[place] 09-20-2020 Consent [id number]:127 Normal [facility] Registrationon 09-20-2020 Registration [id number]:127 Normal [facility] 06[facility]09 SARS-CoV-2 (COVID-19) RNA KING+probe Ql (Unsp spec) Not detected Normal NOT DETECTED [facility] Comment on above: Result Comment: This test is not yet approved or cleared by the [place] FDA. When there are no FDA-approved or cleared tests available, and other criteria are met, FDA can make tests available under an emergency access mechanism called an Emergency Use Authorization (EUA). The EUA for this test is supported by the [place] of Health and Human Service's (HHS's) declaration [...] SARS-CoV-2. Performed By: #### C VDTBH #### [facility] [address] [address] Leonor Martinez 06-06-2017 CNPN Telephone (FVPRAD) RAQUEL BLANCHARD JR ([id number]) 1995 MDate Time Provider Department06/06/17 GRACIE HURLEY [...] today and he will be in touchwith him.Fabio Oliver NeurologyNeurological InstituteWayne HospitalPager: [phone] Bailey MD PHD 06/07/2017 1:54 PM SignedCan [...] advise patient if he calls back.'[facility] Macias [facility] 06/07/2017 4:24 PM SignedPatient called back and [...] tablets by mouth once daily. Status:Closed by YAZMIN BAILEY MD PHD on 06/07/17 [facility] CNCOon 05-20-2017 CNCO Letter TextApril 2017Grant Blanchard JRMRN: [id number] whom it may concern-Patient may return to work May 23, 2017 without restrictions.Thank you for your time and consideration.Sincerely,Yazmin Bailey MD, PhDStaff, [facility] and General NeurologyClinical Sales Process Managerfishing instructor, [facility] DENVILLEBoard Certified, Epilepsy and Neurology Normal [facility] CNOVon 05-20-2017 CNOV Office Visit (NEEPFV) RAQUEL BLANCHARD JR ([id number]) 1995 MDate Time Provider Department05/20/17 9:40 AM YAZMIN BAILEYFV During your visit today, we recorded the [...] stable now, no seizures since being in thespital. No other behavior changes or other neurological [...] SEIZURES:1. Head Trauma (Yes, concussion from football)2. HAND UMBRELLA TIPPER Infections (Yes, see history)3. Family History of Seizures (yes, greatgrandmother, grandmother)4. Developmental Delay (No)5. Febrile Seizures (No)6. HAND UMBRELLA TIPPER Tumors (No)7. HAND UMBRELLA TIPPER Vascular Disease (No)8. Significant Medical History (No)CURRENT ANTICONVULSANTS:Keppra 1000 mg XR 1000 mg bidThe patient's side effects to the current medications: tired, fatiguePRIOR ANTICONVULSANT HISTORY: NonePrior Consult form Dr Mcdermott:Ruth;This is Mr. 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 Mother at bedside [...] any drug use. Upon arrival to the [facility]'s blood sugar was 90. While in the ER his blood pressure dropped to80/50 and he was given fluids. His WBC count was 11.64 hemoglobin 17hematocrit 48 and platelet counts were 371. Sodium level was 143, potassium of3.9, glucose of 104, BUN 17, creatinine of 1.05, ALT 47, AST 26,ANDquot;phosphatase 52, total bilirubin of 0.7. Contacted by [place] emergencyphysician and I recommended another load of Keppra 15 mg and to assessfosphenytoin if he continues to seize at that time patient had received 7 mg ofAtivan and a load of 50 mg Keppra. He was not intubated at that time andaccording to the notes she was transferred to [place] and he was not intubatedeither. Urine drug screen was negative. [facility] CBC showed a WBC count of 21.89 [...] monitoring was reviewed from 05/08/17 0053 until 08 andis suggestive of bilateral cortical dysfunction maximum [...] lb 4.8 oz) SpO2 96% BMI 33.95 kg/g2Ovhqp, in no acute distress. Skin is normal [...] Finger Flex Finger Ext Finger AbdFinger AddRight 06/12 06/12 06/12 06/12 06/12 06/12 06/12 06/12 06/12Left 06/12 06/12 06/12 06/12 06/12 06/12 06/12 06/12 06/12 Hip Flex Hip Ext BiFem (knee flex) Quads (knee ext) Gastroc (plantflx) TibAnt(Dorsiflx) TibPost (ank add) Ankle Eversion Ankle Inversion FlxHLong (ToeFlex)ExtHLong (ToeExt)Right 06/12 06/12 06/12 06/12 06/12 06/12 06/12 06/12 06/12 06/12 06/12Left 06/12 06/12 06/12 06/12 06/12 06/12 06/12 06/12 06/12 06/12 06/12Neck Flexors 06/12Neck Extensors 06/12REFLEXES Right LeftBicep / 2/4Tricep / 2/4BrRad /05 10/4Knee /05 10/4Ankle 03/14 03/14Pathological Reflexes:none? Sensation: Intact to proprioception, light touch and stereognosis.? Coordination: Finger-to- nose-finger intact bilaterally.? Gait: Patient's gait is normalDATA:MRI brain personally reviewed and discussed with patientIMPRESSION:Normal study.Classification? Abnormal II (Awake, Sleep, 10-20 Scalp Electrodes, Standard electrodes,? Anterior temporal electrodes)? 1 ? ?Intermittent Slow, Generalized, Maximum Right tempro-parietal? 2 ? ?Background SlowImpression? Continuous video-EEG monitoring was reviewed from 0520 to 1047 05/11/17? and shows evidence of a cortical dysfunction [...] video-EEG monitoring was reviewed from 07 on 05/09/2017 to? 0459 on 05/10/2017 and [...] monitoring was reviewed from 05/08/17 0810 until? 05/09/17 0721and is suggestive of bilateral cortical dysfunction maximum? [...] 2Lymph%, CSF 50 - 90 % 91 (H)Big Horn%, CSF 10 - 50 % 7 (L)CSF Tube Nbr No 4Comment, CSF Some reference ranges and other method performance specificationshave not been . . .Specimen Request Less than optimal volume of specimen received and processed.Smear Result No organisms seen Few . . . Gram stain performed on cytospunspecimen. Gram stain results reviewed and confirmed by [facility].Culture No growth 14 daysHSV PCR Spec Source Cerebrospinal FluidHSV-1 Negative for Herpes Simplex Virus Type 1 by PCRHSV-2 Negative for Herpes Simplex Virus Type 2 by PCREnterovirus PCR Negative for Enterovirus by PCR.Source (Enterovirus PCR) Cerebrospinal FluidGlucose, CSF 50 - 75 mg/dL 91 (H)Protein, CSF 15 - 45 mg/dL 60 (H)Model Maker Scale Specimen originated from [facility] . . .VDRL, CSF Non Reactive DILS [...] care of this patient.Yazmin Bailey MD, PhDStaff, [facility] and General NeurologyClinical Sales Process Managerfishing instructor, CCLBoard Certified, Epilepsy and NeurologyReferring Provider: SELF [200]Allergies As of Date: 05/20/2017 Noted Allergy ReactionSULFA (SULFONAMIDE ANTIBIOTICS) 05/07/2017 10 - AnaphylaxisDate Reviewed: 05/20/2017Reviewed by: Yoon Hay Ma - Fully AssessedReason for Visit: New Patient [172]Primary Visit Diagnosis:Partial idiopathic epilepsy with seizures of localized onset, not intractable, without status epilepticus (HCC) [G40.009] Other Visit Diagnosis:Abnormal finding in CSF [R83.9]Order(s):EEG LONG [2578101] Order #: [id number] TUBES - DRAW EXTRA [SQXTUBE] Order #: [id number] FUTURE LEVETIRACETAM [SQLEVET] Order #: [id number] FUTURE MRI BRAIN WO IVCON [[id number]] Order #: [id number] FUTURE levETIRAcetam (KEPPRA) 1,000 mg tabletTake 1 [...] (around 11/19/2017).Follow-up and Disposition History RecordedEncounter Number: [id number] Status:Closed by YOHAN HUITRON, YAZMIN PHD on 05/25/17 Normal [facility] Levetiracetamon 05-20-2017 Levetiracetam mass conc 26.8 ug/mL Normal 12.0-46.0 [facility] Comment on above: Result Comment: This test was developed and its performance characteristics determined by [facility]'s Adina Go[facility] Pathology [facility] Laboratory Medicine [place] ([facility]). It has not been cleared or approved by the FDA. [facility] is regulated under CLIA as qualified to perform high-complexity testing. This test is used for clinical purposes. It should not be regarded as investigational or for research. Performed By: #### L EVET ####[facility] [address] [place], [place] [phone]#### MARILYN #### [address] [phone] PROGRESSon 05-20-2017 PROGRESS HNO ID: [id number] thor: Yazmin BaumancService: (none)Author Type: PhysicianType: Progress NotesFiled: 05/25/2017 1:34 [...] is stable now, no seizures since being int hospital. No other behavior changes or other [...] by Dr Mcdermott and Mark (see below [facility]); treated with keppra; extensive imaging, labwork up unrevealing.Possible lateralizing signs by history: NoneBirth and Early Development: normalRISK FACTORS FOR SEIZURES:1. Head Trauma (Yes, concussion from football)2. HAND UMBRELLA TIPPER Infections (Yes, see history)3. Family History of Seizures (yes, greatgrandmother, grandmother)4. Developmental Delay (No)5. Febrile Seizures (No)6. HAND UMBRELLA TIPPER Tumors (No)7. HAND UMBRELLA TIPPER Vascular Disease (No)8. Significant Medical History (No)CURRENT ANTICONVULSANTS:Keppra 1000 mg XR 1000 mg bidThe patient's side effects to the current medications: tired, fatiguePRIOR ANTICONVULSANT HISTORY: NonePrior Consult form Dr Mcdermott: This is Mr. 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 Mother at bedside [...] Mother denied any drug use. Upon arrival [facility] ER patient's blood sugar was 90. While in the ER his blood pressuredropped to 80/50 and he was given fluids. His WBC count was 11.64hemoglobin 17 hematocrit 48 and platelet counts were 371. Sodium levelwas 143, potassium of 3.9, glucose of 104, BUN 17, creatinine of 1.05, ALT47, AST 26, phosphatase 52, total bilirubin of 0.7. [place] and I recommended another load of Keppra 15mg and to assess fosphenytoin if he continues to seize at that timepatient had received 7 mg of Ativan and a load of 50 mg Keppra. He wasnot intubated at that time and according to the notes she was transferred[place] and he was not intubated either. Urine drug screen wasnegative. Patient arrived to the ER at [place] repeat CBC showed a WBCcount of 21.89 [...] lb 4.8 oz) SpO2 96% BMI 33.95 kg/r7Btyhy, in no acute distress. Skin is normal [...] 06/12Neck Flexors 06/12Neck Extensors 06/12REFLEXES Right LeftBicep /05 10/Tricep 03/14/4BrRad 03/14 03/14Knee 03/144Ankle 03/14 03/14Pathological Reflexes:none? Sensation: Intact to proprioception, light touch and stereognosis.? Coordination: Finger-to- nose-finger intact bilaterally.? Gait: Patient's gait is normalDATA:MRI brain personally reviewed and discussed with patientIMPRESSION:Normal study.Classification? Abnormal II (Awake, Sleep, 10-20 Scalp Electrodes, Standardelectrodes,? Anterior temporal electrodes)? 1 ? ?Intermittent Slow, Generalized, Maximum Righttempro-parietal? 2 ? ?Background SlowImpression? Continuous video-EEG monitoring was reviewed from 0520 to 1047 05/11/17? and shows evidence of a cortical dysfunction [...] Latest Ref Rng AND Units 05/08/2017 05/08/2017 05/08/2017 05/08/2017 5:20 AM 5:20 AM 5:20 AM 5:20 AM 5:20 AM 5:41 AMColor, CSF Colorless ColorlessClarity, CSF Clear ClearRBC, CSF 0 - 1 /uL 40 (H)Total Nucleated Cells, CSF 0 - 5 /uL 11 (H)Neut%, CSF 0 - 3 % 2Lymph%, CSF 50 - 90 % 91 (H)Big Horn%, CSF 10 - 50 % 7 (L)CSF Tube Nbr No 4Comment, CSF Some reference ranges and other method performancespecifications have not been . . .Specimen Request Less than optimal volume of specimen received andprocessed.Smear Result No organisms seen Few . . . Gram stain performed oncytospun specimen. Gram stain results reviewed and confirmed by [facility] Microbiology.Culture No growth 14 daysHSV PCR Spec Source Cerebrospinal FluidHSV-1 Negative for Herpes Simplex Virus Type 1 by PCRHSV-2 Negative for Herpes Simplex Virus Type 2 by PCREnterovirus PCR Negative for Enterovirus by PCR.Source (Enterovirus PCR) Cerebrospinal FluidGlucose, CSF 50 - 75 mg/dL 91 (H)Protein, CSF 15 - 45 mg/dL 60 (H)Model Maker Scale Specimen originated from [facility] . . .VDRL, CSF Non Reactive DILS [...] neurologic care of thispatient.Yazmin Bailey MD, PhDStaff, [facility] and General NeurologyClinical Sales Process Managerfishing instructor, CCLCMBoard Certified, Epilepsy and Neurology Normal [facility] Paraneoplast Autoabson 05-20 ACh Receptor Bind Ab 0.00 nmol/L Normal <=0.02 [facility] Comment on above: Result Comment: (NOT E) ADDITIONAL INFORMATION This test was developed and its performance characteristicsdetermined by [facility] in a manner consistent with CLIArequirements. This test has not been cleared or approved bythe U.S. Food and Drug Administration. Performed By: #### L KULWANT ####[facility] [address] [place], [place] [phone]#### MARILYN #### [address] [phone] AChR Ganglionic Neur 0.00 nmol/L Normal <=0.02 [facility] Comment on above: Result Comment: (NOT E) ADDITIONAL INFORMATION This test was developed and its performance characteristicsdetermined by [facility] in a manner consistent with CLIArequirements. This test has not been cleared or approved bythe .S. Food and Drug Administration. Performed By: #### L EVET ####[address] [place], [place] [phone]#### PARNEO #### [facility] [place] [place], [place] [phone] Amphiphysin Ab, S Negative Normal <1:240 [facility] Comment on above: Result Comment: (NOT E) ADDITIONAL INFORMATION This test was developed and its performance characteristicsdetermined by [facility] in a manner consistent with CLIArequirements. This test has not been cleared or approved bythe .[place]. Food and Drug Administration. Performed By: #### L EVET ####[address] [phone]#### PARNEO #### [facility] [place] [place], [place] [phone] LEANDER 1, S Negative Normal <1:240 [facility] Comment on above: Performed By: #### L EVET ####[address] [phone]#### PARNEO #### [facility] [place] [facility], [place] [phone] LEANDER 2, S Negative Normal <1:240 [facility] Comment on above: Result Comment: (NOT E) ADDITIONAL INFORMATION This test was developed and its performance characteristicsdetermined by [facility] in a manner consistent with CLIArequirements. This test has not been cleared or approved bythe .[place]. Food and Drug Administration. Performed By: #### L EVET ####[address] [phone]#### JONANEO #### [facility] [place] [place], [place] [phone] LEANDER 3, S Negative Normal <1:240 [facility] Comment on above: Result Comment: (NOT E) ADDITIONAL INFORMATION This test was developed and its performance characteristicsdetermined by [facility] in a manner consistent with CLIArequirements. This test has not been cleared or approved bythe U.S. Food and Drug Administration. Performed By: #### Susie BLUM ####[address] [place], [place] [phone]#### MARILYN #### [facility] [place] [place], [place] [phone] Anti-glial Nuc Ab 1 Negative Normal <1:240 [facility] Comment on above: Result Comment: (NOT E) ADDITIONAL INFORMATION This test was developed and its performance characteristicsdetermined by [facility] in a manner consistent with CLIArequirements. This test has not been cleared or approved bythe U.S. Food and Drug Administration. Performed By: #### L LETHAET ####[address] [place], [place] [phone]#### MARILYN #### [facility] [place] [place], [place] [phone] Ca Ch Bind Ab,N Type 0.00 nmol/L Normal <=0.03 [facility] Comment on above: Result Comment: (NOT E) ADDITIONAL INFORMATION This test was developed and its performance characteristicsdetermined by [facility] in a manner consistent with CLIArequirexCloud. This test has not been cleared or approved bythe U.S. Food and Drug Administration. Performed By: #### L EVET ####[address] [phone]#### MARILYN #### [facility] [place] [place], [place] [phone] Ca Chn Bind Ab, P/Q 0.00 nmol/L Normal <=0.02 [facility] Comment on above: Result Comment: (NOT E) ADDITIONAL INFORMATION This test was developed and its performance characteristicsdetermined by [facility] in a manner consistent with CLIArequirements. This test has not been cleared or approved bythe U.S. Food and Drug Administration. Performed By: #### L EVET ####[address] [phone]#### MARILYN #### [address] [phone] CRMP 5 IgG, S Negative Normal <1:240 [facility] Comment on above: Result Comment: (NOT E) ADDITIONAL INFORMATION This test was developed and its performance characteristicsdetermined by [facility] in a manner consistent with CLMoka5.comirexCloud. This test has not been cleared or approved bythe U.S. Food and Drug Administration. Performed By: #### L EVET ####[address] [phone]#### GERTRUDISO #### [facility] [place] [place], [place] [phone] Interpretive Comment (NOTE) Normal [facility] Comment on above: Result Comment: No i nformative autoantibodies were detected in theParaneoplastic Evaluation. However, a negative result doesnot exclude neurological autoimmunity with or withoutassociated neoplasia. Sensitivity and specificity ofantibody testing are enhanced by testing both serum andCSF. Performed By: #### L EVET ####[address] [phone]#### GERTRUDISO #### [address] [phone] Neur V-G K+ Chann Ab 0.00 nmol/L Normal <=0.02 [facility] Comment on above: Result Comment: (NOT E) ADDITIONAL INFORMATION This test was developed and its performance characteristicsdetermined by [facility] in a manner consistent with CLMoka5.comirexCloud. This test has not been cleared or approved bythe U.S. Food and Drug Administration. Performed By: #### L EVET ####[address] [phone]#### MARILYN #### [address] [phone] PARNEO Reflex Tests None. Normal [facility] Comment on above: Result Comment: (NOT E) ADDITIONAL INFORMATION This test was developed and its performance characteristicsdetermined by [facility] in a manner consistent with CLIArequirexCloud. This test has not been cleared or approved bythe U.S. Food and Drug Administration. Performed By: #### L EVET ####[address] [phone]#### GERTRUDISO #### [facility] [place] [place], [place] [phone] WAREHOUSE SHIPPING SUPERVISOR 1, S Negative Normal <1:240 [facility] Comment on above: Result Comment: (NOT E) ADDITIONAL INFORMATION This test was developed and its performance characteristicsdetermined by [facility] in a manner consistent with CLIArequirements. This test has not been cleared or approved bythe U.S. Food and Drug Administration. Performed By: #### L EVET ####[place] [id number] [place], [place] [phone]#### MARILYN #### [address] [phone] [employer]PER[employer]OR 2, S Negative Normal <1:240 [facility] Comment on above: Result Comment: (NOT E) ADDITIONAL INFORMATION This test was developed and its performance characteristicsdetermined by [facility] in a manner consistent with CLIArequirements. This test has not been cleared or approved bythe U.S. Food and Drug Administration. Performed By: #### L EVET ####[place] [address] [place], [place] [phone]#### MARILYN #### [facility] [place] [place], [place] [phone] [employer] SUPERVISOR Tr, S Negative Normal <1:240 [facility] Comment on above: Result Comment: (NOT E) ADDITIONAL INFORMATION This test was developed and its performance characteristicsdetermined by [facility] in a manner consistent with CLIArequirements. This test has not been cleared or approved bythe U.S. Food and Drug Administration. Performed By: #### L EVET ####[place] [address] [place], [place] [phone]#### MARILYN #### [facility] [place] [place], [place] [phone] Striational Ab, S Negative Normal <1:120 [facility] Comment on above: Result Comment: (NOT E) ADDITIONAL INFORMATION This test was developed and its performance characteristicsdetermined by [facility] in a manner consistent with CLIArequirements. This test has not been cleared or approved bythe U.S. Food and Drug Administration. Performed By: #### Susie BLUM ####[address] [phone]#### MARILYN #### [address] [phone] Basic Metabolic Panlon 05-11 Anion gap 3 molar conc 17 mmol/L Normal 9-18 [facility] Comment on above: Performed By: #### C BCDIF, BMP, MG1, PHOS ####[phone] Calcium mass conc 9.4 mg/dL Normal 8.5-10.5 [facility] Comment on above: Performed By: #### C BCDIF, BMP, MG1, PHOS ####[place] [phone] Chloride molar conc 103 mmol/L Normal 98-110 [facility] Comment on above: Performed By: #### C BCDIF, BMP, MG1, PHOS ####[place] [phone] CO2 molar conc 21 mmol/L Low 23-32 [facility] Comment on above: Performed By: #### C BCDIF, BMP, MG1, PHOS ####[place] [phone] Creatinine mass conc 0.76 mg/dL Normal 0.70-1.40 [facility] Comment on above: Performed By: #### C BCDIF, BMP, MG1, PHOS ####[place] [phone] eGFR- Amer. >60 Normal >60 [facility] Comment on above: Performed By: #### C BCDIF, BMP, MG1, PHOS ####[place] [phone] GFR/1.73 sq M predicted among non-blacks MDRD vol rate/area (S/P/Bld) mL/min/{1.73_m2} Normal >60 [facility] Comment on above: Performed By: #### C BCDIF, BMP, MG1, PHOS ####[place] [phone] Glucose mass conc 92 mg/dL Normal 65-100 [facility] Comment on above: Performed By: #### C BCDIF, BMP, MG1, PHOS ####[place] [phone] Potassium molar conc 3.8 mmol/L Normal 3.5-5.0 [facility] Comment on above: Performed By: #### C BCDIF, BMP, MG1, PHOS ####[address]10 Sodium molar conc 141 mmol/L Normal 135-146 [facility] Comment on above: Performed By: #### C BCDIF, BMP, MG1, PHOS ####[place] [phone] Urea nitrogen mass conc 12 mg/dL Normal 10-25 [facility] Comment on above: Performed By: #### C BCDIF, BMP, MG1, PHOS ####[place] [phone] CBC and Differentialon 05-11 Abs Baso 0.04 k/uL Normal <0.11 [facility] Comment on above: Performed By: #### C BCDIF, BMP, MG1, PHOS ####[place] [address] Abs [place] 0.69 k/uL Normal <0.87 [facility] Comment on above: Performed By: #### C BCDIF, BMP, MG1, PHOS ####[place] [address] Abs Neut 4.43 k/uL Normal 1.45-7.50 [facility] Comment on above: Performed By: #### C BCDIF, BMP, MG1, PHOS ####[place] [address] Basophils/100 WBC Auto (Bld) 0.5 % Normal [facility] Comment on above: Performed By: #### C BCDIF, BMP, MG1, PHOS ####[place] [address] DTYPE Auto Diff Normal [facility] Comment on above: Performed By: #### C BCDIF, BMP, MG1, PHOS ####[place] [address] Eosinophils Auto #/vol (Bld) 0.24 10*3/uL Normal <0.46 [facility] Comment on above: Performed By: #### C BCDIF, BMP, MG1, PHOS ####[place] [address] Eosinophils/100 WBC Auto (Bld) 3.2 % Normal [facility] Comment on above: Performed By: #### C BCDIF, BMP, MG1, PHOS ####[place] [address] Erythrocyte distribution width Auto Ratio (RBC) 11.9 % Normal 11.5-15.0 [facility] Comment on above: Performed By: #### C BCDIF, BMP, MG1, PHOS ####[place] [phone] Hematocrit Auto Volume Fraction (Bld) 43.3 % Normal 39.0-51.0 [facility] Comment on above: Performed By: #### C BCDIF, BMP, MG1, PHOS ####[place] [address] Hemoglobin mass conc (Bld) 15.5 g/dL Normal 13.0-17.0 [facility] Comment on above: Performed By: #### C BCDIF, BMP, MG1, PHOS ####[place] [address] Lymphocytes Auto #/vol (Bld) 2.11 10*3/uL Normal 1.00-4.00 [facility] Comment on above: Performed By: #### C BCDIF, BMP, MG1, PHOS ####[place] [address] Lymphocytes/100 WBC Auto (Bld) 28.1 % Normal [facility] Comment on above: Performed By: #### C BCDIF, BMP, MG1, PHOS ####[place] [address] MCH Auto Entitic mass (RBC) 30.3 pG Normal 26.0-34.0 [facility] Comment on above: Performed By: #### C BCDIF, BMP, MG1, PHOS ####[place] [address] MCHC Auto mass conc (RBC) 35.8 g/dL Normal 30.5-36.0 [facility] Comment on above: Performed By: #### C BCDIF, BMP, MG1, PHOS ####[place] [phone] MCV Auto Entitic volume (RBC) 84.7 fL Normal 80.0-100.0 [facility] Comment on above: Performed By: #### C BCDIF, BMP, MG1, PHOS ####[place] [phone] Monocytes/100 WBC Auto (Bld) 9.2 % Normal [facility] Comment on above: Performed By: #### C BCDIF, BMP, MG1, PHOS ####[place] [phone] Neutrophils/100 WBC Auto (Bld) 59.0 % Normal [facility] Comment on above: Performed By: #### C BCDIF, BMP, MG1, PHOS ####[place] [phone] Platelet mean volume Auto Entitic volume (Bld) 9.9 fL Normal 9.0-12.7 [facility] Comment on above: Performed By: #### C BCDIF, BMP, MG1, PHOS ####[place] [phone] Platelets Auto #/vol (Bld) 286 10*3/uL Normal 150-400 [facility] Comment on above: Performed By: #### C BCDIF, BMP, MG1, PHOS ####[place] [phone] RBC Auto #/vol (Bld) 5.11 10*6/uL Normal 4.20-6.00 [facility] Comment on above: Performed By: #### C BCDIF, BMP, MG1, PHOS ####[place] [phone] WBC Auto #/vol (Bld) 7.51 10*3/uL Normal 3.70-11.00 [facility] Comment on above: Performed By: #### C BCDIF, BMP, MG1, PHOS ####[place] [phone] CNDSon 05-11-2017 CNDS HNO ID: [id number] thor: Emabonita ElnimaawyService: General Internal MedicineAuthor Type: PhysicianType: Discharge SummariesFiled: [...] Disp-60 tablet, R-1, Long-termFINAL DIAGNOSIS: LOSS OF CONSCIOUSNESSSherryd Corazon Prado MD [facility] CONSULT PROGon 05-11-2017 Protein mass conc HNO ID: [id number] thor: Mónica Barreraervice: NeurologyAuthor Type: PhysicianType: Consult [...] of Keppra until he comes to clinic.Mónica FloresChildren[facility] Hospital of Columbusurological [address] [place] [address]/ [address] HSVG Typ 1 and 2 Abson 05-11 Herpes Simplex IgG 1 <0.2 [facility] Comment on above: Result Comment: INDE X VALUES ARE INTERPRETED FOLLOWS:NEGATIVE SPECIMENS <0.9EQUIVOCAL SPECIMENS 0.9 TO 1.0POSITIVE SPECIMENS >=1.1 Performed By: #### H SVG12 ####[facility] [address] [place], [place] [phone] Herpes Simplex IgG 2 7.1 AI [facility] Comment on above: Result Comment: INDE X VALUES ARE INTERPRETED FOLLOWS:NEGATIVE SPECIMENS <0.9EQUIVOCAL SPECIMENS 0.9 TO 1.0POSITIVE SPECIMENS >=1.1 Performed By: #### H SVG12 ####[place] [id number] [place] [phone] HSV IgG 1 Qualitative Negative Normal Negative [facility] Comment on above: Result Comment: No H SV-1 IgG antibodies detected.Patient is presumed not to have hada previous HSV-1 infection. Performed By: #### H SVG12 ####[place] [phone] HSV IgG 2 Qualitative Positive Critically abnormal Negative [facility] Comment on above: Result Comment: IgG antibody to HSV-2 detected Performed By: #### H SVG12 ####[place] [phone] Magnesiumon 05-11-2017 Magnesium mass conc 2.2 mg/dL Normal 1.7-2.6 [facility] Comment on above: Performed By: #### C BCDIF, BMP, MG1, PHOS ####[facility] [phone] NURSING PROGon 05-11-2017 Protein mass conc HNO ID: [id number] thor: Ambrose (Rn) Ryan, RNSbreannaice: (none)Author Type: Registered NurseType: Nursing Progress NoteFiled: 05/11/2017 1:28 PMNote Text: Nursing Progress NotePatient Name: Grant Blanchard [facility] [id number] [facility] Daily Note: Patient discharged to home with instructions given, verbalizedunderstanding on medications, diet, activity and follow up.This note was completed by: Ambrose Davis RN Normal [facility] Protein mass conc HNO ID: [id number] thor: AmbroseMichelle Victoria Rn: (none)Author Type: Registered NurseType: Nursing Progress NoteFiled: 05/11/2017 10:54 AMNote Text: Nursing Progress NotePatient Name: Grant Blanchard JRMRN: [id number] Location: [place] [address]/KN-WDOR-49 Daily Note: Patient alert and oriented, denies dizziness, denies pain,anxious to leave this morning, BEM still on but is discontinued, waitingfor last reading from , lungs clear, 96 RA, Tele SR 94, toleratingregular diet, ambulates with stable gait, will continue Seizureprecautions, family at bedside, currently resting in bed with call lightin reach.This note was completed by: Ambrose Davis RN [facility] Protein mass conc HNO ID: [id number] thor: Karen Bose) Michelle Frey: (none)Author Type: Registered NurseType: Nursing Progress NoteFiled: 05/11/2017 5:56 AMNote Text: Nursing Progress NotePatient Name: Grant Blanchard JRMRN: [id number] Location: [place] [address]/DA-OGRY-59 Daily Note:Pt AANDOx3 and appears easily arousable. 24 hour EEG ongoing. Pt told [employer] he did not want to be on EEG any more. RN convinced pt to have it onovernight and pt accepted. Normal Sinus Rhythm/ Sinus Tachycardia on tele.Call light in reach and bed alarm on. No further complaints at this time.This note was completed by: Karen Frey RN [facility] PLAN OF CAREon 05-11-2017 PLAN OF CARE HNO ID: [id number] thor: Karen Marin (Pharmacist)Service: PharmacyAuthor Type: PharmacistType: Plan of CareFiled: 05/11/2017 1:30 PMNote Text:DISCHARGE MEDICATION REVIEW BY PHARMACYPatient Name: Grant Blanchard JR : [id number] Admission Date: 05/07/2017Date of Contact: May 11, 2017 Time of Contact: 1:30 PMMedication list was reviewed by a Pharmacist for drug interactions or drugrelated problems:YesBelow is a summary of pharmacist recommendations discussed with LIP:No Recommendations at this time from Discharge Medication List.Stefan LozanoApril 2017 1:30 PMPager: [phone] 1:30 PMMedication ListSTART taking these medications levETIRAcetam 1,000 mg tabletCommonly known as: KEPPRATake 1 tablet by mouth twice daily.Where to Get Your MedicationsInformation about where to get these medications is not yet available ! Ask your nurse or doctor about these medications - levETIRAcetam 1,000 mg tablet Normal [facility] Phosphoruson 05-11-2017 Phosphate mass conc 3.6 mg/dL Normal 2.5-4.5 [facility] Comment on above: Performed By: #### C JAMES MIRANDA, MG1, PHOS ####[phone] Basic Metabolic Panlon 05-10 Anion gap 3 molar conc 15 mmol/L Normal 9-18 [facility] Comment on above: Performed By: #### C BCNAVINF BMP ####[place] [phone] Calcium mass conc 9.4 mg/dL Normal 8.5-10.5 [facility] Comment on above: Performed By: #### C BCNAVINF BMP ####[place] [phone] Chloride molar conc 101 mmol/L Normal 98-110 [facility] Comment on above: Performed By: #### C BCDIF BMP ####[place] [phone] CO2 molar conc 24 mmol/L Normal 23-32 [facility] Comment on above: Performed By: #### C BCDIF, BMP ####[place] [phone] Creatinine mass conc 0.75 mg/dL Normal 0.70-1.40 [facility] Comment on above: Performed By: #### C BCDIF, BMP ####[place] [phone] eGFR- Amer. >60 Normal >60 [facility] Comment on above: Performed By: #### C BCDIF, BMP ####[place] [phone] GFR/1.73 sq M predicted among non-blacks MDRD vol rate/area (S/P/Bld) mL/min/{1.73_m2} Normal >60 [facility] Comment on above: Performed By: #### C BCDIF, BMP ####[place] [phone] Glucose mass conc 90 mg/dL Normal 65-100 [facility] Comment on above: Performed By: #### C BCDIF, BMP ####[place] [phone] Potassium molar conc 3.5 mmol/L Normal 3.5-5.0 [facility] Comment on above: Performed By: #### C BCDIF, BMP ####[place] [phone] Sodium molar conc 140 mmol/L Normal 135-146 [facility] Comment on above: Performed By: #### C BCDIF, BMP ####[place] [phone] Urea nitrogen mass conc 8 mg/dL Low 10-25 [facility] Comment on above: Performed By: #### C BCDIF, BMP ####[place] [phone] CASE MGT INIT AUBREYon 2017 CASE MGT INKIRAN BURGOS HNO ID: [id number]: Katerine Vu (Sw)rgolService: Case ManagementAuthor Type: Social WorkerType: Care Mgt Initial AssessmentFiled: 05/10/2017 1:14 PMNote Text:CARE MANAGEMENT: ASSESSMENT AND DISCHARGE PLANSERVICE DATE: 05/10/2017SERVICE TIME: 12:03 PMPRIMARY CARE PHYSICIAN:Pt reports primary PCP is Dr. Glen Coombsone: NoneADMISSION STATUS: InpatientNeeds Prior to Discharge: To Be Determined;OT/PT EvaluationMEDICAL:Patient/Repres entative Stated Goals:To return home to life as it wasHealth Insurance:[employer]themZephyr Issues Impacting Discharge Plan: Newly diagnosed seizuresLast [...] Admission: NoneHas the Patient Been in a Penitentiary Facility in the Past 30 days?N/ASOCIAL:Living Arrangement: HomeLives With: familyFinancial Resources: Employed: [employer]Primary Contact: Extended Emergency Contact InformationPrimary Emergency Contact: Grant Henning Zxaagawc: ParentSupportive: YesOther Important Patient Contacts: Family: Name: mother, Mai Duenas Fdkbhnhln Assessment:Caregiver is ready, willing and able to [...] - 0I feel financially burdened by my hpt-nf-lhgvff expenses for myprescription medication: Disagree completely - [...] is alert and appropriate. [place] in [place] with hisfamily, he is working and is fully independent. Pt denies needs at thistime. Discussed CM will follow in his care to assist with his transitionplanning as needs evolve.ADDENDUM 12:45PMPt requested to meet with CM again. Pt inquired if he could be D/C'dtoday; expressing some level of wanting to leave AMA. Advised will notifyPt's MD.Dr. Juan Daniel phan and primer charger notified of Pt's request.SIGNATURE: SOPHIA Brown PATIENT NAME: Grant Blanchard JRDATE: May 10, 2017 : 12:03 PM PAGER/CONTACT #: [phone] Normal [facility] CBC and Differentialon 05-10 Abs Baso 0.05 k/uL Normal <0.11 [facility] Comment on above: Performed By: #### C JAMES MIRANDA ####[facility] [place], [place] [phone] Abs [place] 0.89 k/uL High <0.87 [facility] Comment on above: Performed By: #### C JAMES MIRANDA ####[place] [phone] Abs Neut 6.62 k/uL Normal 1.45-7.50 [facility] Comment on above: Performed By: #### C BCDIF, BMP ####[place] [phone] Basophils/100 WBC Auto (Bld) 0.5 % Normal [facility] Comment on above: Performed By: #### C BCDIF, BMP ####[place] [phone] DTYPE Auto Diff Normal [facility] Comment on above: Performed By: #### C BCDIF, BMP ####[place] [phone] Eosinophils Auto #/vol (Bld) 0.18 10*3/uL Normal <0.46 [facility] Comment on above: Performed By: #### C BCNAVINF, BMP ####[place] [phone] Eosinophils/100 WBC Auto (Bld) 1.7 % Normal [facility] Comment on above: Performed By: #### C BCDIF, BMP ####[place] [phone] Erythrocyte distribution width Auto Ratio (RBC) 11.7 % Normal 11.5-15.0 [facility] Comment on above: Performed By: #### C BCDIF, BMP ####[place] [phone] Hematocrit Auto Volume Fraction (Bld) 43.2 % Normal 39.0-51.0 [facility] Comment on above: Performed By: #### C BCDIF, BMP ####[place] [phone] Hemoglobin mass conc (Bld) 15.3 g/dL Normal 13.0-17.0 [facility] Comment on above: Performed By: #### C BCDIF, BMP ####[place] [phone] Lymphocytes Auto #/vol (Bld) 2.81 10*3/uL Normal 1.00-4.00 [facility] Comment on above: Performed By: #### C BCDIF, BMP ####[place] [phone] Lymphocytes/100 WBC Auto (Bld) 26.6 % Normal [facility] Comment on above: Performed By: #### C BCDIF, BMP ####[place] [phone] MCH Auto Entitic mass (RBC) 30.5 pG Normal 26.0-34.0 [facility] Comment on above: Performed By: #### C BCDIF, BMP ####[place] [phone] MCHC Auto mass conc (RBC) 35.4 g/dL Normal 30.5-36.0 [facility] Comment on above: Performed By: #### C BCDIF, BMP ####[place] [phone] MCV Auto Entitic volume (RBC) 86.2 fL Normal 80.0-100.0 [facility] Comment on above: Performed By: #### C BCDIF, BMP ####[place] [phone] Monocytes/100 WBC Auto (Bld) 8.4 % Normal [facility] Comment on above: Performed By: #### C BCDIF, BMP ####[place] [phone] Neutrophils/100 WBC Auto (Bld) 62.8 % Normal [facility] Comment on above: Performed By: #### C BCDIF, BMP ####[place] [phone] Platelet mean volume Auto Entitic volume (Bld) 9.7 fL Normal 9.0-12.7 [facility] Comment on above: Performed By: #### C BCDIF, BMP ####[facility] [place], [place] [phone] Platelets Auto #/vol (Bld) 260 10*3/uL Normal 150-400 [facility] Comment on above: Performed By: #### C BCDIF, BMP ####[place] [address] [place], [place] [phone] RBC Auto #/vol (Bld) 5.01 10*6/uL Normal 4.20-6.00 [facility] Comment on above: Performed By: #### C BCDIF, BMP ####[place] [address] [place], [place] [phone] WBC Auto #/vol (Bld) 10.55 10*3/uL Normal 3.70-11.00 [facility] Comment on above: Performed By: #### C BCDIF, BMP ####[place] [address] [place], [place] [phone] CONSULT PROGon 05-10-2017 Protein mass conc HNO ID: [id number] thor: Mónica Barreraervice: NeurologyAuthor Type: PhysicianType: Consult [...] lb 12.6 oz) SpO2 96% BMI 36.65 kg/c6TwdjdkapkRafoaco is alert and oriented to time person [...] Mónica Flores MD PATIENT NAME: Grant Blanchard JRDATE: May 10, 2017 : 3:53 PM PAGER/CONTACT #: Normal [facility] Magnesiumon 05-10-2017 Magnesium mass conc 2.2 mg/dL Normal 1.7-2.6 [facility] Comment on above: Performed By: #### Jamin Terrell, PHOS ####[facility] [place], [place] [phone] NURSING PROGon 05-10-2017 Protein mass conc HNO ID: [id number] thor: Darcy (Rn) CrumService: NursingAuthor Type: Registered NurseType: Nursing Progress NoteFiled: 05/10/2017 5:27 PMNote Text: Nursing Progress NotePatient Name: Grant Blanchard JRMRN: [id number] Location: [place] [address]/DU-WTUJ-00 Transfer Note:Patient transferred into room/unit pk in [...] note was completed by: Darcy Ramirez RN [facility] Protein mass conc HNO ID: [id number] thor: Kari BradfordRn) NEFTALY Maguireervice: NursingAuthor Type: Registered NurseType: Nursing Progress NoteFiled: 05/10/2017 2:34 PMNote Text: Nursing Progress NotePatient Name: Grant Blanchard [facility] [id number] Location: [place] [address]/QH-STF-11 Daily Note:0700 Report received from control room operator RN.0800 Assessment completed, see ICU flow sheet.0845 ICU team rounding. Patient updated on Plan of care.0900 Trauma at bedside to see patient.1200 No changes in assessment.1430 Report called to PKT.This note was completed by: Kari Duenas RN [facility] PLAN OF CAREon 05-10-2017 PLAN OF CARE HNO ID: [id number] Author: Reji (Rito Frances MD Service: General Internal Medicine Author Type: Resident Type: Plan of Care Filed: 05/10/2017 2:05 PM Note Text: Dr. oCpeland spoke to Dr. Fermin and agreed to transfer the patient under his service [facility] PROGRESSon 05-10-2017 Protein mass conc HNO ID: [id number] thor: Shay Echeverriaice: Infectious DiseaseAuthor Type: PhysicianType: Progress NotesFiled: 05/10/2017 4:21 PMNote Text:INPATIENT PROGRESS NOTESPATIENT NAME: Grant Blanchard JRMRN: [id number] DATE: 05/10/2017SERVICE TIME: 4:12 PMPRIMARY SERVICE: Infectious [...] hrs: BP Temp Temp src Pulse Resp FcV06905/10/17 1528 128/72 37.4 ?C (99.3 ?F) Oral [...] reviewed for today's visit.WBCDate Value Ref Range Hpsoit1505/10/2017 10.55 3.70 - 11.00 k/uL Final05/09/2017 12.93 (H) 3.70 - 11.00 k/uL Final05/07/2017 21.89 (H) 3.70 - 11.00 k/uL Final ]SIGNATURE: Shay Gomez MDDATE: May 10, 2017TIME: 4:12 PM Normal [facility] Protein mass conc HNO ID: [id number] thor: Alex DugarService: General Internal MedicineAuthor Type: PhysicianType: Progress NotesFiled: 05/10/2017 4:00 PMNote Text:MICU PROGRESS NOTE WITH WALTER CABRALES DATE: 05/10/2017SERVICE TIME: 9:30 AMADMISSION DATE: 05/07/2017Day [...] along with bladderincontinence. ?[facility] than [facility] where he was found in apost-itcal state. ?He went for CT scan of the head where he had anotherseizure and was given ativan. ?CT scan of the head was limited due toasymmetry and atrifact from backboard. ?However the radiologist did callthe ED physician and raised concern for possible subdural hematoma alongthe tentorium and posterior falx. ?[facility] ?[facility] he was intubated due to hismental [...] heparinGI prophylaxis: not indicated???Plan discussed with Dr. ChristiansenObjectivePHYSICAL EXAM PERFORMED: VITAL SIGNS (last 24hrs min/max):Temp [...] 10, 2017 : 8:24 AM PAGER/CONTACT #: [phone] STAFF PHYSICIAN NOTE OF PERSONAL INVOLVEMENT [...] boardCont keppraHeparin for VTE pxTransfer to floorSIGNATURE: MACK QuirozESPIRATORY INSTITUTEPAGER:[id number] of SERVICE: 05/10/17TIME of SERVICE: 3:59 PM Normal [facility] Protein mass conc HNO ID: [id number] thor: George Meade ([facility]) SereikaService: TraumaAuthor Type: Nurse PractitionerType: Progress NotesFiled: 05/10/2017 9:14 AMNote Text:TRAUMA PROGRESS NOTESERVICE DATE: 05/10/2017SERVICE TIME: 7:40 AMSubjectiveHISTORY (LAST 24 HOURS): pt is 21 yo male who was in gas station when [place]uddenly fell having seizures. sent to [facility] where on scan feltthey saw small SDh ( now thought to [...] in D5W 250 mL (ZOVIRAX) 10 mg/kg/dose ([place]) INTRAVENOUSq 8 Hmetoclopramide HCl 5 mg injection [...] bilaterally,Leg/Knee normal bilaterally, Foot/Ankle normal bilaterallyDATA:LABS:Recent Labs 05/09/1809WBC 10.55 -- 12.93* -- -- -- 21.89* [...] Please re consult if neededSIGNATURE: George Jeronimo APRN.ANNA PATIENT NAME: Grant Blanchard JRDATE: May 10, 2017 : 7:40 AM PAGER/CONTACT #: [phone] cell Normal [facility] Phosphoruson 05-10-2017 Phosphate mass conc 2.6 mg/dL Normal 2.5-4.5 [facility] Comment on above: Performed By: #### M G1, PHOS ####[place] [phone] Basic Metabolic Panlon 05-09 Anion gap 3 molar conc 12 mmol/L Normal 9-18 [facility] Comment on above: Performed By: #### B MP ####[place] [phone] Calcium mass conc 8.6 mg/dL Normal 8.5-10.5 [facility] Comment on above: Performed By: #### B MP ####[place] [phone] Chloride molar conc 105 mmol/L Normal 98-110 [facility] Comment on above: Performed By: #### B MP ####[place] [phone] CO2 molar conc 26 mmol/L Normal 23-32 [facility] Comment on above: Performed By: #### B MP ####[place] [phone] Creatinine mass conc 0.84 mg/dL Normal 0.70-1.40 [facility] Comment on above: Performed By: #### B MP ####[place] [phone] eGFR- Amer. >60 Normal >60 [facility] Comment on above: Performed By: #### B MP ####[place] [phone] GFR/1.73 sq M predicted among non-blacks MDRD vol rate/area (S/P/Bld) mL/min/{1.73_m2} Normal >60 [facility] Comment on above: Performed By: #### B MP ####[place] [phone] Glucose mass conc 90 mg/dL Normal 65-100 [facility] Comment on above: Performed By: #### B MP ####[place] [phone] Potassium molar conc 3.9 mmol/L Normal 3.5-5.0 [facility] Comment on above: Performed By: #### B MP ####[place] [phone] Sodium molar conc 143 mmol/L Normal 135-146 [facility] Comment on above: Performed By: #### B MP ####[place] [phone] Urea nitrogen mass conc 9 mg/dL Low 10-25 [facility] Comment on above: Performed By: #### B MP ####[place] [phone] Anion gap 3 molar conc 10 mmol/L Normal 9-18 [facility] Comment on above: Performed By: #### B MP ####[place] [phone] Calcium mass conc 8.4 mg/dL Low 8.5-10.5 [facility] Comment on above: Performed By: #### B MP ####[place] [phone] Chloride molar conc 105 mmol/L Normal 98-110 [facility] Comment on above: Performed By: #### B MP ####[address] CO2 molar conc 26 mmol/L Normal 23-32 [facility] Comment on above: Performed By: #### B MP ####[place] [phone] Creatinine mass conc 0.84 mg/dL Normal 0.70-1.40 [facility] Comment on above: Performed By: #### B MP ####[place] [phone] eGFR- Amer. >60 Normal >60 [facility] Comment on above: Performed By: #### B MP ####[place] [phone] GFR/1.73 sq M predicted among non-blacks MDRD vol rate/area (S/P/Bld) mL/min/{1.73_m2} Normal >60 [facility] Comment on above: Performed By: #### B MP ####[place] [phone] Glucose mass conc 106 mg/dL High 65-100 [facility] Comment on above: Performed By: #### B MP ####[place] [phone] Potassium molar conc 3.7 mmol/L Normal 3.5-5.0 [facility] Comment on above: Performed By: #### B MP ####[place] [phone] Sodium molar conc 141 mmol/L Normal 135-146 [facility] Comment on above: Performed By: #### B MP ####[place] [phone] Urea nitrogen mass conc 8 mg/dL Low 10-25 [facility] Comment on above: Performed By: #### B MP ####[place] [phone] CBC and Differentialon 05-09 Abs Baso 0.03 k/uL Normal <0.11 [facility] Comment on above: Performed By: #### C BCDIF ####[place] [phone] Abs [place] 1.30 k/uL High <0.87 [facility] Comment on above: Performed By: #### C BCDIF ####[place] [phone] Abs Neut 9.13 k/uL High 1.45-7.50 [facility] Comment on above: Performed By: #### C BCDIF ####[place] [phone] Basophils/100 WBC Auto (Bld) 0.2 % Normal [facility] Comment on above: Performed By: #### C BCDIF ####[place] [phone] DTYPE Auto Diff Normal [facility] Comment on above: Performed By: #### C BCDIF ####[place] [phone] Eosinophils Auto #/vol (Bld) 10*3/uL Normal <0.46 [facility] Comment on above: Performed By: #### C BCDIF ####[place] [phone] Eosinophils/100 WBC Auto (Bld) 0.2 % Normal [facility] Comment on above: Performed By: #### C BCDIF ####[place] [phone] Erythrocyte distribution width Auto Ratio (RBC) 12.1 % Normal 11.5-15.0 [facility] Comment on above: Performed By: #### C BCDIF ####[place] [phone] Hematocrit Auto Volume Fraction (Bld) 41.7 % Normal 39.0-51.0 [facility] Comment on above: Performed By: #### C BCDIF ####[place] [phone] Hemoglobin mass conc (Bld) 14.5 g/dL Normal 13.0-17.0 [facility] Comment on above: Performed By: #### C BCDIF ####[place] [phone] Lymphocytes Auto #/vol (Bld) 2.45 10*3/uL Normal 1.00-4.00 [facility] Comment on above: Performed By: #### C BCDIF ####[place] [phone] Lymphocytes/100 WBC Auto (Bld) 18.9 % Normal [facility] Comment on above: Performed By: #### C BCDIF ####[place] [phone] MCH Auto Entitic mass (RBC) 30.5 pG Normal 26.0-34.0 [facility] Comment on above: Performed By: #### C BCDIF ####[place] [phone] MCHC Auto mass conc (RBC) 34.8 g/dL Normal 30.5-36.0 [facility] Comment on above: Performed By: #### C BCDIF ####[place] [phone] MCV Auto Entitic volume (RBC) 87.6 fL Normal 80.0-100.0 [facility] Comment on above: Performed By: #### C BCDIF ####[phone] Monocytes/100 WBC Auto (Bld) 10.1 % Normal [facility] Comment on above: Performed By: #### C BCDIF ####[place] [phone] Neutrophils/100 WBC Auto (Bld) 70.6 % Normal [facility] Comment on above: Performed By: #### C BCDIF ####[place] [phone] Platelet mean volume Auto Entitic volume (Bld) 10.0 fL Normal 9.0-12.7 [facility] Comment on above: Performed By: #### C BCDIF ####[place] [phone] Platelets Auto #/vol (Bld) 235 10*3/uL Normal 150-400 [facility] Comment on above: Performed By: #### C BCDIF ####[place] [phone] RBC Auto #/vol (Bld) 4.76 10*6/uL Normal 4.20-6.00 [facility] Comment on above: Performed By: #### C BCDIF ####[place] [phone] [place] [phone] WBC Auto #/vol (Bld) 12.93 10*3/uL High 3.70-11.00 [facility] Comment on above: Performed By: #### C BCDIF ####[place] [phone] Magnesiumon 05-09-2017 Magnesium mass conc 2.2 mg/dL Normal 1.7-2.6 [facility] Comment on above: Performed By: #### M G1, PHOS ####[address] [phone] NMDA-Receptor Ab CBA LAB USE ONLYon 05-09-2017 NMDA-Receptor Ab CBA View results in Scanned Documents link when available. Normal [facility] Comment on above: Performed By: #### N MDCBA ####[facility] [address] [place], [place] [phone] NURSING PROGon 05-09-2017 Protein mass conc HNO ID: [id number] thor: Danika (Rn) NEFTALY Gillespieervice: Critical CareAuthor Type: Registered NurseType: Nursing Progress NoteFiled: 05/10/2017 6:45 AMNote Text: Nursing Progress NotePatient Name: Grant Blanchard JRMRN: [id number] [facility] Daily Note:1930 Report received from day shift RN. VSS, complete assessment tofollow.1999 Assessment performed and documented. See ICU flowsheet.2200 [...] note was completed by: Danika Gillespie RN [facility] Protein mass conc HNO ID: [id number] thor: Paty BradfordRn) NEFTALY Orrervice: NursingAuthor Type: Registered NurseType: Nursing Progress NoteFiled: 05/09/2017 3:55 PMNote Text: Nursing Progress NotePatient Name: Grant Elaine Santo JRMRN: [id number] Location: [place] [address]/DF-YGR-03 Daily Note:0800 Assessment as charted. Family at [...] Neck brace removed by trauma resident. Edison d/c'd by RN.This note was completed by: Paty Orr RN [facility] Protein mass conc HNO ID: [id number] thor: Brandie BradfordRn) NEFTALY Duranervice: NursingAuthor Type: Registered NurseType: Nursing Progress NoteFiled: 05/09/2017 1:10 PMNote Text: Nursing Progress NotePatient Name: Grantaguila Blanchard JRMRN: [id number] Location: [place] [address]/NS-VDT-77 Daily Note:1305: Dr. Singh by to see patient. Updated that SROC was paged to clearc-spine. Order to stop maintenance fluids.This note was completed by: Brandie Duran RN [facility] Protein mass conc HNO ID: [id number] thor: Paty (Rn) Kirby, RNService: NursingAuthor Type: Registered NurseType: Nursing Progress NoteFiled: 05/09/2017 2:04 PMNote Text: Nursing Progress: Topic: RESTRAINT NON-VIOLENTPATIENT NAME: Grant Blanchard LOCATION: [place] [address]/EH-MRA-88Hkl patient demonstrates Attempting to Remove Medical Devices [...] May 09, 2017TIME: 0800 AMPaty Orr RN [facility] Neosen Neuro Paraneoon 05-09 Neosens Neur Paraneo (NOTE) [facility] Comment on above: Result Comment: INTE RPRETATIONNEGATIVEThis panel of tests did not identify any positive results.TECHNICAL RESULTS Interpretive Result Table --------TEST: anti-amphiphysinMETHODOLOGY: Nanoliter scale immunoassayINTERPRETATION: NegativeTECHNICAL RESULT: <1:100REFERENCE RANGE: Serum <1:100 ---------TEST: anti-HG9XODRUZXGAFO: Nanoliter scale immunoassayINTERPRETATION: NegativeTECHNICAL RESULT: <1:100REFERENCE RANGE: Serum <1:100 ---------TEST: anti-HuMETHODOLOGY: Nanoliter scale immunoassayINTERPRETATION: NegativeTECHNICAL RESULT: <1:100REFERENCE RANGE: Serum <1:100 COMMENTSThis result does not exclude a diagnosis of an autoimmuneetiology for PNS.Recommendations:Health care providers, please contact the [employer] Department at if you wish to consult with [facility] Director regarding this test result.Background information: [...] relevanthistory, and other laboratory data.Background References:1. ZAIRA Hannah et al. (2011) Eur J Neurol 18: 19-e3. (PMID:84318494)2. Susie Holcomb et al. (2012) J Neurol Neurosurg Psychiatry 83: 638-45.(PMID: 83172222)This test was developed and its analytical performance characteristicshave been determined by [facility]. It has not been cleared orapproved by the U.S. Food and Drug Administration. This assay has beenvalidated pursuant to the CLIA regulations and is used for clinicalpurposes.Laboratory oversight provided by Hans Leon, Ph.D., [facility], [facility], [facility] (CLIA# [id number])Testing performed at:[facility] [address] [place] [address] PROGRESSon 05-09-2017 Protein mass conc HNO ID: [id number] thor: Anusha Floreservice: NeurologyAuthor Type: PhysicianType: Progress NotesFiled: 05/09/2017 4:17 PMNote Text: Neurology ConsultDate: May 08, 2017Patient Name: Grant Blanchard Attending Provider: Greg Bell for Evaluation: SeizuresHistory of Present Illness:This is Mr. Grant Blanchard JR a 21 year old with history of insomnia takesLunesta at times male who presents to the [facility] with a statusepilepticus. Mother at bedside [...] Mother denied any drug use. Upon arrival [facility] ER patient's blood sugar was 90. While in the ER his blood pressuredropped to 80/50 and he was given fluids. His WBC count was 11.64hemoglobin 17 hematocrit 48 and platelet counts were 371. Sodium levelwas 143, potassium of 3.9, glucose of 104, BUN 17, creatinine of 1.05, ALT47, AST 26, phosphatase 52, total bilirubin of 0.7. [facility] [place] recommended another load of Keppra 15mg and to assess fosphenytoin if he continues to seize at that timepatient had received 7 mg of Ativan and a load of 50 mg Keppra. He wasnot intubated at that time and according to the notes she was transferredto [place] and he was not intubated either. Urine drug screen wasnegative. Patient arrived to the ER at [place] repeat CBC showed a WBCcount of 21.89 [...] (262 lb 12.6 oz) SpO2 94% BMI36.65 kg/m7IUBLQHST EXAM:Neurological Examination:? Mental Status: Does not follow [...] Deferred due to condition.Labs/Data:BLOODWORK:WB C (k/uL)Date Value05/09/2017 12.9303 21.8903 11.64 RBC (m/uL)Date Value05/09/2017 4.7603 5.2103 5.73 Platelet Count (k/uL)Date Value05/09/2017 10952 55200 371 BUN (mg/dL)Date Value04 904/02/2017 803/ 1003 1303 14 Creatinine (mg/dL)Date Value05/09/2017 0.8404 0.8403 [...] 1000mg IV form 750 mg IV.-Currently on acyclovirSamer Fabio Mcdermott Neurology and Neuroimmunology/Multiple SclerosisPager: [phone]:[phone]/ 11:42 AM Normal [facility] Protein mass conc HNO ID: [id number] thor: Iris (Do) [facility]st. mark[facility] hospitalService: Critical CareAuthor Type: PhysicianType: Progress NotesFiled: 05/09/2017 3:03 PMNote Text:[facility] STAFF PHYSICIAN NOTE OF PERSONAL INVOLVEMENT [...] now with burst suppression on EEG.[facility] concerns for SDH-->now negative on repeat CTH andMRI. Following d/w pts mom he has been acting unusual x 1 week (awalkingnaked around the house) c/o HERRERA. No reported fevers. Pt transferred to [facility] with :?Acute respiratory failure; intubated due to [...] of care, medical plan for the day, nursing education consultant recommendations, medical dispositionand current medical condition/prognosis [...] care services: 40 minutes.SIGNATURE: ENA Montez INSTITUTEPAGER: [id number] of SERVICE: 05/09/2017 [facility] Protein mass conc HNO ID: [id number] thor: ANDREA Singh Reservice: General Internal MedicineAuthor Type: ResidentType: Progress NotesFiled: [...] along with bladderincontinence. They than presented to [facility] where he was found in apost-itcal state. He went for CT scan of the head where he had anotherseizure and was given ativan. CT scan of the head was limited due toasymmetry and atrifact from backboard. However the radiologist did callthe ED physician and raised concern for possible subdural hematoma alongthe tentorium and posterior falx. Due to this [facility] he was intubated due to hismental [...] 09, 2017 : 7:13 AM PAGER/CONTACT #: [phone] Normal [facility] Phosphoruson 05-09-2017 Phosphate mass conc 2.7 mg/dL Normal 2.5-4.5 [facility] Comment on above: Performed By: #### M G1, PHOS ####[place] [phone] ABG Complete Eval FOR WEST U SE ONLYon 05-08-2017 Base Excess 1 mmol/L Normal [facility] Comment on above: Result Comment: -3 t o 3 Performed By: #### A BGRTC, VENTLA ####[place] [phone] Calcium mass conc 1.18 mmol/L Normal 1.15-1.35 [facility] Comment on above: Performed By: #### A BGRTC, VENTLA ####[place] [phone] Carboxyhemoglobin, Art 1.2 % Normal <2.0 [facility] Comment on above: Performed By: #### A BGRTC, VENTLA ####[place] [phone] Chloride, Whole Bld FOR WEST USE ONLY 109 mmol/L High 98-107 [facility] Comment on above: Performed By: #### A BGRTC, VENTLA ####[place] [phone] CO2 molar conc 27 mmol/L Normal 22.0-28.0 [facility] Comment on above: Performed By: #### A BGRTC, VENTLA ####[place] [phone] Device Ventilator Normal [facility] Comment on above: Performed By: #### A BGRTC, VENTLA ####[place] [phone] Drawsite Rt Radial + Normal [facility] Comment on above: Performed By: #### A BGRTC, VENTLA ####[place] [phone] Glucose mass conc 110 mg/dL High 65-100 [facility] Comment on above: Performed By: #### A BGRTC, VENTLA ####[place] [phone] HCO3 molar conc (Bld) 25 mmol/L Normal 22-26 [facility] Comment on above: Performed By: #### A BGRTC, VENTLA ####[place] [phone] Hematocrit Auto Volume Fraction (Bld) 46 % Normal 42.0-52.0 [facility] Comment on above: Performed By: #### A BGRTC, VENTLA ####[place] [phone] Hemoglobin mass conc (Bld) 15 g/dL Normal 14-18 [facility] Comment on above: Performed By: #### A BGRTC, VENTLA ####[place] [phone] Lactate molar conc 1.1 mmol/L Normal 0.4-2.0 [facility] Comment on above: Performed By: #### A BGRTC, VENTLA ####[place] [phone] Methemoglobin 0.7 % Normal 0.4-1.5 [facility] Comment on above: Performed By: #### A BGRTC, VENTLA ####[place] [phone] O2 Administered 30.0 Normal [facility] Comment on above: Performed By: #### A BGRTC, VENTLA ####[place] [phone] Oxygen ppres (Bld) 97 % Normal 90-98 [facility] Comment on above: Performed By: #### A BGRTC, VENTLA ####[place] [phone] Oxygen ppres (BldA) 88 mm Hg Normal 80-100 [facility] Comment on above: Performed By: #### A BGRTC, VENTLA ####[place] [phone] Oxyhemoglobin, Art. 96 % Normal 94-100 [facility] Comment on above: Performed By: #### A BGRTC, VENTLA ####[place] [phone] pCO2 42 mm Hg Normal 35-48 [facility] Comment on above: Performed By: #### A BGRTC, VENTLA ####[place] [phone] pH (Bld) 7.40 [pH] Normal 7.35-7.45 [facility] Comment on above: Performed By: #### A BGRTC, VENTLA ####[place] [phone] PO2FI FOR WEST USE ONLY 293 mmHG Low 400-500 [facility] Comment on above: Performed By: #### A BGRTC, VENTLA ####[place] [phone] Potassium molar conc 3.7 mmol/L Normal 3.5-5.0 [facility] Comment on above: Performed By: #### A BGRTC, VENTLA ####[place] [phone] Sodium molar conc 142 mmol/L Normal 135-145 [facility] Comment on above: Performed By: #### A BGRTC, VENTLA ####[place] [phone] Base Excess Negative Normal [facility] Comment on above: Result Comment: -3 t o 3 Performed By: #### A BGRTC, VENTLA ####[place] [phone] Calcium mass conc 1.08 mmol/L Low 1.15-1.35 [facility] Comment on above: Performed By: #### A BGRTC, VENTLA ####[place] [phone] Carboxyhemoglobin, Art 0.9 % Normal <2.0 [facility] Comment on above: Performed By: #### A BGRTC, VENTLA ####[phone] Chloride, Whole Bld FOR WEST USE ONLY 109 mmol/L High 98-107 [facility] Comment on above: Performed By: #### A BGRTC, VENTLA ####[place] [phone] CO2 molar conc 26 mmol/L Normal 22.0-28.0 [facility] Comment on above: Performed By: #### A BGRTC, VENTLA ####[place] [phone] Device Ventilator Normal [facility] Comment on above: Performed By: #### A BGRTC, VENTLA ####[place] [phone] Drawsite Left Radial + [facility] Comment on above: Performed By: #### A BGRTC, VENTLA ####[place] [phone] Glucose mass conc 136 mg/dL High 65-100 [facility] Comment on above: Performed By: #### A BGRTC, VENTLA ####[place] [phone] HCO3 molar conc (Bld) 25 mmol/L Normal 22-26 [facility] Comment on above: Performed By: #### A BGRTC, VENTLA ####[place] [address] Hematocrit Auto Volume Fraction (Bld) 46 % Normal 42.0-52.0 [facility] Comment on above: Performed By: #### A BGRTC, VENTLA ####[place] [address] Hemoglobin mass conc (Bld) 15 g/dL Normal 14-18 [facility] Comment on above: Performed By: #### A BGRTC, VENTLA ####[place] [address] Lactate molar conc 1.0 mmol/L Normal 0.4-2.0 [facility] Comment on above: Performed By: #### A BGRTC, VENTLA ####[place] [address] Methemoglobin 0.6 % Normal 0.4-1.5 [facility] Comment on above: Performed By: #### A BGRTC, VENTLA ####[place] [address] O2 Administered 30.0 Normal [facility] Comment on above: Performed By: #### A BGRTC, VENTLA ####[place] [phone] Oxygen ppres (Bld) 97 % Normal 90-98 [facility] Comment on above: Performed By: #### A BGRTC, VENTLA ####[place] [phone] Oxygen ppres (BldA) 95 mm Hg Normal 80-100 [facility] Comment on above: Performed By: #### A BGRTC, VENTLA ####[place] [phone] Oxyhemoglobin, Art. 96 % Normal 94-100 [facility] Comment on above: Performed By: #### A BGRTC, VENTLA ####[place] [phone] pCO2 45 mm Hg Normal 35-48 [facility] Comment on above: Performed By: #### A BGRTCALESHALA ####[place] [phone] pH (Bld) 7.36 [pH] Normal 7.35-7.45 [facility] Comment on above: Performed By: #### A BGRTCGENIA ####[place] [phone] PO2FI FOR WEST USE ONLY 317 mmHG Low 400-500 [facility] Comment on above: Performed By: #### A BGRTCGENIA ####[place] [phone] Potassium molar conc 3.7 mmol/L Normal 3.5-5.0 [facility] Comment on above: Performed By: #### A BGRTCGENIA ####[place] [phone] Sodium molar conc 136 mmol/L Normal 135-145 [facility] Comment on above: Performed By: #### A BGRTCGENIA ####[place] [phone] Base Excess Negative Normal [facility] Comment on above: Result Comment: -3 t o 3 Performed By: #### A BGRTCGENIA ####[place] [phone] Calcium mass conc 1.06 mmol/L Low 1.15-1.35 [facility] Comment on above: Performed By: #### A BGRTC VENTLA ####[place] [phone] Carboxyhemoglobin, Art 0.8 % Normal <2.0 [facility] Comment on above: Performed By: #### A BGRTC VENTLA ####[place] [phone] Chloride, Whole Bld FOR WEST USE ONLY 111 mmol/L High 98-107 [facility] Comment on above: Performed By: #### A BGRTC, VENTLA ####[place] [phone] CO2 molar conc 25 mmol/L Normal 22.0-28.0 [facility] Comment on above: Performed By: #### A BGRTC, VENTLA ####[place] [phone] Device Ventilator Normal [facility] Comment on above: Performed By: #### A BGRTC, VENTLA ####[place] [phone] Drawsite Left Radial + Normal [facility] Comment on above: Performed By: #### A BGRTC, VENTLA ####[place] [phone] Glucose mass conc 133 mg/dL High 65-100 [facility] Comment on above: Performed By: #### A BGRTC, VENTLA ####[place] [phone] HCO3 molar conc (Bld) 24 mmol/L Normal 22-26 [facility] Comment on above: Performed By: #### A BGRTC, VENTLA ####[place] [phone] Hematocrit Auto Volume Fraction (Bld) 48 % Normal 42.0-52.0 [facility] Comment on above: Performed By: #### A BGRTC, VENTLA ####[place] [phone] Hemoglobin mass conc (Bld) 15.8 g/dL Normal 14-18 [facility] Comment on above: Performed By: #### A BGRTC, VENTLA ####[place] [phone] Lactate molar conc 0.7 mmol/L Normal 0.4-2.0 [facility] Comment on above: Performed By: #### A BGRTC VENTLA ####[place] [phone] Methemoglobin 0.7 % Normal 0.4-1.5 [facility] Comment on above: Performed By: #### A BGRTC VENTLA ####[place] [phone] O2 Administered 100.0 Normal [facility] Comment on above: Performed By: #### A BGRTC VENTLA ####[place] [phone] Oxygen ppres (Bld) 99 % High 90-98 [facility] Comment on above: Performed By: #### A BGRTC VENTLA ####[place] [phone] Oxygen ppres (BldA) 193 mm Hg High 80-100 [facility] Comment on above: Performed By: #### A BGRTC VENTLA ####[place] [phone] Oxyhemoglobin, Art. 98 % Normal 94-100 [facility] Comment on above: Performed By: #### A BGRTC VENTLA ####[place] [phone] pCO2 47 mm Hg Normal 35-48 [facility] Comment on above: Performed By: #### A BGRTC VENTLA ####[place] [phone] pH (Bld) 7.33 [pH] Low 7.35-7.45 [facility] Comment on above: Performed By: #### A BGRTC VENTLA ####[place] [phone] PO2FI FOR WEST USE ONLY 193 mmHG Low 400-500 [facility] Comment on above: Performed By: #### A BGRTC VENTLA ####[place] [phone] Potassium molar conc 3.7 mmol/L Normal 3.5-5.0 [facility] Comment on above: Performed By: #### A GENIA CHA ####[place] [id number] [place], [place] [phone] Sodium molar conc 136 mmol/L Normal 135-145 [facility] Comment on above: Performed By: #### A GENIA CHA ####[place] [id number] [place], [place] [phone] ALLIED HEALTHon 05-08-2017 ALLIED HEALTH HNO ID: [id number] thor: Cathy Hutchins RTService: (none)Author Type: (none)Type: Allied HealthFiled: 05/08/2017 6:51 AMNote Text: Radiology Service Progress NotePATIENT NAME: Grant Blanchard OF SERVICE: May 08, 2017TIME: 6:51 AMPATIENT IDENTITY VERIFICATION COMPLETED USING TWO (2) METHODS: ID Band .PATIENT GENDER DATA: MalePATIENT RELEVANT IMPLANT DATA REVIEWED: Not ApplicableRADIOLOGY DEPARTMENT: General X-ray: Exam(s) Completed: Chest X-RayAbdomen X-Ray AbdomenPERIPHERAL IV DATA: Not applicableSIGNED BY: Cathy Hutchins RTEast [facility] 2017 6:51 AM Normal [facility] APTTon 05-08-2017 aPTT Coag time (Bld) 23.3 s Normal 23.0-32.4 [facility] Comment on above: Result Comment: Unfr actionated [...] laboratory APTT reagent in use throughout the [facility]. Performed By: #### C BCDIF, AMYL, CMP, LIPA, ROSIE, PT, PTT ####[place] [phone] [place] [phone] Amylaseon 05-08-2017 Amylase enzyme act/vol 43 U/L Normal 0-137 [facility] Comment on above: Performed By: #### C BCDIF, AMYL, CMP, LIPA, ROSIE, PT, PTT ####[place] [phone] Basic Metabolic Panlon 05-08 Anion gap 3 molar conc 8 mmol/L Low 9-18 [facility] Comment on above: Performed By: #### B MP ####[place] [phone] Calcium mass conc 8.3 mg/dL Low 8.5-10.5 [facility] Comment on above: Performed By: #### B MP ####[place] [phone] Chloride molar conc 108 mmol/L Normal 98-110 [facility] Comment on above: Performed By: #### B MP ####[place] [phone] CO2 molar conc 27 mmol/L Normal 23-32 [facility] Comment on above: Performed By: #### B MP ####[place] [phone] Creatinine mass conc 0.85 mg/dL Normal 0.70-1.40 [facility] Comment on above: Performed By: #### B MP ####[place] [phone] eGFR- Amer. >60 Normal >60 [facility] Comment on above: Performed By: #### B MP ####[place] [phone] GFR/1.73 sq M predicted among non-blacks MDRD vol rate/area (S/P/Bld) mL/min/{1.73_m2} Normal >60 [facility] Comment on above: Performed By: #### B MP ####[place] [phone] Glucose mass conc 109 mg/dL High 65-100 [facility] Comment on above: Performed By: #### B MP ####[place] [phone] Potassium molar conc 4.1 mmol/L Normal 3.5-5.0 [facility] Comment on above: Performed By: #### B MP ####[place] [phone] Sodium molar conc 143 mmol/L Normal 135-146 [facility] Comment on above: Performed By: #### B MP ####[place] [phone] Urea nitrogen mass conc 10 mg/dL Normal 10-25 [facility] Comment on above: Performed By: #### B MP ####[place] [phone] Anion gap 3 molar conc 18 mmol/L Normal 9-18 [facility] Comment on above: Performed By: #### B MP, MG1, PHOS ####[place] [phone] Calcium mass conc 8.9 mg/dL Normal 8.5-10.5 [facility] Comment on above: Result Comment: Revi ewed Performed By: #### B MP, MG1, PHOS ####[place] [phone] Chloride molar conc 103 mmol/L Normal 98-110 [facility] Comment on above: Performed By: #### B MP, MG1, PHOS ####[place] [phone] CO2 molar conc 16 mmol/L Low 23-32 [facility] Comment on above: Performed By: #### B MP, MG1, PHOS ####[place] [phone] Creatinine mass conc 0.90 mg/dL Normal 0.70-1.40 [facility] Comment on above: Performed By: #### B MP, MG1, PHOS ####[place] [phone] eGFR- Amer. >60 Normal >60 [facility] Comment on above: Performed By: #### B ANGELA MG1, PHOS ####[place] [phone] GFR/1.73 sq M predicted among non-blacks MDRD vol rate/area (S/P/Bld) mL/min/{1.73_m2} Normal >60 [facility] Comment on above: Performed By: #### B ANGELA MG1, PHOS ####[place] [phone] Glucose mass conc 128 mg/dL High 65-100 [facility] Comment on above: Performed By: #### B ANGELA MG1, PHOS ####[place] [phone] Potassium molar conc 5.5 mmol/L High 3.5-5.0 [facility] Comment on above: Result Comment: Resu lts may be falsely increased due to interference by hemolysis. Suggest reorder as clinically indicated.Reviewed Performed By: #### B ANGELA MG1, PHOS ####[place] [phone] Sodium molar conc 137 mmol/L Normal 135-146 [facility] Comment on above: Performed By: #### B ANGELA MG1, PHOS ####[place] [phone] Urea nitrogen mass conc 13 mg/dL Normal 10-25 [facility] Comment on above: Performed By: #### B ANGELA MG1, PHOS ####[place] [phone] CBC and Differentialon 05-08 Abs Baso 0.03 k/uL Normal <0.11 [facility] Comment on above: Performed By: #### C BCDIF, AMYL, CMP, LIPA, ROSIE, PT, PTT ####[place] [address] Abs [place] 1.36 k/uL High <0.87 [facility] Comment on above: Performed By: #### C BCDIF, AMYL, CMP, LIPA, ROSIE, PT, PTT ####[place] [address] Abs Neut 18.74 k/uL High 1.45-7.50 [facility] Comment on above: Performed By: #### C BCDIF, AMYL, CMP, LIPA, ROSIE, PT, PTT ####[place] [address] Basophils/100 WBC Auto (Bld) 0.1 % Normal [facility] Comment on above: Performed By: #### C BCDIF, AMYL, CMP, LIPA, ROSIE, PT, PTT ####[place] [address] DTYPE Auto Diff Normal [facility] Comment on above: Performed By: #### C BCDIF, AMYL, CMP, LIPA, ROSIE, PT, PTT ####[place] [address] Eosinophils Auto #/vol (Bld) 10*3/uL Normal <0.46 [facility] Comment on above: Performed By: #### C BCDIF, AMYL, CMP, LIPA, ROSIE, PT, PTT ####[place] [address] Eosinophils/100 WBC Auto (Bld) 0.0 % Normal [facility] Comment on above: Performed By: #### C BCDIF, AMYL, CMP, LIPA, ROSIE, PT, PTT ####[place] [address] Erythrocyte distribution width Auto Ratio (RBC) 11.8 % Normal 11.5-15.0 [facility] Comment on above: Performed By: #### C BCDIF, AMYL, CMP, LIPA, ROSIE, PT, PTT ####[place] [phone] Hematocrit Auto Volume Fraction (Bld) 44.4 % Normal 39.0-51.0 [facility] Comment on above: Performed By: #### C BCDIF, AMYL, CMP, LIPA, ROSIE, PT, PTT ####[place] [phone] Hemoglobin mass conc (Bld) 16.0 g/dL Normal 13.0-17.0 [facility] Comment on above: Performed By: #### C BCDIF, AMYL, CMP, LIPA, ROSIE, PT, PTT ####[place] [phone] Lymphocytes Auto #/vol (Bld) 1.76 10*3/uL Normal 1.00-4.00 [facility] Comment on above: Performed By: #### C BCDIF, AMYL, CMP, LIPA, ROSIE, PT, PTT ####[place] [phone] Lymphocytes/100 WBC Auto (Bld) 8.0 % Normal [facility] Comment on above: Performed By: #### C BCDIF, AMYL, CMP, LIPA, ROSIE, PT, PTT ####[place] [phone] MCH Auto Entitic mass (RBC) 30.7 pG Normal 26.0-34.0 [facility] Comment on above: Performed By: #### C BCDIF, AMYL, CMP, LIPA, ROSIE, PT, PTT ####[place] [phone] MCHC Auto mass conc (RBC) 36.0 g/dL Normal 30.5-36.0 [facility] Comment on above: Performed By: #### C BCDIF, AMYL, CMP, LIPA, ROSIE, PT, PTT ####[place] [phone] MCV Auto Entitic volume (RBC) 85.2 fL Normal 80.0-100.0 [facility] Comment on above: Performed By: #### C BCDIF, AMYL, CMP, LIPA, ROSIE, PT, PTT ####[place] [phone] Monocytes/100 WBC Auto (Bld) 6.2 % Normal [facility] Comment on above: Performed By: #### C BCDIF, AMYL, CMP, LIPA, ROSIE, PT, PTT ####[place] [phone] Neutrophils/100 WBC Auto (Bld) 85.7 % Normal [facility] Comment on above: Performed By: #### C BCDIF, AMYL, CMP, LIPA, ROSIE, PT, PTT ####[place] [phone] Platelet mean volume Auto Entitic volume (Bld) 9.6 fL Normal 9.0-12.7 [facility] Comment on above: Performed By: #### C BCDIF, AMYL, CMP, LIPA, ROSIE, PT, PTT ####[place] [phone] Platelets Auto #/vol (Bld) 314 10*3/uL Normal 150-400 [facility] Comment on above: Performed By: #### C BCDIF, AMYL, CMP, LIPA, ROSIE, PT, PTT ####[place] [phone] RBC Auto #/vol (Bld) 5.21 10*6/uL Normal 4.20-6.00 [facility] Comment on above: Performed By: #### C BCDIF, AMYL, CMP, LIPA, ROSIE, PT, PTT ####[place] [phone] WBC Auto #/vol (Bld) 21.89 10*3/uL High 3.70-11.00 [facility] Comment on above: Performed By: #### C BCDIF, AMYL, CMP, LIPA, ROSIE, PT, PTT ####[place] [phone] CONSULTon 05-08-2017 CONSULT HNO ID: [id number] thor: Shay Scottervice: Infectious DiseaseAuthor Type: PhysicianType: ConsultsFiled: 05/08/2017 8:25 PMNote Text:[facility] - ConsultationGRANT BLANCHARD PDOB: 1995 AGE: 21 SEX: MMRN: [id number] ACCTNUM: [id number] SVC: PULM LOCATION: [id number] PHYSICIAN: IRIS BORJAS BISHOPDATE OF CONSULTATION: 05/08/2017CONSULTING PHYSICIAN: Shay Gomez M.D.REASON FOR CONSULT: Consult is requested to rule out meningitis.HISTORY OF PRESENT ILLNESS: This is a 21-year-old, who presents to the emergency room in transfer from [facility] due to statusepilepticus.The patient apparently was acting strangely for the previous 4-5days prior to admission, confused, complaining of headache, walkingaround, taking his clothes off, and not realizing when they were off. Hewas described to be dizzy. He was in a car with his girlfriend, at [facility], where he said he began to feel funny, held on to her,but fell to the ground, and did strike his head, tonic- colonicseizures were described, with urine incontinence. He was sent to the Emergency Room at [facility] and transferred to [place] and had moreseizures on the way, despite [...] given thereafter.There is no visible MAR from [facility], but the only meds mentioned wereseizure meds [...] use. Drug tox tests werenegative, both at [facility] and at [place], looks like the same simpletest.The patient is [...] discontinue antibiotics at any time.Shay Gomez M.D.Infectious DiseaseWR:[id number]: 05/08/2017 15:49:34T: 05/08/2017 17:12:15Job #: [id number] or bedside care time approximately 75 minutes. Normal [facility] CONSULT HNO ID: [id number] thor: Anusha Floreservice: NeurologyAuthor Type: PhysicianType: ConsultsFiled: 05/08/2017 12:17 PMNote Text: Neurology ConsultDate: May 08, 2017Patient Name: Grant Blanchard JRMRN: [id number] Attending Provider: Greg Bell for Evaluation: SeizuresHistory of Present Illness:This is Mr. Grant Blanchard JR a 21 year old with history of insomnia takesLunesta at times male who presents to the [facility] with a statusepilepticus. Mother at bedside [...] Mother denied any drug use. Upon arrival [facility] patient's blood sugar was 90. While in the ER his blood pressuredropped to 80/50 and he was given fluids. His WBC count was 11.64hemoglobin 17 hematocrit 48 and platelet counts were 371. Sodium levelwas 143, potassium of 3.9, glucose of 104, BUN 17, creatinine of 1.05, ALT47, AST 26, phosphatase 52, total bilirubin of 0.7. Contacted [facility] emergency physician and I recommended another load of Keppra 15mg and to assess fosphenytoin if he continues to seize at that timepatient had received 7 mg of Ativan and a load of 50 mg Keppra. He wasnot intubated at that time and according to the notes she was transferred[place] and he was not intubated either. Urine drug screen wasnegative. Patient arrived to the ER at [place] repeat CBC showed a WBCcount of 21.89 [...] Deferred due to condition.Labs/Data:BLOODWORK:WB C (k/uL)Date Value05/07/2017 21.8905/07/2017 11.64 RBC (m/uL)Date Value05/07/2017 5.2103 5.73 Platelet Count (k/uL)Date Value05/07/2017 84032 371 BUN (mg/dL)Date Value05/08/2017 1303 1403 17 Creatinine (mg/dL)Date Value05/08/2017 0.90005/07/2017 0.8805/07/2017 1.05 Lab ResultsComponent Value DateNEUTP 85.7 [...] visit, I spent at least 50% of ybhwekn-nm-vjip time in counseling, explanation of diagnosis and planning offurther management.Fabio Pratt Neurology and Neuroimmunology/Multiple SclerosisPager: [phone]:[phone]/ 11:42 AM Normal [facility] CONSULT PROGon 05-08-2017 Protein mass conc HNO ID: [id number] thor: Shay Echeverriaice: Infectious DiseaseAuthor Type: PhysicianType: [...] now, or wait tillcultures are negative. Normal [facility] CSF Cult and Stainon 018 CSF Cult and Stain Sp. Request/Comment: - Less than optimal volume of specimen received and processed.Smear Result - No organisms seen Few Mononuclear cells Gram stain performed on cytospun specimen. Gram stain results reviewed and confirmed by [facility].Culture Result - No growth 14 days Normal [facility] Comment on above: Performed By: #### C SFCUL ####[facility] [place], [place] [phone] Cell Count/Diff CSFon 2017 Clarity Nom (U) Clear Normal Clear [facility] Comment on above: Performed By: #### C CCSF ####[facility] [place], [place] [phone] Color Nom (U) Colorless Normal Colorless [facility] Comment on above: Performed By: #### C CCSF ####[phone] CSF Comment Some reference range s and other method performance specifications have not been established for this body fluid. Normal [facility] Comment on above: Performed By: #### C CCSF ####[place] [phone] CSF Tube No. FOR EAST AND WEST USE ONLY No 4 Normal [facility] Comment on above: Performed By: #### C CCSF ####[place] [phone] Lymphocytes/100 WBC Auto (Bld) 91 % High 50-90 [facility] Comment on above: Performed By: #### C CCSF ####[place] [phone] Monocytes/100 WBC Auto (Bld) 7 % Low 10-50 [facility] Comment on above: Performed By: #### C CCSF ####[place] [phone] Neutrophils/100 WBC Auto (Bld) 2 % Normal 0-3 [facility] Comment on above: Performed By: #### C CCSF ####[place] [phone] Nucleated Cells, CSF 11 /uL High 0-5 [facility] Comment on above: Result Comment: This test was developed and its performance characteristics determined by [facility] [place] ([facility]).It has not been cleared or approved by the FDA. -[facility] is regulated under CLIA as qualified to perform high-complexity testing.This test is used for clinical purposes. It should not be regarded as investigational or for research. Performed By: #### C CCSF ####[place] [phone] RBC Auto #/vol (Bld) 0.85811 10*6/uL High 0-1 [facility] Comment on above: Performed By: #### C CCSF ####[place] [phone] Comp Metabolic Panelon 05-08 Albumin mass conc 4.4 g/dL Normal 3.5-5.0 [facility] Comment on above: Performed By: #### C BCDIF, AMYL, CMP, LIPA, ROSIE, PT, PTT ####[place] [address] ALP enzyme act/vol 44 U/L Normal 40-150 [facility] Comment on above: Performed By: #### C BCDIF, AMYL, CMP, LIPA, ROSIE, PT, PTT ####[place] [address] ALT enzyme act/vol 45 U/L Normal 5-50 [facility] Comment on above: Performed By: #### C BCDIF, AMYL, CMP, LIPA, ROSIE, PT, PTT ####[place] [address] Anion gap 3 molar conc 13 mmol/L Normal 9-18 [facility] Comment on above: Performed By: #### C BCDIF, AMYL, CMP, LIPA, ROSIE, PT, PTT ####[place] [address] AST enzyme act/vol 25 U/L Normal 7-40 [facility] Comment on above: Performed By: #### C BCDIF, AMYL, CMP, LIPA, ROSIE, PT, PTT ####[address] Bilirubin mass conc 0.7 mg/dL Normal 0.0-1.5 [facility] Comment on above: Performed By: #### C BCDIF, AMYL, CMP, LIPA, ROSIE, PT, PTT ####[place] [phone] Calcium mass conc 7.9 mg/dL Low 8.5-10.5 [facility] Comment on above: Performed By: #### C BCDIF, AMYL, CMP, LIPA, ROSIE, PT, PTT ####[place] [phone] Chloride molar conc 103 mmol/L Normal 98-110 [facility] Comment on above: Performed By: #### C BCDIF, AMYL, CMP, LIPA, ROSIE, PT, PTT ####[place] [phone] CO2 molar conc 25 mmol/L Normal 23-32 [facility] Comment on above: Performed By: #### C BCDIF, AMYL, CMP, LIPA, ROSIE, PT, PTT ####[place] [phone] Creatinine mass conc 0.88 mg/dL Normal 0.70-1.40 [facility] Comment on above: Performed By: #### C BCDIF, AMYL, CMP, LIPA, ROSIE, PT, PTT ####[place] [phone] eGFR- Amer. >60 Normal >60 [facility] Comment on above: Performed By: #### C BCDIF, AMYL, CMP, LIPA, ROSIE, PT, PTT ####[place] [phone] GFR/1.73 sq M predicted among non-blacks MDRD vol rate/area (S/P/Bld) mL/min/{1.73_m2} Normal >60 [facility] Comment on above: Performed By: #### C BCDIF, AMYL, CMP, LIPA, ROSIE, PT, PTT ####[place] [phone] Glucose mass conc 141 mg/dL High 65-100 [facility] Comment on above: Performed By: #### C BCDIF, AMYL, CMP, LIPA, ROSIE, PT, PTT ####[place] [phone] Potassium molar conc 4.1 mmol/L Normal 3.5-5.0 [facility] Comment on above: Performed By: #### C BCDIF, AMYL, CMP, LIPA, ROSIE, PT, PTT ####[place] [phone] [place] [phone] Protein mass conc 7.1 g/dL Normal 6.0-8.4 [facility] Comment on above: Performed By: #### C BCDIF, AMYL, CMP, LIPA, ROSIE, PT, PTT ####[place] [phone] Sodium molar conc 141 mmol/L Normal 135-146 [facility] Comment on above: Performed By: #### C BCDIF, AMYL, CMP, LIPA, ROSIE, PT, PTT ####[place] [phone] [place] [phone] Urea nitrogen mass conc 14 mg/dL Normal 10-25 [facility] Comment on above: Performed By: #### C BCDIF, AMYL, CMP, LIPA, ROSIE, PT, PTT ####[place] [phone] [place] [phone] Enterovirus PCRon 05-08-2017 Enterovirus PCR Negative Normal [facility] Comment on above: Result Comment: This test was developed and its performance characteristics determined by [facility]'s [facility] [place] ([facility]).It has not been cleared or approved by the FDA. -[facility] is regulated under CLIA as qualified to perform high-complexity testing.This test is used for clinical purposes. It should not be regarded as investigational or for research. Performed By: #### E NTPCR ####[facility] [place], [place] [phone] Enterovirus PCR Srce Cerebrospinal Fluid Normal [facility] Comment on above: Performed By: #### E NTPCR ####[facility] [place], [place] [phone] Ethanolon 05-08-2017 Ethanol mass conc mg/dL Normal <11 [facility] Comment on above: Performed By: #### A LCO ####[place] [phone] Glucose, CSFon 05-08-2017 Glucose, CSF 91 mg/dL High 50-75 [facility] Comment on above: Performed By: #### C GLUC, CPROT ####[facility] [place], [place] [phone]#### HSPCRC, VDRLCF ####[facility] [address], [place] [phone] HISTORY PHYSICALon 8 HISTORY PHYSICAL HNO ID: [id number] thor: Qasim (ANDREA Weinbergervice: General Internal MedicineAuthor Type: ResidentType: HANDPFiled: 05/08/2017 5:54 PMNote Text:HISTORY AND PHYSICAL EXAMINATIONSERVICE DATE: 05/08/2017SERVICE TIME: 5:23 PMPRIMARY CARE PHYSICIAN: No primary care provider on file.FortinoHPIThis is a 21 year old male with [...] along with bladderincontinence. They than presented to [facility] where he was found in apost-itcal state. He went for CT scan of the head where he had anotherseizure and was given ativan. CT scan of the head was limited due toasymmetry and atrifact from backboard. However the radiologist did callthe ED physician and raised concern for possible subdural hematoma alongthe tentorium and posterior falx. Due [facility] he was intubated due to hismental [...] - subq heparinGI Prophylaxis - protonixDiscussed with ATURE: Qasim Holly MD PATIENT NAME: Grant Blanchard JRDATE: May 08, 2017 : 5:22 PM PAGER/CONTACT #: [phone] Normal [facility] HISTORY PHYSICAL HNO ID: [id number] thor: Iris (Do) [facility]st[facility] hospitalService: Critical CareAuthor Type: PhysicianType: HANDPFiled: 05/08/2017 4:45 PMNote Text:[facility] STAFF PHYSICIAN NOTE OF PERSONAL INVOLVEMENT [...] now with burst suppression on EEG.[facility] concerns for SDH-->now negative on repeat CTH andMRI. Following d/w pts mom he has been acting unusual x 1 week (awalkingnaked around the house) c/o HERRERA. No reported fevers. Pt transferred to [facility] with :Acute respiratory failure; intubated due to [...] critical care services: 46 minutes.SIGNATURE: ENA Montez INSTITUTEPAGER:[id number] of SERVICE: 05/08/2017 [facility] HISTORY PHYSICAL HNO ID: [id number] thor: Greg Guadalupee: TraumaAuthor Type: PhysicianType: HANDPFiled: 05/08/2017 10:47 AMNote Text:TRAUMA HANDP CCHSARRIVAL DATE: 05/07/2017ARRIVAL TIME: 2119CATEGORY: Level 1INJURY DATE: 05/07/2017INJURY TIME: ~1800SubjectiveThis is a 21 year old White male. [...] before EMS arrived. Hewas then taken to [facility] where he continued to have seizures andgiven 7mg ativan and 1.5g Keppra x2. A CT Head and C-spine was performedbut limited 2/2 motion artifact. A hogan was placed and [facility].BRIEF DESCRIPTION OF INJURIES: superficial abrasion to lateral [...] -- 9.5Liver Function, Amylase, AND LipaseRecent Labs 05/07/18214TPROT -- 7.1 -- -- 8.1ALB -- 4.4 -- -- 4.8ALT -- 45 -- -- 47AST -- 25 -- -- 26ALKPHOS -- 44 -- -- 52TBILI -- 0.7 -- -- 0.7AMYLASE -- 43 -- -- --LIPASE -- 24 -- -- --LACT 1.0 -- 0.7 1.03 --ABGsRecent Labs 05/07/1821PH 7.36 7.33*PCO2 45 47PO2 95 193*BE NEG 1 NEG 2HCO3 25 01TQ2HI 26 25O2HB 96 98COHB 0.9 0.8MHGB 0.6 [...] be d/w Surgery Staff Dr. Aamir Davis MDUniversity Of South [facility] SurgeryFor any questions please contactSurgery Green Team pager [phone] weekdays.Or [phone] weeknights (6pm - 6am) and weekends.Date: 05/08/2017Time: 2:03 AMGreg Boyle, [facility] 2017 10:47 AM Normal [facility] HISTORY PHYSICAL HNO ID: [id number] thor: Barrera (Do) EloService: Critical CareAuthor Type: [...] before EMSarrived. He was then taken to [facility] where he continued to haveseizures and given 7mg ativan and 1.5g Keppra x2. A CT Head and C-spinewas performed but limited 2/2 motion artifact. A hogan was placed and hewas transfered to [facility]. On arrival he was intubated and taken for repeatscans which were negative.PAST MEDICAL HISTORY: InsomniaPAST SURGICAL HISTORY: No prior SurgeriesFAMILY HISTORY: DM, Brain tumorsSOCIAL HISTORY:Per mother3 cigs/dayNo Recreational Drug useNo daily EtOH useMEDICATIONS:Prior to Admission Medications:- LunestaCurrent hospital medications:fentaNYL 20 mcg/mL iv infusion in [...] non-tender, non-distended. bowel sounds normal. Nomasses, organomegaly.Lines/Tubes/Drains: gXIs3Ptatrgyecybzfgc: No deformities, edema, normal peripheral pulsesDATA: Laboratory:CBC, [...] 95 193*BE NEG 1 NEG 2HCO3 25 53HN1TO 26 25O2HB 96 98COHB 0.9 0.8MHGB 0.6 [...] discussed with ICU Staff Dr. Pedersen.Cirilo Davis MDUniversity Of South [facility] Surgery[C]: [phone] [P]: [id number]: 05/07/2017Time: 10:32 [facility] STAFF PHYSICIAN NOTE OF PERSONAL INVOLVEMENT IN [...] in the care of this patient.SIGNATURE: Barrera Pedersen, DOPAGER: [id number] of SERVICE: May 08, 2017TIME of SERVICE: 9:38 AM Normal [facility] HIV 12 Combo (Ag/Ab)on 05-08 HIV 12 Ag/Ab Non Reactive Normal Non Reactive [facility] Comment on above: Result Comment: (NOT E)HIV Information: Barron Rev. Code 3701.243(E):This information has been disclosed [...] or diagnoses. Performed By: #### H IV12C ####[place] [address] Hepatitis Acute Panel * OUTS [place] CLIENTS ONLY *on 05-08-2017 Hep B Core Ab, IgM Negative Normal Negative [facility] Comment on above: Performed By: #### H ACUTP ####[place] [address] Hepatitis A Ab IgM Negative Normal Negative [facility] Comment on above: Performed By: #### H ACUTP ####[place] [address] Hepatitis C Ab IA Negative Normal Negative [facility] Comment on above: Performed By: #### H ACUTP ####[place] [address] Herpes Simpl PCR CSFon 05-08 HSV PCR Spec Source Cerebrospinal Fluid [facility] Comment on above: Performed By: #### C GLUC, CPROT ####[place] [address]#### HSPCRC, VDRLCF ####[place] [address] HSV-1 Negative [facility] Comment on above: Performed By: #### C GLUC, CPROT ####[place] [address]#### HSPCRC, VDRLCF ####[place] [address] HSV-2 Negative [facility] Comment on above: Performed By: #### C GLUC, CPROT ####[place] [address]#### HSPCRC, VDRLCF ####[place] [phone] Lipaseon 05-08-2017 Lipase enzyme act/vol 24 U/L Normal 12-70 [facility] Comment on above: Performed By: #### C BCDIF, AMYL, CMP, LIPA, ROSIE, PT, PTT ####[facility] [place], [place] [phone] MRI BRAIN WO/W IVCONon 05-08 MRI BRAIN WO/W IVCON * * *Final Report* * *DATE OF EXAM: May 08 2017 3:05AM FVM 0295 - MRI BRAIN WO/W IVCON / [...] orbits and extracranial soft tissues are unremarkable.IMPRESSION:Normal study.Imaging Assistant: NICO Transcribe Date/Time: May 08 2017 3:08ADictated by : DAVID NAYLOR MDThiedmar examination was interpreted and the report reviewed and electronically signed by: DAVID NAYLOR MD on May 08 2017 3:11AM [id number] Normal [facility] Magnesiumon 05-08-2017 Magnesium mass conc 2.2 mg/dL Normal 1.7-2.6 [facility] Comment on above: Performed By: #### B ANGELA MG1, PHOEdmar ####[facility] [place], [place] [phone] NURSING PROGon 05-08-2017 Protein mass conc HNO ID: [id number] thor: Danika BradfordRnNEFTALY Jaimeservice: Critical CareAuthor Type: Registered NurseType: Nursing Progress NoteFiled: 05/08/2017 7:27 PMNote Text: Nursing Progress: Topic: RESTRAINT NON-VIOLENTPATIENT NAME: Grant Blanchard LOCATION: [place] [address]/IR-FOH-71Whz patient demonstrates Attempting to Remove Medical Devices [...] May 08, 2017TIME: 7:26 PMDanika Gillespie RN [facility] Protein mass conc HNO ID: [id number] thor: NEFTALY Piper Rnervice: Critical CareAuthor Type: Registered NurseType: Nursing Progress NoteFiled: 05/09/2017 7:32 AMNote Text: Nursing Progress NotePatient Name: Grant Blanchard JRMRN: [id number] Location: [place] [address]/RH-ZBH-79 Daily Note:1920 Report received from day shift RN. MEGHNAS, complete assessment tofollow.2000 Assessment performed and documented. See ICU flowsheet.2200 Pt repositioned, VSS.0000 Reassessment performed and documented. See ICU flowsheet. No changesfrom previous assessment.0130 Pt becoming increasingly restless, Dr. Gregg notified will orderFentanyl gtt.0200 Pt repositioned, VSS.0400 Reassessment performed and documented. See ICU flowsheet. No changesfrom previous assessment.0600 Pt repositioned.0700 Report given to day shift RN.This note was completed by: Danika Gillespie RN [facility] Protein mass conc HNO ID: [id number] thor: Renae (Rn) NEFTALY Ansariervice: NursingAuthor Type: Registered NurseType: Nursing Progress NoteFiled: 05/08/2017 7:56 PMNote Text: Nursing Progress NotePatient Name: Grant Chele Blanchard JRMRN: [id number] Location: [facility]/BD-ZVX-35 Daily Note: Received pt on CPAP with [...] note was completed by: Renae Ansari RN [facility] Protein mass conc HNO ID: [id number] thor: Katerine BradfordRn) NEFTALY Gomeservice: Critical CareAuthor Type: Registered NurseType: Nursing Progress NoteFiled: 05/08/2017 3:39 PMNote Text: Nursing Progress NotePatient Name: Grantaguila Blanchard JRMRN: [id number] Location: [facility]/HZ-PKA-25 Daily Note:0700: Bedside report received from ZEFERINO [...] note was completed by: Katerine Gomes RN [facility] Protein mass conc HNO ID: [id number] thor: Katerine BrdafordRn) NEFTALY Gomeservice: Critical CareAuthor Type: Registered NurseType: Nursing Progress NoteFiled: 05/08/2017 8:08 AMNote Text: Nursing Progress: Topic: RESTRAINT NON-VIOLENTPATIENT NAME: Grant Elaine Santo JRMRN: [id number] LOCATION: [place] [address]/PL-CKD-64Dnw patient demonstrates Attempting to Remove Medical Devices [...] May 08, 2017TIME: 8:08 Dot Gomes RN [facility] Protein mass conc HNO ID: [id number] thor: Debo BradfordRnNEFTALY Rosadoervice: NursingAuthor Type: Registered NurseType: Nursing Progress NoteFiled: 05/08/2017 4:52 AMNote Text: Nursing Progress NotePatient Name: Grant Blanchard JRMRN: [id number] Location: [place] [address]/BG-GBA-09 Daily Note:0425: RT called to bedside to prepare for lumbar puncture.0435: medical lab tech instructor to come in at 0500 to replace EEG leads.0438: Dr. Godfrey at bedside to supervise. Kristopher Irwin at bedside as well.0441: Timeout completed for procedure.0451: 100 mcg fentanyl given per Dr. Godfrey.This note was completed by: Debo Marin RN [facility] Protein mass conc HNO ID: [id number] thor: Gavi (Rn) Kerry, NEFTALYervice: (none)Author Type: Registered NurseType: Nursing Progress NoteFiled: 05/07/2017 10:24 PMNote Text: Nursing Progress: Topic: RESTRAINT NON-VIOLENTPATIENT NAME: Grant Blanchard JRMRN: [id number] LOCATION: [place] [address]/YQ-ZJC-57Rkk patient demonstrates Attempting to Remove Medical Devices [...] May 07, 2017TIME: 10:24 PMGavi Payne RN [facility] Osmolality, Urineon 05-09-19 18 Osmolality, Urine 402 mOsm/kg Normal 50-1200 [facility] Comment on above: Performed By: #### U [place] ####[facility] [place], [place] [phone]#### UOSM ####[facility] [place], [place] [phone] PROCEDUREon 05-08-2017 Protein mass conc HNO ID: [id number] thor: Cirilo (Mau) PhilipService: Critical CareAuthor Type: ResidentType: ProceduresFiled: 05/08/2017 5:40 AMNote Text: Attestation signed by Jerrell Godfrey at 05/08/2017 6:54 AMAttending NoteFor the Bedside procedure, I was physically present during the entireprocedure.Signature: Jerrell Godfrey,MDDate: 05/08/2017Time: 6:54 AM SICU PROCEDURE NOTEPROCEDURE DATE: 05/08/2017PROCEDURE START TIME: 0500INFORMED CONSENTPlease refer to the signed consent form, located in the paper chart andscanned into the electronic medical record on hospital discharge.[place] Protocol / Safety ChecklistThe sign in communication [...] (roughly 15cc) was collected.Opening Pressure: 37 cm X5IXwoluxr Pressure: Not assessedFluid Appearance: ClearPatient tolerated procedure well.Complications: NoneSpecimens: Cell Count, Culture, Gram Stain, Glucose, Protein and CytologyEstimated Blood Loss 0ccSIGNATURE: Cirilo Davis MD PATIENT NAME: Grant Blanchard JRDATE: May 08, 2017 : 5:36 AM PAGER/CONTACT #: [phone] [facility] PROGRESSon 05-08-2017 Protein mass conc HNO ID: [id number] thor: Greg BoyleService: TraumaAuthor Type: PhysicianType: Progress [...] ongoing workup and treatment ofseizure disorder.Greg Boyle, [facility] 2017 10:49 AM Normal [facility] PROGRESS HNO ID: [id number] thor: Madeline (Program Services Planner) Ludin: (none)Author Type: Nurse PractitionerType: Progress NotesFiled: 05/08/2017 2:34 AMNote Text:[facility] TRANSPORT NOTEPatient Name: Grant Blanchard JRMRN: [id number]: 1995Service Date: May 07, 2017Referring Facility[facility] Physician: Brandon Accepting Physician: LisaJECTIVE/CHIEF COMPLAINT: Fall/SeizureREASON FOR TRANSPORT: Necessary services unavailable at referring facilityHistory of Present Illness/Injury: Known to CCT team at time of given careand summarized through review of available medical records, patient/familyinterview and from referring physician and staff.Grant Blanchard JR is a 21 year old male with a past history known to [facility] at time of transport, significant for nothing who presented [facility] s/p fall. Patient was walking out of [...] physician managing the patient requested transfer to [facility] for tertiary and/or quaternary trauma services unavailable at thereferring facility.The physician managing the patient requested the [facility] CriticalCare Transport Team transport and treat [...] thepatient's status. The patient was transported [place] by [facility]) for tertiary and/or quaternary evaluation and management ofhis Emergent and Critical Medical condition.Upon arrival to the receiving facility, a qacs-wj-sbam report [facility]. Patient care [...] probability of suddenlydeveloping.SIGNATURE:Frank Mccullough APRN-CNPAcute Care Nurse PractitionerWayne Hospital Critical Care Transport Team Normal [facility] Phosphoruson 05-08-2017 Phosphate mass conc 4.3 mg/dL Normal 2.5-4.5 [facility] Comment on above: Performed By: #### B MP MG1, PHOS ####[facility] [place], [place] [phone] Protein, CSFon 05-08-2017 Protein, CSF 60 mg/dL High 15-45 [facility] Comment on above: Performed By: #### C GLUC, CPROT ####[address] [phone]#### HSPCRC, VDRLCF ####[facility] [address] [place], [place] [phone] Protimeon 05-08-2017 INR Coag RelTime (Bld) 1.1 {INR} Normal 0.9-1.3 [facility] Comment on above: Result Comment: Xiao min K Antagonist (VKA) Therapeutic Range: INR 2 to 3 (Target INR of 2.5)Note: For patients treated with VKA drugs, such as warfarin, the [place] [employer] 2012 Guideline recommends [...] of 3).Vasiliy GH, et al. Chest 2012, 141:7S-47SNishvalentino RA, et al. [facility] 2017, 70: 252-289 Performed By: #### C BCDIF, AMYL, CMP, LIPA, ROSIE, PT, PTT ####[facility] [place], [place] [phone] PT Sec 10.9 sec Normal 9.7-13.0 [facility] Comment on above: Performed By: #### C BCDIF, AMYL, CMP, LIPA, ROSIE, PT, PTT ####[facility] [place], [place] [phone] Sodium,Urine,Randomon 2017 Sodium,Urine,Rando m 71 mmol/L Normal 14-216 [facility] Comment on above: Performed By: #### U [place] ####[facility] [address] [place], [place] [phone]#### UOSM ####[place] [address] Toxicology Screen,Uron 05-08 Amphetamines, Urine Negative Normal Negative [facility] Comment on above: Result Comment: Cuto ff threshold at 1000 ng/mL. Performed By: #### U TOX2, UAWMIC ####[place] [address] Barbiturates, Urine Negative Normal Negative [facility] Comment on above: Result Comment: Cuto ff threshold at 200 ng/mL. Performed By: #### U TOX2, UAWMIC ####[place] [address] Benzodiazepines, Ur Negative Normal Negative [facility] Comment on above: Result Comment: Cuto ff threshold at 200 ng/mL. Performed By: #### U TOX2, UAWMIC ####[place] [address] Cannabinoids, Urine Negative Normal Negative [facility] Comment on above: Result Comment: Cuto ff threshold at 50 ng/mL. Performed By: #### U TOX2, UAWMIC ####[place] [address] Cocaine, Urine Negative Normal Negative [facility] Comment on above: Result Comment: Cuto ff threshold at 300 ng/mL. Performed By: #### U TOX2, UAWMIC ####[place] [address] Ethanol, Urine <11 Normal <11 [facility] Comment on above: Performed By: #### U TOX2, UAWMIC ####[place] [address] Opiates, Urine Negative Normal Negative [facility] Comment on above: Result Comment: Cuto ff threshold at 300 ng/mL. Performed By: #### U TOX2, UAWMIC ####[place] [phone] Oxycodone, Urine Negative Normal Negative [facility] Comment on above: Result Comment: Cuto ff [...] on the same specimen through Client Services ([phone]) if contacted within 48 hours of initial testing.[1]Substance Abuse and Mental Health Services Administration (2012). Clinical Drug Testing in Primary Care Technical Assistance Publication Series 32. Department of Health and Human Services, [place], p.10. Performed By: #### U TOX2, UAWMIC ####[place] [phone] Phencyclidine, Urine Negative Normal Negative [facility] Comment on above: Result Comment: Cuto ff threshold at 25 ng/mL. Performed By: #### U TOX2, UAWMIC ####[place] [phone] Troponin Ton 05-08-2017 Troponin T.cardiac mass conc ug/L Normal 0.000-0.02 9 [facility] Comment on above: Performed By: #### C BCDIF, AMYL, CMP, LIPA, ROSIE, PT, PTT ####[place] [phone] Type and Screenon 05-08-2017 ABO/RH(D) Positive Normal [facility] Comment on above: Performed By: #### T SCR ####[place] [phone] Urinalysison 05-08-2017 Bilirubin, Urine Negative Normal Negative [facility] Comment on above: Performed By: #### U A ####[address] Clarity Clear Normal Clear [facility] Comment on above: Performed By: #### U A ####[address] Color Straw Critically abnormal Yellow [facility] Comment on above: Performed By: #### U A ####[place] [address] Comments SEE COMMENT Normal [facility] Comment on above: Result Comment: Micr oscopic not warranted Performed By: #### U A ####[place] [address] Glucose Ql (U) Negative Normal [facility] Comment on above: Performed By: #### U A ####[address] Hemoglobin/Blood,U r Negative Normal [facility] Comment on above: Performed By: #### U A ####[address] Ketones Ql (U) Negative Normal [facility] Comment on above: Performed By: #### U A ####[address] Leukest Negative Normal [facility] Comment on above: Performed By: #### U A ####[place] [address] Nitrites Negative Normal [facility] Comment on above: Performed By: #### U A ####[address] pH 6.0 Normal 5.0-8.0 [facility] Comment on above: Performed By: #### U A ####[address] Protein, Urine Negative Normal [facility] Comment on above: Performed By: #### U A ####[place] [address] Specific Premium, Ur <1.005 Low 1.005-1.03 0 [facility] Comment on above: Result Comment: Resu lt checked and verified Performed By: #### U A ####[place] [address] Urobilinogen <2.0 Normal <2.0 [facility] Comment on above: Performed By: #### U A ####[place] [address] Urinalysis with Microscopico n 05-08-2017 Bilirubin, Urine Negative Normal Negative [facility] Comment on above: Performed By: #### U TOX2, UAWMIC ####[place] [address] Clarity Clear Normal Clear [facility] Comment on above: Performed By: #### U TOX2, UAWMIC ####[place] [address] Color Yellow Normal Yellow [facility] Comment on above: Performed By: #### U TOX2, UAWMIC ####[place] [address] Comments SEE COMMENT Normal [facility] Comment on above: Result Comment: Micr oscopic Examination Performed Performed By: #### U TOX2, UAWMIC ####[place] [address] Glucose Ql (U) Negative Normal Negative [facility] Comment on above: Performed By: #### U TOX2, UAWMIC ####[place] [address] Hemoglobin/Blood,U r Small Critically abnormal Negative [facility] Comment on above: Performed By: #### U TOX2, UAWMIC ####[place] [address] INR Coag RelTime (Bld) 0-5 Critically abnormal Negative [facility] Comment on above: Performed By: #### U TOX2, UAWMIC ####[place] [address] Ketones Ql (U) Trace Critically abnormal Negative [facility] Comment on above: Performed By: #### U TOX2, UAWMIC ####[place] [address] Leukest Negative Normal Negative [facility] Comment on above: Performed By: #### U TOX2, UAWMIC ####[place] [address] Mucus Present Normal [facility] Comment on above: Performed By: #### U TOX2, UAWMIC ####[place] [address] Nitrites Negative Normal Negative [facility] Comment on above: Performed By: #### U TOX2, UAWMIC ####[place] [address] pH 7.0 Normal 5.0-8.0 [facility] Comment on above: Performed By: #### U TOX2, UAWMIC ####[place] [address] Protein, Urine Negative Normal Negative [facility] Comment on above: Performed By: #### U TOX2, UAWMIC ####[place] [address] Specific Premium, Ur 1.014 Normal 1.005-1.03 0 [facility] Comment on above: Performed By: #### U TOX2, UAWMIC ####[place] [address] Urobilinogen <2.0 Normal <2.0 [facility] Comment on above: Performed By: #### U TOX2, UAWMIC ####[place] [address] WBC Rare Critically abnormal Negative [facility] Comment on above: Performed By: #### U TOX2, UAWMIC ####[place] [address] VDRL on CSFon 05-08-2017 VDRL on CSF Non Reactive Normal Non Reactive [facility] Comment on above: Performed By: #### C GLUC, CPROT ####[place] [address]#### HSPCRC, VDRLCF ####[facility] [place] [phone] Vent Settings FOR WEST USE O NLYon 05-08-2017 MODE CPAP/PS [facility] Comment on above: Performed By: #### A BGRTC, VENTLA ####[place] [phone] PEEP 5 [facility] Comment on above: Performed By: #### A BGRTC, VENTLA ####[place] [address] PRESSURE SUPPORT 5 [facility] Comment on above: Performed By: #### A BGRTC, VENTLA ####[place] [address] MODE Mode Assist Control [facility] Comment on above: Performed By: #### A BGRTC, VENTLA ####[address] PEEP 10 [facility] Comment on above: Performed By: #### A BGRTC, VENTLA ####[place] [address] RATE 14 [facility] Comment on above: Performed By: #### A BGRTC, VENTLA ####[place] [address] MODE Mode Assist Control [facility] Comment on above: Performed By: #### A BGRTC, VENTLA ####[place] [phone] PEEP 5 [facility] Comment on above: Performed By: #### A BGRTC, VENTLA ####[facility] [place] [phone] RATE 16 [facility] Comment on above: Performed By: #### A BGRTC, VENTLA ####[facility] [place], [place] [phone] TIDAL VOLUME 480 [facility] Comment on above: Performed By: #### A BGRTC, VENTLA ####[place] [phone] XR ABDOMEN 1V SUPINEon 05-08 XR ABDOMEN [...] the jose. Visualized bowel gas pattern is nonobstructive.Imaging Assistant: [facility] HOSPITALRenata Transcribe Date/Time: May 08 2017 2:51PDictated by : NATA PEREZ MDThis examination was interpreted and the report reviewed and electronically signed by: NATA PEREZ MD on May 08 2017 2:52PM [id number] [facility] XR CHEST 1V FRONTAL PORTon 0 05-08-2017 [...] LEWIS MD on May 08 2017 9:35AM [id number] [facility] HEALTHon 05-07-2017 ALLIED HEALTH HNO ID: [id number] thor: Ra Moreno (Rt): RadiologyAuthor Type: TechnicianType: [facility] HospitalFiled: 05/07/2017 9:46 PMNote Text: Radiology Service Progress NotePATIENT NAME: Grant Elaine Santo SILVERN: [id number] OF SERVICE: May 07, 2017TIME: 9:45 PMPATIENT IDENTITY VERIFICATION COMPLETED USING TWO (2) METHODS: Patientconfirmed name verbally and ID band matches..PATIENT GENDER DATA: MalePATIENT RELEVANT IMPLANT DATA REVIEWED: Not ApplicableRADIOLOGY DEPARTMENT: CT; Exam(s) Completed: Brain and NeckPERIPHERAL IV DATA: Not applicableSIGNED BY: RT JoshEast [facility] 2017 9:45 PM [facility] HNO ID: [id number] thor: Ra Moore (Rt): RadiologyAuthor Type: TechnicianType: Allied HealthFiled: 05/07/2017 9:36 PMNote Text: Radiology Service Progress NotePATIENT NAME: Grant Elaine Santo [facility]IPN: [id number] OF SERVICE: May 07, 2017TIME: 9:35 PMPATIENT IDENTITY VERIFICATION COMPLETED USING TWO (2) METHODS: ID Band .PATIENT GENDER DATA: MalePATIENT RELEVANT IMPLANT DATA REVIEWED: Not ApplicableRADIOLOGY DEPARTMENT: General X-ray: Exam(s) Completed: Chest X-RayPERIPHERAL IV DATA: Not applicableSIGNED BY: Queta Moore2017 9:35 PM Normal [facility] APTTon 05-07-2017 aPTT 22.0 s Low 23.0-32.4 [facility] Comment on above: Result Comment: Unfr actionated [...] laboratory APTT reagent in use throughout the [facility] Critical Care [facility] CBC and Differentialon 05-07 Abs Baso 0.06 k/uL Normal <0.11 [facility] Abs [place] 1.37 k/uL High <0.87 [facility] Abs Neut 5.42 k/uL Normal 1.45-7.50 [facility] Basophils/100 WBC Auto (Bld) 0.5 % Normal [facility] Eosinophils 0.10 10*3/uL Normal <0.46 [facility] Eosinophils/100 leukocytes 0.9 % Normal [facility] Erythrocyte distribution width Auto Ratio (RBC) 12.1 % Normal 11.5-15.0 [facility] Erythrocytes (RBC) 5.73 10*6/uL Normal 4.20-6.00 [facility] Hematocrit (HCT) 48.8 % Normal 39.0-51.0 [facility] Hemoglobin mass conc (Bld) 17.0 g/dL Normal 13.0-17.0 [facility] Lymphocytes 4.69 10*3/uL High 1.00-4.00 [facility] Lymphocytes/100 leukocytes 40.3 % Normal [facility] MCH 29.7 pG Normal 26.0-34.0 [facility] MCHC mass conc (RBC) 34.8 g/dL Normal 30.5-36.0 [facility] MCV 85.2 fL Normal 80.0-100.0 [facility] Monocytes/100 leukocytes 11.8 % Normal [facility] Neutrophils/100 WBC Auto (Bld) 46.5 % Normal [facility] Platelet mean volume (PMV) 9.2 fL Normal 9.0-12.7 [facility] Platelets 371 10*3/uL Normal 150-400 [facility] WBC (Leukocytes) 11.64 10*3/uL High 3.70-11.00 [facility] CNCRITCRon 05-07-2017 CNCRITCR Critical Care Transp ort (CCT) SANTOGRANT Elaine JR ([id number]) 1995 MDate Time Provider Department05/07/17 MADELINE MCCULLOUGH (ANNA) CCT During your visit today, we recorded the following information about you:Madeline Mccullough APRN.CNP 05/08/2017 2:34 AM [facility]igned[facility] TRANSPORT NOTEPatient Name: Grant Blanchard : 1995Service Date: May 07, 2017Referring Facility: [facility] Phys[facility]: Brandon Accepting Physician: LisaJECTIVE/CHIEF COMPLAINT: Fall/SeizureREASON FOR TRANSPORT: Necessary services unavailable at referring facilityHistory of Present Illness/Injury: Known to CCT team at time of given care andsummarized through review of available medical records, patient/familyinterview and from referring physician and staff.Grant Chele Blanchard JR is a 21 year old male with a past history known to our team attime of transport, significant for nothing who presented to [facility] s/pfall. Patient was walking out of a gas [...] physician managing the patient requested transfer to [facility] for tertiary and/or quaternary trauma services unavailable at thereferring facility.The physician managing the patient [facility] CareTransport Team transport and treat the patient for the purpose of tertiarycare, evaluation, and management of his emergent medical condition. Patientcondition at time of exam was: acutely ill and critically ill. Due to theunique circumstances of the patient, [facility] by referring physician.ROS:Unable to [...] thepatient's status. The patient was transported to [place] by [facility]otor(Helicopter) for tertiary and/or quaternary evaluation and management of hisEmergent and Critical Medical condition.Upon arrival to the receiving facility, a [id number] report was given tobjustin nursing staff in ER. Patient care was [...] compromise and SeizuresCardiovascular impairment, Respiratory impairment and HAND UMBRELLA TIPPER impairment which thepatient had and/or had a high probability of suddenly developing.SIGNATURE:Madeline Mccullough APRN-CNPAcute Care Nurse PractitionerWayne Hospital Critical Care Transport TeamAllergies As of Date: 05/07/2017 Noted Allergy ReactionSULFA (SULFONAMIDE ANTIBIOTICS) 05/07/2017 16 - UnknownDate Reviewed: 05/07/2017Reviewed by: Nasreen (Rn) Martinez - Fully AssessedReason for Visit: Critical Care Transport [1718]Problem List As Of Date 05/07/2017 Noted Resolved Status epilepticus (HCC) [G40.901] INVALID FOR*Follow-up and Disposition History RecordedEncounter Number: [id number] Status:Closed by MADELINE MCCULLOUGH on 05/08/17 Normal [facility] CT BRAIN WO IVCONon 05-08-[address] [...] be further and better evaluated with MRI.Details above.Imaging Assistant: NICO Transcribe Date/Time: May 07 2017 9:55PDictated by : CAYLA DOBBINS MDThis examination was interpreted and the report reviewed and electronically signed by: CAYLA DOBBINS MD on May 07 2017 10:30PM [id number] [facility] CT BRAIN WO IVCON * * *Final Report* * * * SEE BOTTOM OF REPORT FOR ADDENDED TEXT * * *DATE OF EXAM: May 07 2017 7:13PM [facility] 0504 - CT BRAIN WO [...] emergency room doctor on 05/07/2017 at 8:00 PM.Imaging Assistant: PSCB Transcribe Date/Time: May 07 2017 7:58PDictated by : KAYLAH COOPER MDThiedmar examination was interpreted and the report reviewed and electronically signed by: KAYLAH COOPER MD on May 07 2017 7:31PM ESTThis document has been addended by: KAYLAH COOPER MD on May 07 2017 8:03PM [id number] Normal [facility] CT CERVICAL SPINE WO IVCONon 05-07-2017 CT [...] be further and better evaluated with MRI.Details above.Imaging Assistant: [facility] Transcribe Date/Time: May 07 2017 9:55PDictated by : Thu BOOGIE examination was interpreted and the report reviewed and electronically signed by: CAYLA DOBBINS MD on May 07 2017 10:30PM [id number] [facility] CT CERVICAL SPINE WO IVCON * * *Final Report* * *DATE OF EXAM: May 07 2017 7:13PM [facility] 0505 - CT CERVICAL SPINE [...] significant degenerative changes.IMPRESSION:Limited study. No obvious displaced fracture.Imaging Assistant: [facility] Transcribe Date/Time: May 07 2017 7:32PDictated by : Thu GERMAN examination was interpreted and the report reviewed and electronically signed by: KAYLAH COOPER MD on May 07 2017 7:36PM [id number] Normal [facility] Comp Metabolic Panelon 05-07 Alanine aminotransferase (ALT) 47 U/L Normal 5-50 [facility] Albumin 4.8 g/dL Normal 3.5-5.0 [facility] Alkaline phosphatase (ALP) 52 U/L Normal 40-150 [facility] Anion gap 17 mmol/L Normal 9-18 [facility] Aspartate aminotransferase (AST) 26 U/L Normal 7-40 [facility] Bilirubin (total) 0.7 mg/dL Normal 0.0-1.5 [facility] Calcium 9.5 mg/dL Normal 8.5-10.5 [facility] Chloride 102 mmol/L Normal 98-110 [facility] CO2 24 mmol/L Normal 23-32 [facility] Creatinine 1.05 mg/dL Normal 0.70-1.40 [facility] Glucose mass conc 104 mg/dL High 65-100 [facility] Potassium molar conc 3.9 mmol/L Normal 3.5-5.0 [facility] Protein 8.1 g/dL Normal 6.0-8.4 [facility] Sodium 143 mmol/L Normal 135-146 [facility] Urea nitrogen 17 mg/dL Normal 10-25 [facility] ED NOTEon 05-07-2017 ED NOTE HNO ID: [id number] Author: Kalyn (Rn) Jason RN Service: Quality Author Type: Registered Nurse Type: ED Notes Filed: 05/07/2017 9:27 PM Note Text: propofol started at 10mcg, c-collar in place, ET size 7.5, 26mm at lip. Normal [facility] ED NOTE HNO ID: [id number] thor: Ernie Yanez (Rn) NEFTALY Baezervice: Emergency MedicineAuthor Type: Registered NurseType: ED NotesFiled: 05/07/2017 8:23 PMNote Text:Dr. Taylor ordered Not to continue external stimuli to for full NeuroAssessment at this time. Due to increased agitation Normal [facility] ED NOTE HNO ID: [id number] Author: Dieter (Substitute Bus Driver) CHALO Sheriff Service: Emergency Medicine Author Type: Registered Resp Therapist Type: ED Notes Filed: 05/07/2017 8:08 PM Note Text: Pt placed on 100% NRB. Pt did vomit and started to desat. Normal [facility] ED PROV NOTEon 05-07-2017 Protein mass conc HNO ID: [id number] thor: Romulo Osorio, MDService: (none)Author Type: PhysicianType: ED Provider NotesFiled: 05/07/2017 9:49 PMNote Text:ED Provider NotePatient Name: Grant Blanchard JRMRN: [id number] DATE: 05/07/17HistoryNo chief complaint on file.History provided by: EMS personnelChief Complaint: SeizuresHistory: Approximately 3 hours prior to presentation, the patient was [place] and fell striking his head. There is a question of whetherhe had a seizure first or a seizure after he had his head. The patienthas had multiple seizures since that time. He was taking a [facility] and treated with multiple doses of Ativan and IVKeppra. He arrives obtunded as a level I [place] AL[place] a [place] the [...] (AK,AV,EU,FV,HL,SUSHANT,MM,SP)LIPASE BLOOD (AK,AV,EU,FV,HL,SUSHANT,MM,SP)PROTHRO MBIN TIME / PT (NV,AV,EU,FV,HL,SUSHANT,MM,SP)ACTIVAT ED PTT (AK,AV,EU,FV,HL,SUSHANT,MM,SP)COMPREH ENSIVE METABOLIC PANEL (AK,AV,EU,FV,HL,SUSHANT,MM,SP)AMYLASE [...] respiratory failure, unspecified whether with hypoxia orhypercapnia ([facility]) J96.002. Status epilepticus ([facility]) G40.9013. Subdural hematoma ([facility]) I62.00PlanThe Patient was ADMITTED TO: SICU.Case discussed [...] provided. Critical care time excludesseparately billed procedures.SIGNATURE: Romulo Osorio MDPLEASE NOTE: Portions of the medical record may have been produced usingelectronic fish boning machine feeder and may contain errors with respect totranslation of words which may not have been identified prior tofinalization of the chart.Romulo Osorio MD05/07/17 2149 Normal [facility] ED PROV NOTE HNO ID: [id number] thor: ANDREA Álvarezervice: Emergency MedicineAuthor Type: PhysicianType: ED Provider NotesFiled: 05/07/2017 9:25 PMNote Text:ED Provider NotePatient Name: Grant Blanchard JRMRN: [id number] DATE: 05/07/17HistoryPatient presents with:SeizuresHPIHPI:21-year-old male with negative [...] Lymph 4.69 (H) 1.00 - 4.00 k/uL [place]% 11.8 % Abs [place] 1.37 (H) <0.87 k/uL Eosin% 0.9 % [...] phone discussing the patient with the hospitalist [facility], Dr. Love, the radiologist called to speak to my attending, and she suspects the patient may have a small subdural hematomaalong the tentorium and posterior falx.CCT was contacted. I spoke to the trauma ED physician at [place], . He accepts the patient for transfer. Patient will go by air.Dr. Taylor consulted with neurology at [place]. Patient has had 7 mg ofativan and [...] discussed with accepting physician, Dr. Osorio.TRANSFERRED to: [place] EDCondition at time of disposition: criticalThe attending who evaluated and managed this patient was Dr. Kovacs.SIGNATURE: INGA HendersonKG Interpretation:RHYTHM: Sinus tachycardia at 107 beats per minuteAXIS: Normal axisINTERVALS: Normal TN intervalQRS COMPLEX: NormalST SEGMENT: Normal ST-T segmentsQT INTERVAL: NormalCOMPARED WITH PRIOR: unchangedHeather RICK Padilla (Pa)05/07/172019Heather Elba (RICK Knox05/07/17 2032Attending NoteI have personally performed a face to face assessment of the patient andhave reviewed the PA/RN RADIATION ONCOLOGY note. My renae findings include:History: Patient presents [...] to haveseizures. I contacted the neurologist from [place]. He recommendedloading with another 1500 mg of [...] on this plan. He was thentransferred to [facility] for further evaluation of the traumasustained by the fall and status epilepticus.Critical CareI spent a total of 30 minutes of critical care time in the evaluation andmanagement of this patient. This was necessary to treat or preventdeterioration of the following condition(s): HAND UMBRELLA TIPPER impairment, which thepatient had and/or has a high probability of suddenly developing. Thepatient received antiepileptics and IV Fluids during the time thatcritical care was provided.I discussed the plan of care with the PA/APNand agree with the findings documented. Critical care time excludesseparately billed procedures.Adina Taylor MDOther additions or changes: NoneSignature: XANDER Álvarezate: 05/07/2017Time: 9:22 PMAdina Taylor MD05/07/172124 Normal [facility] HISTORY PHYSICALon 8 HISTORY PHYSICAL HNO ID: [id number] thor: Ceferino (ANDREA Cohenervice: General SurgeryAuthor Type: ResidentType: HANDPFiled: 05/08/2017 5:13 AMNote Text:TRAUMA HANDP CCHSARRIVAL DATE: 05/07/17ARRIVAL TIME: 9:25PMCATEGORY: Level 1INJURY DATE: 05/07/2017INJURY TIME: 9:00PMSubAdryan is a 21 year old White male. GCS at Scene was 11.HPI/CHIEF COMPLAINT: SeizuresPt transferred from [place] with SE, possible fall - 7mg ativan and1.5g Keppra x2 given UM NURSE.BRIEF DESCRIPTION OF INJURIES: Status epilepticusLAST FLUIDS/MEAL: unknownALLERGIESAllergen [...] (262 lb 12.6 oz) SpO2 99% BMI36.65 kg/i6VYNYA: GCS 7HEENT: Head: No lacerations or abrasions, [...] Loss of Consciousness for ? minutesMedications Given: Ativan, KeppraIMAGESLABS: CBC, Coags, BMP, Mg, PhosRecent Labs 05/07/1821WBC -- [...] AND DilantinLiver Function, Amylase, AND LipaseRecent Labs 05/07/1821/[id number] -- 7.1 -- -- 8.1ALB -- 4.4 -- -- 4.8ALT -- 45 -- -- 47AST -- 25 -- -- 26ALKPHOS -- 44 -- -- 52TBILI -- 0.7 -- -- 0.7AMYLASE -- 43 -- -- --LIPASE -- 24 -- -- --LACT 1.0 -- 0.7 1.03 --Cardiac EnzymesRecent Labs TROPT <0.010ABGsRecent Labs 05/07/1821PH 7.36 7.33*PCO2 45 47PO2 95 193*BE NEG 1 NEG 2HCO3 25 98TR8OQ 26 25O2HB 96 98COHB 0.9 0.8MHGB 0.6 0.7O2AD 30.0 100.0Assessment/PlanDIAGNOSES: Status epilepticusTREATMENT/EVALUATION PLANS: IntubationED DISPOSITION: To ICUFINAL INJURIES: No new injuries were identified after physical examinationand review of final radiological reading(s) of all studies.SENIOR RESIDENT NOTE:ATTENDING NOTE: see noteSIGNATURE: Ceferino Manuel MD PATIENT NAME: Grant Blanchard JRDATE: May 08, 2017 : 5:05 AM PAGER/CONTACT #: [facility] NURSING PROGon 05-07-2017 Protein mass conc HNO ID: [id number] thor: Nasreen (Rn) Rosi: NursingAuthor Type: Registered NurseType: Nursing Progress NoteFiled: 05/08/2017 5:49 AMNote Text: Nursing Progress NotePatient Name: Grant Blanchard JRMRN: [id number] [facility] Daily Note:2145: Arrived to [facility], intubated, placed on vent by RT, chlorhexidinebath completed, placed on hyudevn1863: Chlorhexidine bath completed; the patient's gown was changed.Preventative allevyn was applied to the coccyx.224: Family brought to bedside;Dr. Potts at bedside to answerquestions.2246: Arturo Pham CNP states that there are no neurosurgical needs atthis time after consultation with Dr. Johnson. Defer to neurology to breakseizure activity. Possible plan for MRI in the future.225: EEG paged for the third time. Returned page; states will be aftershift change at 2300. Made aware of the urgency of the situation.230: Family at bedside, MD Ryan updated pt family on plan of care.223: medical lab tech instructor and lab at bedside.0000: Pt reassessed. See flow sheet.0017: results technician updated on STAT MRI ordered.0057: MD Ryan rounded. MD to order AM labs, KUB and ordered to holdKeppra dose until 0900.0151: Pt to MRI with transport, RT, and RN.0336: Pt returned from MRI and reconnected to all monitors. Familyupdated.0441: Time completed for LP.0530: medical lab tech instructor at bedside to place leads; LP complete. ZEFERINO Milton to lab todeliver spinal fluid samples. Family at bedside.This note was completed by: Gavi Payne RN [facility] PROGRESSon 05-07-2017 Protein mass conc HNO ID: [id number] thor: Greg Mckeon: General SurgeryAuthor Type: PhysicianType: Progress NotesFiled: 05/07/2017 9:31 PMNote Text:Full trauma HANDP in process. Brief Trauma Attending Note documentation forLevel I activation.21 yo male air transport in from [facility]. Had ? fall with seizures orseizures that preceded a same level fall.CT brain at facility showed possible small SDH, but scan quality was poordue to seizure activity.On arrival here he was having seizure activity. Intubated by ED staff forairway protection.Will repeat CT brain.To ICUNeurosurg and Neurology consults. Will admit to trauma. If no injuries,can transfer to medical service for seizure management.Greg Boyle, [facility] 2017 9:31 PM [facility] PROGRESS HNO ID: [id number] thor: Leander (Yaquelin VarelaSer: (none)Author Type: TechnicianType: Progress NotesFiled: 05/07/2017 8:08 PMNote Text: Radiology Service Progress NotePATIENT NAME: Grant Blanchard OF SERVICE: May 07, 2017TIME: 8:07 PMPATIENT IDENTITY VERIFICATION COMPLETED USING TWO (2) METHODS: Patientconfirmed name verbally and Date of .PATIENT GENDER DATA: MalePATIENT RELEVANT IMPLANT DATA REVIEWED: Not ApplicableRADIOLOGY DEPARTMENT: General X-ray: Exam(s) Completed: Chest X-RayPERIPHERAL IV DATA: Not applicableSIGNED BY: RT NamMar2017 8:07 PM Normal [facility] PROGRESS HNO ID: [id number] thor: Ellen (Rt) Ra Gipson: (none)Author Type: TechnicianType: Progress NotesFiled: 05/07/2017 7:20 PMNote Text: Radiology Service Progress NotePATIENT NAME: Grant Blanchard [facility] [id number] OF SERVICE: May 07, 2017TIME: 7:19 PMPATIENT IDENTITY VERIFICATION COMPLETED USING TWO (2) METHODS: ID Bandand Family member confirmed name verbally.PATIENT GENDER DATA: MalePATIENT RELEVANT IMPLANT DATA REVIEWED: Not ApplicableRADIOLOGY DEPARTMENT: General X-ray: Exam(s) Completed: Chest X-RayPERIPHERAL IV DATA: Not applicableSIGNED BY: Ellen Gipson RT/Leander Varela RT(R)May 07, 2017 7:19 PM Normal [facility] PROGRESS HNO ID: [id number] thor: Petrona Hunter (Tech) Ra Vazquez: (none)Author Type: TechnicianType: Progress NotesFiled: 05/07/2017 7:19 PMNote Text: Radiology Service Progress NotePATIENT NAME: Grant Blanchard JRMRN: [id number] OF SERVICE: May 07, 2017TIME: 7:17 PMPATIENT IDENTITY VERIFICATION COMPLETED USING TWO (2) METHODS: ID Bandand Other ER staff with patient verified PT, PT unresponsive.PATIENT GENDER DATA: MalePATIENT RELEVANT IMPLANT DATA REVIEWED: Not ApplicableRADIOLOGY DEPARTMENT: CT; Exam(s) Completed: Brain and NeckPERIPHERAL IV DATA: Not applicableSIGNED BY: Petrona Moncada [facility] 2017 7:17 PM Normal [facility] Protimeon 05-07-2017 INR Coag RelTime (Bld) 1.0 {INR} Normal 0.9-1.3 [facility] Comment on above: Result Comment: Xiao min K Antagonist (VKA) Therapeutic Range: INR 2 to 3 (Target INR of 2.5)Note: For patients treated with VKA drugs, such as warfarin, the [place] [employer] 2012 Guideline recommends [...] al. Chest 2012, 141:7S-47SNishimura RA, et al. JACC 2017, 70: 252-289 PT Sec 10.4 sec Normal 9.7-13.0 [facility] Toxicology Screen,Uron 05-07 Amphetamines, Urine Negative Normal Negative [facility] Comment on above: Result Comment: Cuto ff threshold at 1000 ng/mL. Barbiturates, Urine Negative Normal Negative [facility] Comment on above: Result Comment: Cuto ff threshold at 200 ng/mL. Benzodiazepines, Ur Negative Normal Negative [facility] Comment on above: Result Comment: Cuto ff threshold at 200 ng/mL. Cannabinoids, Urine Negative Normal Negative [facility] Comment on above: Result Comment: Cuto ff threshold at 50 ng/mL. Cocaine, Urine Negative Normal Negative [facility] Comment on above: Result Comment: Cuto ff threshold at 300 ng/mL. Ethanol, Urine <11 Normal <11 [facility] Opiates, Urine Negative Normal Negative [facility] Comment on above: Result Comment: Cuto ff threshold at 300 ng/mL. Oxycodone, Urine Negative Normal Negative [facility] Comment on above: Result Comment: Cuto [...] on the same specimen through Client Services ([phone]) if contacted within 48 hours of initial testing.[1]Substance Abuse and Mental Health Services Administration (2012). Clinical Drug Testing in Primary Care Technical Assistance Publication Series 32. Department of Health and Human Services, [place], p.10. Phencyclidine, Urine Negative Normal Negative [facility] Comment on above: Result Comment: Cuto ff [...] AP)Exam Date/Time: 05/07/2017 9:36 PMIndication: TraumaMQ: XCPR_5Comparison: 05/07/2017, 2008 hoursRESULT:Lines, tubes, and devices: The tip of endotracheal tube is approximately 2.7 cm above the carinaLungs and pleura: Increased interstitial markings have developed in both lungs since the prior study.Cardiomediastinal silhouette: The cardiac silhouette is prominent in size. There is prominence of the pulmonary vasculatureIMPRESSION:PULMONARY VENOUS CONGESTION WITH INTERSTITIAL EDEMA THAT HAS DEVELOPED SINCE THE PRIOR STUDYSATISFACTORY POSITION OF THE ENDOTRACHEAL TUBETranscriptionist: PSCB Transcribe Date/Time: May 07 2017 9:36PDictated by : DILLON LOPEZ MDThis examination was interpreted and the report reviewed and electronically signed by: DILLON LOPEZ MD on May 07 2017 9:38PM [id number] Normal [facility] XR CHEST 1V FRONTAL PORT * * [...] obvious pneumothoraxCardiomediastinal silhouette: Stable cardiomediastinal silhouette.IMPRESSION:Hypoinflat ion. Atelectasis.Imaging Assistant: NICO Transcribe Date/Time: May 07 2017 8:12PDictated by : KAYLAH COOPER MDThis examination was interpreted and the report reviewed and electronically signed by: KAYLAH COOPER MD on May 07 2017 8:14PM [id number] Normal [facility] XR CHEST 1V FRONTAL PORT * * [...] is not enlargedIMPRESSION:Hypoinflation . No obvious acute findings.Imaging Assistant: [facility] Transcribe Date/Time: May 07 2017 7:39PDictated by : KAYLAH COOPER MDThis examination was interpreted and the report reviewed and electronically signed by: KAYLAH COOPER MD on May 07 2017 7:40PM [id number] Normal [facility] Vital Signs Date Time Vital Sign Value Performing Clinician Facility 04-23-2023 11:46-0400 Body height 182.88 cm [facility] 04-23-2023 11:46-0400 Body mass index (BMI) [Ratio] 40.9 kg/m2 [facility] 04-23-2023 11:46-0400 Body temperature 100.5 [degF] [facility] 04-23-2023 11:46-0400 Body weight 137.04 kg [facility] 04-23-2023 11:46-0400 Diastolic blood pressure 82 mm[Hg] [facility] 04-23-2023 11:46-0400 Heart rate 98 /min [facility] 04-23-2023 11:46-0400 Respiratory rate 18 /min [facility] 04-23-2023 11:46-0400 SaO2% (BldA) [Mass fraction] 98 % [facility] 04-23-2023 11:46-0400 Systolic blood pressure 132 mm[Hg] [facility] 02-15-2023 19:11-0500 Body temperature 99.3 [degF] [facility] 02-15-2023 19:11-0500 Body weight 145.78 kg [facility] 02-15-2023 19:11-0500 Diastolic blood pressure 102 mm[Hg] [facility] 02-15-2023 19:11-0500 Heart rate 88 /min [facility] 02-15-2023 19:11-0500 Respiratory rate 20 /min [facility] 02-15-2023 19:11-0500 SaO2% (BldA) [Mass fraction] 96 % ER [facility] 02-15-2023 19:11-0500 Systolic blood pressure 151 mm[Hg] ER [facility] 05-08-2017 19:43-0400 Body surface area Derived from formula [facility] Comment on above: Performed By: #### HACUTP ####[facility] [address] [place], [place] [phone] 05-08-2017 07:41-0400 Body mass index (BMI) [Ratio] [facility] Comment on above: Performed By: #### FLCSF ####[id number] [place] [id number] Encounters Encounter Date Encounter Type Care Provider Facility Start: 04-23-2023 End: 04-23-2023 ambulatory [facility] Work Phone: Start: 04-23-2023 End: 04-23-2023 Patient encounter procedure [facility] Physician [facility] Work Phone: Start: 02-15-2023 End: 02-15-2023 Emergency department patient visit ER [facility] Start: 11-27-2020 End: 11-28-[address] GLEN WALKER Facility:[facility] Start: 11-21-2020 End: 11-22-[address] GLEN WALKER Facility:[facility] Start: 10-31-2020 End: 10-31-[address] GLEN WALKER Facility:[facility] Start: 07-05-2020 End: 07-06-[address] GLEN WALKER Facility:[facility] Start: 05-20-2017 Patient encounter procedure [facility] Start: 05-20-2017 End: 05-20-2017 [facility]: 05-07-2017 End: 05-11-2017 Evaluation and management of inpatient [facility] Start: 05-07-2017 End: 05-07-2017 Emergency department patient visit ADINA Elba TAYLOR [facility] Procedures Date Procedure Procedure Detail Performing Clinician Start: 05-08-2017 Antibody screen GREG BOYLE Comment on above: Performed By: #### [facility] ####[facility] [place], [place] [phone] Payers Date Payer Category Payer Self-pay 2023 Unknown [id number] 1995 Unknown [id number] 2.16.84 [id number] 1996 Unknown [id number] 2.16.84 [id number] 1996 Unknown [id number] 2.16.84 [id number] 1996 Unknown [id number] 2.16.84 [id number] 1959 Unknown [id number] Unknown [id number] 2.16.8 [id number] Unknown MMO [id number] Unknown [employer] BC/BS [id number] Worker's Compensation [id number] Social History Date Type Detail Facility Start: 04-23-2023 Tobacco smoking status NHIS Never smoked tobacco (finding) [facility] Start: 1995 Sex Assigned At Male F [facility] NEGATED: Highlighted row Unknown if ever smoked [facility] Chief complaint+Reason for visit Narrative Note Date & Type Note Facility Chief complaint+Reason for visit Narrative Reason for Visit COVID-19 Contact with and (suspected) exposure to covid-19 [facility] Work Phone: Evaluation note Note Date & Type Note Facility Evaluation note Diagnosis Onset Date COVID-19 noneactive Contact with and (suspected) exposure to covid-19 noneactive [facility] Work Phone: Hospital Discharge instructions Note Date & Type Note Facility Hospital Discharge instructions No known hospital discharge instructions. [facility] Summary Purpose Family History No Family History Records FoundNo Family History Records FoundNo Family History Records FoundNo Family History Records FoundNo Family History Records FoundNo Family History Records Found Advance Directives Advance Directive Response Recorded Date/ Time Advance Directives No April 22 024 11:21am Additional Source Comments (unrecognized sect ion and content) No Status Records FoundNo Status Records FoundNo Status Records FoundNo Status Records FoundNo Status Records FoundNo Status Records Found INFORMATION SOURCE (unrecogn ized section and content) DATE CREATED AUTHOR 07/29/2017 [facility] DATE CREATED AUTHOR AUTHOR'S ORGANIZ ATION 01/31/2018 [facility] DATE CREATED AUTHOR AUTHOR'S ORGANIZ ATION 09/22/2020 [facility] DATE CREATED AUTHOR AUTHOR'S ORGANIZ ATION 12/05/[address] [facility] DATE CREATED AUTHOR AUTHOR'S ORGANIZ ATION 03/16/2021 [facility] DATE CREATED AUTHOR AUTHOR'S ORGANIZ ATION 02/19/2023 [facility] Care Teams (unrecognized sec tion and content) Team Status: Active Member Role Status Dates Glen Walker MD Primary Care Provider Active Team Status: Inactive Member Role Status Dates Glen Walker MD Primary Care Provider Active Start: April 23, 2023 End: April 23, 2023 ZULEMA Su Attending Provider Active S tart: April 23, 2023 End: April 23, 2023 Goals (unrecognized section and content) Goals may be documented in a n alternate section FOR RECORDS PERTAINING TO PATIENTS WHO ARE [...] BE BASED ON THE PRIMARY CLINICAL RECORDS. [facility] [employer] [facility]. provides no warranty or guarantee of the accuracy or completeness of information in this document.
== END 2023-08-04 09:17 | disposition home or self-care (01) ==
LOC: NM 09:16
PROVIDERS: PCP Family Medicine; Visit Provider Family Medicine
DX: R94.31 Abnormal electrocardiogram [ECG] [EKG] (principal)
CPT/HCPCS: 78452; A9500

== ENCOUNTER 2023-08-05 07:52 | Outpatient (OUT) | payer OTHER, SELFPAY ==
--- NOTE | 2023-08-05 | PCN_ITS ---
CARDIAC STRESS TEST Requesting Physician: Procedure Date: 08/05/2023 This was a treadmill exercise stress test with myocardial perfusion imaging performed at the [facility] on 08/05/2023. Informed consent was obtained. The patient was attached to electrocardiographic monitoring. An intravenous line was secured. Baseline ECG and vital signs were obtained. The patient exercised on the treadmill for 7 minutes and 50 seconds, reaching stage 3 of the Donald protocol and achieving 10.1 METS. Cardiolite was administered at peak exercise. Resting heart rate was 84 BPM and maximum heart rate was 169 BPM, representing 87% of the maximal predicted heart rate. Resting blood pressure was 130/88 and maximum blood pressure was 148/88. Resting ECG showed evidence of sinus rhythm. ECG during exercise showed sinus tachycardia without ischemic changes. Final ECG was comparable to baseline. SUMMARY OF THE FINDINGS: 1. No evidence of ischemic ECG changes during treadmill exercise. 2. Myocardial perfusion images will be reported separately. 3. Tavera Treadmill Score of +8 is associated with low risk for correction cardiac events. MTDD
--- OUTSIDE RECORDS SUMMARY | 2023-08-05 07:58 | XMS_ITS ---
Patient Summarization (C-CDA 2.1 CCD) Created on: August 05, 2023 Grant Blanchard JR : 1995 Sex: Male Author Organization Sample organization Care Team Providers Care Extrusion Process Operator Name Role Phone ADINA TAYLOR Unavailable Unavailable STOJIC, YAZMIN S Unavailable Unavailable BOYLE, GREG R Unavailable Unavailable [...] HOY, DR CASTRO Attending Unavailable HOY, DR CASRTO Consulting Unavailable HOY, DR CASTRO Primary Care [...] to drug (disorder) 8 AOF, Unknown Reaction [facility] Repository (1 source) Sulfonamides (Antibiotic) Drug allergy (disorder) 5 [facility] Repository (2 sources) Sulfonamides (Antibiotic); Translations: [Sulfa Antibiotics] Allergy to Substance 4 [facility] Repository (1 source) Naproxen Drug Allergy 4 Unknown Reaction [facility] Encounters Encounter Date Encounter Type Care Provider Facility Start: 04-23-2023 End: 04-23-2023 ambulatory [facility] Work Phone: Start: 04-23-2023 End: 04-23-2023 Patient encounter procedure [facility] [place] Work Phone: Start: 02-15-2023 End: 02-15-2023 Emergency department patient visit ER [facility] Start: 11-27-2020 End: 11-28-[address] GLORIA WALKER Facility:[facility]1 Start: 11-21-2020 End: 11-22-[address] GLORIA WALKER Facility:[facility]1 Start: 10-31-2020 End: 10-31-[address] GLORIA WALKER Facility:[facility]1 Start: 07-05-2020 End: 07-06-[address] GLORIA WALKER Facility:[facility]1 Start: 05-20-2017 Patient encounter procedure [facility] Start: 05-20-2017 End: 05-20-[address] [facility] Start: 05-07-2017 End: 05-11-2017 Evaluation and management of inpatient [facility]REG [facility] Start: 05-07-2017 End: 05-07-2017 Emergency department patient visit ADINA TAYLOR [facility] Medications Current Medications Medication Drug Class(es) Dates Sig (Normalized) Sig (Original) acetaminophen 325 mg / HYDROcodone bitartrate 5 mg oral tablet (1 source) Opioid Agonist Start: 11-08-2020 take 1 tablet by mouth every eight hours Hydrocodone-Aceta minophen Active 1 TAB PO Q8H 10 November 08, 2020 doxycycline hyclate 100 mg [...] 04, 2017 12:00am October 22, 2017 7:24am Payers Date Payer Category Payer Self-pay 2023 Unknown [id number] 1995 Unknown [id number] 2.16.84 [id number] 1995 Unknown [id number] 2.16.84 [id number] 1995 Unknown [id number] 2.16.84 [id number] 1995 Unknown [id number] 2.16.84 [id number] 1959 Unknown [id number] Unknown [id number] 2.16.8 [id number] Unknown MMO [id number] Unknown [place] BC/BS [id number] Worker's Compensation [id number] Problems Active Problems Problem Classification Problem Date [...] [CONTACT W/AND (SUSP) EXPOS COVID-19] Onset: 10-31-2020 Procedures Date Procedure Procedure Detail Performing Clinician Start: 05-08-2017 Antibody screen GERG BOYLE Comment on above: Performed By: #### T SCR ####[facility] [place], [place] [phone] Results Test Name Value Interpretation Reference Range Facility COVID Cepheidon 04-23-2023 SARS-CoV-2 (COVID-19) RNA KING+probe Ql (Unsp spec) Negative [facility] - Microbiology an d Antimicrobial susceptibilityon 04-23-2023 SARS-CoV-2 (COVID-19) RNA KING+probe Ql (Unsp spec) Positive [facility] No Panel Informationon 04-22 POC Influenza A (PCR) Negative [facility] POC Influenza B (PCR) Negative [facility] CT cervical spine wo conon 1 03-31-2020 CT cervical spine wo con [facility] Main [place] [address] [place] [address] Scan Report Signed Patient: Grant Blanchard JR MR#: [id number] : 1995 Acct:[id number] Age/Sex: 25 / M ADM Date: 01/28/21 Loc: ER Room: Type: [facility] ER Attending Dr: Ordering Provider: Greg Kitchen [...] Morgan Young M.D.01/28/2021 6:17 PM Dictation Location: [facility] Transcribed By: SEFERINO 01/28/211816 Dictated By: Morgan Young DO 01/28/211814 Signed By: 01/28/211816 [facility] CT head/brain wo conon 01-28 CT head/brain wo con [place] [address] CT Scan Report Signed Patient: Grant Blanchard JR MR#: [id number] : 1995 Acct:[id number] Age/Sex: 25 / M ADM Date: 01/28/21 Loc: ER Room: Type: [facility] ER Attending Dr: Ordering Provider: Greg Kitchen [...] Morgan Young M.D.01/28/2021 6:15 PM Dictation Location[facility]Juan Luis Transcribed By: SEFERINO 01/28/211814 Dictated By: Morgan Young DO 01/28/211812 Signed By: 01/28/211814 [facility] XR KUB 1 VIEWon 11-27-2020 XR KUB [...] NICHOLAS CEDILLO Date: 2020-11-27 16:34 Normal [facility] CULTURE URINEon 11-21-2020 CULTURE URINE Culture Observations : VERY LIGHT GROWTH OF MIXED SKIN SERGEI. NO POTENTIAL PATHOGENS SEEN. Normal [facility] Comment on above: Performed By: #### U RCX #### [facility] [address] [place] [address] Dr. Dyan Tierney UA RANDOM W/MICROSCOPICon BACTERIA NONE SEEN Normal NONE SEEN [facility] Comment on above: Performed By: #### U AMIC #### [facility] [address] [place] [address] Dr. Dyan Tierney Bilirubin Ql (U) Negative Normal NEGATIVE [facility] Comment on above: Performed By: #### U AMIC #### [facility] [address] [place] [address] Dr. Dyan Tierney CAST NONE SEEN Normal NONE SEEN [facility] Comment on above: Performed By: #### U AMIC #### [facility] [address] [place] [address] Dr. Dyan Tierney Clarity (U) CLEAR Normal CLEAR [facility] Comment on above: Performed By: #### U AMIC #### [facility] [address] [place] [address] Dr. Dyan Tierney Color (U) YELLOW Normal YELLOW [facility] Comment on above: Performed By: #### U AMIC #### [facility] [address] [place] [address] Dr. Dyan Tierney Crystals LM Nom (Urine sed) NONE SEEN Normal NONE SEEN [facility] Comment on above: Performed By: #### U AMIC #### [facility] [address] [place] [address] Dr. Dyan Tierney Epithelial cells LM Ql (Urine sed) NONE SEEN Normal NONE SEEN /RARE [facility] Comment on above: Performed By: #### U AMIC #### [facility] [address] [address] [address] Dyan Tierney Glucose Ql (U) Negative Normal NEGATIVE [facility] Comment on above: Performed By: #### U AMIC #### [facility] [address] [address] [address] Dyan Tierney Hemoglobin Ql (U) Negative Normal NEGATIVE [facility] Comment on above: Performed By: #### U AMIC #### [facility] [address] [address] [address] Dyan Tierney Ketones Ql (U) Negative Normal NEGATIVE [facility] Comment on above: Performed By: #### U AMIC #### [facility] [address] [address] [address] Dyan Tierney LEUKOCYTES Negative Normal NEGATIVE [facility] Comment on above: Performed By: #### U AMIC #### [facility] [address] [place] [address] Dr. Dyan Tierney MUCOUS NONE SEEN Normal NONE SEEN [facility] Comment on above: Performed By: #### U AMIC #### [facility] [address] [address] [address] Dyan Tierney Nitrite Ql (U) Negative Normal NEGATIVE [facility] Comment on above: Performed By: #### U AMIC #### [facility] [address] [place] [address] Dr. Dyan Tierney pH (U) 6.0 [pH] Normal 5-9 [facility] Comment on above: Performed By: #### U AMIC #### [facility] [address] [place] [address] Dr. Dyan Tierney RBC 0-2 Normal 0-2 [facility] Comment on above: Performed By: #### U AMIC #### [facility] [address] [place] [address] Dr. Dyan Tierney SPEC GRAVITY 1.025 Normal 1.005-<=1. 025 [facility] Comment on above: Performed By: #### U AMIC #### [facility] [address] [place] [address] Dr. Dyan Tierney UA PROTEIN Negative Normal NEGATIVE/ TRACE [facility] Comment on above: Performed By: #### U AMIC #### [facility] [address] [place] [address] Dr. Dyan Tierney Urobilinogen Qn (U) 0.2 {Boubacar'U}/dL Normal 0.2 - 1.0 [facility] Comment on above: Performed By: #### U AMIC #### [facility] [address] [place] [address] Dr. Dyan Tierney WBC 0-2 Abnormal NONE SEEN [facility] Comment on above: Performed By: #### U AMIC #### [facility] [address] [place] [address] Dr. Dyan Tierney Chlamydia/GC Amplificationon 11-08-2020 Chlamydia Trachomotis, KING Negative Normal Negative [facility] Comment on above: Performed By: #### G CCHLAMAMP #### [facility] , #### UA #### [facility] [address] [place] [address] Neisseria Gonorrhoeae, KING Negative Normal Negative [facility] Comment on above: Result Comment: Perf ormed at: =G - [facility] [address] [id number] Medical Collections: Junie Peña MD, Phone: [phone] PERFORMED BY: [place] [address] PATHOLOGIST WOOD MILLING MACHINE OPERATOR MYLA DOSHI M.D. Performed By: #### G CCHLAMAMP #### [facility] , #### UA #### [facility] [address] [place] [address] US scrotumon 11-08-2020 US scrotum [facility] [place] [address] Ultrasound Report Signed Patient: Grant Blanchard JR MR#: [id number] : 1995 Acct:[id number] Age/Sex: 25 / M ADM Date: 11/08/20 Loc: ER Room: Type: [facility] ER Attending Dr: Ordering Provider: Greg Kitchen [...] Major Jr., M.D.11/08/2020 2:08 PM Dictation Location: [place] [address] Tech: Jayshree [place] Transcribed By: SEFERINO 11/08/20 140 Dictated By: Bandar Major Jr, MD 11/08/20 1403 Signed By: 11/08/201407 Normal [facility] Urinalysison 11-08-2020 Appearance (U) Clear Normal Clear [facility] Comment on above: Order Comment: Name Collection Type:: Clean-Voided Midstream Performed By: #### G CCHLAMAMP #### [facility] , #### UA #### [facility] [address] [place] [address] Bilirubin,Urine Negative Normal Negative [facility] Comment on above: Order Comment: Name Collection Type:: Clean-Voided Midstream Performed By: #### G CCHLAMAMP #### [facility] , #### UA #### [facility] [address] [place] [address] [place] Color (U) Yellow Normal Yellow [facility] Comment on above: Order Comment: Name Collection Type:: Clean-Voided Midstream Performed By: #### G CCHLAMAMP #### [facility] , #### UA #### [facility] [address] [place] [address] [place] Glucose Ql (U) Normal Normal Normal [facility] Comment on above: Order Comment: Name Collection Type:: Clean-Voided Midstream Performed By: #### G CCHLAMAMP #### [facility] , #### UA #### [place] [address] [place] Ketones Ql (U) Trace High Negative [facility] Comment on above: Order Comment: Name Collection Type:: Clean-Voided Midstream Performed By: #### G CCHLAMAMP #### [facility] , #### UA #### [address] Leukocyte esterase Test strip Ql (U) Negative Normal Negative [facility] Comment on above: Order Comment: Name Collection Type:: Clean-Voided Midstream Performed By: #### G CCHLAMAMP #### [facility] , #### UA #### [facility] [address] [place] [address] [place] Nitrite,Urine Negative Normal Negative [facility] Comment on above: Order Comment: Name Collection Type:: Clean-Voided Midstream Performed By: #### G CCHLAMAMP #### [facility] , #### UA #### [facility] [address] [place] [address] [place] Occult Blood,Urine Negative Normal Negative [facility] Comment on above: Order Comment: Name Collection Type:: Clean-Voided Midstream Result Comment: PERF ORMED BY: [place] [address] PATHOLOGIST WOOD MILLING MACHINE OPERATOR JIANLAN SUN M.D. Performed By: #### G CCHLAMAMP #### [facility] , #### UA #### [address] pH (U) 7.5 [pH] Normal 5.0-9.0 [facility] Comment on above: Order Comment: Name Collection Type:: Clean-Voided Midstream Performed By: #### G CCHLAMAMP #### [facility] , #### UA #### [address] Protein,Urine Negative Normal Negative [facility] Comment on above: Order Comment: Name Collection Type:: Clean-Voided Midstream Performed By: #### G CCHLAMAMP #### [facility] , #### UA #### [address] Specificy [place],Urine 1.027 Normal 1.001-1.03 0 [facility] Comment on above: Order Comment: Name Collection Type:: Clean-Voided Midstream Performed By: #### G CCHLAMAMP #### [facility] , #### UA #### [address] Urobilinogen,Urine Normal Normal Normal [facility] Comment on above: Order Comment: Name Collection Type:: Clean-Voided Midstream Performed By: #### G CCHLAMAMP #### [facility] , #### UA #### [address] Covid-19 PCR (CVDTB)on 10-10 SARS-CoV-2 (COVID-19) RNA KING+probe Ql (Unsp spec) Not detected Normal NOT DETECTED [facility] Comment on above: Result Comment: This test is not yet approved or cleared by the [place] FDA. When there are no FDA-approved or cleared tests available, and other criteria are met, FDA can make tests available under an emergency access mechanism called an Emergency Use Authorization (EUA). The EUA for this test is supported by the [place] of Health and Human Service's (HHS's) declaration [...] consistent with SARS-CoV-2. Performed By: #### C [facility] #### [facility] [address] [place] [address] Dr. Dyan Tierney XR chest 1V portableon 10-13 XR chest 1V portable [place] [address] XRay Report Signed Patient: Grant Blanchard JR MR#: [id number] : 1995 Acct:[id number] Age/Sex: 25 / M ADM Date: 10/12/20 Loc: ER Room: Type: [facility] ER Attending Dr: Ordering Provider: [...] Teddy Montelongo M.D.10/13/2020 9:12 AM Dictation Location: [place] [address] Transcribed By: [facility] 10/13/20911 Dictated By: Teddy Montelongo II, MD 10/13/20910 Signed By: 10/13/20911 [facility] Basic Metabolic Panelon 09-0 Calcium [Mass/Vol] 9.6 mg/dL Normal 8.2-10.2 [facility] Comment on above: Performed By: #### H S TROP, MG, BMP, CBC #### [facility] [address] [place] [address] [place] Chloride [Moles/Vol] 107 mmol/L Normal 95-114 [facility] Comment on above: Performed By: #### H S TROP, MG, BMP, CBC #### [facility] [address] CO2 [Moles/Vol] 20.4 mmol/L Low 22.0-30.0 [facility] Comment on above: Performed By: #### H S TROP, MG, BMP, CBC #### [facility] [address] Creatinine [Mass/Vol] 1.01 mg/dL Normal 0.64-1.27 [facility] Comment on above: Performed By: #### H S TROP, MG, BMP, CBC #### [facility] [address] [place] [address] [place] Creatinine Clr Calc Pharmacy 169.57 [facility] Comment on above: Performed By: #### H S TROP, MG, BMP, CBC #### [facility] [address] Estimated GFR ( Va > 60 [facility] Comment on above: Result Comment: GFR estimated reference range: According to KDOQI guidelines, <60 ml/min/1.73m2 is sufficient to diagnose a patient with chronic kidney disease. Performed By: #### H S TROP, MG, BMP, CBC #### [facility] [address] [place] [address] [place] Estimated GFR (Non- Am > 60 [facility] Comment on above: Performed By: #### H S TROP, MG, BMP, CBC #### [facility] [address] [place] [address] [place] Glucose [Mass/Vol] 92 mg/dL Normal 70-100 [facility] Comment on above: Result Comment: [place] Glucose Reference Range is dependent on time and content of last meal. Glucose of more than 200 mg/dL in a nonstressed, ambulatory subject supports the diagnosis of Diabetes Mellitus. ADA recommended reference range Performed By: #### H S TROP, MG, BMP, CBC #### [facility] [address] Potassium [Moles/Vol] 3.5 mmol/L Normal 3.5-5.1 [facility] Comment on above: Performed By: #### H S TROP, MG, BMP, CBC #### [facility] [address] Sodium [Moles/Vol] 138 mmol/L Normal 136-146 [facility] Comment on above: Performed By: #### H S TROP, MG, BMP, CBC #### [address] Urea nitrogen [Mass/Vol] 12 mg/dL Normal 9-23 [facility] Comment on above: Performed By: #### H S TROP, MG, BMP, CBC #### [address] Complete Blood Count Auto Di ffon 10-12-2020 Basophils (Bld) [#/Vol] 0.1 10*3/uL Normal 0.0-0.2 [facility] Comment on above: Result Comment: PERF ORMED BY: [place] [address] PATHOLOGIST WOOD MILLING MACHINE OPERATOR MYLA DOSHI M.D. Performed By: #### H S TROP, MG, BMP, CBC #### [place] [address] [place] Basophils/100 WBC (Bld) 1.0 % Normal . [facility] Comment on above: Performed By: #### H S TROP, MG, BMP, CBC #### [facility] [address] [place] [address] [place] Eosinophils (Bld) [#/Vol] 0.1 10*3/uL Normal 0.0-0.45 [facility] Comment on above: Performed By: #### H S TROP, MG, BMP, CBC #### [address] Eosinophils/100 WBC (Bld) 0.6 % Normal . [facility] Comment on above: Performed By: #### H S TROP, MG, BMP, CBC #### [address] Erythrocyte distribution width (RBC) [Ratio] 12.5 % Normal 12.0-14.8 [facility] Comment on above: Performed By: #### H S TROP, MG, BMP, CBC #### [address] Hematocrit (Bld) [Volume fraction] 51.5 % High 38.8-50.0 [facility] Comment on above: Performed By: #### H S TROP, MG, BMP, CBC #### [address] Hemoglobin (Bld) [Mass/Vol] 18.0 g/dL High 13.0-17.0 [facility] Comment on above: Performed By: #### H S TROP, MG, BMP, CBC #### [address] Lymphocytes (Bld) [#/Vol] 3.1 10*3/uL Normal 1.00-4.8 [facility] Comment on above: Performed By: #### H S TROP, MG, BMP, CBC #### [address] Lymphocytes/100 WBC (Bld) 31.0 % Normal . [facility] Comment on above: Performed By: #### H S TROP, MG, BMP, CBC #### [address] MCH (RBC) [Entitic mass] 30.6 pg Normal 27.5-35.2 [facility] Comment on above: Performed By: #### H S TROP, MG, BMP, CBC #### [address] MCV (RBC) [Entitic vol] 87.5 fL Normal 83.5-101 [facility] Comment on above: Performed By: #### H S TROP, MG, BMP, CBC #### [facility] [address] [place] [address] Mean Corpuscular HGB Conc 35.0 g/dL Normal 32.5-35.6 [facility] Comment on above: Performed By: #### H S TROP, MG, BMP, CBC #### [address] Monocytes (Bld) [#/Vol] 1.0 10*3/uL High 0.0-0.8 [facility] Comment on above: Performed By: #### H S TROP, MG, BMP, CBC #### [address] Monocytes/100 WBC (Bld) 9.6 % Normal . [facility] Comment on above: Performed By: #### H S TROP, MG, BMP, CBC #### [address] Neutrophils (Bld) [#/Vol] 5.9 10*3/uL Normal 1.8-7.7 [facility] Comment on above: Performed By: #### H S TROP, MG, BMP, CBC #### [address] Neutrophils/100 WBC (Bld) 57.8 % Normal . [facility] Comment on above: Performed By: #### H S TROP, MG, BMP, CBC #### [place] [address] [place] Nucleated RBC/100 WBC (Bld) [Ratio] 0.4 % Normal 0-0.5 [facility] Comment on above: Performed By: #### H S TROP, MG, BMP, CBC #### [address] Platelet mean volume (Bld) [Entitic vol] 7.5 fL Normal 6.6-10.1 [facility] Comment on above: Performed By: #### H S TROP, MG, BMP, CBC #### [facility] [address] Platelets (Bld) [#/Vol] 337 10*3/uL Normal 150-450 [facility] Comment on above: Performed By: #### H S TROP, MG, BMP, CBC #### [facility] [address] RBC (Bld) [#/Vol] 5.89 10*6/uL High 3.90-5.60 [facility] Comment on above: Performed By: #### H S TROP, MG, BMP, CBC #### [facility] [address] WBC (Bld) [#/Vol] 10.2 10*3/uL Normal 4.5-11.0 [facility] Comment on above: Performed By: #### H S TROP, MG, BMP, CBC #### [facility] [address] ECG 12 lead ECGon 10-12-2020 ECG 12 lead ECG [facility] [place] [address] [place] [address] Electrocardiograph Report Signed Patient: Grant Blanchard JR MR#: [id number] : 1995 Acct:[id number] Age/Sex: 25 / M ADM Date: 10/12/20 Loc: ER Room: Type: [facility] ER Attending Dr: Ordering Provider: [...] has shortened Confirmed by ANA GARCIA DO ([id number]) on 10/13/2020 1:54:37 AM Referred By: Electronically Signed By:ANA GARCIA DO Transcribed By: WILFREDO Dictated By: Ana Garcia DO 10/12/20 1700 Signed By: 10/13/20 0154 Normal [facility] Magnesiumon 10-12-2020 Magnesium [Mass/Vol] 2.4 mg/dL Normal 1.6-2.6 [facility] Comment on above: Result Comment: PERF ORMED BY: [place] [address] PATHOLOGIST WOOD MILLING MACHINE OPERATOR MYLA DOSHI M.D. Performed By: #### H S TROP, MG, BMP, CBC #### [facility] [address] [place], [place] [id number] [facility] Troponin I High Sensitivityo n 10-12-2020 Troponin I High Sensitivity 9 pg/mL Normal 0-20 [facility] Comment on above: Result Comment: PERF ORMED BY: [place] [address] PATHOLOGIST WOOD MILLING MACHINE OPERATOR MYLA DOSHI M.D. Performed By: #### H S TROP, MG, BMP, CBC #### [facility] [address] [place], [place] [id number] [facility] Consenton 09-20-2020 Consent [id number]:127 Normal [facility] Registrationon 09-20-2020 Registration [id number]:127 Normal [facility] Covid-19 PCR (CVDTBH)on 06-09 SARS-CoV-2 (COVID-19) RNA KING+probe Ql (Unsp spec) Not detected Normal NOT DETECTED [facility] Comment on above: Result Comment: This test is not yet approved or cleared by the [place] FDA. When there are no FDA-approved or cleared tests available, and other criteria are met, FDA can make tests available under an emergency access mechanism called an Emergency Use Authorization (EUA). The EUA for this test is supported by the [place] of Health and Human Service's (HHS's) declaration [...] consistent with SARS-CoV-2. Performed By: #### [facility] #### [facility] [address] [address] Leonor Taylor Juan 06-06-2017 CNPN Telephone (FVPRAD) RAQUEL BLANCHARD JR ([id number]) 1995 MDate Time Provider Department06/06/17 GRACIE HURLEY [...] will be in touchwith him.Fabio Oliver NeurologyNeurological InstituteDetwiler Memorial HospitalPager: [phone] Bailey MD PHD 06/07/2017 1:54 PM SignedCan we reach out. I will switch to extended release. It is once a day butsame total dose.Yazmin Bailey MD PHDApril 2017 1:52 PMWendy Moon, RN, RN 06/07/2017 3:03 PM SignedI tried calling the patient to advise that Dr. Bailey ordered him Keppra 500 mgER to take 4 tablets by mouth once daily. His VM will not except any calls.Please advise patient if he calls back.'Owen Macias [facility] 06/07/2017 4:24 PM SignedPatient called back and [...] by mouth once daily. Status:Closed by YOHAN HUITRON, YAZMIN PHD on 06/07/17 [facility] CNCOon 05-20-2017 CNCO Letter TextApril 2017Grant Blanchard whom it may concern-Patient may return to work May 23, 2017 without restrictions.Thank you for your time and consideration.Sincerely,Yazmin Bailey MD, PhDStaff, [facility] and General NeurologyClinical Extension Course Counselorfamily development extension specialist, [facility] CENTERBoard Certified, Epilepsy and Neurology Normal [facility] [place] [facility] CNOVon 05-20-2017 CNOV Office Visit (NEEPFV) RAQUEL BLANCHARD JR ([id number]) 1995 MDate Time Provider Department05/20/17 9:40 AM [...] SEIZURES:1. Head Trauma (Yes, concussion from football)2. SERVICE PORTER Infections (Yes, see history)3. Family History of Seizures (yes, greatgrandmother, grandmother)4. Developmental Delay (No)5. Febrile Seizures (No)6. SERVICE PORTER Tumors (No)7. SERVICE PORTER Vascular Disease (No)8. Significant Medical History (No)CURRENT ANTICONVULSANTS:Keppra 1000 mg XR 1000 mg bidThe patient's side effects to the current medications: tired, fatiguePRIOR ANTICONVULSANT HISTORY: NonePrior Consult form Dr Mcdermott:Ruth;This is Mr. 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 Mother at bedside [...] any drug use. [facility] While in the ER his blood pressure dropped to80/50 and he was given fluids. His WBC count was 11.64 hemoglobin 17hematocrit 48 and platelet counts were 371. Sodium level was 143, potassium of3.9, glucose of 104, BUN 17, creatinine of 1.05, ALT 47, AST 26,ANDquot;phosphatase 52, total bilirubin of 0.7. [facility] and I recommended another load of Keppra 15 mg and to assessfosphenytoin if he continues to seize at that time patient had received 7 mg ofAtivan and a load of 50 mg Keppra. He was not intubated at that time andaccording to the notes she was transferred to [place] and he was not intubatedeither. Urine drug screen was negative. [facility] [place] [facility] showed a WBC count of 21.89 [...] lb 4.8 oz) SpO2 96% BMI 33.95 kg/o5Igwwh, in no acute distress. Skin is normal [...] Finger Flex Finger Ext Finger AbdFinger AddRight 5 5/5 5/5 5/5 5/5 5/5 5/5 5/5 5/5Left 06/12 5/5 5/5 5/5 5/5 5/5 5/5 5/5 5/5 Hip Flex Hip Ext BiFem (knee flex) Quads (knee ext) Gastroc (plantflx) TibAnt(Dorsiflx) TibPost (ank add) Ankle Eversion Ankle Inversion FlxHLong (ToeFlex)ExtHLong (ToeExt)Right 5/ 5/5 5/5 5/5 5/5 5/5 5/5 5/5 5/5 5/ 5/5Left 06/12 5/ 5/5 5/ 5/5 5/5 5/5 5/5 5/5 5/5 55Neck Flexors 5Neck Extensors 5REFLEXES Right LeftBicep 2/4 2/4Tricep 2/ 2/4BrRad 2/ 2/4Knee 2/ 2/4Ankle 2/ 2/4Pathological Reflexes:none? Sensation: Intact to proprioception, light [...] 2Lymph%, CSF 50 - 90 % 91 (H)[place]%, CSF 10 - 50 % 7 (L)CSF Tube Nbr No 4Comment, CSF Some reference ranges and other method performance specificationshave not been . . .Specimen Request Less than optimal volume of specimen received and processed.Smear Result No organisms seen Few . . . Gram stain performed on cytospunspecimen. Gram stain results reviewed and confirmed by [facility]Micro[facility].Culture No growth 14 daysHSV PCR Spec Source Cerebrospinal FluidHSV-1 Negative for Herpes Simplex Virus Type 1 by PCRHSV-2 Negative for Herpes Simplex Virus Type 2 by PCREnterovirus PCR Negative for Enterovirus by PCR.Source (Enterovirus PCR) Cerebrospinal FluidGlucose, CSF 50 - 75 mg/dL 91 (H)Protein, CSF 15 - 45 mg/dL 60 (H)Tobacco Conditioner Specimen originated from [facility] . . .VDRL, CSF Non Reactive [...] care of this patient.Yazmin Bailey MD, PhDStaff, [facility] and General NeurologyClinical Extension Course Counselorfamily development extension specialist, CCLCMBoard Certified, Epilepsy and NeurologyReferring Provider: SELF [200]Allergies As of Date: 05/20/2017 Noted Allergy ReactionSULFA (SULFONAMIDE ANTIBIOTICS) 05/07/2017 10 - AnaphylaxisDate Reviewed: 05/20/2017Reviewed by: Yoon Hay Ma - Fully AssessedReason for Visit: New Patient [172]Primary Visit Diagnosis:Partial idiopathic epilepsy with seizures of localized onset, not intractable, without status epilepticus (HCC) [G40.009] Other Visit Diagnosis:Abnormal finding in CSF [R83.9]Order(s):EEG LONG [6021037] Order #: [id number] TUBES - DRAW EXTRA [SQXTUBE] Order #: [id number] FUTURE LEVETIRACETAM [SQLEVET] Order #: [id number] FUTURE MRI BRAIN WO IVCON [3100917] Order #: [id number] FUTURE levETIRAcetam (KEPPRA) 1,000 mg tabletTake 1 [...] (around 11/19/2017).Follow-up and Disposition History RecordedEncounter Number: [id number] Status:Closed by YOHAN HUITRON, YAZMIN PHD on 05/25/17 Normal [facility] Levetiracetamon 05-20-2017 Levetiracetam mass conc 26.8 ug/mL Normal 12.0-46.0 [facility] Comment on above: Result Comment: This test was developed and its performance characteristics determined by [facility]'s [facility] [place] ([facility]). It has not been cleared or approved by the FDA. [facility] is regulated under CLIA as qualified to perform high-complexity testing. This test is used for clinical purposes. It should not be regarded as investigational or for research. Performed By: #### L KULWANT ####[facility] [place], [place] [phone]#### MARILYN #### [facility]-[address] [phone] PROGRESSon 05-20-2017 PROGRESS HNO ID: [id number] thor: Yazmin Quintanaervice: (none)Author Type: PhysicianType: Progress NotesFiled: 05/25/2017 1:34 [...] by Dr Mcdermott and Mark (see below [facility] reviewed); treated with keppra; extensive imaging, labwork up unrevealing.Possible lateralizing signs by history: NoneBirth and Early Development: normalRISK FACTORS FOR SEIZURES:1. Head Trauma (Yes, concussion from football)2. SERVICE PORTER Infections (Yes, see history)3. Family History of Seizures (yes, greatgrandmother, grandmother)4. Developmental Delay (No)5. Febrile Seizures (No)6. SERVICE PORTER Tumors (No)7. SERVICE PORTER Vascular Disease (No)8. Significant Medical History (No)CURRENT ANTICONVULSANTS:Keppra 1000 mg XR 1000 mg bidThe patient's side effects to the current medications: tired, fatiguePRIOR ANTICONVULSANT HISTORY: NonePrior Consult form Dr Mcdermott: This is Mr. Grant Blanchard JR a 21 year old with history of insomniatakes Lunesta at times male who presents to the [facility] with astatus epilepticus. Mother at bedside [...] Mother denied any drug use. [facility]'s blood sugar was 90. While in the ER his blood pressuredropped to 80/50 and he was given fluids. His WBC count was 11.64hemoglobin 17 hematocrit 48 and platelet counts were 371. Sodium levelwas 143, potassium of 3.9, glucose of 104, BUN 17, creatinine of 1.05, ALT47, AST 26, phosphatase 52, total bilirubin of 0.7. Contacted [facility] emergency physician and I recommended another load of Keppra 15mg and to assess fosphenytoin if he continues to seize at that timepatient had received 7 mg of Ativan and a load of 50 mg Keppra. He wasnot intubated at that time and according to the notes she was [facility] and he was not intubated either. Urine drug screen wasnegative. Patient arrived to the ER at [place] repeat CBC showed a WBCcount of 21.89 [...] lb 4.8 oz) SpO2 96% BMI 33.95 kg/o5Akgzj, in no acute distress. Skin is normal [...] Finger Flex Finger Ext FingerAbd Finger AddRight /5 5/5 5/5 5/5 5/5 5/5 5/5 5/5 5/5Left 5/5 5/5 5/5 5/5 5/5 5/5 5/5 5/5 5/5 Hip Flex Hip Ext BiFem (knee flex) Quads (knee ext) Gastroc (plantflx)TibAnt (Dorsiflx) TibPost (ank add) Ankle Eversion Ankle InversionFlxHLong (ToeFlex) ExtHLong (ToeExt)Right 5/5 5/5 5/5 5/5 5/5 5/5 5/5 5/5 5/5 5/5 5/5Left / 5/5 5/5 5/5 5/5 5/5 5/5 5/5 5/5 5/5 5/5Neck Flexors /5Neck Extensors /5REFLEXES Right LeftBicep 2/4 2/4Tricep 2/4 2/4BrRad 2/4 2/4Knee 2/4 2/4Ankle 2/ 2/4Pathological Reflexes:none? Sensation: Intact to proprioception, light [...] SlowImpression? Continuous video-EEG monitoring was reviewed from 045 on 05/10/2017to? 0520 on 05/11/2017 and shows [...] 2Lymph%, CSF 50 - 90 % 91 (H)[place]%, CSF 10 - 50 % 7 (L)CSF Tube Nbr No 4Comment, CSF Some reference ranges and other method performancespecifications have not been . . .Specimen Request Less than optimal volume of specimen received andprocessed.Smear Result No organisms seen Few . . . Gram stain performed oncytospun specimen. Gram stain results reviewed and confirmed by [facility] Microbiology.Culture No growth 14 daysHSV PCR Spec Source Cerebrospinal FluidHSV-1 Negative for Herpes Simplex Virus Type 1 by PCRHSV-2 Negative for Herpes Simplex Virus Type 2 by PCREnterovirus PCR Negative for Enterovirus by PCR.Source (Enterovirus PCR) Cerebrospinal FluidGlucose, CSF 50 - 75 mg/dL 91 (H)Protein, CSF 15 - 45 mg/dL 60 (H)Tobacco Conditioner Specimen originated from [facility] . . .VDRL, CSF Non Reactive [...] neurologic care of thispatient.Yazmin Bailey MD, PhDStaff, [facility] and General NeurologyClinical Extension Course Counselorfamily development extension specialist, [facility] CENTERBoard Certified, Epilepsy and Neurology Normal [facility] [place] [facility] Paraneoplast Autoabson 05-20 ACh Receptor Bind Ab 0.00 nmol/L Normal <=0.02 [facility] Comment on above: Result Comment: (NOT E) ADDITIONAL INFORMATION This test was developed and its performance characteristicsdetermined by [facility] in a manner consistent with CLIArequirements. This test has not been cleared or approved bythe U.S. Food and Drug Administration. Performed By: #### L EVET ####[facility] [place], [place] [phone]#### GERTRUDISO #### [facility], [place] [place], [place] [phone] AChR Ganglionic Neur 0.00 nmol/L Normal <=0.02 [facility] Comment on above: Result Comment: (NOT E) ADDITIONAL INFORMATION This test was developed and its performance characteristicsdetermined by [facility] in a manner consistent with CLIArequirements. This test has not been cleared or approved bythe .. Food and Drug Administration. Performed By: #### L EVET ####[address] [phone]#### MARILYN #### [facility], [place] [place], [place] [phone] Amphiphysin Ab, S Negative Normal <1:240 [facility] Comment on above: Result Comment: (NOT E) ADDITIONAL INFORMATION This test was developed and its performance characteristicsdetermined by [facility] in a manner consistent with CLIArequirements. This test has not been cleared or approved bythe .. Food and Drug Administration. Performed By: #### L EVET ####[place] [address] [place], [place] [phone]#### PARSANDRITAO #### [facility], [place] [place], [place] [phone] DINORAH 1, S Negative Normal <1:240 [facility] Comment on above: Performed By: #### L EVET ####[place] [id number] AveCLos [place], [place] [phone]#### MARILYN #### [facility], [place] [facility], [place] [phone] DINORAH 2, S Negative Normal <1:240 [facility] Comment on above: Result Comment: (NOT E) ADDITIONAL INFORMATION This test was developed and its performance characteristicsdetermined by [facility] in a manner consistent with CLIArequirements. This test has not been cleared or approved bythe .S. Food and Drug Administration. Performed By: #### L LETHAET ####[address] [phone]#### MARILYN #### [facility], [place] [place], [place] [phone] DINORAH 3, S Negative Normal <1:240 [facility] Comment on above: Result Comment: (NOT E) ADDITIONAL INFORMATION This test was developed and its performance characteristicsdetermined by [facility] in a manner consistent with CLIArequirements. This test has not been cleared or approved bythe U.S. Food and Drug Administration. Performed By: #### L LETHAET ####[address] [phone]#### MARILYN #### [facility] [place] [place], [place] [phone] Anti-glial Nuc Ab 1 Negative Normal <1:240 [facility] Comment on above: Result Comment: (NOT E) ADDITIONAL INFORMATION This test was developed and its performance characteristicsdetermined by [facility] in a manner consistent with CLIArequirements. This test has not been cleared or approved bythe U.S. Food and Drug Administration. Performed By: #### L EVET ####[address] [phone]#### MARILYN #### [facility] [place] [place], [place] [phone] Ca Ch Bind Ab,N Type 0.00 nmol/L Normal <=0.03 [facility] Comment on above: Result Comment: (NOT E) ADDITIONAL INFORMATION This test was developed and its performance characteristicsdetermined by [facility] in a manner consistent with CLIArequirements. This test has not been cleared or approved bythe .. Food and Drug Administration. Performed By: #### L EVET ####[address] [phone]#### MARILYN #### [facility], [place] [place], [place] [phone] Ca Chn Bind Ab, P/Q 0.00 nmol/L Normal <=0.02 [facility] Comment on above: Result Comment: (NOT E) ADDITIONAL INFORMATION This test was developed and its performance characteristicsdetermined by [facility] in a manner consistent with CLIArequirements. This test has not been cleared or approved bythe .. Food and Drug Administration. Performed By: #### L EVET ####[address] [phone]#### MARILYN #### [facility], [place] [place], [place] [phone] CRMP 5 IgG, S Negative Normal <1:240 [facility] Comment on above: Result Comment: (NOT E) ADDITIONAL INFORMATION This test was developed and its performance characteristicsdetermined by [facility] in a manner consistent with CLIArequirements. This test has not been cleared or approved bythe U.S. Food and Drug Administration. Performed By: #### L EVET ####[address] [phone]#### PARNEO #### [facility], [place] [place], [place] [phone] Interpretive Comment (NOTE) Normal [facility] Comment on above: Result Comment: No i nformative autoantibodies were detected in theParaneoplastic Evaluation. However, a negative result doesnot exclude neurological autoimmunity with or withoutassociated neoplasia. Sensitivity and specificity ofantibody testing are enhanced by testing both serum andCSF. Performed By: #### L EVET ####[address] [phone]#### PARNEO #### [facility], [place] [place], [place] [phone] Neur V-G K+ Chann Ab 0.00 nmol/L Normal <=0.02 [facility] Comment on above: Result Comment: (NOT E) ADDITIONAL INFORMATION This test was developed and its performance characteristicsdetermined by [facility] in a manner consistent with CLIArequirements. This test has not been cleared or approved bythe U.S. Food and Drug Administration. Performed By: #### L EVET ####[address] [phone]#### PARNEO #### [facility], [place] [place], [place] [phone] PARNEO Reflex Tests None. Normal [facility] Comment on above: Result Comment: (NOT E) ADDITIONAL INFORMATION This test was developed and its performance characteristicsdetermined by [facility] in a manner consistent with CLIArequirements. This test has not been cleared or approved bythe U.S. Food and Drug Administration. Performed By: #### L EVET ####[address] [phone]#### GERTRUDISO #### [address] [phone] GERMAN PROFESSOR 1, S Negative Normal <1:240 [facility] Comment on above: Result Comment: (NOT E) ADDITIONAL INFORMATION This test was developed and its performance characteristicsdetermined by [facility] in a manner consistent with CLIArequirements. This test has not been cleared or approved bythe U.S. Food and Drug Administration. Performed By: #### L EVET ####[address] [phone]#### MARILYN #### [facility], [place] [place], [place] [phone] GERMAN PROFESSOR 2, S Negative Normal <1:240 [facility] Comment on above: Result Comment: (NOT E) ADDITIONAL INFORMATION This test was developed and its performance characteristicsdetermined by [facility] in a manner consistent with CLIArequirements. This test has not been cleared or approved bythe U.S. Food and Drug Administration. Performed By: #### L EVET ####[facility] [place] [address] [phone]#### MARILYN #### [facility], [place] [place], [place] [phone] GERMAN PROFESSOR Tr, S Negative Normal <1:240 [facility] Comment on above: Result Comment: (NOT E) ADDITIONAL INFORMATION This test was developed and its performance characteristicsdetermined by [facility] in a manner consistent with CLIArequirements. This test has not been cleared or approved bythe U.S. Food and Drug Administration. Performed By: #### Susie MONAEET ####[facility] [place], [place] [phone]#### MARILYN #### [facility], [place] [place], [place] [phone] Striational Ab, S Negative Normal <1:120 [facility] Comment on above: Result Comment: (NOT E) ADDITIONAL INFORMATION This test was developed and its performance characteristicsdetermined by [facility] in a manner consistent with CLIArequirements. This test has not been cleared or approved bythe .S. Food and Drug Administration. Performed By: #### L EVET ####[facility] [place], [place] [phone]#### MARILYN #### [facility], [place] [place], [place] [phone] Basic Metabolic Panlon 05-11 Anion gap 3 molar conc 17 mmol/L Normal 9-18 [facility] Comment on above: Performed By: #### C BCDIF, BMP, MG1, PHOS ####[facility] [place], [place] [phone] Calcium mass conc 9.4 mg/dL Normal 8.5-10.5 [facility] Comment on above: Performed By: #### C BCDIF, BMP, MG1, PHOS ####[place] [address] Chloride molar conc 103 mmol/L Normal 98-110 [facility] Comment on above: Performed By: #### C BCDIF, BMP, MG1, PHOS ####[place] [address] CO2 molar conc 21 mmol/L Low 23-32 [facility] Comment on above: Performed By: #### C BCDIF, BMP, MG1, PHOS ####[place] [address] Creatinine mass conc 0.76 mg/dL Normal 0.70-1.40 [facility] Comment on above: Performed By: #### C BCDIF, BMP, MG1, PHOS ####[place] [address] eGFR- Amer. >60 Normal >60 [facility] Comment on above: Performed By: #### C BCDIF, BMP, MG1, PHOS ####[place] [address] GFR/1.73 sq M predicted among non-blacks MDRD vol rate/area (S/P/Bld) mL/min/{1.73_m2} Normal >60 [facility] Comment on above: Performed By: #### C BCDIF, BMP, MG1, PHOS ####[address] Glucose mass conc 92 mg/dL Normal 65-100 [facility] Comment on above: Performed By: #### C BCDIF, BMP, MG1, PHOS ####[place] [address] Potassium molar conc 3.8 mmol/L Normal 3.5-5.0 [facility] Comment on above: Performed By: #### C BCDIF, BMP, MG1, PHOS ####[place] [phone] Sodium molar conc 141 mmol/L Normal 135-146 [facility] Comment on above: Performed By: #### C BCDIF, BMP, MG1, PHOS ####[place] [phone] Urea nitrogen mass conc 12 mg/dL Normal 10-25 [facility] Comment on above: Performed By: #### C BCDIF, BMP, MG1, PHOS ####[place] [phone] CBC and Differentialon 05-11 Abs Baso 0.04 k/uL Normal <0.11 [facility] Comment on above: Performed By: #### C BCDIF, BMP, MG1, PHOS ####[address] Abs [place] 0.69 k/uL Normal <0.87 [facility] Comment on above: Performed By: #### C BCDIF, BMP, MG1, PHOS ####[place] [phone] Abs Neut 4.43 k/uL Normal 1.45-7.50 [facility] Comment on above: Performed By: #### C BCDIF, BMP, MG1, PHOS ####[address] Basophils/100 WBC Auto (Bld) 0.5 % Normal [facility] Comment on above: Performed By: #### C BCDIF, BMP, MG1, PHOS ####[place] [phone] DTYPE Auto Diff Normal [facility] Comment on above: Performed By: #### C BCDIF, BMP, MG1, PHOS ####[place] [phone] Eosinophils Auto #/vol (Bld) 0.24 10*3/uL Normal <0.46 [facility] Comment on above: Performed By: #### C BCDIF, BMP, MG1, PHOS ####[place] [address] Eosinophils/100 WBC Auto (Bld) 3.2 % Normal [facility] Comment on above: Performed By: #### C BCDIF, BMP, MG1, PHOS ####[place] [address] Erythrocyte distribution width Auto Ratio (RBC) 11.9 % Normal 11.5-15.0 [facility] Comment on above: Performed By: #### C BCDIF, BMP, MG1, PHOS ####[place] [address] Hematocrit Auto Volume Fraction (Bld) 43.3 % Normal 39.0-51.0 [facility] Comment on above: Performed By: #### C BCDIF, BMP, MG1, PHOS ####[place] [address] Hemoglobin mass conc (Bld) 15.5 g/dL Normal 13.0-17.0 [facility] Comment on above: Performed By: #### C BCDIF, BMP, MG1, PHOS ####[place] [address] Lymphocytes Auto #/vol (Bld) 2.11 10*3/uL Normal 1.00-4.00 [facility] Comment on above: Performed By: #### C BCDIF, BMP, MG1, PHOS ####[place] [address] Lymphocytes/100 WBC Auto (Bld) 28.1 % Normal [facility] Comment on above: Performed By: #### C BCDIF, BMP, MG1, PHOS ####[place] [address] MCH Auto Entitic mass (RBC) 30.3 pG Normal 26.0-34.0 [facility] Comment on above: Performed By: #### C BCDIF, BMP, MG1, PHOS ####[place] [phone] MCHC Auto mass conc (RBC) 35.8 g/dL Normal 30.5-36.0 [facility] Comment on above: Performed By: #### C BCDIF, BMP, MG1, PHOS ####[place] [phone] MCV Auto Entitic volume (RBC) 84.7 fL Normal 80.0-100.0 [facility] Comment on above: Performed By: #### C BCDIF, BMP, MG1, PHOS ####[place] [phone] Monocytes/100 WBC Auto (Bld) 9.2 % Normal [facility] Comment on above: Performed By: #### C BCDIF, BMP, MG1, PHOS ####[address] Neutrophils/100 WBC Auto (Bld) 59.0 % Normal [facility] Comment on above: Performed By: #### C BCDIF, BMP, MG1, PHOS ####[address] Platelet mean volume Auto Entitic volume (Bld) 9.9 fL Normal 9.0-12.7 [facility] Comment on above: Performed By: #### C BCDIF, BMP, MG1, PHOS ####[place] [phone] Platelets Auto #/vol (Bld) 286 10*3/uL Normal 150-400 [facility] Comment on above: Performed By: #### C BCDIF, BMP, MG1, PHOS ####[place] [phone] RBC Auto #/vol (Bld) 5.11 10*6/uL Normal 4.20-6.00 [facility] Comment on above: Performed By: #### C BCDIF, BMP, MG1, PHOS ####[address] [phone] WBC Auto #/vol (Bld) 7.51 10*3/uL Normal 3.70-11.00 [facility] Comment on above: Performed By: #### C BCDIF, BMP, MG1, PHOS ####[address] [phone] CNDSon 05-11-2017 CNDS HNO ID: [id number] thor: Arvind Huervice: General Internal MedicineAuthor Type: [...] Long-termFINAL DIAGNOSIS: LOSS OF CONSCIOUSNESSArvind Prado MD [facility] CONSULT PROGon 05-11-2017 Protein mass conc HNO ID: [id number] thor: Mónica Barreraervice: NeurologyAuthor Type: PhysicianType: Consult [...] outpatientdose of Keppra until he comes to clinic.LASHELL MillerGalion Community Hospital HospitalNeurological [id number] [place] [address]/ [address] [address] [facility] HSVG Typ 1 and 2 Abson 05-11 Herpes Simplex IgG 1 <0.2 Normal [facility] Comment on above: Result Comment: INDE X VALUES ARE INTERPRETED FOLLOWS:NEGATIVE SPECIMENS <0.9EQUIVOCAL SPECIMENS 0.9 TO 1.0POSITIVE SPECIMENS >=1.1 Performed By: #### H SVG12 ####[place] [phone] Herpes Simplex IgG 2 7.1 AI Normal [facility] Comment on above: Result Comment: INDE X VALUES ARE INTERPRETED FOLLOWS:NEGATIVE SPECIMENS <0.9EQUIVOCAL SPECIMENS 0.9 TO 1.0POSITIVE SPECIMENS >=1.1 Performed By: #### H SVG12 ####[place] [phone] HSV IgG 1 Qualitative Negative Normal Negative [facility] Comment on above: Result Comment: No H SV-1 IgG antibodies detected.Patient is presumed not to have hada previous HSV-1 infection. Performed By: #### H SVG12 ####[place] [phone] HSV IgG 2 Qualitative Positive Critically abnormal Negative [facility] Comment on above: Result Comment: IgG antibody to HSV-2 detected Performed By: #### H SVG12 ####[place] [phone] Magnesiumon 05-11-2017 Magnesium mass conc 2.2 mg/dL Normal 1.7-2.6 [facility] Comment on above: Performed By: #### C BCDIF, BMP, MG1, PHOS ####[address] [phone] NURSING PROGon 05-11-2017 Protein mass conc HNO ID: [id number] thor: Karen (Rn) Tk, RNService: (none)Author Type: Registered NurseType: Nursing Progress NoteFiled: 05/11/2017 5:56 AMNote Text: Nursing Progress NotePatient Name: Grant Blanchard JRMRN: [id number] Location: PKTB18/KT-BDXL-17 Daily Note:Pt AANDOx3 and appears easily arousable. 24 hour EEG ongoing. Pt told [employer] he did not want to be on EEG any more. RN convinced pt to have it onovernight and pt accepted. Normal Sinus Rhythm/ Sinus Tachycardia on tele.Call light in reach and bed alarm on. No further complaints at this time.This note was completed by: Karen Frey RN [facility] Protein mass conc HNO ID: [id number] thor: Ambrose Bose) Ryan, RNService: (none)Author Type: Registered NurseType: Nursing Progress NoteFiled: 05/11/2017 10:54 AMNote Text: Nursing Progress NotePatient Name: Grant Blanchard JRMRN: [id number] Location: PKTB18/BD-LGZW-60 Daily Note: Patient alert and oriented, denies dizziness, denies pain,anxious to leave this morning, BEM still on but is discontinued, waitingfor last reading from , lungs clear, 96 RA, Tele SR 94, toleratingregular diet, ambulates with stable gait, will continue Seizureprecautions, family at bedside, currently resting in bed with call lightin reach.This note was completed by: Ambrose Davis RN [facility] Protein mass conc HNO ID: [id number] thor: Ambrose Bose) Ryan, RNService: (none)Author Type: Registered NurseType: Nursing Progress NoteFiled: 05/11/2017 1:28 PMNote Text: Nursing Progress NotePatient Name: Grant Blanchard JRMRN: [id number] [facility] Daily Note: Patient discharged to home with instructions given, verbalizedunderstanding on medications, diet, activity and follow up.This note was completed by: Ambrose Davis RN [facility] PLAN OF CAREon 05-11-2017 PLAN OF CARE HNO ID: [id number] thor: Karen Marin (Pharmacist)Service: PharmacyAuthor Type: PharmacistType: Plan of CareFiled: 05/11/2017 1:30 PMNote Text:DISCHARGE MEDICATION REVIEW BY PHARMACYPatient Name: Grant Blanchard JR : [id number] Admission Date: 05/07/2017Date of Contact: May 11, 2017 Time of Contact: 1:30 PMMedication list was reviewed by a Pharmacist for drug interactions or drugrelated problems:YesBelow is a summary of pharmacist recommendations discussed with LIP:No Recommendations at this time from Discharge Medication List.Karen Marin PharmacistApril 2017 1:30 PMPager: [phone] 1:30 PMMedication ListSTART taking these medications levETIRAcetam 1,000 mg tabletCommonly known as: KEPPRATake 1 tablet by mouth twice daily.Where to Get Your MedicationsInformation about where to get these medications is not yet available ! Ask your nurse or doctor about these medications - levETIRAcetam 1,000 mg tablet Normal [facility] Phosphoruson 05-11-2017 Phosphate mass conc 3.6 mg/dL Normal 2.5-4.5 [facility] Comment on above: Performed By: #### C BCDIF, BMP, MG1, PHOS ####[facility] [place], [place] [phone] Basic Metabolic Panlon 05-10 Anion gap 3 molar conc 15 mmol/L Normal 9-18 [facility] Comment on above: Performed By: #### C BCDIF, BMP ####[place] [phone] Calcium mass conc 9.4 mg/dL Normal 8.5-10.5 [facility] Comment on above: Performed By: #### C BCDIF, BMP ####[place] [phone] Chloride molar conc 101 mmol/L Normal 98-110 [facility] Comment on above: Performed By: #### C BCDIF, BMP ####[place] [phone] CO2 molar conc 24 mmol/L Normal 23-32 [facility] Comment on above: Performed By: #### C BCDIF, BMP ####[place] [phone] Creatinine mass conc 0.75 mg/dL Normal 0.70-1.40 [facility] Comment on above: Performed By: #### C BCDIF, BMP ####[place] [phone] eGFR- Amer. >60 Normal >60 [facility] Comment on above: Performed By: #### C BCDIF, BMP ####[place] [phone] GFR/1.73 sq M predicted among non-blacks MDRD vol rate/area (S/P/Bld) mL/min/{1.73_m2} Normal >60 [facility] Comment on above: Performed By: #### C BCDIF, BMP ####[place] [phone] Glucose mass conc 90 mg/dL Normal 65-100 [facility] Comment on above: Performed By: #### C BCDIF, BMP ####[place] [phone] Potassium molar conc 3.5 mmol/L Normal 3.5-5.0 [facility] Comment on above: Performed By: #### C BCDIF, BMP ####[place] [address] [place], [place] [phone] Sodium molar conc 140 mmol/L Normal 135-146 [facility] Comment on above: Performed By: #### C BCDIF, BMP ####[place] [address] [place], [place] [phone] Urea nitrogen mass conc 8 mg/dL Low 10-25 [facility] Comment on above: Performed By: #### C BCDIF, BMP ####[facility] [place], [place] [phone] CASE MGT INIT ASSESon 2017 CASE MGT INIT ASSES HNO ID: [id number]: Katerine Jean Baptiste) GurgolService: Case ManagementAuthor Type: Social WorkerType: Care Mgt Initial AssessmentFiled: 05/10/2017 1:14 PMNote Text:CARE MANAGEMENT: ASSESSMENT AND DISCHARGE PLANSERVICE DATE: 05/10/2017SERVICE TIME: 12:03 PMPRIMARY CARE PHYSICIAN:Pt reports primary PCP is Dr. Gloria Coombsone: NoneADMISSION STATUS: InpatientNeeds Prior to Discharge: To Be Determined;OT/PT EvaluationMEDICAL:Patient/Repres entative Stated Goals:To return home to life as it [facility] Insurance:GlamBoxDebtLESS Community Issues Impacting Discharge Plan: Newly diagnosed seizuresLast [...] Admission: NoneHas the Patient Been in a Prison Facility in the Past 30 days?N/ASOCIAL:Living Arrangement: HomeLives With: familyFinancial Resources: Employed: [employer] companyPrimary Contact: Extended Emergency Contact InformationPrimary Emergency Contact: Grant Henning Cayjmkwy: ParentSupportive: YesOther Important Patient Contacts: Family: Name: mother, Mai Duenas Gzmoesriv Assessment:Caregiver is ready, willing and able to [...] - 0I feel financially burdened by my ewq-jy-dyypwp expenses for myprescription medication: Disagree completely - [...] is alert and appropriate. [place] with [place]family, he is working and is fully independent. Pt denies needs at thistime. Discussed CM will follow in his care to assist with his transitionplanning as needs evolve.ADDENDUM 12:45PMPt requested to meet with CM again. Pt inquired if he could be D/C'dtoday; expressing some level of wanting to leave AMA. Advised will notifyPt's MD.Dr. Juan Daniel paged and supervisor die casting notified of Pt's request.SIGNATURE: SOPHIA Brown PATIENT NAME: Grant Blanchard JRDATE: May 10, 2017 : 12:03 PM PAGER/CONTACT #: [phone] Normal [facility] CBC and Differentialon 05-10 Abs Baso 0.05 k/uL Normal <0.11 [facility] Comment on above: Performed By: #### C BCDIF, BMP ####[address] Abs [place] 0.89 k/uL High <0.87 [facility] Comment on above: Performed By: #### C BCDIF, BMP ####[place] [address] Abs Neut 6.62 k/uL Normal 1.45-7.50 [facility] Comment on above: Performed By: #### C BCDIF, BMP ####[address] Basophils/100 WBC Auto (Bld) 0.5 % Normal [facility] Comment on above: Performed By: #### C BCDIF, BMP ####[place] [address] DTYPE Auto Diff Normal [facility] Comment on above: Performed By: #### C BCDIF, BMP ####[place] [phone] Eosinophils Auto #/vol (Bld) 0.18 10*3/uL Normal <0.46 [facility] Comment on above: Performed By: #### C BCDIF, BMP ####[place] [phone] Eosinophils/100 WBC Auto (Bld) 1.7 % Normal [facility] Comment on above: Performed By: #### C BCDIF, BMP ####[place] [phone] Erythrocyte distribution width Auto Ratio (RBC) 11.7 % Normal 11.5-15.0 [facility] Comment on above: Performed By: #### C BCDIF, BMP ####[place] [phone] Hematocrit Auto Volume Fraction (Bld) 43.2 % Normal 39.0-51.0 [facility] Comment on above: Performed By: #### C BCDIF, BMP ####[place] [phone] Hemoglobin mass conc (Bld) 15.3 g/dL Normal 13.0-17.0 [facility] Comment on above: Performed By: #### C BCDIF, BMP ####[place] [phone] Lymphocytes Auto #/vol (Bld) 2.81 10*3/uL Normal 1.00-4.00 [facility] Comment on above: Performed By: #### C BCDIF, BMP ####[place] [phone] Lymphocytes/100 WBC Auto (Bld) 26.6 % Normal [facility] Comment on above: Performed By: #### C BCDIF, BMP ####[place] [phone] MCH Auto Entitic mass (RBC) 30.5 pG Normal 26.0-34.0 [facility] Comment on above: Performed By: #### C BCDIF, BMP ####[place] [phone] MCHC Auto mass conc (RBC) 35.4 g/dL Normal 30.5-36.0 [facility] Comment on above: Performed By: #### C BCDIF, BMP ####[place] [phone] MCV Auto Entitic volume (RBC) 86.2 fL Normal 80.0-100.0 [facility] Comment on above: Performed By: #### C BCDIF, BMP ####[place] [phone] Monocytes/100 WBC Auto (Bld) 8.4 % Normal [facility] Comment on above: Performed By: #### Kj MIRANDA, BMP ####[place] [phone] Neutrophils/100 WBC Auto (Bld) 62.8 % Normal [facility] Comment on above: Performed By: #### Kj MIRANDA, BMP ####[place] [phone] Platelet mean volume Auto Entitic volume (Bld) 9.7 fL Normal 9.0-12.7 [facility] Comment on above: Performed By: #### Kj MIRANDA, BMP ####[place] [phone] Platelets Auto #/vol (Bld) 260 10*3/uL Normal 150-400 [facility] Comment on above: Performed By: #### Kj MIRANDA, BMP ####[place] [phone] RBC Auto #/vol (Bld) 5.01 10*6/uL Normal 4.20-6.00 [facility] Comment on above: Performed By: #### Kj MIRANDA, BMP ####[place] [phone] WBC Auto #/vol (Bld) 10.55 10*3/uL Normal 3.70-11.00 [facility] Comment on above: Performed By: #### Kj MIRANDA, BMP ####[place] [phone] CONSULT PROGon 05-10-2017 Protein mass conc HNO ID: [id number] thor: Mónica Barreraervice: NeurologyAuthor Type: PhysicianType: Consult [...] lb 12.6 oz) SpO2 96% BMI 36.65 kg/i3CkgdgzpvyKicwnas is alert and oriented to time person [...] 2017 : 3:53 PM PAGER/CONTACT #: Normal [facility] Magnesiumon 05-10-2017 Magnesium mass conc 2.2 mg/dL Normal 1.7-2.6 [facility] Comment on above: Performed By: #### M G1, PHOS ####[facility] [place], [place] [phone] NURSING PROGon 05-10-2017 Protein mass conc HNO ID: [id number] thor: Kari BradfordRn) Andrez, RNService: NursingAuthor Type: Registered NurseType: Nursing Progress NoteFiled: 05/10/2017 2:34 PMNote Text: Nursing Progress NotePatient Name: Grant Blanchard [facility] Daily Note:0700 Report received from shift production supervisor RN.0800 Assessment completed, see ICU flow sheet.0845 ICU team rounding. Patient updated on Plan of care.0900 Trauma at bedside to see patient.1200 No changes in assessment.1430 Report called to PKT.This note was completed by: Kari Duenas RN [facility] Protein mass conc HNO ID: [id number] thor: Darcy Bose) CrumService: NursingAuthor Type: Registered NurseType: Nursing Progress NoteFiled: 05/10/2017 5:27 PMNote Text: Nursing Progress NotePatient Name: Grant Blanchard JRMRN: [id number] Location: [place] [address]/RQ-YWQL-93 Transfer Note:Patient transferred into room/unit pk in [...] note was completed by: Darcy Ramirez RN [facility] PLAN OF CAREon 05-10-2017 PLAN OF CARE HNO ID: [id number] Author: Reji Frances MD Service: General Internal Medicine Author Type: Resident Type: Plan of Care Filed: 05/10/2017 2:05 PM Note Text: Dr. Copeland spoke to Dr. Fermin and agreed to transfer the patient under his service [facility] PROGRESSon 05-10-2017 Protein mass conc HNO ID: [id number] thor: George Meade ([facility]) SereikaService: TraumaAuthor Type: Nurse PractitionerType: Progress NotesFiled: 05/10/2017 9:14 AMNote Text:TRAUMA PROGRESS NOTESERVICE DATE: 05/10/2017SERVICE TIME: 7:40 AMSubjectiveHISTORY (LAST 24 HOURS): pt is 21 yo male who was in gas station when hesuddenly fell having seizures. sent to [place] ED where on scan feltthey saw small [...] in D5W 250 mL (ZOVIRAX) 10 mg/kg/dose ([place]) INTRAVENOUSq 8 Hmetoclopramide HCl 5 mg injection [...] Please re consult if neededSIGNATURE: George Jeronimo APRN.[employer] HEADLIGHT ASSEMBLER PATIENT NAME: Grant Blanchard JRDATE: May 10, 2017 : 7:40 AM PAGER/CONTACT #: [phone] cell Normal [facility] Protein mass conc HNO ID: [id number] thor: Alex Kimbroughvice: General Internal MedicineAuthor Type: PhysicianType: Progress NotesFiled: [...] ?Him and his girlfriend went to the [employer] station and he turnedand grabbed her and said he was going to fall. ?After this he hit his headand started to have tonic and clonic movements along with bladderincontinence. ?[facility] he was found in apost-itcal state. ?He went for CT scan of the head where he had anotherseizure and was given ativan. ?CT scan of the head was limited due toasymmetry and atrifact from backboard. ?However the radiologist did callthe ED physician and raised concern for possible subdural hematoma alongthe tentorium and posterior falx. ?[facility] ?[facility] he was intubated due to hismental status [...] 10, 2017 : 8:24 AM PAGER/CONTACT #: [phone] STAFF PHYSICIAN NOTE OF PERSONAL INVOLVEMENT IN [...] for VTE pxTransfer to floorSIGNATURE: NEPTALI Quiroz INSTITUTEPAGER:[id number] of SERVICE: 05/10/17TIME of SERVICE: 3:59 PM Normal [facility] Protein mass conc HNO ID: [id number] thor: Shay Echeverriaice: Infectious DiseaseAuthor Type: PhysicianType: Progress NotesFiled: 05/10/2017 4:21 PMNote Text:INPATIENT PROGRESS NOTESPATIENT NAME: Grant Blanchard JRMRN: [id number] DATE: 05/10/2017SERVICE TIME: 4:12 PMPRIMARY SERVICE: Infectious [...] hrs: BP Temp Temp src Pulse Resp UyA20205/10/17 1528 128/72 37.4 ?C (99.3 ?F) Oral [...] reviewed for today's visit.WBCDate Value Ref Range Bhnowe9005/10/2017 10.55 3.70 - 11.00 k/uL Final05/09/2017 12.93 (H) 3.70 - 11.00 k/uL Final05/07/2017 21.89 (H) 3.70 - 11.00 k/uL Final ]SIGNATURE: Shay Gomez, MDDATE: May 10, 2017TIME: 4:12 PM Normal [facility] Phosphoruson 05-10-2017 Phosphate mass conc 2.6 mg/dL Normal 2.5-4.5 [facility] Comment on above: Performed By: #### M G1, PHOS ####[address] [phone] Basic Metabolic Panlon 05-09 Anion gap 3 molar conc 10 mmol/L Normal 9-18 [facility] Comment on above: Performed By: #### B MP ####[address] [phone] Anion gap 3 molar conc 12 mmol/L Normal -18 [facility] Comment on above: Performed By: #### B MP ####[address] [phone] Calcium mass conc 8.4 mg/dL Low 8.5-10.5 [facility] Comment on above: Performed By: #### B MP ####[address] [phone] Calcium mass conc 8.6 mg/dL Normal 8.5-10.5 [facility] Comment on above: Performed By: #### B MP ####[address] [phone] Chloride molar conc 105 mmol/L Normal 98-110 [facility] Comment on above: Performed By: #### B MP ####[place] [address] Chloride molar conc 105 mmol/L Normal 98-110 [facility] Comment on above: Performed By: #### B MP ####[place] [address] CO2 molar conc 26 mmol/L Normal 23-32 [facility] Comment on above: Performed By: #### B MP ####[place] [address] CO2 molar conc 26 mmol/L Normal 23-32 [facility] Comment on above: Performed By: #### B MP ####[place] [address] Creatinine mass conc 0.84 mg/dL Normal 0.70-1.40 [facility] Comment on above: Performed By: #### B MP ####[place] [address] Creatinine mass conc 0.84 mg/dL Normal 0.70-1.40 [facility] Comment on above: Performed By: #### B MP ####[place] [address] eGFR- Amer. >60 Normal >60 [facility] Comment on above: Performed By: #### B MP ####[place] [address] eGFR- Amer. >60 Normal >60 [facility] Comment on above: Performed By: #### B MP ####[place] [phone] GFR/1.73 sq M predicted among non-blacks MDRD vol rate/area (S/P/Bld) mL/min/{1.73_m2} Normal >60 [facility] Comment on above: Performed By: #### B MP ####[place] [address] GFR/1.73 sq M predicted among non-blacks MDRD vol rate/area (S/P/Bld) mL/min/{1.73_m2} Normal >60 [facility] Comment on above: Performed By: #### B MP ####[place] [phone] Glucose mass conc 106 mg/dL High 65-100 [facility] Comment on above: Performed By: #### B MP ####[place] [phone] Glucose mass conc 90 mg/dL Normal 65-100 [facility] Comment on above: Performed By: #### B MP ####[place] [phone] Potassium molar conc 3.7 mmol/L Normal 3.5-5.0 [facility] Comment on above: Performed By: #### B MP ####[place] [phone] Potassium molar conc 3.9 mmol/L Normal 3.5-5.0 [facility] Comment on above: Performed By: #### B MP ####[place] [phone] Sodium molar conc 141 mmol/L Normal 135-146 [facility] Comment on above: Performed By: #### B MP ####[place] [phone] Sodium molar conc 143 mmol/L Normal 135-146 [facility] Comment on above: Performed By: #### B MP ####[place] [phone] Urea nitrogen mass conc 8 mg/dL Low 10-25 [facility] Comment on above: Performed By: #### B MP ####[place] [phone] Urea nitrogen mass conc 9 mg/dL Low 10-25 [facility] Comment on above: Performed By: #### B MP ####[place] [phone] CBC and Differentialon 05-09 Abs Baso 0.03 k/uL Normal <0.11 [facility] Comment on above: Performed By: #### C BCDIF ####[place] [phone] Abs [place] 1.30 k/uL High <0.87 [facility] Comment on above: Performed By: #### C BCDIF ####[place] [phone] Abs Neut 9.13 k/uL High 1.45-7.50 [facility] Comment on above: Performed By: #### C BCDIF ####[place] [phone] Basophils/100 WBC Auto (Bld) 0.2 % Normal [facility] Comment on above: Performed By: #### C BCDIF ####[place] [phone] DTYPE Auto Diff Normal [facility] Comment on above: Performed By: #### C BCDIF ####[place] [phone] Eosinophils Auto #/vol (Bld) 10*3/uL Normal <0.46 [facility] Comment on above: Performed By: #### C BCDIF ####[place] [phone] Eosinophils/100 WBC Auto (Bld) 0.2 % Normal [facility] Comment on above: Performed By: #### C BCDIF ####[place] [phone] Erythrocyte distribution width Auto Ratio (RBC) 12.1 % Normal 11.5-15.0 [facility] Comment on above: Performed By: #### C BCDIF ####[place] [phone] Hematocrit Auto Volume Fraction (Bld) 41.7 % Normal 39.0-51.0 [facility] Comment on above: Performed By: #### C BCDIF ####[place] [phone] Hemoglobin mass conc (Bld) 14.5 g/dL Normal 13.0-17.0 [facility] Comment on above: Performed By: #### C BCDIF ####[phone] Lymphocytes Auto #/vol (Bld) 2.45 10*3/uL Normal 1.00-4.00 [facility] Comment on above: Performed By: #### C BCDIF ####[phone] Lymphocytes/100 WBC Auto (Bld) 18.9 % Normal [facility] Comment on above: Performed By: #### C BCDIF ####[place] [phone] MCH Auto Entitic mass (RBC) 30.5 pG Normal 26.0-34.0 [facility] Comment on above: Performed By: #### C BCDIF ####[place] [phone] MCHC Auto mass conc (RBC) 34.8 g/dL Normal 30.5-36.0 [facility] Comment on above: Performed By: #### C BCDIF ####[place] [phone] MCV Auto Entitic volume (RBC) 87.6 fL Normal 80.0-100.0 [facility] Comment on above: Performed By: #### C BCDIF ####[phone] Monocytes/100 WBC Auto (Bld) 10.1 % Normal [facility] Comment on above: Performed By: #### C BCDIF ####[place] [phone] Neutrophils/100 WBC Auto (Bld) 70.6 % Normal [facility] Comment on above: Performed By: #### C BCDIF ####[place] [phone] Platelet mean volume Auto Entitic volume (Bld) 10.0 fL Normal 9.0-12.7 [facility] Comment on above: Performed By: #### C BCDIF ####[place] [phone] Platelets Auto #/vol (Bld) 235 10*3/uL Normal 150-400 [facility] Comment on above: Performed By: #### C BCDIF ####[place] [phone] RBC Auto #/vol (Bld) 4.76 10*6/uL Normal 4.20-6.00 [facility] Comment on above: Performed By: #### C BCDIF ####[place] [phone] WBC Auto #/vol (Bld) 12.93 10*3/uL High 3.70-11.00 [facility] Comment on above: Performed By: #### C BCDIF ####[place] [phone] Magnesiumon 05-09-2017 Magnesium mass conc 2.2 mg/dL Normal 1.7-2.6 [facility] Comment on above: Performed By: #### M G1, PHOS ####[place] [phone] NMDA-Receptor Ab CBA LAB USE ONLYon 05-09-2017 NMDA-Receptor Ab CBA View results in Scanned Documents link when available. Normal [facility] Comment on above: Performed By: #### N MDCBA ####[facility] [place], [place] [phone] NURSING PROGon 05-09-2017 Protein mass conc HNO ID: [id number] thor: Paty (Rn) Kirby, RNService: NursingAuthor Type: Registered NurseType: Nursing Progress NoteFiled: 05/09/2017 2:04 PMNote Text: Nursing Progress: Topic: RESTRAINT NON-VIOLENTPATIENT NAME: Grant Blanchard JRMRN: [id number] LOCATION: [place] [address]/CF-MIC-04Htx patient demonstrates Attempting to Remove Medical Devices [...] May 09, 2017TIME: 0800 AMPaty Orr RN [facility] Protein mass conc HNO ID: [id number] thor: NEFTALY Jimenez Rnervice: NursingAuthor Type: Registered NurseType: Nursing Progress NoteFiled: 05/09/2017 1:10 PMNote Text: Nursing Progress NotePatient Name: Grant Blanchard JRMRN: [id number] Location: [place] [address]/MB-BBC-87 Daily Note:1305: Dr. Singh by to see patient. Updated that SROC was paged to clearc-spine. Order to stop maintenance fluids.This note was completed by: Brandie Duran RN [facility] Protein mass conc HNO ID: [id number] thor: NEFTALY Bragg Rnervice: NursingAuthor Type: Registered NurseType: Nursing Progress NoteFiled: 05/09/2017 3:55 PMNote Text: Nursing Progress NotePatient Name: Grant Blanchard JRMRN: [id number] Location: [place] [address]/AG-BNI-28 Daily Note:0800 Assessment as charted. Family at [...] note was completed by: Paty Orr RN [facility] Protein mass conc HNO ID: [id number] thor: Dainka (Rn) NEFTALY Gillespieervice: Critical CareAuthor Type: Registered NurseType: Nursing Progress NoteFiled: 05/10/2017 6:45 AMNote Text: Nursing Progress NotePatient Name: Grant Blanchard JRMRN: [id number] Location: [place] [address]/RU-SRQ-11 Daily Note:1930 Report received from day shift [...] note was completed by: Danika Gillespie RN [facility] Neuro Paraneoon 05-09 Neosens Neur Paraneo (NOTE) [facility] Comment on above: Result Comment: INTE RPRETATIONNEGATIVEThis panel of tests did not identify any positive results.TECHNICAL RESULTS Interpretive Result Table --------TEST: anti-amphiphysinMETHODOLOGY: Nanoliter scale immunoassayINTERPRETATION: NegativeTECHNICAL RESULT: <1:100REFERENCE RANGE: Serum <1:100 ---------TEST: anti-GE3JTLITMWWTCR: Nanoliter scale immunoassayINTERPRETATION: NegativeTECHNICAL RESULT: <1:100REFERENCE RANGE: Serum <1:100 ---------TEST: anti-HuMETHODOLOGY: Nanoliter scale immunoassayINTERPRETATION: NegativeTECHNICAL RESULT: <1:100REFERENCE RANGE: Serum <1:100 COMMENTSThis result does not exclude a diagnosis of an autoimmuneetiology for PNS.Recommendations:Health care providers, please contact the [facility] ClientServices Department at if you wish to consult with [facility] Director regarding this test result.Background information: Paraneoplastic [...] al. (2011) Eur J Neurol 18: 19-e3. (PMID:81281843)2. Susie Holcomb et al. (2012) J Neurol Neurosurg Psychiatry 83: 638-45.(PMID: 30673064)This test was developed and its analytical performance characteristicshave been determined by [facility]. It has not been cleared orapproved by the U.S. Food and Drug Administration. This assay has beenvalidated pursuant to the CLIA regulations and is used for clinicalpurposes.Laboratory oversight provided by Hans Leon, Ph.D., [facility], [place], [facility] (CLIA# [id number])Testing performed at:[facility] [address] [place] [id number] PROGRESSon 05-09-2017 Protein mass conc HNO ID: [id number] thor: Reji (ANDREA Duffervice: General Internal MedicineAuthor Type: ResidentType: Progress NotesFiled: [...] along with bladderincontinence. [facility] he was found in apost-itcal state. He went for CT scan of the head where he had anotherseizure and was given ativan. CT scan of the head was limited due toasymmetry and atrifact from backboard. However the radiologist did callthe ED physician and raised concern for possible subdural hematoma alongthe tentorium and posterior falx. [facility] he was intubated due to hismental status [...] 09, 2017 : 7:13 AM PAGER/CONTACT #: [phone] [facility] Protein mass conc HNO ID: [id number] thor: Iris (Do) [facility] hospitalService: Critical CareAuthor Type: PhysicianType: Progress NotesFiled: 05/09/2017 3:03 PMNote Text:[facility] STAFF PHYSICIAN NOTE OF PERSONAL INVOLVEMENT IN [...] now with burst suppression on EEG.[facility] due to [facility] concerns for SDH-->now negative on repeat CTH andMRI. Following d/w pts mom he has been acting unusual x 1 week (awalkingnaked around the house) c/o HERRERA. No reported fevers. Pt transferred to [facility] with :?Acute respiratory failure; intubated due to [...] of care, medical plan for the day, ergonomics consultant recommendations, medical dispositionand current medical condition/prognosis [...] care services: 40 minutes.SIGNATURE: ENA Montez INSTITUTEPAGER: [id number] of SERVICE: 05/09/2017 [facility] Protein mass conc HNO ID: [id number] thor: Anusha Floreservice: NeurologyAuthor Type: PhysicianType: Progress NotesFiled: 05/09/2017 4:17 PMNote Text: Neurology ConsultDate: May 08, 2017Patient Name: Grant Blanchard Attending Provider: Greg Bell for Evaluation: SeizuresHistory of Present Illness:This is Mr. Grant Blanchard JR a 21 year old with history of insomnia takesLunesta at times male who presents to the [facility] with a statusepilepticus. Mother at bedside [...] Mother denied any drug use. [facility] patient's blood sugar was 90. While in the ER his blood pressuredropped to 80/50 and he was given fluids. His WBC count was 11.64hemoglobin 17 hematocrit 48 and platelet counts were 371. Sodium levelwas 143, potassium of 3.9, glucose of 104, BUN 17, creatinine of 1.05, ALT47, AST 26, phosphatase 52, total bilirubin of 0.7. [place] I recommended another load of Keppra 15mg and to assess fosphenytoin if he continues to seize at that timepatient had received 7 mg of Ativan and a load of 50 mg Keppra. He wasnot intubated at that time and according to the notes she was transferredto [place] and he was not intubated either. Urine drug screen wasnegative. Patient arrived to the ER at [place] repeat CBC showed a WBCcount of 21.89 [...] (262 lb 12.6 oz) SpO2 94% BMI36.65 kg/e0FLUTLFPY EXAM:Neurological Examination:? Mental Status: Does not follow [...] due to condition.Labs/Data:BLOODWORK:WB C (k/uL)Date Value05/09/2017 12.9303 21.8905/07/2017 11.64 RBC (m/uL)Date Value05/09/2017 4.7603 5.21005/07/2017 5.73 Platelet Count (k/uL)Date Value05/09/2017 47458 0516905/07/2017 371 BUN (mg/dL)Date Value05/09/2017 904/02/2017 803 1003 1303 14 Creatinine (mg/dL)Date Value05/09/2017 0.8404 [...] on acyclovirFabio Pratt Neurology and Neuroimmunology/Multiple SclerosisPager: [phone]:[phone] 11:42 AM Normal [facility] Phosphoruson 05-09-2017 Phosphate mass conc 2.7 mg/dL Normal 2.5-4.5 [facility] Comment on above: Performed By: #### M G1, PHOS ####[address] [phone] ABG Complete Eval FOR WEST U SE ONLYon 05-08-2017 Base Excess Negative Normal [facility] Comment on above: Result Comment: -3 t o 3 Performed By: #### A BGRTC, VENTLA ####[facility] [place], [place] [phone] Base Excess Negative Normal [facility] Comment on above: Result Comment: -3 t o 3 Performed By: #### A BGRTC, VENTLA ####[address] [phone] Base Excess 1 mmol/L Normal [facility] Comment on above: Result Comment: -3 t o 3 Performed By: #### A BGRTC, VENTLA ####[place] [address] Calcium mass conc 1.06 mmol/L Low 1.15-1.35 [facility] Comment on above: Performed By: #### A BGRTC, VENTLA ####[place] [address] Calcium mass conc 1.08 mmol/L Low 1.15-1.35 [facility] Comment on above: Performed By: #### A BGRTC, VENTLA ####[place] [address] Calcium mass conc 1.18 mmol/L Normal 1.15-1.35 [facility] Comment on above: Performed By: #### A BGRTC, VENTLA ####[place] [address] Carboxyhemoglobin, Art 0.8 % Normal <2.0 [facility] Comment on above: Performed By: #### A BGRTC, VENTLA ####[place] [address] Carboxyhemoglobin, Art 0.9 % Normal <2.0 [facility] Comment on above: Performed By: #### A BGRTC, VENTLA ####[place] [address] Carboxyhemoglobin, Art 1.2 % Normal <2.0 [facility] Comment on above: Performed By: #### A BGRTC, VENTLA ####[place] [phone] Chloride, Whole Bld FOR WEST USE ONLY 111 mmol/L High 98-107 [facility] Comment on above: Performed By: #### A BGRTC, VENTLA ####[place] [phone] Chloride, Whole Bld FOR WEST USE ONLY 109 mmol/L High 98-107 [facility] Comment on above: Performed By: #### A BGRTC, VENTLA ####[place] [address] Chloride, Whole Bld FOR WEST USE ONLY 109 mmol/L [facility] [address] Comment on above: Performed By: #### A BGRTC, VENTLA ####[place] [address] CO2 molar conc 26 mmol/L Normal 22.0-28.0 [facility] Comment on above: Performed By: #### A BGRTC, VENTLA ####[place] [address] CO2 molar conc 27 mmol/L Normal 22.0-28.0 [facility] Comment on above: Performed By: #### A BGRTC, VENTLA ####[place] [address] Device Ventilator [facility] Comment on above: Performed By: #### A BGRTC, VENTLA ####[place] [address] Device Ventilator [facility] Comment on above: Performed By: #### A BGRTC, VENTLA ####[place] [address] Device Ventilator [facility] Comment on above: Performed By: #### A BGRTC, VENTLA ####[place] [address] Drawsite Left Radial + [facility] Comment on above: Performed By: #### A BGRTC, VENTLA ####[place] [address] Drawsite Left Radial + [facility] Comment on above: Performed By: #### A BGRTC, VENTLA ####[place] [address] Drawsite Rt Radial + [facility] Comment on above: Performed By: #### A BGRTC, VENTLA ####[place] [phone] Glucose mass conc 133 mg/dL High [address] [place] [address] Comment on above: Performed By: #### A BGRTC, VENTLA ####[place] [phone] Glucose mass conc 136 mg/dL High [address] [place] [address] Comment on above: Performed By: #### A BGRTC, VENTLA ####[place] [address] Glucose mass conc 110 mg/dL High [address] [place] [address] Comment on above: Performed By: #### A BGRTC, VENTLA ####[address] HCO3 molar conc (Bld) 24 mmol/L Normal [address] [place] [address] Comment on above: Performed By: #### A BGRTC, VENTLA ####[place] [address] HCO3 molar conc (Bld) 25 mmol/L Normal [address] [place] [address] Comment on above: Performed By: #### A BGRTC, VENTLA ####[place] [address] HCO3 molar conc (Bld) 25 mmol/L Normal [address] [place] [address] Comment on above: Performed By: #### A BGRTC, VENTLA ####[place] [phone] Hematocrit Auto Volume Fraction (Bld) 48 % Normal 42.0-52.0 [facility] Comment on above: Performed By: #### A BGRTC, VENTLA ####[place] [phone] Hematocrit Auto Volume Fraction (Bld) 46 % Normal 42.0-52.0 [facility] Comment on above: Performed By: #### A BGRTC, VENTLA ####[place] [phone] Hematocrit Auto Volume Fraction (Bld) 46 % Normal 42.0-52.0 [facility] Comment on above: Performed By: #### A BGRTCGENIA ####[place] [phone] Hemoglobin mass conc (Bld) 15.8 g/dL Normal 14-18 [facility] Comment on above: Performed By: #### A BGRTGENIA [place] ####[place] [phone] Hemoglobin mass conc (Bld) 15 g/dL Normal 14-18 [facility] Comment on above: Performed By: #### A BGRTCGENIA ####[place] [phone] Hemoglobin mass conc (Bld) 15 g/dL Normal 14-18 [facility] Comment on above: Performed By: #### A BGRTGENIA [place]wood ####[place] [phone] Lactate molar conc 0.7 mmol/L Normal 0.4-2.0 [facility] Comment on above: Performed By: #### A BGRTGENIA [place] ####[place] [phone] Lactate molar conc 1.0 mmol/L Normal 0.4-2.0 [facility] Comment on above: Performed By: #### A BGRTCGENIA ####[place] [phone] Lactate molar conc 1.1 mmol/L Normal 0.4-2.0 [facility] Comment on above: Performed By: #### A BGRTCGENIA ####[place] [phone] Methemoglobin 0.7 % Normal 0.4-1.5 [facility] Comment on above: Performed By: #### A BGRTCGENIA ####[place] [address] Methemoglobin 0.6 % Normal 0.4-1.5 [facility] Comment on above: Performed By: #### A BGRTC, VENTLA ####[place] [address] Methemoglobin 0.7 % Normal 0.4-1.5 [facility] Comment on above: Performed By: #### A BGRTC, VENTLA ####[place] [address] O2 Administered 100.0 [facility] Comment on above: Performed By: #### A BGRTC, VENTLA ####[place] [phone] O2 Administered 30.0 [facility] Comment on above: Performed By: #### A BGRTC, VENTLA ####[place] [address] O2 Administered 30.0 [facility] Comment on above: Performed By: #### A BGRTC, VENTLA ####[place] [address] Oxygen ppres (Bld) 99 % High 90-98 [facility] Comment on above: Performed By: #### A BGRTC, VENTLA ####[place] [address] Oxygen ppres (Bld) 97 % Normal 90-98 [facility] Comment on above: Performed By: #### A BGRTC, VENTLA ####[place] [address] Oxygen ppres (Bld) 97 % Normal 90-98 [facility] Comment on above: Performed By: #### A BGRTC, VENTLA ####[place] [address] Oxygen ppres (BldA) 193 mm Hg High 80-100 [facility] Comment on above: Performed By: #### A BGRTC, VENTLA ####[place] [phone] Oxygen ppres (BldA) 95 mm Hg Normal 80-100 [facility] Comment on above: Performed By: #### A BGRTC, VENTLA ####[place] [phone] Oxygen ppres (BldA) 88 mm Hg Normal 80-100 [facility] Comment on above: Performed By: #### A BGRTC, VENTLA ####[place] [phone] Oxyhemoglobin, Art. 98 % Normal 94-100 [facility] Comment on above: Performed By: #### A BGRTC, VENTLA ####[place] [phone] Oxyhemoglobin, Art. 96 % Normal [address] [place] [address] Comment on above: Performed By: #### A BGRTC, VENTLA ####[place] [address] Oxyhemoglobin, Art. 96 % Normal [address] [place] [address] Comment on above: Performed By: #### A BGRTC, VENTLA ####[place] [address] pCO2 47 mm Hg Normal 35-48 [facility] Comment on above: Performed By: #### A BGRTC, VENTLA ####[place] [phone] pCO2 45 mm Hg Normal 35-48 [facility] Comment on above: Performed By: #### A BGRTC, VENTLA ####[address] pCO2 42 mm Hg Normal 35-48 [facility] Comment on above: Performed By: #### A BGRTC, VENTLA ####[place] [phone] pH (Bld) 7.33 [pH] Low 7.35-7.45 [facility] Comment on above: Performed By: #### A BGRTC, VENTLA ####[place] [phone] pH (Bld) 7.36 [pH] Normal 7.35-7.45 [facility] Comment on above: Performed By: #### A BGRTC, VENTLA ####[place] [phone] pH (Bld) 7.40 [pH] Normal 7.35-7.45 [facility] Comment on above: Performed By: #### A BGRTC, VENTLA ####[place] [address] PO2FI FOR WEST USE ONLY 193 mmHG Low 400-500 [facility] Comment on above: Performed By: #### A BGRTC, VENTLA ####[address] PO2FI FOR WEST USE ONLY 317 mmHG Low 400-500 [facility] Comment on above: Performed By: #### A BGRTC, VENTLA ####[place] [phone] PO2FI FOR WEST USE ONLY 293 mmHG Low 400-500 [facility] Comment on above: Performed By: #### A BGRTC, VENTLA ####[address] Potassium molar conc 3.7 mmol/L Normal 3.5-5.0 [facility] Comment on above: Performed By: #### A BGRTC, VENTLA ####[address] Potassium molar conc 3.7 mmol/L Normal 3.5-5.0 [facility] Comment on above: Performed By: #### A BGRTC, VENTLA ####[address] Potassium molar conc 3.7 mmol/L Normal 3.5-5.0 [facility] Comment on above: Performed By: #### A BGRTC, VENTLA ####[place] [phone] [phone] Sodium molar conc 136 mmol/L Normal 135-145 [facility] Comment on above: Performed By: #### A BGRTC, VENTLA ####[phone] Sodium molar conc 136 mmol/L Normal 135-145 [facility] Comment on above: Performed By: #### A BGRTC, VENTLA ####[place] [phone] Sodium molar conc 142 mmol/L Normal 135-145 [facility] Comment on above: Performed By: #### A BGRTC, VENTLA ####[place] [phone] ALLIED HEALTHon 05-08-2017 ALLIED HEALTH HNO ID: [id number] thor: Cathy Hutchins RTService: (none)Author Type: (none)Type: Allied HealthFiled: 05/08/2017 6:51 AMNote Text: Radiology Service Progress NotePATIENT NAME: Grant Blanchard JRMRN: [id number] OF SERVICE: May 08, 2017TIME: 6:51 AMPATIENT IDENTITY VERIFICATION COMPLETED USING TWO (2) METHODS: ID Band .PATIENT GENDER DATA: MalePATIENT RELEVANT IMPLANT DATA REVIEWED: Not ApplicableRADIOLOGY DEPARTMENT: General X-ray: Exam(s) Completed: Chest X-RayAbdomen X-Ray AbdomenPERIPHERAL IV DATA: Not applicableSIGNED BY: Cathy Hutchins [facility] 6[facility]51 AM Normal [facility] APTTon 05-08-2017 aPTT Coag time (Bld) 23.3 s Normal 23.0-32.4 [facility] Comment on above: Result Comment: Unfr [...] laboratory APTT reagent in use throughout the [facility]. Performed By: #### C BCDIF, AMYL, CMP, LIPA, ROSIE, PT, PTT ####[place] [phone] Amylaseon 05-08-2017 Amylase enzyme act/vol 43 U/L Normal 0-137 [facility] Comment on above: Performed By: #### C BCDIF, AMYL, CMP, LIPA, ROSIE, PT, PTT ####[place] [phone] Basic Metabolic Panlon 05-08 Anion gap 3 molar conc 18 mmol/L Normal 9-18 [facility] Comment on above: Performed By: #### B ANGELA MG1, PHOS ####[place] [phone] Anion gap 3 molar conc 8 mmol/L Low 9-18 [facility] Comment on above: Performed By: #### B MP ####[place] [phone] Calcium mass conc 8.9 mg/dL Normal 8.5-10.5 [facility] Comment on above: Result Comment: Revi ewed Performed By: #### B ANGELA MG1, PHOS ####[place] [phone] Calcium mass conc 8.3 mg/dL Low 8.5-10.5 [facility] Comment on above: Performed By: #### B MP ####[place] [phone] Chloride molar conc 103 mmol/L Normal 98-110 [facility] Comment on above: Performed By: #### B MP, MG1, PHOS ####[place] [phone] Chloride molar conc 108 mmol/L Normal 98-110 [facility] Comment on above: Performed By: #### B MP ####[address] CO2 molar conc 16 mmol/L Low 23-[address] [place] [address] Comment on above: Performed By: #### B MP, MG1, PHOS ####[address] CO2 molar conc 27 mmol/L Normal 23-32 [facility] Comment on above: Performed By: #### B MP ####[place] [phone] Creatinine mass conc 0.90 mg/dL Normal 0.70-1.40 [facility] Comment on above: Performed By: #### B MPMG1, PHOS ####[address] Creatinine mass conc 0.85 mg/dL Normal 0.70-1.40 [facility] Comment on above: Performed By: #### B MP ####[place] [phone] eGFR- Amer. >60 Normal >60 [facility] Comment on above: Performed By: #### B MP, 1, PHOS ####[place] [phone] eGFR- Amer. >60 Normal >60 [facility] Comment on above: Performed By: #### B MP ####[place] [phone] GFR/1.73 sq M predicted among non-blacks MDRD vol rate/area (S/P/Bld) mL/min/{1.73_m2} Normal >60 [facility] Comment on above: Performed By: #### B MP, MG1, PHOS ####[place] [phone] GFR/1.73 sq M predicted among non-blacks MDRD vol rate/area (S/P/Bld) mL/min/{1.73_m2} Normal >60 [facility] Comment on above: Performed By: #### B ANGELA ####[place] [phone] Glucose mass conc 128 mg/dL High 65-100 [facility] Comment on above: Performed By: #### B JOSE MILLER PHOS ####[place] [phone] Glucose mass conc 109 mg/dL High 65-100 [facility] Comment on above: Performed By: #### B MP ####[place] [phone] Potassium molar conc 5.5 mmol/L High 3.5-5.0 [facility] Comment on above: Result Comment: Resu lts may be falsely increased due to interference by hemolysis. Suggest reorder as clinically indicated.Reviewed Performed By: #### B JOSE MILLER PHOS ####[place] [phone] Potassium molar conc 4.1 mmol/L Normal 3.5-5.0 [facility] Comment on above: Performed By: #### B ANGELA ####[place] [phone] Sodium molar conc 137 mmol/L Normal 135-146 [facility] Comment on above: Performed By: #### B JOSE MILLER PHOS ####[place] [phone] Sodium molar conc 143 mmol/L Normal 135-146 [facility] Comment on above: Performed By: #### B ANGELA ####[place] [phone] Urea nitrogen mass conc 13 mg/dL Normal 10-25 [facility] Comment on above: Performed By: #### B JOSE MILLER PHOS ####[place] [phone] Urea nitrogen mass conc 10 mg/dL Normal 10-25 [facility] Comment on above: Performed By: #### B MP ####[place] [address] CBC and Differentialon 05-08 Abs Baso 0.03 k/uL Normal <0.11 [facility] Comment on above: Performed By: #### C BCDIF, AMYL, CMP, LIPA, ROSIE, PT, PTT ####[place] [id number] Abs [place] 1.36 k/uL High <0.87 [facility] Comment on above: Performed By: #### C BCDIF, AMYL, CMP, LIPA, ROSIE, PT, PTT ####[place] [address] Abs Neut 18.74 k/uL High 1.45-7.50 [facility] Comment on above: Performed By: #### C BCDIF, AMYL, CMP, LIPA, ROSIE, PT, PTT ####[address] Basophils/100 WBC Auto (Bld) 0.1 % [facility] Comment on above: Performed By: #### C BCDIF, AMYL, CMP, LIPA, ROSIE, PT, PTT ####[address] DTYPE Auto Diff Normal [facility] Comment on above: Performed By: #### C BCDIF, AMYL, CMP, LIPA, ROSIE, PT, PTT ####[place] [phone] Eosinophils Auto #/vol (Bld) 10*3/uL Normal <0.46 [facility] Comment on above: Performed By: #### C BCDIF, AMYL, CMP, LIPA, ROSIE, PT, PTT ####[place] [phone] Eosinophils/100 WBC Auto (Bld) 0.0 % Normal [facility] Comment on above: Performed By: #### C BCDIF, AMYL, CMP, LIPA, ROSIE, PT, PTT ####[place] [address] Erythrocyte distribution width Auto Ratio (RBC) 11.8 % Normal 11.5-15.0 [facility] Comment on above: Performed By: #### C BCDIF, AMYL, CMP, LIPA, ROSIE, PT, PTT ####[place] [address] Hematocrit Auto Volume Fraction (Bld) 44.4 % Normal 39.0-51.0 [facility] Comment on above: Performed By: #### C BCDIF, AMYL, CMP, LIPA, ROSIE, PT, PTT ####[place] [address] Hemoglobin mass conc (Bld) 16.0 g/dL Normal 13.0-17.0 [facility] Comment on above: Performed By: #### C BCDIF, AMYL, CMP, LIPA, ROSIE, PT, PTT ####[place] [phone] Lymphocytes Auto #/vol (Bld) 1.76 10*3/uL Normal 1.00-4.00 [facility] Comment on above: Performed By: #### C BCDIF, AMYL, CMP, LIPA, ROSIE, PT, PTT ####[place] [id number] Lymphocytes/100 WBC Auto (Bld) 8.0 % Normal [facility] Comment on above: Performed By: #### C BCDIF, AMYL, CMP, LIPA, ROSIE, PT, PTT ####[place] [phone] MCH Auto Entitic mass (RBC) 30.7 pG Normal 26.0-34.0 [facility] Comment on above: Performed By: #### C BCDIF, AMYL, CMP, LIPA, ROSIE, PT, PTT ####[place] [phone] MCHC Auto mass conc (RBC) 36.0 g/dL Normal 30.5-36.0 [facility] Comment on above: Performed By: #### C BCDIF, AMYL, CMP, LIPA, ROSIE, PT, PTT ####[place] [phone] MCV Auto Entitic volume (RBC) 85.2 fL Normal 80.0-100.0 [facility] Comment on above: Performed By: #### C BCDIF, AMYL, CMP, LIPA, ROSIE, PT, PTT ####[place] [phone] Monocytes/100 WBC Auto (Bld) 6.2 % Normal [facility] Comment on above: Performed By: #### C BCDIF, AMYL, CMP, LIPA, ROSIE, PT, PTT ####[place] [phone] Neutrophils/100 WBC Auto (Bld) 85.7 % Normal [facility] Comment on above: Performed By: #### C BCDIF, AMYL, CMP, LIPA, ROSIE, PT, PTT ####[place] [phone] Platelet mean volume Auto Entitic volume (Bld) 9.6 fL Normal 9.0-12.7 [facility] Comment on above: Performed By: #### C BCDIF, AMYL, CMP, LIPA, ROSIE, PT, PTT ####[place] [phone] Platelets Auto #/vol (Bld) 314 10*3/uL Normal 150-400 [facility] Comment on above: Performed By: #### C BCDIF, AMYL, CMP, LIPA, ROSIE, PT, PTT ####[place] [phone] RBC Auto #/vol (Bld) 5.21 10*6/uL Normal 4.20-6.00 [facility] Comment on above: Performed By: #### C BCDIF, AMYL, CMP, LIPA, ROSIE, PT, PTT ####[facility] [place], [place] [phone] WBC Auto #/vol (Bld) 21.89 10*3/uL High 3.70-11.00 [facility] Comment on above: Performed By: #### C BCDIF, AMYL, CMP, LIPA, ROSIE, PT, PTT ####[facility] [place], [place] [phone] CONSULTon 05-08-2017 CONSULT HNO ID: [id number] thor: Anusha Floreservice: NeurologyAuthor Type: PhysicianType: ConsultsFiled: 05/08/2017 12:17 PMNote Text: Neurology ConsultDate: May 08, 2017Patient Name: Grant Blanchard JRMRN: [id number] Attending Provider: Greg Bell for Evaluation: SeizuresHistory of Present Illness:This is Mr. Grant Blanchard JR a 21 year old with history of insomnia takesLunesta at times male who presents to the [facility] with a statusepilepticus. Mother at bedside [...] Mother denied any drug use. [facility] patient's blood sugar was 90. While in the ER his blood pressuredropped to 80/50 and he was given fluids. His WBC count was 11.64hemoglobin 17 hematocrit 48 and platelet counts were 371. Sodium levelwas 143, potassium of 3.9, glucose of 104, BUN 17, creatinine of 1.05, ALT47, AST 26, phosphatase 52, total bilirubin of 0.7. Contacted [facility] emergency physician and I recommended another load of Keppra 15mg and to assess fosphenytoin if he continues to seize at that timepatient had received 7 mg of Ativan and a load of 50 mg Keppra. He wasnot intubated at that time and according to the notes [facility] and he was not intubated either. Urine drug screen wasnegative. Patient arrived to the ER at [facility] repeat CBC showed a WBCcount of 21.89 [...] Value05/07/2017 5.2103 5.73 Platelet Count (k/uL)Date Value05/07/2017 68695 371 BUN (mg/dL)Date Value05/08/2017 1303 1403 17 [...] visit, I spent at least 50% of nhixaiq-bd-zdav time in counseling, explanation of diagnosis and planning offurther management.Fabio Pratt Neurology and Neuroimmunology/Multiple SclerosisPager: [phone]:[phone] 11:42 AM [facility] CONSULT HNO ID: [id number] thor: Shay Scottervice: Infectious DiseaseAuthor Type: PhysicianType: ConsultsFiled: 05/08/2017 8:25 PMNote Text:[facility] - ConsultationGRANT BLANCHARD PDOB: 1995 AGE: 21 SEX: MMRN: [id number] ACCTNUM: [id number] SVC: PUL LOCATION: [id number] PHYSICIAN: IRIS CLARKE) BISHOPDATE OF CONSULTATION: 05/08/2017CONSULTING PHYSICIAN: Shay Gomez M.D.REASON FOR CONSULT: Consult is requested to rule out meningitis.HISTORY OF PRESENT ILLNESS: This is a 21-year-old, who presents to the emergency room in transfer from [place] [facility] due to statusepilepticus.The patient apparently was acting strangely for the previous 4-5days prior to admission, confused, complaining of headache, walkingaround, taking his clothes off, and not realizing when they were off. Hewas described to be dizzy. He was in a car with his girlfriend, at [facility], where he said he began to feel funny, held on to her,but fell to the ground, and did strike his head, tonic- colonicseizures were described, with urine incontinence. He was sent to the Emergency Room at [place] and transferred to [facility] and had moreseizures on the way, despite [...] given thereafter.There is no visible MAR from [place], but the only meds mentioned wereseizure meds [...] use. Drug tox tests werenegative, both at [place] and at [facility], looks like the same simpletest.The patient is [...] discontinue antibiotics at any time.Shay Gomez M.D.Infectious DiseaseWR:[id number]: 05/08/2017 15:49:34T: 05/08/2017 17:12:15Job #: [id number] or bedside care time approximately 75 minutes. [facility] CONSULT PROGon 05-08-2017 Protein mass conc HNO ID: [id number] thor: Shay Scottervice: Infectious DiseaseAuthor Type: PhysicianType: Consult Progress NoteFiled: [...] now, or wait tillcultures are negative. [facility] CSF Cult and Stainon 018 CSF Cult and Stain Sp. Request/Comment: - Less than optimal volume of specimen received and processed.Smear Result - No organisms seen Few Mononuclear cells Gram stain performed on cytospun specimen. Gram stain results reviewed and confirmed by [facility] Microbiology.Culture Result - No growth 14 days [facility] Comment on above: Performed By: #### C SFCUL ####[place] [id number] [place], [place] [phone] Cell Count/Diff CSFon 2017 Clarity Nom (U) Clear Normal Clear [facility] Comment on above: Performed By: #### C CCSF ####[place] [phone] Color Nom (U) Colorless Normal Colorless [facility] Comment on above: Performed By: #### C CCSF ####[place] [phone] CSF Comment Some reference range s and other method performance specifications have not been established for this body fluid. Normal [facility] Comment on above: Performed By: #### C CCSF ####[place] [phone] CSF Tube No. FOR EAST AND WEST USE ONLY No 4 [facility] Comment on above: Performed By: #### C CCSF ####[place] [phone] Lymphocytes/100 WBC Auto (Bld) 91 % High 50-90 [facility] Comment on above: Performed By: #### C CCSF ####[place] [phone] Monocytes/100 WBC Auto (Bld) 7 % Low 10-50 [facility] Comment on above: Performed By: #### C CCSF ####[place] [phone] Neutrophils/100 WBC Auto (Bld) 2 % Normal 0-3 [facility] Comment on above: Performed By: #### C CCSF ####[place] [phone] Nucleated Cells, CSF 11 /uL High 0-5 [facility] Comment on above: Result Comment: This test was developed and its performance characteristics determined by [facility]'s [facility] Pathology and Laboratory Medicine [place] ([facility]).It has not been cleared or approved by the FDA. [facility] is regulated under CLIA as qualified to perform high-complexity testing.This test is used for clinical purposes. It should not be regarded as investigational or for research. Performed By: #### C CCSF ####[place] [address] RBC Auto #/vol (Bld) 0.80156 10*6/uL High 0-1 [facility] Comment on above: Performed By: #### C CCSF ####[place] [address] Comp Metabolic Panelon 05-08 Albumin mass conc 4.4 g/dL Normal 3.5-5.0 [facility] Comment on above: Performed By: #### C BCDIF, AMYL, CMP, LIPA, ROSIE, PT, PTT ####[place] [address] ALP enzyme act/vol 44 U/L Normal 40-150 [facility] Comment on above: Performed By: #### C BCDIF, AMYL, CMP, LIPA, ROSIE, PT, PTT ####[place] [address] ALT enzyme act/vol 45 U/L Normal 5-50 [facility] Comment on above: Performed By: #### C BCDIF, AMYL, CMP, LIPA, ROSIE, PT, PTT ####[place] [address] Anion gap 3 molar conc 13 mmol/L Normal 9-18 [facility] Comment on above: Performed By: #### C BCDIF, AMYL, CMP, LIPA, ROSIE, PT, PTT ####[place] [address] AST enzyme act/vol 25 U/L Normal 7-40 [facility] Comment on above: Performed By: #### C BCDIF, AMYL, CMP, LIPA, ROSIE, PT, PTT ####[place] [phone] Bilirubin mass conc 0.7 mg/dL Normal 0.0-1.5 [facility] Comment on above: Performed By: #### C BCDIF, AMYL, CMP, LIPA, ROSIE, PT, PTT ####[place] [address] Calcium mass conc 7.9 mg/dL Low 8.5-10.5 [facility] Comment on above: Performed By: #### C BCDIF, AMYL, CMP, LIPA, ROSIE, PT, PTT ####[place] [address] Chloride molar conc 103 mmol/L Normal 98-110 [facility] Comment on above: Performed By: #### C BCDIF, AMYL, CMP, LIPA, ROSIE, PT, PTT ####[place] [address] CO2 molar conc 25 mmol/L Normal 22.0-28.0 [facility] Comment on above: Performed By: #### C BCDIF, AMYL, CMP, LIPA, ROSIE, PT, PTT ####[place] [address] Performed By: #### A BGRTC, VENTLA ####[place] [address] Creatinine mass conc 0.88 mg/dL Normal 0.70-1.40 [facility] Comment on above: Performed By: #### C BCDIF, AMYL, CMP, LIPA, ROSIE, PT, PTT ####[place] [address] eGFR- Amer. >60 Normal >60 [facility] Comment on above: Performed By: #### C BCDIF, AMYL, CMP, LIPA, ROSIE, PT, PTT ####[place] [address] GFR/1.73 sq M predicted among non-blacks MDRD vol rate/area (S/P/Bld) mL/min/{1.73_m2} Normal >60 [facility] Comment on above: Performed By: #### C BCDIF, AMYL, CMP, LIPA, ROSIE, PT, PTT ####[place] [address] Glucose mass conc 141 mg/dL High 65-100 [facility] Comment on above: Performed By: #### C BCDIF, AMYL, CMP, LIPA, ROSIE, PT, PTT ####[place] [address] Potassium molar conc 4.1 mmol/L Normal 3.5-5.0 [facility] Comment on above: Performed By: #### C BCDIF, AMYL, CMP, LIPA, ROSIE, PT, PTT ####[place] [address] Protein mass conc 7.1 g/dL Normal 6.0-8.4 [facility] Comment on above: Performed By: #### C BCDIF, AMYL, CMP, LIPA, ROSIE, PT, PTT ####[place] [address] Sodium molar conc 141 mmol/L Normal 135-146 [facility] Comment on above: Performed By: #### C BCDIF, AMYL, CMP, LIPA, ROSIE, PT, PTT ####[place] [address] Urea nitrogen mass conc 14 mg/dL Normal 10-25 [facility] Comment on above: Performed By: #### C BCDIF, AMYL, CMP, LIPA, ROSIE, PT, PTT ####[place] [address] Enterovirus PCRon 05-08-2017 Enterovirus PCR Negative Normal [facility] Comment on above: Result Comment: This test was developed and its performance characteristics determined by [facility]'s [facility]ology [facility] [place] ([facility]).It has not been cleared or approved by the FDA. -[facility] is regulated under CLIA as qualified to perform high-complexity testing.This test is used for clinical purposes. It should not be regarded as investigational or for research. Performed By: #### E NTPCR ####[facility] [place], [place] [phone] Enterovirus PCR Srce Cerebrospinal Fluid Normal [facility] Comment on above: Performed By: #### E NTPCR ####[facility] [place], [place] [phone] Ethanolon 05-08-2017 Ethanol mass conc mg/dL Normal <11 [facility] Comment on above: Performed By: #### A LCO ####[facility] [place], [place] [phone] Glucose, CSFon 05-08-2017 Glucose, CSF 91 mg/dL High 50-75 [facility] Comment on above: Performed By: #### C GLUC, CPROT ####[facility] [place], [place] [phone]#### HSPCRC, VDRLCF ####[facility] [place], [place] [phone] HISTORY PHYSICALon 8 HISTORY PHYSICAL HNO ID: [id number] thor: Barrera (Do) EloService: Critical CareAuthor Type: [...] before EMSarrived. He was then taken to [place] ED where he continued to haveseizures and given 7mg ativan and 1.5g Keppra x2. A CT Head and C-spinewas performed but limited 2/2 motion artifact. A hogan was placed and hewas transfered to [facility]. On arrival he was intubated and taken for repeatscans which were negative.PAST MEDICAL HISTORY: InsomniaPAST SURGICAL HISTORY: No prior SurgeriesFAMILY HISTORY: DM, Brain tumorsSOCIAL HISTORY:Per mother3 cigs/dayNo Recreational Drug useNo daily EtOH useMEDICATIONS:Prior to Admission Medications:- [facility] medications:fentaNYL 20 mcg/mL iv infusion in NaCl [...] non-tender, non-distended. bowel sounds normal. Nomasses, organomegaly.Lines/Tubes/Drains: sIMl9Kitfgzyqbjlojjk: No deformities, edema, normal peripheral pulsesDATA: Laboratory:CBC, Coags, BMP, Mg, PhosRecent Labs 05/07/1821WBC 21.89* -- 11.64*HB 16.0 -- 17.0HCT 44.4 [...] 95 193*BE NEG 1 NEG 2HCO3 25 87IR7SY 26 25O2HB 96 98COHB 0.9 0.8MHGB 0.6 0.7O2AD 30.0 100.0Lactate, POC (mmol/L)Date Value05/07/2017 1.03 Radiology:No acute fracture identified cervical spine.No acute intracranial hemorrhage or acute intracranial abnormalityidentified.Question some low lying cerebellar tonsils in the foramen magnum whichcould be further and better evaluated with MRI.ASSESSMENT/PLAN:Grant Blanchard is a 21 year old male with [...] discussed with ICU Staff Dr. Pedersen.Cirilo Davis MDTaylor Hardin Secure [facility] Surgery[C]: [phone] [P]: [id number]: 05/07/2017Time: 10:32 [facility] STAFF PHYSICIAN NOTE OF PERSONAL INVOLVEMENT [...] involved in the care of this patient.SIGNATURE: BEL LemonGER: [id number] of SERVICE: May 08, 2017TIME of SERVICE: 9:38 AM [facility] HISTORY PHYSICAL HNO ID: [id number] thor: Greg BoyleService: TraumaAuthor Type: PhysicianType: HANDPFiled: 05/08/2017 10:47 AMNote [...] before EMS arrived. Hewas then taken to [place] ED where he continued to have seizures andgiven 7mg ativan and 1.5g Keppra x2. A CT Head and C-spine was performedbut limited 2/2 motion artifact. A hogan was placed and he was transferedto [facility].BRIEF DESCRIPTION OF INJURIES: superficial abrasion to lateral [...] minutesIMAGESLABS: CBC, Coags, BMP, Mg, PhosRecent Labs 05/07/1821WBC [...] 95 193*BE NEG 1 NEG 2HCO3 25 27KX3UT 26 25O2HB 96 98COHB 0.9 0.8MHGB 0.6 [...] be d/w Surgery Staff Dr. Aamir Davis MDGenethe jewish hospital SurgeryFor any questions please contactSurgery Green Team pager [phone] weekdays.Or [phone] weeknights (6pm - 6am) and weekends.Date: 05/08/2017Time: 2:03 AMGreg Boyle, [facility] 2017 10:47 AM [facility] HISTORY PHYSICAL HNO ID: [id number] thor: Iris (Do) BishopService: Critical CareAuthor Type: PhysicianType: HANDPFiled: 05/08/2017 4:45 PMNote Text:[facility] STAFF PHYSICIAN NOTE OF PERSONAL INVOLVEMENT IN [...] HERRERA. No reported fevers. Pt transferred to [facility] with :Acute respiratory failure; intubated due to [...] spent providing critical care services: 46 minutes.SIGNATURE: RADHA MontezDEANNA INSTITUTEPAGER:[id number] of SERVICE: 05/08/2017 Normal [facility] HISTORY PHYSICAL HNO ID: [id number] thor: ANDREA Randhawa Reservice: General Internal MedicineAuthor [...] along with bladderincontinence. [facility] he was found in apost-itcal state. He went for CT scan of the head where he had anotherseizure and was given ativan. CT scan of the head was limited due toasymmetry and atrifact from backboard. However the radiologist did callthe ED physician and raised concern for possible subdural hematoma alongthe tentorium and posterior falx. Due to [facility] he was intubated due to hismental status [...] 08, 2017 : 5:22 PM PAGER/CONTACT #: [phone] [facility] HIV 12 Combo (Ag/Ab)on 05-08 HIV 12 Ag/Ab Non Reactive Normal Non Reactive [facility] Comment on above: Result Comment: (NOT E)HIV Information: [place] Rev. Code 3701.243(E):This information has been disclosed [...] or diagnoses. Performed By: #### H IV12C ####[place] [address] Hepatitis Acute Panel * OUTS [place] CLIENTS ONLY *on 05-08-2017 Hep B Core Ab, IgM Negative Normal Negative [facility] Comment on above: Performed By: #### H ACUTP ####[place] [address] Hepatitis A Ab IgM Negative Normal Negative [facility] Comment on above: Performed By: #### H ACUTP ####[place] [address] Hepatitis C Ab IA Negative Normal Negative [facility] Comment on above: Performed By: #### H ACUTP ####[place] [address] Herpes Simpl PCR CSFon 05-08 HSV PCR Spec Source Cerebrospinal Fluid [facility] Comment on above: Performed By: #### C GLUC, CPROT ####[facility] [place] [phone]#### HSPCRC, VDRLCF ####[place] [address] HSV-1 Negative [facility] Comment on above: Performed By: #### C GLUC, CPROT ####[address] [phone]#### HSPCRC, VDRLCF ####[place] [address] [place], [place] [phone] HSV-2 Negative Normal [facility] Comment on above: Performed By: #### C GLUC, CPROT ####[place] [phone]#### HSPCRC, VDRLCF ####[place] [address] [place], [place] [phone] Lipaseon 05-08-2017 Lipase enzyme act/vol 24 U/L Normal -70 [facility] Comment on above: Performed By: #### C BCDIF, AMYL, CMP, LIPA, ROSIE, PT, PTT ####[place] [id number] [place], [place] [phone] MRI BRAIN WO/W IVCONon 05-08 MRI BRAIN [...] orbits and extracranial soft tissues are unremarkable.IMPRESSION:Normal study.[employer]: NICO Transcribe Date/Time: May 08 2017 3:08ADictated by : DAVID NAYLOR MDThis examination was interpreted and the report reviewed and electronically signed by: DAVID NAYLOR MD on May 08 2017 3:11AM [id number] Normal [facility] Magnesiumon 05-08-2017 Magnesium mass conc 2.2 mg/dL Normal 1.7-2.6 [facility] Comment on above: Performed By: #### B MP, MG1, PHOS ####[facility] [place], [place] [phone] NURSING PROGon 05-08-2017 Protein mass conc HNO ID: [id number] thor: Gavi BradfordRn) Maki Payneice: (none)Author Type: Registered NurseType: Nursing Progress NoteFiled: 05/07/2017 10:24 PMNote Text: Nursing Progress: Topic: RESTRAINT NON-VIOLENTPATIENT NAME: Grant Blanchard [facility]: [id number] LOCATION: [place] [address]/IW-GCR-37Uzi patient demonstrates Attempting to Remove Medical Devices [...] May 07, 2017TIME: 10:24 PMGavi Payne RN [facility] Protein mass conc HNO ID: [id number] thor: Maki Reynolds Rnice: NursingAuthor Type: Registered NurseType: Nursing Progress NoteFiled: 05/08/2017 4:52 AMNote Text: Nursing Progress NotePatient Name: Grant Blanchard Location: [place] [address]/VL-DQX-91 Daily Note:0425: RT called to bedside to prepare for lumbar puncture.0435: agricultural service technician to come in at 0500 to replace EEG leads.0438: Dr. Godfrey at bedside to supervise. Kristopher Irwin at bedside as well.0441: Timeout completed for procedure.0451: 100 mcg fentanyl given per Dr. Godfrey.This note was completed by: Debo Marin RN [facility] Protein mass conc HNO ID: [id number] thor: Katerine (Rn) NEFTALY Gomeservice: Critical CareAuthor Type: Registered NurseType: Nursing Progress NoteFiled: 05/08/2017 8:08 AMNote Text: Nursing Progress: Topic: RESTRAINT NON-VIOLENTPATIENT NAME: Grant Blanchard LOCATION: [place] [address]/ZE-CBK-30Uzu patient demonstrates Attempting to Remove Medical Devices [...] May 08, 2017TIME: 8:08 Dot Gomes RN [facility] Protein mass conc HNO ID: [id number] thor: Katerine (Rn) NEFTALY Gomeservice: Critical CareAuthor Type: Registered NurseType: Nursing Progress NoteFiled: 05/08/2017 3:39 PMNote Text: Nursing Progress NotePatient Name: Grant Blanchard JRMRN: [id number] Location: [facility]/SP-QCV-38 Daily Note:0700: Bedside report received from VICTORINA Sultana. Patient intubated, sedated,and restrained. Full assessment to follow.0800: Full assessment completed. See documentation for details.0815: Patient placed in CPAP per Dr. Pedersen.0830: Pt began vomiting, oral suctioned for about 200 mL.0900: Dr. Mcdermott bedside.0945: Dr. Pedersen bedside to replace darrick collar.1245: Patient now on MICU service, Dr. Singh bedside for assessment.1500: Patient moved to ICU 31, report given VICTORINA Robertson and VICTORINA Guevara.This note was completed by: Katerine Gomes RN [facility] Protein mass conc HNO ID: [id number] thor: Renae (Rn) NEFTALY Ansariervice: NursingAuthor Type: Registered NurseType: Nursing Progress NoteFiled: 05/08/2017 7:56 PMNote Text: Nursing Progress NotePatient Name: Grant Blanchard JRMRN: [id number] Location: [facility]/VJ-JBT-78 Daily Note: Received pt on CPAP with [...] note was completed by: Renae Ansari RN [facility] Protein mass conc HNO ID: [id number] thor: Danika BradfordRn) NEFTALY Gillespieervice: Critical CareAuthor Type: Registered NurseType: Nursing Progress NoteFiled: 05/09/2017 7:32 AMNote Text: Nursing Progress NotePatient Name: Grant Elaine Santo JRMRN: [id number] Location: [place] [address]/QF-AEU-54 Daily Note:1920 Report received from day shift [...] note was completed by: Danika Gillespie RN [facility] Protein mass conc HNO ID: [id number] thor: Danika (Rn) NEFTALY Gillespieervice: Critical CareAuthor Type: Registered NurseType: Nursing Progress NoteFiled: 05/08/2017 7:27 PMNote Text: Nursing Progress: Topic: RESTRAINT NON-VIOLENTPATIENT NAME: Grant Elaine Santo JRMRN: [id number] LOCATION: [place] [address]/RD-LIW-82Bnc patient demonstrates Attempting to Remove Medical Devices [...] May 08, 2017TIME: 7:26 PMDanika Gillespie RN Normal [facility] Osmolality, Urineon 05-09-19 18 Osmolality, Urine 402 mOsm/kg Normal 50-1200 [facility] Comment on above: Performed By: #### U VIR[place]IA ####[facility] [address] [place], [place] [phone]#### UOSM ####[facility] [place], [place] [phone] PROCEDUREon 05-08-2017 Protein mass conc HNO ID: [id number] thor: Cirilo (Res) PhilipService: Critical CareAuthor Type: [...] into the electronic medical record on hospital discharge.[place] Protocol / Safety ChecklistThe sign in communication [...] (roughly 15cc) was collected.Opening Pressure: 37 cm D8JHprvmep Pressure: Not assessedFluid Appearance: ClearPatient tolerated procedure well.Complications: NoneSpecimens: Cell Count, Culture, Gram Stain, Glucose, Protein and CytologyEstimated Blood Loss 0ccSIGNATURE: Cirilo Davis MD PATIENT NAME: Grant Blanchard DATE: May 08, 2017 : 5:36 AM PAGER/CONTACT #: [phone] [facility] PROGRESSon 05-08-2017 PROGRESS HNO ID: [id number] thor: Madeline BradfordFair[facility]) SadiaService: (none)Author Type: Nurse PractitionerType: Progress NotesFiled: 05/08/2017 2:34 AMNote Text:[facility]UM[facility]ULLTICAL CARE TRANSPORT NOTEPatient Name: Grant Blanchard JRMRN: [id number]: 1995Service Date: May 07, 2017Referring Facility[facility] Physician: Brandon Accepting Physician: LisaJECTIVE/CHIEF COMPLAINT: Fall/SeizureREASON FOR TRANSPORT: Necessary services unavailable at referring facilityHistory of Present Illness/Injury: Known to CCT team at time of given careand summarized through review of available medical records, patient/familyinterview and from referring physician and staff.Grant Blanchard JR is a 21 year old male with a past history known to [facility] at time of transport, significant for nothing who presented [facility] s/p fall. Patient was walking out [...] physician managing the patient requested transfer to [facility] for tertiary and/or quaternary trauma services unavailable at thereferring facility.The physician managing the patient requested the [facility] CriticalCare Transport Team transport and treat [...] or deformities noted. Does notfollow commandsEENT: Atraumatic. AJNIA ~ 4mm/brisk, EOMI, conjunctiva slightly reddened,no contusions [...] thepatient's status. The patient was transported to [facility] by [employer](Helicopter) for tertiary and/or quaternary evaluation and management ofhis Emergent and Critical Medical condition.Upon arrival to the receiving facility, a goji-sz-avdm report [facility]. Patient care was [...] had a high probability of suddenlydeveloping.SIGNATURE:Frank Mccullough APRN-[facility] HOSPITALAcute Care Nurse PractitionerDetwiler Memorial Hospital Critical Care Transport Team Normal [facility] Protein mass conc HNO ID: [id number] thor: Greg BoyleService: TraumaAuthor Type: PhysicianType: Progress [...] for ongoing workup and treatment ofseizure disorder.Greg Ana Boyle, [facility] 2017 10:49 AM Normal [facility] Phosphoruson 05-08-2017 Phosphate mass conc 4.3 mg/dL Normal 2.5-4.5 [facility] Comment on above: Performed By: #### B MP, MG1, PHOS ####[facility] [place], [place] [phone] Protein, CSFon 05-08-2017 Protein, CSF 60 mg/dL High 15-45 [facility] Comment on above: Performed By: #### C GLUC, CPROT ####[place] [address] [place], [place] [phone]#### HSPCRC, VDRLCF ####[facility] [address] [place], [place] [phone] Protimeon 05-08-2017 INR Coag RelTime (Bld) 1.1 {INR} Normal 0.9-1.3 [facility] Comment on above: Result Comment: Xiao min K Antagonist (VKA) Therapeutic Range: INR 2 to 3 (Target INR of 2.5)Note: For patients treated with VKA drugs, such as warfarin, the [employer] 2012 Guideline recommends [...] of 3).Vasiliy GH, et al. Chest 2012, 141:7S-47SNishmalkaura RA, et al. [facility] 2017, 70: 252-289 Performed By: #### C BCDIF, AMYL, CMP, LIPA, ROSIE, PT, PTT ####[place] [phone] PT Sec 10.9 sec Normal 9.7-13.0 [facility] Comment on above: Performed By: #### C BCDIF, AMYL, CMP, LIPA, ROSIE, PT, PTT ####[place] [phone] Sodium,Urine,Randomon 2017 Sodium,Urine,Rando m 71 mmol/L Normal 14-216 [facility] Comment on above: Performed By: #### U VIR[place]IA ####[facility] [place], [place] [phone]#### UOSM ####[place] [phone] Toxicology Screen,Uron 05-08 Amphetamines, Urine Negative Normal Negative [facility] Comment on above: Result Comment: Cuto ff threshold at 1000 ng/mL. Performed By: #### U TOX2, UAWMIC ####[place] [phone] Barbiturates, Urine Negative Normal Negative [facility] Comment on above: Result Comment: Cuto ff threshold at 200 ng/mL. Performed By: #### U TOX2, UAWMIC ####[place] [id number] Benzodiazepines, Ur Negative Normal Negative [facility] Comment on above: Result Comment: Cuto ff threshold at 200 ng/mL. Performed By: #### U TOX2, UAWMIC ####[place] [id number] Cannabinoids, Urine Negative Normal Negative [facility] Comment on above: Result Comment: Cuto ff threshold at 50 ng/mL. Performed By: #### U TOX2, UAWMIC ####[place] [phone] Cocaine, Urine Negative Normal Negative [facility] Comment on above: Result Comment: Cuto ff threshold at 300 ng/mL. Performed By: #### U TOX2, UAWMIC ####[place] [id number] Ethanol, Urine <11 Normal <11 [facility] Comment on above: Performed By: #### U TOX2, UAWMIC ####[place] [id number] Opiates, Urine Negative Normal Negative [facility] Comment on above: Result Comment: Cuto ff threshold at 300 ng/mL. Performed By: #### U TOX2, UAWMIC ####[place] [id number] Oxycodone, Urine Negative Normal Negative [facility] Comment on above: Result Comment: Cuto [...] on the same specimen through Client Services ([phone]) if contacted within 48 hours of initial testing.[1]Substance Abuse and Mental Health Services Administration (2012). Clinical Drug Testing in Primary Care Technical Assistance Publication Series 32. Department of Health and Human Services, [place], p.10. Performed By: #### U TOX2, UAWMIC ####[place] [id number] Phencyclidine, Urine Negative Normal Negative [facility] Comment on above: Result Comment: Cuto ff threshold at 25 ng/mL. Performed By: #### U TOX2, UAWMIC ####[place] [id number] Troponin Ton 05-08-2017 Troponin T.cardiac mass conc ug/L Normal 0.000-0.02 9 [facility] Comment on above: Performed By: #### C BCDIF, AMYL, CMP, LIPA, ROSIE, PT, PTT ####[place] [address] Type and Screenon 05-08-2017 ABO/RH(D) Positive Normal [facility] Comment on above: Performed By: #### T SCR ####[place] [address] Urinalysison 05-08-2017 Bilirubin, Urine Negative Normal Negative [facility] Comment on above: Performed By: #### U A ####[place] [address] Clarity Clear Normal Clear [facility] Comment on above: Performed By: #### U A ####[place] [address] Color Straw Critically abnormal Yellow [facility] Comment on above: Performed By: #### U A ####[place] [address] Comments SEE COMMENT Normal [facility] Comment on above: Result Comment: Micr oscopic not warranted Performed By: #### U A ####[place] [address] Glucose Ql (U) Negative Normal Negative [facility] Comment on above: Performed By: #### U A ####[place] [address] Hemoglobin/Blood,U r Negative Normal Negative [facility] Comment on above: Performed By: #### U A ####[address] Ketones Ql (U) Negative Normal Negative [facility] Comment on above: Performed By: #### U A ####[place] [address] Leukest Negative Normal Negative [facility] Comment on above: Performed By: #### U A ####[place] [phone] Nitrites Negative Normal Negative [facility] Comment on above: Performed By: #### U A ####[address] pH 6.0 Normal 5.0-8.0 [facility] Comment on above: Performed By: #### U A ####[place] [address] Protein, Urine Negative Normal Negative [facility] Comment on above: Performed By: #### U A ####[place] [address] Specific [place], Ur <1.005 Low 1.005-1.03 0 [facility] Comment on above: Result Comment: Resu lt checked and verified Performed By: #### U A ####[place] [address] Urobilinogen <2.0 Normal <2.0 [facility] Comment on above: Performed By: #### U A ####[place] [phone] Urinalysis with Microscopico n 05-08-2017 Bilirubin, Urine Negative Normal Negative [facility] Comment on above: Performed By: #### U TOX2, UAWMIC ####[address] Clarity Clear Normal Clear [facility] Comment on above: Performed By: #### U TOX2, UAWMIC ####[place] [phone] Color Yellow Normal Yellow [facility] Comment on above: Performed By: #### U TOX2, UAWMIC ####[place] [phone] Comments SEE COMMENT Normal [facility] Comment on above: Result Comment: Micr oscopic Examination Performed Performed By: #### U TOX2, UAWMIC ####[address] Glucose Ql (U) Negative Normal Negative [facility] Comment on above: Performed By: #### U TOX2, UAWMIC ####[place] [address] Hemoglobin/Blood,U r Small Critically abnormal Negative [facility] Comment on above: Performed By: #### U TOX2, UAWMIC ####[place] [address] INR Coag RelTime (Bld) 0-5 Critically abnormal Negative [facility] Comment on above: Performed By: #### U TOX2, UAWMIC ####[place] [address] Ketones Ql (U) Trace Critically abnormal Negative [facility] Comment on above: Performed By: #### U TOX2, UAWMIC ####[place] [address] Leukest Negative Normal [facility] Comment on above: Performed By: #### U TOX2, UAWMIC ####[place] [address] Mucus Present [facility] Comment on above: Performed By: #### U TOX2, UAWMIC ####[place] [address] Nitrites Negative Normal [facility] Comment on above: Performed By: #### U TOX2, UAWMIC ####[place] [address] pH 7.0 Normal 5.0-8.0 [facility] Comment on above: Performed By: #### U TOX2, UAWMIC ####[place] [address] Protein, Urine Negative Normal [facility] Comment on above: Performed By: #### U TOX2, UAWMIC ####[address] Specific [place], Ur 1.014 Normal 1.005-1.03 0 [facility] Comment on above: Performed By: #### U TOX2, UAWMIC ####[place] [address] Urobilinogen <2.0 Normal <2.0 [facility] Comment on above: Performed By: #### U TOX2, UAWMIC ####[place] [address] WBC Rare Critically abnormal Negative [facility] Comment on above: Performed By: #### U TOX2, UAWMIC ####[place] [address] VDRL on CSFon 05-08-2017 VDRL on CSF Non Reactive Normal Non Reactive [facility] Comment on above: Performed By: #### C GLUC, CPROT ####[place] [address]#### HSPCRC, VDRLCF ####[facility] [address] [place] [phone] Vent Settings FOR WEST USE O NLYon 05-08-2017 MODE Mode Assist Control [facility] Comment on above: Performed By: #### A BGRTC, VENTLA ####[place] [address] MODE Mode Assist Control [facility] Comment on above: Performed By: #### A BGRTC, VENTLA ####[place] [address] MODE CPAP/PS [facility] Comment on above: Performed By: #### A BGRTC, VENTLA ####[place] [address] PEEP 5 [facility] Comment on above: Performed By: #### A BGRTC, VENTLA ####[place] [id number] PEEP 10 [facility] Comment on above: Performed By: #### A BGRTC, VENTLA ####[place] [address] [place] [phone] PEEP 5 [facility] Comment on above: Performed By: #### A BGRTC, VENTLA ####[place] [id number] [place] [phone] PRESSURE SUPPORT 5 [facility] Comment on above: Performed By: #### A BGRTC, VENTLA ####[place] [address] [place] [phone] RATE 16 [facility] Comment on above: Performed By: #### A BGRTC, VENTLA ####[place] [id number] [place] [phone] RATE 14 [facility] Comment on above: Performed By: #### A BGRTC, VENTLA ####[facility] [place] [phone] TIDAL VOLUME 480 [facility] Comment on above: Performed By: #### A BGRTC, VENTLA ####[facility] [place] [phone] XR ABDOMEN 1V SUPINEon 05-08 XR ABDOMEN [...] the jose. Visualized bowel gas pattern is nonobstructive.[employer]: NICO Transcribe Date/Time: May 08 2017 2:51PDictated by : NATA PEREZ MDThis examination was interpreted and the report reviewed and electronically signed by: NATA PEREZ MD on May 08 2017 2:52PM [id number] [facility] XR CHEST 1V FRONTAL PORTon 0 [...] subsegmental atelectasis. Near-complete resolution of vascular congestionTranscriptionist: PSCB Transcribe Date/Time: May 08 2017 9:34ADictated by : PAM LEWIS MDThis examination was interpreted and the report reviewed and electronically signed by: PAM LEWIS MD on May 08 2017 9:35AM [id number] [facility]2017 [facility] HNO ID: [id number] thor: Ra Moore (Rt): RadiologyAuthor Type: TechnicianType: Allied HealthFiled: 05/07/2017 9:36 PMNote Text: Radiology Service Progress NotePATIENT NAME: Grant Blanchard OF SERVICE: May 07, 2017TIME: 9:35 PMPATIENT IDENTITY VERIFICATION COMPLETED USING TWO (2) METHODS: ID Band .PATIENT GENDER DATA: MalePATIENT RELEVANT IMPLANT DATA REVIEWED: Not ApplicableRADIOLOGY DEPARTMENT: General X-ray: Exam(s) Completed: Chest X-RayPERIPHERAL IV DATA: Not applicableSIGNED BY: RT OscarMay 07, 2017 9:[address] [facility] HNO ID: [id number] thor: Karen (Rt) Dodrill, TechService: RadiologyAuthor Type: TechnicianType: Allied HealthFiled: 05/07/2017 9:46 PMNote Text: Radiology Service Progress NotePATIENT NAME: Grant Blanchard OF SERVICE: May 07, 2017TIME: 9:45 PMPATIENT IDENTITY VERIFICATION COMPLETED USING TWO (2) METHODS: Patientconfirmed name verbally and ID band matches..PATIENT GENDER DATA: MalePATIENT RELEVANT IMPLANT DATA REVIEWED: Not ApplicableRADIOLOGY DEPARTMENT: CT; Exam(s) Completed: Brain and NeckPERIPHERAL IV DATA: Not applicableSIGNED BY: Karen Mann RTMarch 2017 9:45 PM Normal [facility] APTTon 05-07-2017 aPTT 22.0 s Low 23.0-32.4 [facility] Comment on above: Result Comment: Unfr [...] laboratory APTT reagent in use throughout the [facility]. CBC and Differentialon 05-07 Abs Baso 0.06 k/uL Normal <0.11 [facility] Abs [place] 1.37 k/uL High <0.87 [facility] Abs Neut 5.42 k/uL Normal 1.45-7.50 [facility] Basophils/100 WBC Auto (Bld) 0.5 % Normal [facility] Eosinophils 0.10 10*3/uL Normal <0.46 [facility] Eosinophils/100 leukocytes 0.9 % Normal [facility] Erythrocyte distribution width Auto Ratio (RBC) 12.1 % Normal 11.5-15.0 [facility] Erythrocytes (RBC) 5.73 10*6/uL Normal 4.20-6.00 [facility] Hematocrit (HCT) 48.8 % Normal 39.0-51.0 [facility] Hemoglobin mass conc (Bld) 17.0 g/dL Normal 13.0-17.0 [facility] Lymphocytes 4.69 10*3/uL High 1.00-4.00 [facility] Lymphocytes/100 leukocytes 40.3 % Normal [facility] MCH 29.7 pG Normal 26.0-34.0 [facility] MCHC mass conc (RBC) 34.8 g/dL Normal 30.5-36.0 [facility] MCV 85.2 fL Normal 80.0-100.0 [facility] Monocytes/100 leukocytes 11.8 % Normal [facility] Neutrophils/100 WBC Auto (Bld) 46.5 % Normal [facility] Platelet mean volume (PMV) 9.2 fL Normal 9.0-12.7 [facility] Platelets 371 10*3/uL Normal 150-400 [facility] WBC (Leukocytes) 11.64 10*3/uL High 3.70-11.00 [facility] CNCRITCRon 05-07-2017 CNCRITCR Critical Care Transp ort (CCT) GRATN BLANCHARD JR ([id number]) 1995 MDate Time Provider Department05/07/17 MADELINE MCCULLOUGH (ANNA) CCT During your visit today, we recorded the following information about you:Madeline Mccullough APRN.CNP 05/08/2017 2:34 AM SignedTHE [facility] C[facility] TRANSPORT NOTEPatient Name: Grant Blanchard JRMRN: [id number]: 1995Service Date: May 07, 2017Referring Facility: [facility] Physician: Brandon Accepting Physician: LisaJECTIVE/CHIEF COMPLAINT: Fall/SeizureREASON [...] transport, significant for nothing who presented to [facility] s/bhavin. Patient was walking out of a [...] physician managing the patient requested transfer [facility] for tertiary and/or quaternary trauma services unavailable at thereferring facility.The physician managing the patient requested the [facility] Critical CareTransport Team transport and treat the patient for the purpose of tertiarycare, evaluation, and management of his emergent medical condition. Patientcondition at time of exam was: acutely ill and critically ill. Due to theunique circumstances of the patient, it was determined that this was theclosest, most appropriate facility by referring physician.ROS:Unable to [...] thepatient's status. The patient was transported to [facility] by [facility]otor(Helicopter) for tertiary and/or quaternary evaluation and management of hisEmergent and Critical Medical condition.Upon arrival to the receiving facility, a [id number] report was given tobpromedica flower hospitalide nursing staff in ER. Patient care was [...] compromise and SeizuresCardiovascular impairment, Respiratory impairment and SERVICE PORTER impairment which thepatient had and/or had a high probability of suddenly developing.SIGNATURE:Madeline Mccullough APRN-[facility] HOSPITALAcute Care Nurse PractitionerDetwiler [facility] Hospital Critical Care Transport TeamAllergies As of Date: 05/07/2017 Noted Allergy ReactionSULFA (SULFONAMIDE ANTIBIOTICS) 05/07/2017 16 - UnknownDate Reviewed: 05/07/2017Reviewed by: Nasreen (Victorina) [facility] - Fully AssessedReason for Visit: Critical Care Transport [1718]Problem List As Of Date 05/07/2017 Noted Resolved Status epilepticus (HCC) [G40.901] INVALID FOR*Follow-up and Disposition History RecordedEncounter Number: [id number] Status:Closed by MADELINE MCCULLOUGH on 05/08/17 Normal [facility] CT BRAIN WO IVCONon 05-08-[address] BRAIN WO IVCON * * *Final Report* * * * SEE BOTTOM OF REPORT FOR ADDENDED TEXT * * *DATE OF EXAM: May 07 2017 7:13PM [facility] 0504 - CT BRAIN WO IVCON / [...] emergency room doctor on 05/07/2017 at 8:00 PM.[employer]: NICO Transcribe Date/Time: May 07 2017 7:58PDictated by : KAYLAH COOPER MDThiedmar examination was interpreted and the report reviewed and electronically signed by: KAYLAH COOPER MD on May 07 2017 7:31PM ESTThis document has been addended by: KAYLAH COOPER MD on May 07 2017 8:03PM [id number] Normal [facility] CT BRAIN WO IVCON * * [...] be further and better evaluated with MRI.Details above.Ins[employer]: NICO Transcribe Date/Time: May 07 2017 9:55PDictated by : CAYLA DOBBINS MDThis examination was interpreted and the report reviewed and electronically signed by: CAYLA DOBBINS MD on May 07 2017 10:30PM [id number] Normal [facility] CT CERVICAL SPINE WO IVCONon 05-07-2017 CT CERVICAL SPINE WO IVCON * * *Final Report* * *DATE OF EXAM: May 07 2017 7:13PM [facility] 0505 - CT CERVICAL SPINE WO IVCON [...] significant degenerative changes.IMPRESSION:Limited study. No obvious displaced fracture.Ins[employer]: I Like My Waitress Transcribe Date/Time: May 07 2017 7:32PDictated by : KAYLAH COOPER MDThis examination was interpreted and the report reviewed and electronically signed by: KAYLAH COOPER MD on May 07 2017 7:36PM [id number] Normal [facility] CT CERVICAL SPINE WO IVCON * [...] be further and better evaluated with MRI.Details above.Ins[employer]: PSCB Transcribe Date/Time: May 07 2017 9:55PDictated by : CAYLA DOBBINS MDThis examination was interpreted and the report reviewed and electronically signed by: CAYLA DOBBINS MD on May 07 2017 10:30PM [id number] Normal [facility] Comp Metabolic Panelon 05-07 Alanine aminotransferase (ALT) 47 U/L Normal 5-50 [facility] Albumin 4.8 g/dL Normal 3.5-5.0 [facility] Alkaline phosphatase (ALP) 52 U/L Normal 40-150 [facility] Anion gap 17 mmol/L Normal 9-18 [facility] Aspartate aminotransferase (AST) 26 U/L Normal 7-40 [facility] Bilirubin (total) 0.7 mg/dL Normal 0.0-1.5 [facility] Calcium 9.5 mg/dL Normal 8.5-10.5 [facility] Chloride 102 mmol/L Normal 98-110 [facility] CO2 24 mmol/L Normal 23-32 [facility] Creatinine 1.05 mg/dL Normal 0.70-1.40 [facility] Glucose mass conc 104 mg/dL High 65-100 [facility] Potassium molar conc 3.9 mmol/L Normal 3.5-5.0 [facility] Protein 8.1 g/dL Normal 6.0-8.4 [facility] Sodium 143 mmol/L Normal 135-146 [facility] Urea nitrogen 17 mg/dL Normal 10-25 [facility] ED NOTEon 05-07-2017 ED NOTE HNO ID: [id number] Author: Dieter Sheriff RRT Service: Emergency Medicine Author Type: Registered Resp Therapist Type: ED Notes Filed: 05/07/2017 8:08 PM Note Text: Pt placed on 100% NRB. Pt did vomit and started to desat. Normal [facility] ED NOTE HNO ID: [id number] thor: Ernie Yanez (Rn) NEFTALY Baezervice: Emergency MedicineAuthor Type: Registered NurseType: ED NotesFiled: 05/07/2017 8:23 PMNote Text:Dr. Taylor ordered Not to continue external stimuli to for full NeuroAssessment at this time. Due to increased agitation Normal [facility] ED NOTE HNO ID: [id number] Author: Kalyn (Rn) VICTORINA Gomez Service: Quality Author Type: Registered Nurse Type: ED Notes Filed: 05/07/2017 9:27 PM Note Text: propofol started at 10mcg, c-collar in place, ET size 7.5, 26mm at lip. Normal [facility] ED PROV NOTEon 05-07-2017 ED PROV NOTE HNO ID: [id number] thor: ANDREA Álvarezervice: Emergency MedicineAuthor Type: PhysicianType: ED Provider NotesFiled: 05/07/2017 9:25 PMNote Text:ED Provider NotePatient Name: Grant Blanchard DATE: 05/07/17HistoryPatient presents with:SeizuresHPIHPI:21-year-old male with negative [...] Lymph 4.69 (H) 1.00 - 4.00 k/uL [place]% 11.8 % Abs [place] 1.37 (H) <0.87 k/uL Eosin% 0.9 % [...] phone discussing the patient with the hospitalist Royer, Dr. Love, the radiologist called to speak to my attending, and she suspects the patient may have a small subdural hematomaalong the tentorium and posterior falx.CCT was contacted. I spoke to the trauma ED physician at [place], . He accepts the patient for transfer. Patient will go by air.Dr. Taylor consulted with neurology at [place]. Patient has had 7 mg ofativan and [...] discussed with accepting physician, Dr. Osorio.TRANSFERRED to: [place] [facility] EDCondition at time of disposition: criticalThe attending who evaluated and managed this patient was Dr. Kovacs.SIGNATURE: INGA HendersonKG Interpretation:RHYTHM: Sinus tachycardia at 107 beats per minuteAXIS: Normal axisINTERVALS: Normal HI intervalQRS COMPLEX: NormalST SEGMENT: Normal ST-T segmentsQT INTERVAL: NormalCOMPARED WITH PRIOR: unchangedHeather Elba (Rick) RICK Gutiérrez05/07/17 2020Heather Elba (Rick) RICK Gutiérrez05/07/17 2032Attending NoteI have personally performed a face to face assessment of the patient andhave reviewed the PA/DEMAND EQUIPMENT REPAIRER note. My renae findings include:History: Patient presents [...] to haveseizures. I contacted the neurologist from [place]. He recommendedloading with another 1500 mg of [...] on this plan. [facility] for further evaluation of the traumasustained by the fall and status epilepticus.Critical CareI spent a total of 30 minutes of critical care time in the evaluation andmanagement of this patient. This was necessary to treat or preventdeterioration of the following condition(s): SERVICE PORTER impairment, which thepatient had and/or has a high probability of suddenly developing. Thepatient received antiepileptics and IV Fluids during the time thatcritical care was provided.I discussed the plan of care with the PA/APNand agree with the findings documented. Critical care time excludesseparately billed procedures.Adina Taylor MDOther additions or changes: NoneSignature: Adina Taylor MDDate: 05/07/2017Time: 9:22 PMRobadair Taylor MD05/07/172124 Normal [facility] Protein mass conc HNO ID: [id number] thor: ANDREA Nobleservice: (none)Author Type: PhysicianType: ED Provider NotesFiled: 05/07/2017 9:49 PMNote Text:ED Provider NotePatient Name: Grant Blanchard JRMRN: [id number] DATE: 05/07/17HistoryNo chief complaint on file.History provided by: EMS personnelChief Complaint: SeizuresHistory: Approximately 3 hours prior to presentation, the patient was [employer] and fell striking his head. There is a question of whetherhe had a seizure first or a seizure after he had his head. The patienthas had multiple seizures since that time. [facility] and treated with multiple doses of Ativan and IVKeppra. He arrives obtunded as a level I TRAU[place] ALERT. [place] of whether the [...] respiratory failure, unspecified whether with hypoxia orhypercapnia ([facility]) J96.002. Status epilepticus ([facility]) G40.9013. Subdural hematoma ([facility]) I62.00PlanThe Patient was ADMITTED TO: SICU.Case discussed [...] Critical care time excludesseparately billed procedures.SIGNATURE: Romulo Osorio, MDPLEASE NOTE: Portions of the medical record may have been produced usingelectronic sql server dba developer and may contain errors with respect totranslation of words which may not have been identified prior tofinalization of the chart.Romulo Osorio MD05/07/17 2149 Normal [facility] HISTORY PHYSICALon 8 HISTORY PHYSICAL HNO ID: [id number] thor: Ceferino (ANDREA Cohenervice: General SurgeryAuthor Type: ResidentType: HANDPFiled: 05/08/2017 5:13 AMNote Text:TRAUMA HANDP CCHSARRIVAL DATE: 05/07/17ARRIVAL TIME: 9:25PMCATEGORY: Level 1INJURY DATE: 05/07/2017INJURY TIME: 9:00PMSubjectiveTrevor is a 21 year old White male. GCS at Scene was 11.HPI/CHIEF COMPLAINT: SeizuresPt transferred [place] with [place], possible fall - 7mg ativan and1.5g Keppra x2 given LITHOGRAPHIC PRESS FEEDER.BRIEF DESCRIPTION OF INJURIES: Status epilepticusLAST FLUIDS/MEAL: unknownALLERGIESAllergen [...] (262 lb 12.6 oz) SpO2 99% BMI36.65 kg/m0UNKEW: GCS 7HEENT: Head: No lacerations or abrasions, [...] 95 193*BE NEG 1 NEG 2HCO3 25 01MZ0OZ 26 25O2HB 96 98COHB 0.9 0.8MHGB 0.6 0.7O2AD 30.0 100.0Assessment/PlanDIAGNOSES: Status epilepticusTREATMENT/EVALUATION PLANS: IntubationED DISPOSITION: To ICUFINAL INJURIES: No new injuries were identified after physical examinationand review of final radiological reading(s) of all studies.SENIOR RESIDENT NOTE:ATTENDING NOTE: see noteSIGNATURE: Ceferino Manuel MD PATIENT NAME: Grant Blanchard JRDATE: May 08, 2017 : 5:05 AM PAGER/CONTACT #: [facility] NURSING PROGon 05-07-2017 Protein mass conc HNO ID: [id number] thor: Nasreen Bose) Alexe: NursingAuthor Type: Registered NurseType: Nursing Progress NoteFiled: 05/08/2017 5:49 AMNote Text: Nursing Progress NotePatient Name: Grant Blanchard JRMRN: [id number] Location: [place] [address]/DX-[id number] Daily Note:2144: Arrived to SICU 5, intubated, placed on vent by RT, chlorhexidinebath completed, placed on [id number]: Chlorhexidine bath completed; the patient's gown was changed.Preventative allevyn was applied to the coccyx.2244: Family brought to bedside;Dr. Potts at bedside to answerquestions.224: Arturo Pham CNP states that there are no neurosurgical needs atthis time after consultation with Dr. Johnson. Defer to neurology to breakseizure activity. Possible plan for MRI in the future.2250: EEG paged for the third time. Returned page; states will be aftershift change at 2300. Made aware of the urgency of the situation.2300: Family at bedside, MD Ryan updated pt family on plan of care.2239: agricultural service technician and lab at bedside.0000: Pt reassessed. See flow sheet.0017: breeder service technician updated on STAT MRI ordered.0057: MD Ryan rounded. MD to order AM labs, KUB and ordered to holdKeppra dose until 0900.0151: Pt to MRI with transport, RT, and RN.0336: Pt returned from MRI and reconnected to all monitors. Familyupdated.0441: Time completed for LP.0530: agricultural service technician at bedside to place leads; LP complete. VICTORINA Milton to lab todeliver spinal fluid samples. Family at bedside.This note was completed by: Gavi Payne RN [facility] PROGRESSon 05-07-2017 PROGRESS HNO ID: [id number] thor: Petrona Hunter (Tech) Ra Vazquez: (none)Author Type: TechnicianType: Progress NotesFiled: 05/07/2017 7:19 PMNote Text: Radiology Service Progress NotePATIENT NAME: [facility] [id number] OF SERVICE: May 07, 2017TIME: 7:17 PMPATIENT IDENTITY VERIFICATION COMPLETED USING TWO (2) METHODS: ID Bandand Other ER staff with patient verified PT, PT unresponsive.PATIENT GENDER DATA: MalePATIENT RELEVANT IMPLANT DATA REVIEWED: Not ApplicableRADIOLOGY DEPARTMENT: CT; Exam(s) Completed: Brain and NeckPERIPHERAL IV DATA: Not applicableSIGNED BY: Fernanda BossSt. [facility] 2017 7:17 PM Normal [facility] [place] [facility] PROGRESS HNO ID: [id number] thor: Ellen (Rt) Ra Gipson: (none)Author Type: TechnicianType: Progress NotesFiled: 05/07/2017 7:20 PMNote Text: Radiology Service Progress NotePATIENT NAME: Grant Blanchard [facility]: [id number] OF SERVICE: May 07, 2017TIME: 7:19 PMPATIENT IDENTITY VERIFICATION COMPLETED USING TWO (2) METHODS: ID Bandand Family member confirmed name verbally.PATIENT GENDER DATA: MalePATIENT RELEVANT IMPLANT DATA REVIEWED: Not ApplicableRADIOLOGY DEPARTMENT: General X-ray: Exam(s) Completed: Chest X-RayPERIPHERAL IV DATA: Not applicableSIGNED BY: RT Dayna/Dinorah Varela RT(R)May 07, 2017 7:19 PM Normal [facility] [place] [facility] PROGRESS HNO ID: [id number] thor: Dinorah (Rt) Eulalia: (none)Author Type: TechnicianType: Progress NotesFiled: 05/07/2017 8:08 PMNote Text: Radiology Service Progress NotePATIENT NAME: Grant Blanchard [facility]: [id number] OF SERVICE: May 07, 2017TIME: 8:07 PMPATIENT IDENTITY VERIFICATION COMPLETED USING TWO (2) METHODS: Patientconfirmed name verbally and Date of .PATIENT GENDER DATA: MalePATIENT RELEVANT IMPLANT DATA REVIEWED: Not ApplicableRADIOLOGY DEPARTMENT: General X-ray: Exam(s) Completed: Chest X-RayPERIPHERAL IV DATA: Not applicableSIGNED BY: RT NamSt. [facility] 2017 8:07 PM Normal [facility] [place] [facility] Protein mass conc HNO ID: [id number] thor: Greg LunadavieService: General SurgeryAuthor Type: PhysicianType: Progress NotesFiled: 05/07/2017 [...] to medical service for seizure management.Greg Boyle, [facility] 2017 9:31 PM Normal [facility] Protimeon 05-07-2017 INR Coag RelTime (Bld) 1.0 {INR} Normal 0.9-1.3 [facility] [place] [facility] Comment on above: Result Comment: Xiao min K Antagonist (VKA) Therapeutic Range: INR 2 to 3 (Target INR of 2.5)Note: For patients treated with VKA drugs, such as warfarin, the [employer] 2012 Guideline recommends [...] of 2.5 to 3.5 (target INR of 3).Lydiatt GH, et al. Chest 2012, 141:7S-47SNishimura RA, et al. JACC 2017, 70: 252-289 PT Sec 10.4 sec Normal 9.7-13.0 [facility] [place] [facility] Toxicology Screen,Uron 05-07 Amphetamines, Urine Negative Normal Negative [facility] [place] [facility] Comment on above: Result Comment: Cuto ff threshold at 1000 ng/mL. Barbiturates, Urine Negative Normal Negative [facility] [place] [facility] Comment on above: Result Comment: Cuto ff threshold at 200 ng/mL. Benzodiazepines, Ur Negative Normal Negative [facility] [place] [facility] Comment on above: Result Comment: Cuto ff threshold at 200 ng/mL. Cannabinoids, Urine Negative Normal Negative [facility] [place] [facility] Comment on above: Result Comment: Cuto ff threshold at 50 ng/mL. Cocaine, Urine Negative Normal Negative [facility] [place] [facility] Comment on above: Result Comment: Cuto ff threshold at 300 ng/mL. Ethanol, Urine <11 Normal <11 [facility] [place] [facility] Opiates, Urine Negative Normal Negative [facility] [place] [facility] Comment on above: Result Comment: Cuto ff threshold at 300 ng/mL. Oxycodone, Urine Negative Normal Negative [facility] Comment on above: Result Comment: Cuto [...] on the same specimen through Client Services ([phone]) if contacted within 48 hours of initial testing.[1]Substance Abuse and Mental Health Services Administration (2012). Clinical Drug Testing in Primary Care Technical Assistance Publication Series 32. Department of Health and Human Services, [place], p.10. Phencyclidine, Urine Negative Normal Negative [facility] [place] [facility] Comment on above: Result Comment: Cuto [...] is not enlargedIMPRESSION:Hypoinflation . No obvious acute findings.Inspector [employer] Fabricating: NICO Transcribe Date/Time: May 07 2017 7:39PDictated by : Thu GERMAN examination was interpreted and the report reviewed and electronically signed by: KAYLAH COOPER MD on May 07 2017 7:40PM [id number] Normal [facility] [place] [facility] XR CHEST 1V FRONTAL PORT * [...] obvious pneumothoraxCardiomediastinal silhouette: Stable cardiomediastinal silhouette.IMPRESSION:Hypoinflat ion. Atelectasis.Inspector [employer] Fab[employer]ating: [facility] CENTERRenata Transcribe Date/Time: May 07 2017 8:12PDictated by : Thu GREMAN examination was interpreted and the report reviewed and electronically signed by: KAYLAH COOPER MD on May 07 2017 8:14PM [id number] Normal [facility] [place] [facility] XR CHEST 1V FRONTAL PORT * * *Final Report* * *DATE OF EXAM: May 07 2017 9:36PM [id number] - XR CHEST 1V FRONTAL PORT / REASON: Trauma * * * * Physician Interpretation * * * * EXAMINATION: CHEST RADIOGRAPH (PORTABLE SINGLE VIEW AP)Exam Date/Time: 05/07/2017 9:36 PMIndication: TraumaMQ: [id number]: 05/07/2017, 2007 hoursRESULT:Lines, tubes, and devices: The tip of [...] LOPEZ MD on May 07 2017 9:38PM [id number] Normal [facility] Social History Date Type Detail Facility Start: 04-23-2023 Tobacco smoking status NHIS Never smoked tobacco (finding) [facility] Start: 1995 Sex Assigned At Male F [facility] NEGATED: Highlighted row Unknown if ever smoked [facility] Vital Signs Date Time Vital Sign Value Performing Clinician Facility 04-23-2023 11:46-0400 Body height 182.88 cm [facility] 04-23-2023 11:46-0400 Body mass index (BMI) [Ratio] 40.9 kg/m2 [facility] 04-23-2023 11:46-0400 Body temperature 100.5 [degF] [facility] 04-23-2023 11:46-0400 Body weight 137.04 kg [facility] 04-23-2023 11:46-0400 Diastolic blood pressure 82 mm[Hg] [facility] 04-23-2023 11:46-0400 Heart rate 98 /min [facility] 04-23-2023 11:46-0400 Respiratory rate 18 /min [facility] 04-23-2023 11:46-0400 SaO2% (BldA) [Mass fraction] 98 % [facility] 04-23-2023 11:46-0400 Systolic blood pressure 132 mm[Hg] [facility] 02-15-2023 19:11-0500 Body temperature 99.3 [degF] [facility] 02-15-2023 19:11-0500 Body weight 145.78 kg [facility] 02-15-2023 19:11-0500 Diastolic blood pressure 102 mm[Hg] [facility] 02-15-2023 19:11-0500 Heart rate 88 /min [facility] 02-15-2023 19:11-0500 Respiratory rate 20 /min [facility] 02-15-2023 19:11-0500 SaO2% (BldA) [Mass fraction] 96 % [facility] 02-15-2023 19:11-0500 Systolic blood pressure 151 mm[Hg] [facility] 05-08-2017 19:43-0400 Body surface area Derived from formula [facility] Comment on above: Performed By: #### HACUTP ####[facility] [address] [place], [place] [id number] 05-08-2017 07:41-0400 Body mass index (BMI) [Ratio] [facility] Comment on above: Performed By: #### FLCSF ####[id number] [place] [address] Chief complaint+Reason for visit Narrative Note Date & Type Note Facility Chief complaint+Reason for visit Narrative Reason for Visit COVID-19 Contact with and (suspected) exposure to covid-19 [facility] Work Phone: Evaluation note Note Date & Type Note Facility Evaluation note Diagnosis Onset Date COVID-19 noneactive Contact with and (suspected) exposure to covid-19 noneactive [facility] Work Phone: Hospital Discharge instructions Note Date & Type Note Facility Hospital Discharge instructions No known hospital discharge instructions. [facility] Summary Purpose Family History No Family History Records FoundNo Family History Records FoundNo Family History Records FoundNo Family History Records FoundNo Family History Records FoundNo Family History Records Found Advance Directives Advance Directive Response Recorded Date/ Time Advance Directives No April 22 11:21am Additional Source Comments (unrecognized sect ion and content) No Status Records FoundNo Status Records FoundNo Status Records FoundNo Status Records FoundNo Status Records FoundNo Status Records Found INFORMATION SOURCE (unrecogn ized section and content) DATE CREATED AUTHOR 07/29/2017 [facility] [place] [facility] DATE CREATED AUTHOR AUTHOR'S ORGANIZ ATION 01/31/2018 [facility] DATE CREATED AUTHOR AUTHOR'S ORGANIZ ATION 09/22/2020 [facility] DATE CREATED AUTHOR AUTHOR'S ORGANIZ ATION 12/05/2020 [facility] DATE CREATED AUTHOR AUTHOR'S ORGANIZ ATION 03/16/2021 [facility] [place] [facility] DATE CREATED AUTHOR AUTHOR'S ORGANIZ ATION 02/19/2023 [facility] Care Teams (unrecognized sec tion and content) Team Status: Active Member Role Status Dates Gloria Walker MD Primary Care Provider Active Team Status: Inactive Member Role Status Dates Gloria Walker MD Primary Care Provider Active Start: [...] BE BASED ON THE PRIMARY CLINICAL RECORDS. [employer] [facility]. provides no warranty or guarantee of the accuracy or completeness of information in this document.
--- NOTE | 2023-08-05 09:21 | PC.NURSE ---
Nursing Note Cardiac Stress Test Reviewed: Medication, allergies and patient history reviewed. Stress Test: [ x] Patient tolerated stress test well. [ ] Patient unable to tolerate walking on treadmill. Switched to Lexiscan stress test. [x ] No chest pain noted per patient [ ] Chest pain that resolved prior to leaving stress lab. [ ] No dyspnea noted. [x ] Dyspnea that resolved prior to leaving stress lab. [x ] Patient left stress lab asymptomatic and hemodynamically stable. [ ] Patient taken to the Emergency Room due to non-resolving symptoms following stress test. [x ] Patient achieved target heart rate. [ ] Patient unable to achieve target heart rate. [ ] Aminophylline administered as reversal agent to Lexiscan (Regadenoson). [ ] Nitro administered. Nursing Comments:Pt had treadmill stress. Tolerated well. No chest pain. Dyspnea resolved within 4 minutes of rest. Pt ambulated to cafeteria for breakfast prior to last set of scans. No issues noted at time of leaving stress lab.
== END 2023-08-05 07:53 | disposition home or self-care (01) ==
LOC: CARD 07:53
PROVIDERS: PCP Family Medicine; Visit Provider Family Medicine
DX: R94.31 Abnormal electrocardiogram [ECG] [EKG] (principal)
CPT/HCPCS: 93017

== ENCOUNTER 2023-08-10 09:17 | Outpatient (OUT) | payer OTHER, SELFPAY ==
--- OUTSIDE RECORDS SUMMARY | 2023-08-10 09:22 | XMS_ITS | CCD ---
Author Organization [facility] Care Team Providers Care Supervisor Endless Track Vehicle Name Role Phone ADINA TAYLOR Unavailable Unavailable [...] provider (Unknown), Unlisted Primary Care Karli vailable ALEXXYGLORIA Primary Care Unavailable HOYGLORIA Attending Unavailable HOY, GLORIA Admitting Unavailable Allergies Allergy Classification Reported Allergen(s) Allergy Type Date of Onset Reaction(s) Facility (4 sources) Sulfonamides (Antibiotic); Translations: [SULFA (SULFONAMIDE ANTIBIOTICS)] Propensity to adverse reactions to drug (disorder) 8 AOF, Unknown Reaction [facility] Repository (1 source) Sulfonamides (Antibiotic) Drug allergy (disorder) 5 [facility] Repository (2 sources) Sulfonamides (Antibiotic); Translations: [Sulfa Antibiotics] Allergy to Substance 4 Other [facility] Repository (1 source) Naproxen Drug Allergy 4 Unknown Reaction [facility] Medications Current Medications Medication Drug [...] Active 100 MG PO Twice daily 14 7 November 08, 2020 12:00am hydrOXYzine hydrochloride 25 [...] Test Name Value Interpretation Reference Range Facility Provider Orderson 08-09-2023 Provider Orders [id number] 04-23-2023 SARS-CoV-2 (COVID-19) RNA KING+probe Ql (Unsp spec) Negative [facility] Laboratory - Microbiology an d Antimicrobial susceptibilityon 04-23-2023 SARS-CoV-2 (COVID-19) RNA KING+probe Ql (Unsp spec) Positive [facility] No Panel Informationon 04-22 POC Influenza A (PCR) Negative [facility] POC Influenza B (PCR) Negative [facility] CT cervical spine wo conon 1 03-31-2020 CT cervical spine wo con [facility] Main [place] [address] [place] [address] CT Scan Report Signed Patient: Grant Blanchard JR MR#: [id number] : 1995 Acct:[id number] Age/Sex: 25 / M ADM Date: 01/28/21 Loc: ER Room: Type: [facility] ER Attending Dr: Ordering Provider: [...] Morgan Young M.D.01/28/2021 6:17 PM Dictation Location: [place] [address] Transcribed By: [facility] 01/28/211816 Dictated By: Morgan Young DO 01/28/211814 Signed By: 01/28/211816 Normal [facility] CT head/brain wo conon 01-28 CT head/brain wo con [facility] Main [place] [address] [place] [address] CT Scan Report Signed Patient: Grant Blanchard JR MR#: [id number] : 1995 Acct:[id number] Age/Sex: 25 / M ADM Date: 01/28/21 Loc: ER Room: Type: [facility] ER Attending Dr: Ordering Provider: [...] Morgan Young M.D.01/28/2021 6:15 PM Dictation Location: [place] [address] Transcribed By: [facility] 01/28/211814 Dictated By: Morgan Young DO 01/28/211812 Signed By: 01/28/211814 Normal [facility] XR KUB 1 VIEWon 11-27-2020 [...] by: NICHOLAS CEDILLO Date: 2020-11-27 16:34 Normal [facility] CULTURE URINEon 11-21-2020 CULTURE URINE Culture Observations : VERY LIGHT GROWTH OF MIXED SKIN SERGEI. NO POTENTIAL PATHOGENS SEEN. Normal [facility] Comment on above: Performed By: #### U RCX #### [facility] [address] [place] [address] Dr. Dyan Tierney UA RANDOM W/MICROSCOPICon BACTERIA NONE SEEN Normal NONE SEEN [facility] Comment on above: Performed By: #### U AMIC #### [facility] [address] [place] [address] Dr. Dyan Tierney Bilirubin Ql (U) Negative Normal NEGATIVE [facility] Comment on above: Performed By: #### U AMIC #### [facility] [address] [place] [address] Dr. Dyan Tierney CAST NONE SEEN Normal NONE SEEN [facility] Comment on above: Performed By: #### U AMIC #### [facility] [address] [place] [address] Dr. Dyan Tierney Clarity (U) CLEAR Normal CLEAR [facility] Comment on above: Performed By: #### U AMIC #### [facility] [address] [place] [address] Dr. Dyan Tierney Color (U) YELLOW Normal YELLOW [facility] Comment on above: Performed By: #### U AMIC #### [facility] [address] [place] [address] Dr. Dyan Tierney Crystals LM Nom (Urine sed) NONE SEEN Normal NONE SEEN [facility] Comment on above: Performed By: #### U AMIC #### [facility] [address] [place] [address] Dr. Dyan Tierney Epithelial cells LM Ql (Urine sed) NONE SEEN Normal NONE SEEN /RARE [facility] Comment on above: Performed By: #### U AMIC #### [facility] [address] [place] [address] Dr. Dyan Tierney Glucose Ql (U) Negative Normal NEGATIVE [facility] Comment on above: Performed By: #### U AMIC #### [facility] [address] [place] [address] Dr. Dyan Tierney Hemoglobin Ql (U) Negative Normal NEGATIVE [facility] Comment on above: Performed By: #### U AMIC #### [facility] [address] [place] [address] [address] Dyan Tierney Ketones Ql (U) Negative Normal NEGATIVE [facility] Comment on above: Performed By: #### U AMIC #### [facility] [address] [place] [address] Dr. Dyan Tierney LEUKOCYTES Negative Normal NEGATIVE [facility] Comment on above: Performed By: #### U AMIC #### [facility] [address] [place] [address] [address] Dyan Tierney MUCOUS NONE SEEN Normal NONE SEEN [facility] Comment on above: Performed By: #### U AMIC #### [facility] [address] [place] [address] Dr. Dyan Tierney Nitrite Ql (U) Negative Normal NEGATIVE [facility] Comment on above: Performed By: #### U AMIC #### [facility] [address] [place] [address] Dr. Dyan Tierney pH (U) 6.0 [pH] Normal 5-9 [facility] Comment on above: Performed By: #### U AMIC #### [facility] [address] [place] [address] Dr. Dyan Tierney RBC 0-2 Normal 0-2 [facility] Comment on above: Performed By: #### U AMIC #### [facility] [address] [place] [address] Dr. Dyan Tierney SPEC GRAVITY 1.025 Normal 1.005-<=1. 025 [facility] Comment on above: Performed By: #### U AMIC #### [facility] [address] [place] [address] [address] Dyan Tierney UA PROTEIN Negative Normal NEGATIVE/ TRACE [facility] Comment on above: Performed By: #### U AMIC #### [facility] [address] [place] [address] Dr. Dyan Tierney Urobilinogen Qn (U) 0.2 {Boubacar'U}/dL Normal 0.2 - 1.0 [facility] Comment on above: Performed By: #### U AMIC #### [facility] [address] [place] [address] [address] Dyan Tierney WBC 0-2 Abnormal NONE SEEN [facility] Comment on above: Performed By: #### U AMIC #### [facility] [address] [place] [address] [address] Dyan Tierney Chlamydia/GC Amplificationon 11-08-2020 Chlamydia Trachomotis, KING Negative Normal Negative [facility] Comment on above: Performed By: #### G CCHLAMAMP #### [facility] , #### UA #### [facility] [address] [place] [address] Neisseria Gonorrhoeae, KING Negative Normal Negative [facility] Comment on above: Result Comment: Perf ormed at: =G - [facility] [address] [id number] Fruit Sprayer: Junie Peña MD, Phone: [phone] PERFORMED BY: [place] [address] PATHOLOGIST SEWER CLEANER MYLA DOSHI M.D. Performed By: #### G CCHLAMAMP #### [facility] , #### UA #### [facility] [address] [place] [address] US scrotumon 11-08-2020 US scrotum [place] [address] Ultrasound Report Signed Patient: Grant Blanchard JR MR#: [id number] : 1995 Acct:[id number] Age/Sex: 25 / M ADM Date: 11/08/20 Loc: ER Room: Type: [facility] ER Attending Dr: Ordering Provider: [...] Major Jr., M.D.11/08/2020 2:08 PM Dictation Location: [place] [address] Tech: Jayshree [place] Transcribed By: SEFERINO 11/08/20 140 Dictated By: Bandar Major Jr, MD 11/08/20 140 Signed By: 11/08/20 1408 Normal [facility] Urinalysison 11-08-2020 Appearance (U) Clear Normal Clear [facility] Comment on above: Order Comment: Name Collection Type:: Clean-Voided Midstream Performed By: #### G CCHLAMAMP #### [facility] , #### UA #### [facility] [address] [place] [address] [place] Bilirubin,Urine Negative Normal Negative [facility] Comment on above: Order Comment: Name Collection Type:: Clean-Voided Midstream Performed By: #### G CCHLAMAMP #### [facility] , #### UA #### [facility] [address] [place] [address] [place] Color (U) Yellow Normal Yellow [facility] Comment on above: Order Comment: Name Collection Type:: Clean-Voided Midstream Performed By: #### G CCHLAMAMP #### [facility] , #### UA #### [facility] [address] Glucose Ql (U) Normal Normal Normal [facility] Comment on above: Order Comment: Name Collection Type:: Clean-Voided Midstream Performed By: #### G CCHLAMAMP #### [facility] , #### UA #### [facility] [address] [place] [address] Ketones Ql (U) Trace High Negative [facility] Comment on above: Order Comment: Name Collection Type:: Clean-Voided Midstream Performed By: #### G CCHLAMAMP #### [facility] , #### UA #### [facility] [address] [place] [address] Leukocyte esterase Test strip Ql (U) Negative Normal Negative [facility] Comment on above: Order Comment: Name Collection Type:: Clean-Voided Midstream Performed By: #### G CCHLAMAMP #### [facility] , #### UA #### [facility] [address] [place] [address] Nitrite,Urine Negative Normal Negative [facility] Comment on above: Order Comment: Name Collection Type:: Clean-Voided Midstream Performed By: #### G CCHLAMAMP #### [facility] , #### UA #### [facility] [address] [place] [address] Occult Blood,Urine Negative Normal Negative [facility] Comment on above: Order Comment: Name Collection Type:: Clean-Voided Midstream Result Comment: PERF ORMED BY: [place] [address] PATHOLOGIST SEWER CLEANER MYLA DOSHI M.D. Performed By: #### G CCHLAMAMP #### [facility] , #### UA #### [facility] [address] [place] [address] [place] pH (U) 7.5 [pH] Normal 5.0-9.0 [facility] Comment on above: Order Comment: Name Collection Type:: Clean-Voided Midstream Performed By: #### G CCHLAMAMP #### [facility] , #### UA #### [address] Protein,Urine Negative Normal Negative [facility] Comment on above: Order Comment: Name Collection Type:: Clean-Voided Midstream Performed By: #### G CCHLAMAMP #### [facility] , #### UA #### [address] Specificy [place],Urine 1.027 Normal 1.001-1.03 0 [facility] Comment on above: Order Comment: Name Collection Type:: Clean-Voided Midstream Performed By: #### G CCHLAMAMP #### [facility] , #### UA #### [address] Urobilinogen,Urine Normal Normal Normal [facility] Comment on above: Order Comment: Name Collection Type:: Clean-Voided Midstream Performed By: #### G CCHLAMAMP #### [facility] , #### UA #### [address] Covid-19 PCR (CVDTB)on 10-10 SARS-CoV-2 (COVID-19) RNA KING+probe Ql (Unsp spec) Not detected Normal NOT DETECTED [facility] Comment on above: Result Comment: This test is not yet approved or cleared by the [facility] FDA. When there are no FDA-approved or cleared tests available, and other criteria are met, FDA can make tests available under an emergency access mechanism called an Emergency Use Authorization (EUA). The EUA for this test is supported by the [place] of Health and Human Service's (HHS's) declaration [...] SARS-CoV-2. Performed By: #### C VDTBH #### [facility] [address] [place] [address] [address] Dyan Tierney XR chest 1V portableon 10-13 XR chest 1V portable [facility] [place] [address] [place] [address] XRay Report Signed Patient: Grant Blanchard JR MR#: [id number] : 1995 Acct:[id number] Age/Sex: 25 / M ADM Date: 10/12/20 Loc: ER Room: Type: [facility] Attending Dr: Ordering Provider: Ana Garcia DO [...] Teddy Montelongo M.D.10/13/2020 9:12 AM Dictation Location: [place] [address] Transcribed By: [facility] 10/13/20911 Dictated By: Teddy Montelongo II, MD 10/13/20910 Signed By: 10/13/20911 Normal [facility] Basic Metabolic Panelon Calcium [Mass/Vol] 9.6 mg/dL Normal 8.2-10.2 [facility] Comment on above: Performed By: #### H S TROP, MG, BMP, CBC #### [facility] [address] [place] [address] [place] Chloride [Moles/Vol] 107 mmol/L Normal 95-114 [facility] Comment on above: Performed By: #### H S TROP, MG, BMP, CBC #### [facility] [address] CO2 [Moles/Vol] 20.4 mmol/L Low 22.0-30.0 [facility] Comment on above: Performed By: #### H S TROP, MG, BMP, CBC #### [facility] [address] Creatinine [Mass/Vol] 1.01 mg/dL Normal 0.64-1.27 [facility] Comment on above: Performed By: #### H S TROP, MG, BMP, CBC #### [address] Creatinine Clr Calc Pharmacy 169.57 [facility] Comment on above: Performed By: #### H S TROP, MG, BMP, CBC #### [address] Estimated GFR ( Va > 60 [facility] Comment on above: Result Comment: GFR estimated reference range: According to KDOQI guidelines, <60 ml/min/1.73m2 is sufficient to diagnose a patient with chronic kidney disease. Performed By: #### H S TROP, MG, BMP, CBC #### [address] Estimated GFR (Non- Am > 60 [facility] Comment on above: Performed By: #### H S TROP, MG, BMP, CBC #### [address] Glucose [Mass/Vol] 92 mg/dL Normal 70-100 [facility] Comment on above: Result Comment: [place] Glucose Reference Range is dependent on time and content of last meal. Glucose of more than 200 mg/dL in a nonstressed, ambulatory subject supports the diagnosis of Diabetes Mellitus. ADA recommended reference range Performed By: #### H S TROP, MG, BMP, CBC #### [place] [address] [place] Potassium [Moles/Vol] 3.5 mmol/L Normal 3.5-5.1 [facility] Comment on above: Performed By: #### H S TROP, MG, BMP, CBC #### [address] Sodium [Moles/Vol] 138 mmol/L Normal 136-146 [facility] Comment on above: Performed By: #### H S TROP, MG, BMP, CBC #### [address] Urea nitrogen [Mass/Vol] 12 mg/dL Normal 9-23 [facility] Comment on above: Performed By: #### H S TROP, MG, BMP, CBC #### [address] Complete Blood Count Auto Di ffon 10-12-2020 Basophils (Bld) [#/Vol] 0.1 10*3/uL Normal 0.0-0.2 [facility] Comment on above: Result Comment: PERF ORMED BY: [place] [address] PATHOLOGIST SEWER CLEANER MYLA DOSHI M.D. Performed By: #### H S TROP, MG, BMP, CBC #### [address] Basophils/100 WBC (Bld) 1.0 % Normal . [facility] Comment on above: Performed By: #### H S TROP, MG, BMP, CBC #### [facility] [address] [place] [address] [place] Eosinophils (Bld) [#/Vol] 0.1 10*3/uL Normal 0.0-0.45 [facility] Comment on above: Performed By: #### H S TROP, MG, BMP, CBC #### [address] Eosinophils/100 WBC (Bld) 0.6 % Normal . [facility] Comment on above: Performed By: #### H S TROP, MG, BMP, CBC #### [address] [address] [place] Erythrocyte distribution width (RBC) [Ratio] 12.5 % Normal 12.0-14.8 [facility] Comment on above: Performed By: #### H S TROP, MG, BMP, CBC #### [address] Hematocrit (Bld) [Volume fraction] 51.5 % High 38.8-50.0 [facility] Comment on above: Performed By: #### H S TROP, MG, BMP, CBC #### [address] Hemoglobin (Bld) [Mass/Vol] 18.0 g/dL High 13.0-17.0 [facility] Comment on above: Performed By: #### H S TROP, MG, BMP, CBC #### [address] Lymphocytes (Bld) [#/Vol] 3.1 10*3/uL Normal 1.00-4.8 [facility] Comment on above: Performed By: #### H S TROP, MG, BMP, CBC #### [address] Lymphocytes/100 WBC (Bld) 31.0 % Normal . [facility] Comment on above: Performed By: #### H S TROP, MG, BMP, CBC #### [address] MCH (RBC) [Entitic mass] 30.6 pg Normal 27.5-35.2 [facility] Comment on above: Performed By: #### H S TROP, MG, BMP, CBC #### [address] MCV (RBC) [Entitic vol] 87.5 fL Normal 83.5-101 [facility] Comment on above: Performed By: #### H S TROP, MG, BMP, CBC #### [address] Mean Corpuscular HGB Conc 35.0 g/dL Normal 32.5-35.6 [facility] Comment on above: Performed By: #### H S TROP, MG, BMP, CBC #### [facility] [address] [place] [address] Monocytes (Bld) [#/Vol] 1.0 10*3/uL High 0.0-0.8 [facility] Comment on above: Performed By: #### H S TROP, MG, BMP, CBC #### [address] Monocytes/100 WBC (Bld) 9.6 % Normal . [facility] Comment on above: Performed By: #### H S TROP, MG, BMP, CBC #### [address] Neutrophils (Bld) [#/Vol] 5.9 10*3/uL Normal 1.8-7.7 [facility] Comment on above: Performed By: #### H S TROP, MG, BMP, CBC #### [address] Neutrophils/100 WBC (Bld) 57.8 % Normal . [facility] Comment on above: Performed By: #### H S TROP, MG, BMP, CBC #### [address] Nucleated RBC/100 WBC (Bld) [Ratio] 0.4 % Normal 0-0.5 [facility] Comment on above: Performed By: #### H S TROP, MG, BMP, CBC #### [address] Platelet mean volume (Bld) [Entitic vol] 7.5 fL Normal 6.6-10.1 [facility] Comment on above: Performed By: #### H S TROP, MG, BMP, CBC #### [address] Platelets (Bld) [#/Vol] 337 10*3/uL Normal 150-450 [facility] Comment on above: Performed By: #### H S TROP, MG, BMP, CBC #### [address] [place] [address] [place] RBC (Bld) [#/Vol] 5.89 10*6/uL High 3.90-5.60 [facility] Comment on above: Performed By: #### H S TROP, MG, BMP, CBC #### [facility] [address] WBC (Bld) [#/Vol] 10.2 10*3/uL Normal 4.5-11.0 [facility] Comment on above: Performed By: #### H S TROP, MG, BMP, CBC #### [facility] [address] ECG 12 lead ECGon 10-12-2020 ECG 12 lead ECG [facility] [place] [address] [place] [address] Electrocardiograph Report Signed Patient: Grant Blanchard JR MR#: [id number] : 1995 Acct:[id number] Age/Sex: 25 / M ADM Date: 10/12/20 Loc: ER Room: Type: [facility] ER Attending Dr: Ordering Provider: [...] has shortened Confirmed by ANA GARCIA DO ([id number]) on 10/13/2020 1:54:37 AM Referred By: Electronically Signed By:ANA GARCIA DO Transcribed By: MUS Dictated By: Ana Garcia DO 10/12/20 1700 Signed By: 10/13/20 0154 Normal [facility] Magnesiumon 10-12-2020 Magnesium [Mass/Vol] 2.4 mg/dL Normal 1.6-2.6 [facility] Comment on above: Result Comment: PERF ORMED BY: [facility] [address] [place] [id number] PATHOLOGIST SEWER CLEANER MYLA DOSHI M.D. Performed By: #### H S TROP, MG, BMP, CBC #### [place] [id number] [facility] Troponin I High Sensitivityo n 10-12-2020 Troponin I High Sensitivity 9 pg/mL Normal 0-20 [facility] Comment on above: Result Comment: PERF ORMED BY: [facility] [address] [place] [id number] PATHOLOGIST SEWER CLEANER MYLA DOSHI M.D. Performed By: #### H S TROP, MG, BMP, CBC #### [facility] [address] [place] [id number] [facility] Consenton 09-20-2020 Consent [id number]:127 Normal [facility] Registrationon 09-20-2020 Registration [id number]:127 Normal [facility] Covid-19 PCR (CVDTB)on 06-09 SARS-CoV-2 (COVID-19) RNA KING+probe Ql (Unsp spec) Not detected Normal NOT DETECTED [facility] Comment on above: Result Comment: This test is not yet approved or cleared by the [place] FDA. When there are no FDA-approved or cleared tests available, and other criteria are met, FDA can make tests available under an emergency access mechanism called an Emergency Use Authorization (EUA). The EUA for this test is supported by the [place] of Health and Human Service's (HHS's) declaration [...] consistent with SARS-CoV-2. Performed By: #### [facility] #### [facility] [address] [place] [address] Leonor Martinez 06-06-2017 CNPN Telephone (FVPRAD) RAQUEL BLANCHARD JR ([id number]) 1995 [facility]/17 GRACIE HURLEY FVMADDIE During your visit today, we recorded the [...] will be in touchwith him.Neli Oliver NeurologyNeurological InstituteBlanchard Valley Health SystemPager: [phone] Bailey MD PHD 06/07/2017 1:54 PM SignedCan [...] advise patient if he calls back.'Owen Macias [facility] 06/07/2017 4:24 PM SignedPatient called back and [...] by YOHAN HUITRON, YAZMIN PHD on 06/07/17 [facility] CNCOon 05-20-2017 CNCO Letter TextApril 2017Grant Blanchard JRMRN: [id number] whom it may concern-Patient may return to work May 23, 2017 without restrictions.Thank you for your time and consideration.Sincerely,Yazmin Bailey MD, PhDStaff, [facility] Epilepsy Center and General NeurologyClinical Fish Flipperinsole tacker, [facility] CENTERBoard Certified, Epilepsy and Neurology [facility] CNOVon 05-20-2017 CNOV Office Visit (NEEPFV) RAQUEL BLANCHARD JR ([id number]) 1995 MDate Time Provider Department05/20/17 9:40 AM YAZMIN BAILEY NEEPFV During your visit today, we recorded the following information about you: Temperature Pulse Respiration Blood pressure 98.1 degrees 121/minute 20/minute 135/69 Weight Height 113.5 kg 1.829 Walter Bailey MD PHD 05/25/2017 1:34 PM [facility]ignedH[facility]- [facility] - INITIAL VISITReferral:SELFCHIEF COMPLAINT: This [...] SEIZURES:1. Head Trauma (Yes, concussion from football)2. RESIDENTIAL CARPENTER Infections (Yes, see history)3. Family History of Seizures (yes, greatgrandmother, grandmother)4. Developmental Delay (No)5. Febrile Seizures (No)6. RESIDENTIAL CARPENTER Tumors (No)7. RESIDENTIAL CARPENTER Vascular Disease (No)8. Significant Medical History (No)CURRENT ANTICONVULSANTS:Keppra 1000 mg XR 1000 mg bidThe patient's side effects to the current medications: tired, fatiguePRIOR ANTICONVULSANT HISTORY: NonePrior Consult form Dr Mcdermott:ANDquot;This is Mr. 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 Mother at bedside is [...] any drug use. [facility] the [facility]' blood sugar was 90. While in the ER his blood pressure dropped to80/50 and he was given fluids. His WBC count was 11.64 hemoglobin 17hematocrit 48 and platelet counts were 371. Sodium level was 143, potassium of3.9, glucose of 104, BUN 17, creatinine of 1.05, ALT 47, AST 26,ANDquot;phosphatase 52, total bilirubin of 0.7. Contacted by [place] emergencyphysician and I recommended another load of Keppra 15 mg and to assessfosphenytoin if he continues to seize at that time patient had received 7 mg ofAtivan and a load of 50 mg Keppra. He was not intubated at that time andaccording to the notes she was transferred to [place] and he was not intubatedeither. Urine drug screen was negative. [place] a WBC count of 21.89 [...] lb 4.8 oz) SpO2 96% BMI 33.95 kg/i3Tdkee, in no acute distress. Skin is normal [...] 5/5 5/5 5/5 5/5Neck Flexors 5/5Neck Extensors 5/5REFLEXES Right LeftBicep 2/4 2/4Tricep 2/4 2/4BrRad 2/4 2/4Knee 2/4 2/4Ankle 2/4 2/4Pathological Reflexes:none? Sensation: Intact to proprioception, light [...] was reviewed from 05/08/17 0810 until? 05/09/17 07and is suggestive of bilateral cortical dysfunction maximum? [...] 2Lymph%, CSF 50 - 90 % 91 (H)Ada%, CSF 10 - 50 % 7 (L)CSF Tube Nbr No 4Comment, CSF Some reference ranges and other method performance specificationshave not been . . .Specimen Request Less than optimal volume of specimen received and processed.Smear Result No organisms seen Few . . . Gram stain performed on cytospunspecimen. Gram stain results reviewed and confirmed by [facility].Culture No growth 14 daysHSV PCR Spec Source Cerebrospinal FluidHSV-1 Negative for Herpes Simplex Virus Type 1 by PCRHSV-2 Negative for Herpes Simplex Virus Type 2 by PCREnterovirus PCR Negative for Enterovirus by PCR.Source (Enterovirus PCR) Cerebrospinal FluidGlucose, CSF 50 - 75 mg/dL 91 (H)Protein, CSF 15 - 45 mg/dL 60 (H)Clothes Model Specimen originated from [facility] . . .VDRL, CSF Non Reactive [...] care of this patient.Yazmin Bailey MD, PhDStaff, [facility] and General NeurologyClinical Fish Flipperinsole tacker, [facility] MEDICAL CENTERBoard Certified, Epilepsy and NeurologyReferring Provider: SELF [200]Allergies As of Date: 05/20/2017 Noted Allergy ReactionSULFA (SULFONAMIDE ANTIBIOTICS) 05/07/2017 10 - AnaphylaxisDate Reviewed: 05/20/2017Reviewed by: Yoon Hay Ma - Fully AssessedReason for Visit: New Patient [172]Primary Visit Diagnosis:Partial idiopathic epilepsy with seizures of localized onset, not intractable, without status epilepticus (HCC) [G40.009] Other Visit Diagnosis:Abnormal finding in CSF [R83.9]Order(s):EEG LONG [0502465] Order #: [id number] TUBES - DRAW EXTRA [SQXTUBE] Order #: [id number] FUTURE LEVETIRACETAM [SQLEVET] Order #: [id number] FUTURE MRI BRAIN WO IVCON [[id number]] Order #: [id number] FUTURE levETIRAcetam (KEPPRA) 1,000 mg tabletTake 1 [...] (around 11/19/2017).Follow-up and Disposition History RecordedEncounter Number: [id number] Status:Closed by YOHAN HUITRON, YAZMIN PHD on 05/25/17 Normal [facility] Levetiracetamon 05-20-2017 Levetiracetam mass conc 26.8 ug/mL Normal 12.0-46.0 [facility] Comment on above: Result Comment: This test was developed and its performance characteristics determined by [facility]'s Adina JColleen [facility] [place] (-[facility]). It has not been cleared or approved by the FDA. [facility] is regulated under CLIA as qualified to perform high-complexity testing. This test is used for clinical purposes. It should not be regarded as investigational or for research. Performed By: #### L KULWANT ####[facility] [place], [place] [phone]#### MARILYN #### [address]Roche[address], [place] [phone] PROGRESSon 05-20-2017 PROGRESS HNO ID: [id number] thor: Yazmin Walker: (none)Author Type: PhysicianType: Progress NotesFiled: 05/25/2017 1:34 [...] by Dr Mcdermott and Mark (see below [facility] reviewed); treated with keppra; extensive imaging, labwork up unrevealing.Possible lateralizing signs by history: NoneBirth and Early Development: normalRISK FACTORS FOR SEIZURES:1. Head Trauma (Yes, concussion from football)2. RESIDENTIAL CARPENTER Infections (Yes, see history)3. Family History of Seizures (yes, greatgrandmother, grandmother)4. Developmental Delay (No)5. Febrile Seizures (No)6. RESIDENTIAL CARPENTER Tumors (No)7. RESIDENTIAL CARPENTER Vascular Disease (No)8. Significant Medical History (No)CURRENT ANTICONVULSANTS:Keppra 1000 mg XR 1000 mg bidThe patient's side effects to the current medications: tired, fatiguePRIOR ANTICONVULSANT HISTORY: NonePrior Consult form Dr Mcdermott: This is Mr. 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 Mother at bedside is [...] Mother denied any drug use. Upon arrival [facility] ER patient's blood sugar was 90. While in the ER his blood pressuredropped to 80/50 and he was given fluids. His WBC count was 11.64hemoglobin 17 hematocrit 48 and platelet counts were 371. Sodium levelwas 143, potassium of 3.9, glucose of 104, BUN 17, creatinine of 1.05, ALT47, AST 26, phosphatase 52, total bilirubin of 0.7. [place] I recommended another load of Keppra 15mg and to assess fosphenytoin if he continues to seize at that timepatient had received 7 mg of Ativan and a load of 50 mg Keppra. He wasnot intubated at that time and according to the notes she was transferredto [place] and he was not intubated either. Urine drug screen wasnegative. Patient arrived to the ER at [place] repeat CBC showed a WBCcount of 21.89 [...] Alcohol use: No Comment: Not drinking since wednesday Drug use: NoREVIEW OF SYSTEMS:The review of [...] lb 4.8 oz) SpO2 96% BMI 33.95 kg/h2Qtdbg, in no acute distress. Skin is normal [...] LeftBicep 2/ 2/4Tricep 2/ 2/4BrRad 2/4 2/4Knee 2/ 2/4Ankle /05 10/Pathological Reflexes:none? Sensation: Intact to proprioception, light touch [...] 2Lymph%, CSF 50 - 90 % 91 (H)Ada%, CSF 10 - 50 % 7 (L)CSF Tube Nbr No 4Comment, CSF Some reference ranges and other method performancespecifications have not been . . .Specimen Request Less than optimal volume of specimen received andprocessed.Smear Result No organisms seen Few . . . Gram stain performed oncytospun specimen. Gram stain results reviewed and confirmed by [facility] Microbiology.Culture No growth 14 daysHSV PCR Spec Source Cerebrospinal FluidHSV-1 Negative for Herpes Simplex Virus Type 1 by PCRHSV-2 Negative for Herpes Simplex Virus Type 2 by PCREnterovirus PCR Negative for Enterovirus by PCR.Source (Enterovirus PCR) Cerebrospinal FluidGlucose, CSF 50 - 75 mg/dL 91 (H)Protein, CSF 15 - 45 mg/dL 60 (H)Clothes Model Specimen originated from [facility] . . .VDRL, CSF Non Reactive [...] neurologic care of thispatient.Yazmin Bailey MD, PhDStaff, [facility] and General NeurologyClinical Fish Flipperinsole tacker, CCLCMBoard Certified, Epilepsy and Neurology Normal [facility] Paraneoplast Autoabson 05-20 ACh Receptor Bind Ab 0.00 nmol/L Normal <=0.02 [facility] Comment on above: Result Comment: (NOT E) ADDITIONAL INFORMATION This test was developed and its performance characteristicsdetermined by [facility] in a manner consistent with CLIArequirements. This test has not been cleared or approved bythe U.S. Food and Drug Administration. Performed By: #### L KULWANT ####[facility] [address] [place], [place] [phone]#### MARILYN #### [facility] [phone] AChR Ganglionic Neur 0.00 nmol/L Normal <=0.02 [facility] Comment on above: Result Comment: (NOT E) ADDITIONAL INFORMATION This test was developed and its performance characteristicsdetermined by [facility] in a manner consistent with CLIArequirenorthampton state hospital. This test has not been cleared or approved bythe .S. Food and Drug Administration. Performed By: #### L EVET ####[address] [phone]#### GERTRUDISO #### [facility] [facility], [place] [phone] Amphiphysin Ab, S Negative Normal <1:240 [facility] Comment on above: Result Comment: (NOT E) ADDITIONAL INFORMATION This test was developed and its performance characteristicsdetermined by [facility] in a manner consistent with CLIArequirements. This test has not been cleared or approved bythe .S. Food and Drug Administration. Performed By: #### L EVET ####[address] [phone]#### GERTRUDISO #### [facility] StM[facility], [place] [phone] DINORAH 1, S Negative Normal <1:240 [facility] Comment on above: Performed By: #### L EVET ####[place] [address] [place], [place] [phone]#### PARNEO #### [facility] [facility], [place] [phone] DINORAH 2, S Negative Normal <1:240 [facility] Comment on above: Result Comment: (NOT E) ADDITIONAL INFORMATION This test was developed and its performance characteristicsdetermined by [facility] in a manner consistent with CLIArequirements. This test has not been cleared or approved bythe U.S. Food and Drug Administration. Performed By: #### L EVET ####[address] [phone]#### MARILYN #### [facility] [place], [place] [phone] DINORAH 3, S Negative Normal <1:240 [facility] Comment on above: Result Comment: (NOT E) ADDITIONAL INFORMATION This test was developed and its performance characteristicsdetermined by [facility] in a manner consistent with CLIArequirements. This test has not been cleared or approved bythe U.S. Food and Drug Administration. Performed By: #### L EVET ####[address] [phone]#### MARILYN #### [facility] [place], [place] [phone] Anti-glial Nuc Ab 1 Negative Normal <1:240 [facility] Comment on above: Result Comment: (NOT E) ADDITIONAL INFORMATION This test was developed and its performance characteristicsdetermined by [facility] in a manner consistent with CLIArequirenorthampton state hospital. This test has not been cleared or approved bythe .S. Food and Drug Administration. Performed By: #### L EVET ####[address] [phone]#### MARILYN #### [facility] [place], [place] [phone] Ca Ch Bind Ab,N Type 0.00 nmol/L Normal <=0.03 [facility] Comment on above: Result Comment: (NOT E) ADDITIONAL INFORMATION This test was developed and its performance characteristicsdetermined by [facility] in a manner consistent with CLIArequirements. This test has not been cleared or approved bythe .. Food and Drug Administration. Performed By: #### L EVET ####[address] [phone]#### MARILYN #### [address] [phone] Ca Chn Bind Ab, P/Q 0.00 nmol/L Normal <=0.02 [facility] Comment on above: Result Comment: (NOT E) ADDITIONAL INFORMATION This test was developed and its performance characteristicsdetermined by [facility] in a manner consistent with CLIArequirements. This test has not been cleared or approved bythe .S. Food and Drug Administration. Performed By: #### L EVET ####[address] [phone]#### MARILYN #### [address] [phone] CRMP 5 IgG, S Negative Normal <1:240 [facility] Comment on above: Result Comment: (NOT E) ADDITIONAL INFORMATION This test was developed and its performance characteristicsdetermined by [facility] in a manner consistent with CLIArequirements. This test has not been cleared or approved bythe .. Food and Drug Administration. Performed By: #### L EVET ####[address] [phone]#### PARNEO #### [facility] [place], [place] [phone] Interpretive Comment (NOTE) Normal [facility] Comment on above: Result Comment: No i nformative autoantibodies were detected in theParaneoplastic Evaluation. However, a negative result doesnot exclude neurological autoimmunity with or withoutassociated neoplasia. Sensitivity and specificity ofantibody testing are enhanced by testing both serum andCSF. Performed By: #### L EVET ####[address] [phone]#### PARNEO #### [address] [phone] Neur V-G K+ Chann Ab 0.00 nmol/L Normal <=0.02 [facility] Comment on above: Result Comment: (NOT E) ADDITIONAL INFORMATION This test was developed and its performance characteristicsdetermined by [facility] in a manner consistent with CLIArequirements. This test has not been cleared or approved bythe U.S. Food and Drug Administration. Performed By: #### L EVET ####[address] [phone]#### PARSANDRITAO #### [facility] [place], [place] [phone] PARNEO Reflex Tests None. Normal [facility] Comment on above: Result Comment: (NOT E) ADDITIONAL INFORMATION This test was developed and its performance characteristicsdetermined by [facility] in a manner consistent with CLIArequirements. This test has not been cleared or approved bythe U.S. Food and Drug Administration. Performed By: #### L EVET ####[address] [phone]#### MARILYN #### [facility] [facility], [place] [phone] RESEARCH CENTER DIRECTOR 1, S Negative Normal <1:240 [facility] Comment on above: Result Comment: (NOT E) ADDITIONAL INFORMATION This test was developed and its performance characteristicsdetermined by [facility] in a manner consistent with CLIArequirements. This test has not been cleared or approved bythe .. Food and Drug Administration. Performed By: #### L EVET ####[address] [phone]#### MARILYN #### [facility] [facility], [place] [phone] RESEARCH CENTER DIRECTOR 2, S Negative Normal <1:240 [facility] Comment on above: Result Comment: (NOT E) ADDITIONAL INFORMATION This test was developed and its performance characteristicsdetermined by [facility] in a manner consistent with CLIArequirements. This test has not been cleared or approved bythe .S. Food and Drug Administration. Performed By: #### L EVET ####[address] [phone]#### GERTRUDISO #### [facility] [facility], [place] [phone] RESEARCH CENTER DIRECTOR Tr, S Negative Normal <1:240 [facility] Comment on above: Result Comment: (NOT E) ADDITIONAL INFORMATION This test was developed and its performance characteristicsdetermined by [facility] in a manner consistent with CLIArequirements. This test has not been cleared or approved bythe U.S. Food and Drug Administration. Performed By: #### L LETHAET ####[place] [address] [place], [place] [phone]#### MARILYN #### [facility] [place], [place] [phone] Striational Ab, S Negative Normal <1:120 [facility] Comment on above: Result Comment: (NOT E) ADDITIONAL INFORMATION This test was developed and its performance characteristicsdetermined by [facility] in a manner consistent with CLIArequirements. This test has not been cleared or approved bythe U.S. Food and Drug Administration. Performed By: #### L LETHAET ####[place] [address] [place], [place] [phone]#### MARILYN #### [facility] [place], [place] [phone] Basic Metabolic Panlon 05-11 Anion gap 3 molar conc 17 mmol/L Normal 9-18 [facility] Comment on above: Performed By: #### C BCDIF, BMP, MG1, PHOS ####[facility] [place], [place] [phone] Calcium mass conc 9.4 mg/dL Normal 8.5-10.5 [facility] Comment on above: Performed By: #### C BCDIF, BMP, MG1, PHOS ####[place] [id number] [place], [place] [phone] Chloride molar conc 103 mmol/L Normal 98-110 [facility] Comment on above: Performed By: #### C BCDIF, BMP, MG1, PHOS ####[place] [phone] CO2 molar conc 21 mmol/L Low 23-32 [facility] Comment on above: Performed By: #### C BCDIF, BMP, MG1, PHOS ####[place] [phone] Creatinine mass conc 0.76 mg/dL Normal 0.70-1.40 [facility] Comment on above: Performed By: #### C BCDIF, BMP, MG1, PHOS ####[place] [phone] eGFR- Amer. >60 Normal >60 [facility] Comment on above: Performed By: #### C BCDIF, BMP, MG1, PHOS ####[place] [phone] GFR/1.73 sq M predicted among non-blacks MDRD vol rate/area (S/P/Bld) mL/min/{1.73_m2} Normal >60 [facility] Comment on above: Performed By: #### C BCDIF, BMP, MG1, PHOS ####[place] [phone] Glucose mass conc 92 mg/dL Normal 65-100 [facility] Comment on above: Performed By: #### C BCDIF, BMP, MG1, PHOS ####[place] [phone] Potassium molar conc 3.8 mmol/L Normal 3.5-5.0 [facility] Comment on above: Performed By: #### C BCDIF, BMP, MG1, PHOS ####[place] [phone] Sodium molar conc 141 mmol/L Normal 135-146 [facility] Comment on above: Performed By: #### C BCDIF, BMP, MG1, PHOS ####[place] [phone] Urea nitrogen mass conc 12 mg/dL Normal 10-25 [facility] Comment on above: Performed By: #### C BCDIF, BMP, MG1, PHOS ####[place] [address] CBC and Differentialon 05-11 Abs Baso 0.04 k/uL Normal <0.11 [facility] Comment on above: Performed By: #### C BCDIF, BMP, MG1, PHOS ####[place] [address] Abs Ada 0.69 k/uL Normal <0.87 [facility] Comment on above: Performed By: #### C BCDIF, BMP, MG1, PHOS ####[place] [address] Abs Neut 4.43 k/uL Normal 1.45-7.50 [facility] Comment on above: Performed By: #### C BCDIF, BMP, MG1, PHOS ####[place] [address] Basophils/100 WBC Auto (Bld) 0.5 % [facility] Comment on above: Performed By: #### C BCDIF, BMP, MG1, PHOS ####[place] [address] DTYPE Auto Diff Normal [facility] Comment on above: Performed By: #### C BCDIF, BMP, MG1, PHOS ####[place] [phone] Eosinophils Auto #/vol (Bld) 0.24 10*3/uL Normal <0.46 [facility] Comment on above: Performed By: #### C BCDIF, BMP, MG1, PHOS ####[address] Eosinophils/100 WBC Auto (Bld) 3.2 % Normal [facility] Comment on above: Performed By: #### C BCDIF, BMP, MG1, PHOS ####[place] [address] Erythrocyte distribution width Auto Ratio (RBC) 11.9 % Normal 11.5-15.0 [facility] Comment on above: Performed By: #### C BCDIF, BMP, MG1, PHOS ####[place] [address] Hematocrit Auto Volume Fraction (Bld) 43.3 % Normal 39.0-51.0 [facility] Comment on above: Performed By: #### C BCDIF, BMP, MG1, PHOS ####[place] [address] Hemoglobin mass conc (Bld) 15.5 g/dL Normal 13.0-17.0 [facility] Comment on above: Performed By: #### C BCDIF, BMP, MG1, PHOS ####[place] [address] Lymphocytes Auto #/vol (Bld) 2.11 10*3/uL Normal 1.00-4.00 [facility] Comment on above: Performed By: #### C BCDIF, BMP, MG1, PHOS ####[place] [address] Lymphocytes/100 WBC Auto (Bld) 28.1 % Normal [facility] Comment on above: Performed By: #### C BCDIF, BMP, MG1, PHOS ####[place] [address] MCH Auto Entitic mass (RBC) 30.3 pG Normal 26.0-34.0 [facility] Comment on above: Performed By: #### C BCDIF, BMP, MG1, PHOS ####[place] [address] MCHC Auto mass conc (RBC) 35.8 g/dL Normal 30.5-36.0 [facility] Comment on above: Performed By: #### C BCDIF, BMP, MG1, PHOS ####[place] [phone] MCV Auto Entitic volume (RBC) 84.7 fL Normal 80.0-100.0 [facility] Comment on above: Performed By: #### C BCDIF, BMP, MG1, PHOS ####[place] [phone] Monocytes/100 WBC Auto (Bld) 9.2 % Normal [facility] Comment on above: Performed By: #### C BCDIF, BMP, MG1, PHOS ####[place] [phone] Neutrophils/100 WBC Auto (Bld) 59.0 % Normal [facility] Comment on above: Performed By: #### C BCDIF, BMP, MG1, PHOS ####[place] [address] Platelet mean volume Auto Entitic volume (Bld) 9.9 fL Normal 9.0-12.7 [facility] Comment on above: Performed By: #### C BCDIF, BMP, MG1, PHOS ####[place] [phone] Platelets Auto #/vol (Bld) 286 10*3/uL Normal 150-400 [facility] Comment on above: Performed By: #### C BCDIF, BMP, MG1, PHOS ####[place] [phone] RBC Auto #/vol (Bld) 5.11 10*6/uL Normal 4.20-6.00 [facility] Comment on above: Performed By: #### C BCDIF, BMP, MG1, PHOS ####[place] [phone] WBC Auto #/vol (Bld) 7.51 10*3/uL Normal 3.70-11.00 [facility] Comment on above: Performed By: #### C BCDIF, BMP, MG1, PHOS ####[facility] [place], [place] [phone] CNDSon 05-11-2017 CNDS HNO ID: [id number] thor: Arvind Huervice: General Internal MedicineAuthor Type: [...] Long-termFINAL DIAGNOSIS: LOSS OF CONSCIOUSNESSArvind Prado MD [facility] CONSULT PROGon 05-11-2017 Protein mass conc HNO ID: [id number] thor: Mónica Barreraervice: NeurologyAuthor Type: PhysicianType: Consult [...] Keppra until he comes to clinic.Mónica Flores [facility] HospitalNeurological Cfesyqmnr[address] [facility]/ [address] HSVG Typ 1 and 2 Abson 05-11 Herpes Simplex IgG 1 <0.2 [facility] Comment on above: Result Comment: INDE X VALUES ARE INTERPRETED FOLLOWS:NEGATIVE SPECIMENS <0.9EQUIVOCAL SPECIMENS 0.9 TO 1.0POSITIVE SPECIMENS >=1.1 Performed By: #### H SVG12 ####[place] [phone] Herpes Simplex IgG 2 7.1 AI Normal [facility] Comment on above: Result Comment: INDE X VALUES ARE INTERPRETED FOLLOWS:NEGATIVE SPECIMENS <0.9EQUIVOCAL SPECIMENS 0.9 TO 1.0POSITIVE SPECIMENS >=1.1 Performed By: #### H SVG12 ####[place] [address] HSV IgG 1 Qualitative Negative Normal Negative [facility] Comment on above: Result Comment: No H SV-1 IgG antibodies detected.Patient is presumed not to have hada previous HSV-1 infection. Performed By: #### H SVG12 ####[place] [address] HSV IgG 2 Qualitative Positive Critically abnormal Negative [facility] Comment on above: Result Comment: IgG antibody to HSV-2 detected Performed By: #### H SVG12 ####[place] [phone] Magnesiumon 05-11-2017 Magnesium mass conc 2.2 mg/dL Normal 1.7-2.6 [facility] Comment on above: Performed By: #### C BCDIF, BMP, MG1, PHOS ####[facility] [phone] NURSING PROGon 05-11-2017 Protein mass conc HNO ID: [id number] thor: Ambrose (Rn) Ryan, RNService: (none)Author Type: Registered NurseType: Nursing Progress NoteFiled: 05/11/2017 1:28 PMNote Text: Nursing Progress NotePatient Name: Grant Blanchard JRMRN: [id number] [id number]33 Daily Note: Patient discharged to home with instructions given, verbalizedunderstanding on medications, diet, activity and follow up.This note was completed by: Ambrose Davis RN [facility] Protein mass conc HNO ID: [id number] thor: Ambrose Bose) Ryan, RNSbreannaice: (none)Author Type: Registered NurseType: Nursing Progress NoteFiled: 05/11/2017 10:54 AMNote Text: Nursing Progress NotePatient Name: Grant Blanchard JRMRN: [id number] Location: /DF-[id number]-29 Daily Note: Patient alert and oriented, denies dizziness, denies pain,anxious to leave this morning, BEM still on but is discontinued, waitingfor last reading from , lungs clear, 96 RA, Tele SR 94, toleratingregular diet, ambulates with stable gait, will continue Seizureprecautions, family at bedside, currently resting in bed with call lightin reach.This note was completed by: Ambrose Davis RN [facility] Protein mass conc HNO ID: [id number] thor: Maki Porter Rnice: (none)Author Type: Registered NurseType: Nursing Progress NoteFiled: 05/11/2017 5:56 AMNote Text: Nursing Progress NotePatient Name: Grant Blanchard JRMRN: [id number] Location: /NH-NCIE-17 Daily Note:Pt AANDOx3 and appears easily arousable. 24 hour EEG ongoing. Pt told [employer] he did not want to be on EEG any more. RN convinced pt to have it onovernight and pt accepted. Normal Sinus Rhythm/ Sinus Tachycardia on tele.Call light in reach and bed alarm on. No further complaints at this time.This note was completed by: Karen Frey RN [facility] PLAN OF CAREon 05-11-2017 PLAN OF CARE HNO ID: [id number] thor: Karen Marin (Pharmacist)Service: PharmacyAuthor Type: PharmacistType: Plan of CareFiled: 05/11/2017 1:30 PMNote Text:DISCHARGE MEDICATION REVIEW BY PHARMACYPatient Name: Grant Blanchard JR : [id number] Admission Date: 05/07/2017Date of Contact: May 11, 2017 Time of Contact: 1:30 PMMedication list was reviewed by a Pharmacist for drug interactions or drugrelated problems:YesBelow is a summary of pharmacist recommendations discussed with LIP:No Recommendations at this time from Discharge Medication List.Karen Marin PharmacistApril 2017 1:30 PMPager: [phone]/04/2017 1:30 PMMedication ListSTART taking these medications levETIRAcetam 1,000 mg tabletCommonly known as: KEPPRATake 1 tablet by mouth twice daily.Where to Get Your MedicationsInformation about where to get these medications is not yet available ! Ask your nurse or doctor about these medications - levETIRAcetam 1,000 mg tablet Normal [facility] Phosphoruson 05-11-2017 Phosphate mass conc 3.6 mg/dL Normal 2.5-4.5 [facility] Comment on above: Performed By: #### C BCDIF, BMP, MG1, PHOS ####[facility] [place], [place] [phone] Basic Metabolic Panlon 05-10 Anion gap 3 molar conc 15 mmol/L Normal 9-18 [facility] Comment on above: Performed By: #### C BCDIF, BMP ####[facility] [place], [place] [phone] Calcium mass conc 9.4 mg/dL Normal 8.5-10.5 [facility] Comment on above: Performed By: #### C BCDIF, BMP ####[place] [phone] Chloride molar conc 101 mmol/L Normal 98-110 [facility] Comment on above: Performed By: #### C BCDIF, BMP ####[place] [phone] CO2 molar conc 24 mmol/L Normal 23-32 [facility] Comment on above: Performed By: #### C BCDIF, BMP ####[place] [phone] Creatinine mass conc 0.75 mg/dL Normal 0.70-1.40 [facility] Comment on above: Performed By: #### C BCNAVINF, BMP ####[place] [phone] eGFR- Amer. >60 Normal >60 [facility] Comment on above: Performed By: #### C BCNAVINF, BMP ####[place] [phone] GFR/1.73 sq M predicted among non-blacks MDRD vol rate/area (S/P/Bld) mL/min/{1.73_m2} Normal >60 [facility] Comment on above: Performed By: #### C BCNAVINF, BMP ####[place] [phone] Glucose mass conc 90 mg/dL Normal 65-100 [facility] Comment on above: Performed By: #### C BCDIF, BMP ####[place] [phone] Potassium molar conc 3.5 mmol/L Normal 3.5-5.0 [facility] Comment on above: Performed By: #### C BCDIF, BMP ####[place] [phone] Sodium molar conc 140 mmol/L Normal 135-146 [facility] Comment on above: Performed By: #### C BCDIF, BMP ####[place] [phone] Urea nitrogen mass conc 8 mg/dL Low 10-25 [facility] Comment on above: Performed By: #### C JAMES MIRANDA ####[facility] [place], [place] [phone] CASE MGT INIT AUBREYon 2017 CASE MGT INIT AUBREY HNO ID: [id number]: Garcias (Sw) GurgolService: Case ManagementAuthor Type: Social WorkerType: Care Mgt Initial AssessmentFiled: 05/10/2017 1:14 PMNote Text:CARE MANAGEMENT: ASSESSMENT AND DISCHARGE PLANSERVICE DATE: 05/10/2017SERVICE TIME: 12:03 PMPRIMARY CARE PHYSICIAN:Pt reports primary PCP is Dr. Gloria Coombsone: NoneADMISSION STATUS: InpatientNeeds Prior to Discharge: To Be Determined;OT/PT EvaluationMEDICAL:Patient/Repres entative Stated Goals:To return home to life as it [facility] Insurance:[employer] Issues Impacting Discharge Plan: Newly diagnosed seizuresLast [...] Admission: NoneHas the Patient Been in a [facility] in the Past 30 days?N/ASOCIAL:Living Arrangement: HomeLives With: familyFinancial Resources: Employed: [employer]Primary Contact: Extended Emergency Contact InformationPrimary Emergency Contact: Grant Henning Caqjamin: ParentSupportive: YesOther Important Patient Contacts: Family: Name: mother, Mai Duenas Brpoltpbr Assessment:Caregiver is ready, willing and able to [...] - 0I feel financially burdened by my ygy-yl-dkzxsx expenses for myprescription medication: Disagree completely - [...] is alert and appropriate. [place], he is working and is fully independent. Pt denies needs at thistime. Discussed CM will follow in his care to assist with his transitionplanning as needs evolve.ADDENDUM 12:45PMPt requested to meet with CM again. Pt inquired if he could be D/C'dtoday; expressing some level of wanting to leave AMA. Advised will notifyPt's MD.Dr. Juan Daniel phan and charge loader notified of Pt's request.SIGNATURE: SOPHIA Brown PATIENT NAME: Grant Blanchard JRDATE: May 10, 2017 : 12:03 PM PAGER/CONTACT #: [phone] Normal [facility] CBC and Differentialon 05-10 Abs Baso 0.05 k/uL Normal <0.11 [facility] Comment on above: Performed By: #### C BCDIF, BMP ####[place] [address] Abs Ada 0.89 k/uL High <0.87 [facility] Comment on above: Performed By: #### C BCDIF, BMP ####[place] [address] Abs Neut 6.62 k/uL Normal 1.45-7.50 [facility] Comment on above: Performed By: #### C BCDIF, BMP ####[place] [address] Basophils/100 WBC Auto (Bld) 0.5 % Normal [facility] Comment on above: Performed By: #### C BCDIF, BMP ####[place] [address] DTYPE Auto Diff Normal [facility] Comment on above: Performed By: #### C BCDIF, BMP ####[place] [address] Eosinophils Auto #/vol (Bld) 0.18 10*3/uL Normal <0.46 [facility] Comment on above: Performed By: #### C BCDIF, BMP ####[place] [address] Eosinophils/100 WBC Auto (Bld) 1.7 % Normal [facility] Comment on above: Performed By: #### C BCDIF, BMP ####[place] [address] Erythrocyte distribution width Auto Ratio (RBC) 11.7 % Normal 11.5-15.0 [facility] Comment on above: Performed By: #### C BCDIF, BMP ####[place] [address] Hematocrit Auto Volume Fraction (Bld) 43.2 % Normal 39.0-51.0 [facility] Comment on above: Performed By: #### C BCDIF, BMP ####[place] [phone] Hemoglobin mass conc (Bld) 15.3 g/dL Normal 13.0-17.0 [facility] Comment on above: Performed By: #### C BCDIF, BMP ####[place] [phone] Lymphocytes Auto #/vol (Bld) 2.81 10*3/uL Normal 1.00-4.00 [facility] Comment on above: Performed By: #### C BCDIF, BMP ####[place] [phone] Lymphocytes/100 WBC Auto (Bld) 26.6 % Normal [facility] Comment on above: Performed By: #### C BCDIF, BMP ####[place] [phone] MCH Auto Entitic mass (RBC) 30.5 pG Normal 26.0-34.0 [facility] Comment on above: Performed By: #### C BCDIF, BMP ####[place] [phone] MCHC Auto mass conc (RBC) 35.4 g/dL Normal 30.5-36.0 [facility] Comment on above: Performed By: #### C BCDIF, BMP ####[place] [phone] MCV Auto Entitic volume (RBC) 86.2 fL Normal 80.0-100.0 [facility] Comment on above: Performed By: #### C BCDIF, BMP ####[place] [phone] Monocytes/100 WBC Auto (Bld) 8.4 % Normal [facility] Comment on above: Performed By: #### C BCDIF, BMP ####[place] [phone] Neutrophils/100 WBC Auto (Bld) 62.8 % Normal [facility] Comment on above: Performed By: #### C BCNAVINF, BMP ####[place] [phone] Platelet mean volume Auto Entitic volume (Bld) 9.7 fL Normal 9.0-12.7 [facility] Comment on above: Performed By: #### C BCDIF, BMP ####[place] [phone] Platelets Auto #/vol (Bld) 260 10*3/uL Normal 150-400 [facility] Comment on above: Performed By: #### C MINALF, BMP ####[place] [phone] RBC Auto #/vol (Bld) 5.01 10*6/uL Normal 4.20-6.00 [facility] Comment on above: Performed By: #### C RUTH, BMP ####[place] [phone] WBC Auto #/vol (Bld) 10.55 10*3/uL Normal 3.70-11.00 [facility] Comment on above: Performed By: #### Kj MIRANDA, BMP ####[place] [phone] CONSULT PROGon 05-10-2017 Protein mass conc HNO ID: [id number] thor: Mónica Neville CardonaService: NeurologyAuthor Type: PhysicianType: Consult Progress NoteFiled: 05/10/2017 [...] lb 12.6 oz) SpO2 96% BMI 36.65 kg/o5NppbwerkzIqovulu is alert and oriented to time person [...] 2017 : 3:53 PM PAGER/CONTACT #: Normal [facility] Magnesiumon 05-10-2017 Magnesium mass conc 2.2 mg/dL Normal 1.7-2.6 [facility] Comment on above: Performed By: #### THOMAS Coates ####[facility] [place], [place] [phone] NURSING PROGon 05-10-2017 Protein mass conc HNO ID: [id number] thor: Darcy Bose) CrumService: NursingAuthor Type: Registered NurseType: Nursing Progress NoteFiled: 05/10/2017 5:27 PMNote Text: Nursing Progress NotePatient Name: Grant Blanchard JRMRN: [id number] [facility] Transfer Note:Patient transferred into room/unit pk in [...] note was completed by: Darcy Ramirez RN [facility] Protein mass conc HNO ID: [id number] thor: Kari (Rn) NEFTALY Maguireervice: NursingAuthor Type: Registered NurseType: Nursing Progress NoteFiled: 05/10/2017 2:34 PMNote Text: Nursing Progress NotePatient Name: Grant Blanchard JRMRN: [id number] [facility]JK[facility]68 Daily Note:0700 Report received from supervisor blueprinting and photocopy RN.0800 Assessment completed, see ICU flow sheet.0845 ICU team rounding. Patient updated on Plan of care.0900 Trauma at bedside to see patient.1200 No changes in assessment.1430 Report called to PKT.This note was completed by: Kari Duenas RN [facility] PLAN OF CAREon 05-10-2017 PLAN OF CARE HNO ID: [id number] Author: Reji Frances MD Service: General Internal Medicine Author Type: Resident Type: Plan of Care Filed: 05/10/2017 2:05 PM Note Text: Dr. Copeland spoke to Dr. Fermin and agreed to transfer the patient under his service Normal [facility] PROGRESSon 05-10-2017 Protein mass conc HNO ID: [id number] thor: Shay Scottervice: Infectious DiseaseAuthor Type: PhysicianType: Progress NotesFiled: 05/10/2017 4:21 PMNote Text:INPATIENT PROGRESS NOTESPATIENT NAME: Grant Blanchard JRMRN: [id number] DATE: 05/10/2017SERVICE TIME: 4:12 PMPRIMARY SERVICE: Infectious [...] hrs: BP Temp Temp src Pulse Resp AxZ304/03/28 1528 128/72 37.4 ?C (99.3 ?F) Oral [...] reviewed for today's visit.WBCDate Value Ref Range Hwbneh4205/10/2017 10.55 3.70 - 11.00 k/uL Final05/09/2017 12.93 (H) 3.70 - 11.00 k/uL Final05/07/2017 21.89 (H) 3.70 - 11.00 k/uL Final ]SIGNATURE: Shay Gomez, MDDATE: May 10, 2017TIME: 4:12 PM Normal [facility] Protein mass conc HNO ID: [id number] thor: Alex Devone: General Internal MedicineAuthor Type: PhysicianType: Progress NotesFiled: [...] along with bladderincontinence. ?They than [facility] [place] [facility] where he was found in apost-itcal state. ?He went for CT scan of the head where he had anotherseizure and was given ativan. ?CT scan of the head was limited due toasymmetry and atrifact from backboard. ?However the radiologist did callthe ED physician and raised concern for possible subdural hematoma alongthe tentorium and posterior falx. ?[facility] ?[facility] he was intubated due to hismental [...] Reji Frances MD PATIENT NAME: Grant Blanchard DATE: May 10, 2017 : 8:24 AM PAGER/CONTACT #: [phone] ST[facility]IAN NOTE OF PERSONAL INVOLVEMENT IN [...] for VTE pxTransfer to floorSIGNATURE: MACK QuirozESPIRATORY INSTITUTEPAGER:[id number] of SERVICE: 05/10/17TIME of SERVICE: 3:59 PM Normal [facility] Protein mass conc HNO ID: [id number] thor: George Meade (Electroencephalographic Technician) PhaniService: TraumaAuthor Type: Nurse PractitionerType: Progress NotesFiled: 05/10/2017 9:14 AMNote Text:TRAUMA PROGRESS NOTESERVICE DATE: 05/10/2017SERVICE TIME: 7:40 AMSubjectiveHISTORY (LAST 24 HOURS): pt is 21 yo male who was in gas station when hesuddenly fell having seizures. sent to [place] ED where on scan feltthey saw small [...] in D5W 250 mL (ZOVIRAX) 10 mg/kg/dose ([place]) INTRAVENOUSq 8 Hmetoclopramide HCl 5 mg injection [...] bilaterally,Leg/Knee normal bilaterally, Foot/Ankle normal bilaterallyDATA:LABS:Recent Labs 05/09/1809/369901 03/30/038302IVW 10.55 -- 12.93* -- -- -- 21.89* [...] Please re consult if neededSIGNATURE: George Jeronimo APRN.CNP PATIENT NAME: Grant Blanchard JRDATE: May 10, 2017 : 7:40 AM PAGER/CONTACT #: [phone] cell Normal [facility] Phosphoruson 05-10-2017 Phosphate mass conc 2.6 mg/dL Normal 2.5-4.5 [facility] Comment on above: Performed By: #### M G1, PHOS ####[place] [phone] Basic Metabolic Panlon 05-09 Anion gap 3 molar conc 12 mmol/L Normal 9-18 [facility] Comment on above: Performed By: #### B MP ####[place] [phone] Calcium mass conc 8.6 mg/dL Normal 8.5-10.5 [facility] Comment on above: Performed By: #### B MP ####[place] [phone] Chloride molar conc 105 mmol/L Normal 98-110 [facility] Comment on above: Performed By: #### B MP ####[place] [phone] CO2 molar conc 26 mmol/L Normal 23-32 [facility] Comment on above: Performed By: #### B MP ####[place] [phone] Creatinine mass conc 0.84 mg/dL Normal 0.70-1.40 [facility] Comment on above: Performed By: #### B MP ####[place] [phone] eGFR- Amer. >60 Normal >60 [facility] Comment on above: Performed By: #### B MP ####[phone] GFR/1.73 sq M predicted among non-blacks MDRD vol rate/area (S/P/Bld) mL/min/{1.73_m2} Normal >60 [facility] Comment on above: Performed By: #### B MP ####[place] [phone] Glucose mass conc 90 mg/dL Normal 65-100 [facility] Comment on above: Performed By: #### B MP ####[place] [phone] Potassium molar conc 3.9 mmol/L Normal 3.5-5.0 [facility] Comment on above: Performed By: #### B MP ####[place] [phone] Sodium molar conc 143 mmol/L Normal 135-146 [facility] Comment on above: Performed By: #### B MP ####[place] [phone] Urea nitrogen mass conc 9 mg/dL Low 10-25 [facility] Comment on above: Performed By: #### B MP ####[place] [phone] Anion gap 3 molar conc 10 mmol/L Normal 9-18 [facility] Comment on above: Performed By: #### B MP ####[place] [phone] Calcium mass conc 8.4 mg/dL Low 8.5-10.5 [facility] Comment on above: Performed By: #### B MP ####[place] [phone] Chloride molar conc 105 mmol/L Normal 98-110 [facility] Comment on above: Performed By: #### B MP ####[place] [phone] CO2 molar conc 26 mmol/L Normal 23-32 [facility] Comment on above: Performed By: #### B MP ####[place] [phone] Creatinine mass conc 0.84 mg/dL Normal 0.70-1.40 [facility] Comment on above: Performed By: #### B MP ####[place] [phone] eGFR- Amer. >60 Normal >60 [facility] Comment on above: Performed By: #### B MP ####[place] [phone] GFR/1.73 sq M predicted among non-blacks MDRD vol rate/area (S/P/Bld) mL/min/{1.73_m2} Normal >60 [facility] Comment on above: Performed By: #### B MP ####[place] [phone] Glucose mass conc 106 mg/dL High 65-100 [facility] Comment on above: Performed By: #### B MP ####[place] [phone] Potassium molar conc 3.7 mmol/L Normal 3.5-5.0 [facility] Comment on above: Performed By: #### B MP ####[place] [phone] Sodium molar conc 141 mmol/L Normal 135-146 [facility] Comment on above: Performed By: #### B MP ####[place] [phone] Urea nitrogen mass conc 8 mg/dL Low 10-25 [facility] Comment on above: Performed By: #### B MP ####[place] [phone] CBC and Differentialon 05-09 Abs Baso 0.03 k/uL Normal <0.11 [facility] Comment on above: Performed By: #### C BCDIF ####[place] [phone] Abs Ada 1.30 k/uL High <0.87 [facility] Comment on above: Performed By: #### C BCDIF ####[place] [phone] Abs Neut 9.13 k/uL High 1.45-7.50 [facility] Comment on above: Performed By: #### C BCDIF ####[address] Basophils/100 WBC Auto (Bld) 0.2 % Normal [facility] Comment on above: Performed By: #### C BCDIF ####[place] [address] DTYPE Auto Diff Normal [facility] Comment on above: Performed By: #### C BCDIF ####[place] [address] Eosinophils Auto #/vol (Bld) 10*3/uL Normal <0.46 [facility] Comment on above: Performed By: #### C BCDIF ####[place] [phone] Eosinophils/100 WBC Auto (Bld) 0.2 % Normal [facility] Comment on above: Performed By: #### C BCDIF ####[place] [phone] Erythrocyte distribution width Auto Ratio (RBC) 12.1 % Normal 11.5-15.0 [facility] Comment on above: Performed By: #### C BCDIF ####[place] [phone] Hematocrit Auto Volume Fraction (Bld) 41.7 % Normal 39.0-51.0 [facility] Comment on above: Performed By: #### C BCDIF ####[place] [phone] Hemoglobin mass conc (Bld) 14.5 g/dL Normal 13.0-17.0 [facility] Comment on above: Performed By: #### C BCDIF ####[place] [phone] Lymphocytes Auto #/vol (Bld) 2.45 10*3/uL Normal 1.00-4.00 [facility] Comment on above: Performed By: #### C BCDIF ####[place] [phone] Lymphocytes/100 WBC Auto (Bld) 18.9 % Normal [facility] Comment on above: Performed By: #### C BCDIF ####[place] [phone] MCH Auto Entitic mass (RBC) 30.5 pG Normal 26.0-34.0 [facility] Comment on above: Performed By: #### C BCDIF ####[place] [phone] MCHC Auto mass conc (RBC) 34.8 g/dL Normal 30.5-36.0 [facility] Comment on above: Performed By: #### C BCDIF ####[place] [phone] MCV Auto Entitic volume (RBC) 87.6 fL Normal 80.0-100.0 [facility] Comment on above: Performed By: #### C BCDIF ####[place] [phone] Monocytes/100 WBC Auto (Bld) 10.1 % Normal [facility] Comment on above: Performed By: #### C BCDIF ####[place] [phone] Neutrophils/100 WBC Auto (Bld) 70.6 % Normal [facility] Comment on above: Performed By: #### C BCDIF ####[place] [phone] Platelet mean volume Auto Entitic volume (Bld) 10.0 fL Normal 9.0-12.7 [facility] Comment on above: Performed By: #### C BCDIF ####[place] [id number] [place] [phone] Platelets Auto #/vol (Bld) 235 10*3/uL Normal 150-400 [facility] Comment on above: Performed By: #### C BCDIF ####[place] [phone] RBC Auto #/vol (Bld) 4.76 10*6/uL Normal 4.20-6.00 [facility] Comment on above: Performed By: #### C BCDIF ####[place] [phone] WBC Auto #/vol (Bld) 12.93 10*3/uL High 3.70-11.00 [facility] Comment on above: Performed By: #### C BCDIF ####[place] [phone] [place] [phone] Magnesiumon 05-09-2017 Magnesium mass conc 2.2 mg/dL Normal 1.7-2.6 [facility] Comment on above: Performed By: #### M G1, PHOS ####[phone] NMDA-Receptor Ab CBA LAB USE ONLYon 05-09-2017 NMDA-Receptor Ab CBA View results in Scanned Documents link when available. Normal [facility] Comment on above: Performed By: #### N MDCBA ####[facility] [address] [place], [place] [phone] NURSING PROGon 05-09-2017 Protein mass conc HNO ID: [id number] thor: Danika (Rn) Jose Miguel, RNService: Critical CareAuthor Type: Registered NurseType: Nursing Progress NoteFiled: 05/10/2017 6:45 AMNote Text: Nursing Progress NotePatient Name: Grant Blanchard JRMRN: [id number] [facility] Daily Note:1930 Report received from day shift [...] note was completed by: Danika Gillespie RN [facility] Protein mass conc HNO ID: [id number] thor: Paty BradfordRn) NEFTALY Orrervice: NursingAuthor Type: Registered NurseType: Nursing Progress NoteFiled: 05/09/2017 3:55 PMNote Text: Nursing Progress NotePatient Name: Grant Blanchard JRMRN: [id number] Location: [place] [address]/OY-KAM-18 Daily Note:0800 Assessment as charted. Family at [...] note was completed by: Paty Orr RN [facility] Protein mass conc HNO ID: [id number] thor: Brandie BoseNEFTALY Guallpaervice: NursingAuthor Type: Registered NurseType: Nursing Progress NoteFiled: 05/09/2017 1:10 PMNote Text: Nursing Progress NotePatient Name: Grant Blanchard JRMRN: [id number] Location: [place] [address]/MQ-ASW-21 Daily Note:1305: Dr. Singh by to see patient. Updated that SROC was paged to clearc-spine. Order to stop maintenance fluids.This note was completed by: Brandie Duran RN [facility] Protein mass conc HNO ID: [id number] thor: Paty Bose) NEFTALY Orrervice: NursingAuthor Type: Registered NurseType: Nursing Progress NoteFiled: 05/09/2017 2:04 PMNote Text: Nursing Progress: Topic: RESTRAINT NON-VIOLENTPATIENT NAME: Grant Blanchard JRMRN: [id number] LOCATION: [place] [address]/[place]-HIM-18Ubl patient demonstrates Attempting to Remove Medical Devices [...] May 09, 2017TIME: 0800 AMPaty Orr RN [facility] Neosen Neuro Paraneoon 05-09 Neosens Neur Paraneo (NOTE) [facility] Comment on above: Result Comment: INTE RPRETATIONNEGATIVEThis panel of tests did not identify any positive results.TECHNICAL RESULTS Interpretive Result Table --------TEST: anti-amphiphysinMETHODOLOGY: Nanoliter scale immunoassayINTERPRETATION: NegativeTECHNICAL RESULT: <1:100REFERENCE RANGE: Serum <1:100 ---------TEST: anti-MX5QIDPRMTZDQC: Nanoliter scale immunoassayINTERPRETATION: NegativeTECHNICAL RESULT: <1:100REFERENCE RANGE: Serum <1:100 ---------TEST: anti-HuMETHODOLOGY: Nanoliter scale immunoassayINTERPRETATION: NegativeTECHNICAL RESULT: <1:100REFERENCE RANGE: Serum <1:100 COMMENTSThis result does not exclude a diagnosis of an autoimmuneetiology for PNS.Recommendations:Health care providers, please contact the [facility] ClientServices Department at if you wish to consult with [facility] Director regarding this test result.Background information: Paraneoplastic [...] al. (2011) Eur J Neurol 18: 19-e3. (PMID:84511156)2. Susie Holcomb et al. (2012) J Neurol Neurosurg Psychiatry 83: 638-45.(PMID: 31589152)This test was developed and its analytical performance characteristicshave been determined by [facility]. It has not been cleared orapproved by the U.S. Food and Drug Administration. This assay has beenvalidated pursuant to the CLIA regulations and is used for clinicalpurposes.Laboratory oversight provided by Hans Leon, Ph.D., [facility], [place], [facility] (CLIA# [id number])Testing performed at:[facility] [address] [place] [id number] PROGRESSon 05-09-2017 Protein mass conc HNO ID: [id number] thor: Anusha MclaughlinhService: NeurologyAuthor Type: PhysicianType: Progress NotesFiled: 05/09/2017 4:17 PMNote Text: Neurology ConsultDate: May 08, 2017Patient Name: Grant Blanchard JRMRN: [id number] Attending Provider: Greg Bell for Evaluation: SeizuresHistory of Present Illness:This is Mr. Grant Blanchard JR a 21 year old with history of insomnia takesLunesta at times male who presents to the [facility] with a statusepilepticus. Mother at bedside is [...] Mother denied any drug use. Upon arrival [facility] ER patient's blood sugar was 90. While in the ER his blood pressuredropped to 80/50 and he was given fluids. His WBC count was 11.64hemoglobin 17 hematocrit 48 and platelet counts were 371. Sodium levelwas 143, potassium of 3.9, glucose of 104, BUN 17, creatinine of 1.05, ALT47, AST 26, phosphatase 52, total bilirubin of 0.7. Contacted [facility] emergency physician and I recommended another load of Keppra 15mg and to assess fosphenytoin if he continues to seize at that timepatient had received 7 mg of Ativan and a load of 50 mg Keppra. He wasnot intubated at that time and according to the notes she was transferred[place] and he was not intubated either. Urine drug screen wasnegative. Patient arrived to the ER at [place] repeat CBC showed a WBCcount of 21.89 [...] (262 lb 12.6 oz) SpO2 94% BMI36.65 kg/l6VSDKJXCV EXAM:Neurological Examination:? Mental Status: Does not follow [...] 12.9303 21.8905/07/2017 11.64 RBC (m/uL)Date Value05/09/2017 4.7603 5.2103 5.73 Platelet Count (k/uL)Date Value05/09/2017 96374 6319505/07/2017 371 BUN (mg/dL)Date Value05/09/2017 904 803 1003 1303 14 Creatinine (mg/dL)Date Value05/09/2017 0.8404 0.8403 0.85005/08/2017 0.90005/07/2017 0.88 Lab ResultsComponent Value DateNEUTP 85.7 [...] on acyclovirFabio Pratt Neurology and Neuroimmunology/Multiple SclerosisPager: [phone]:[phone] 11:42 AM Normal [facility] Protein mass conc HNO ID: [id number] thor: Iris (Do) BishopService: Critical CareAuthor Type: PhysicianType: Progress NotesFiled: 05/09/2017 3:03 PMNote Text:[facility] STAFF PHYSICIAN NOTE OF PERSONAL INVOLVEMENT IN [...] HERRERA. No reported fevers. Pt transferred to [facility] with :?Acute respiratory failure; intubated due [...] of care, medical plan for the day, heritage consultant recommendations, medical dispositionand current medical condition/prognosis [...] care services: 40 minutes.SIGNATURE: ENA Montez INSTITUTEPAGER: [id number] of SERVICE: 05/09/2017 Normal [facility] Protein mass conc HNO ID: [id number] thor: Reji (Res) ANDREA Franceservice: General Internal MedicineAuthor Type: ResidentType: Progress NotesFiled: [...] along with bladderincontinence. They than presented [place] [facility] where he was found in apost-itcal state. He went for CT scan of the head where he had anotherseizure and was given ativan. CT scan of the head was limited due toasymmetry and atrifact from backboard. However the radiologist did callthe ED physician and raised concern for possible subdural hematoma alongthe tentorium and posterior falx. Due [facility] he was intubated due to hismental [...] prophylaxis: heparinGI prophylaxis: protonixPlan discussed with Dr. SotojectivePHYSICAL EXAM PERFORMED: VITAL SIGNS (last 24hrs min/max):Temp [...] 09, 2017 : 7:13 AM PAGER/CONTACT #: [phone] Normal [facility] Phosphoruson 05-09-2017 Phosphate mass conc 2.7 mg/dL Normal 2.5-4.5 [facility] Comment on above: Performed By: #### M G1, PHOS ####[place] [phone] ABG Complete Eval FOR WEST U SE ONLYon 05-08-2017 Base Excess 1 mmol/L Normal [facility] Comment on above: Result Comment: -3 t o 3 Performed By: #### A BGRTC, VENTLA ####[place] [phone] Calcium mass conc 1.18 mmol/L Normal 1.15-1.35 [facility] Comment on above: Performed By: #### A BGRTC, VENTLA ####[place] [phone] Carboxyhemoglobin, Art 1.2 % Normal <2.0 [facility] Comment on above: Performed By: #### A BGRTC, VENTLA ####[address] [phone] Chloride, Whole Bld FOR WEST USE ONLY 109 mmol/L High 98-107 [facility] Comment on above: Performed By: #### A BGRTC, VENTLA ####[place] [phone] CO2 molar conc 27 mmol/L Normal 22.0-28.0 [facility] Comment on above: Performed By: #### A BGRTC, VENTLA ####[place] [phone] Device Ventilator Normal [facility] Comment on above: Performed By: #### A BGRTC VENTLA ####[place] [phone] Drawsite Rt Radial + Normal [facility] Comment on above: Performed By: #### A BGRTC, VENTLA ####[place] [phone] Glucose mass conc 110 mg/dL High 65-100 [facility] Comment on above: Performed By: #### A BGRTC VENTLA ####[place] [phone] HCO3 molar conc (Bld) 25 mmol/L Normal 22-26 [facility] Comment on above: Performed By: #### A BGRTC, VENTLA ####[place] [phone] Hematocrit Auto Volume Fraction (Bld) 46 % Normal 42.0-52.0 [facility] Comment on above: Performed By: #### A BGRTC, VENTLA ####[place] [phone] Hemoglobin mass conc (Bld) 15 g/dL Normal 14-18 [facility] Comment on above: Performed By: #### A BGRTC, VENTLA ####[place] [phone] Lactate molar conc 1.1 mmol/L Normal 0.4-2.0 [facility] Comment on above: Performed By: #### A BGRTC, VENTLA ####[place] [phone] Methemoglobin 0.7 % Normal 0.4-1.5 [facility] Comment on above: Performed By: #### A BGRTC, VENTLA ####[place] [phone] O2 Administered 30.0 Normal [facility] Comment on above: Performed By: #### A BGRTC, VENTLA ####[place] [phone] Oxygen ppres (Bld) 97 % Normal 90-98 [facility] Comment on above: Performed By: #### A BGRTC, VENTLA ####[place] [phone] Oxygen ppres (BldA) 88 mm Hg Normal 80-100 [facility] Comment on above: Performed By: #### A BGRTC, VENTLA ####[place] [phone] Oxyhemoglobin, Art. 96 % Normal 94-100 [facility] Comment on above: Performed By: #### A BGRTC, VENTLA ####[place] [phone] pCO2 42 mm Hg Normal 35-48 [facility] Comment on above: Performed By: #### A BGRTC, VENTLA ####[place] [phone] pH (Bld) 7.40 [pH] Normal 7.35-7.45 [facility] Comment on above: Performed By: #### A BGRTC, VENTLA ####[place] [phone] PO2FI FOR WEST USE ONLY 293 mmHG Low 400-500 [facility] Comment on above: Performed By: #### A BGRTC, VENTLA ####[place] [phone] Potassium molar conc 3.7 mmol/L Normal 3.5-5.0 [facility] Comment on above: Performed By: #### A BGRTC, VENTLA ####[place] [phone] Sodium molar conc 142 mmol/L Normal 135-145 [facility] Comment on above: Performed By: #### A BGRTC, VENTLA ####[place] [phone] Base Excess Negative Normal [facility] Comment on above: Result Comment: -3 t o 3 Performed By: #### A BGRTC, VENTLA ####[place] [phone] Calcium mass conc 1.08 mmol/L Low 1.15-1.35 [facility] Comment on above: Performed By: #### A BGRTC, VENTLA ####[place] [phone] Carboxyhemoglobin, Art 0.9 % Normal <2.0 [facility] Comment on above: Performed By: #### A BGRTC, VENTLA ####[place] [phone] Chloride, Whole Bld FOR WEST USE ONLY 109 mmol/L High 98-107 [facility] Comment on above: Performed By: #### A BGRTC, VENTLA ####[place] [phone] CO2 molar conc 26 mmol/L Normal 22.0-28.0 [facility] Comment on above: Performed By: #### A BGRTC, VENTLA ####[place] [phone] Device Ventilator Normal [facility] Comment on above: Performed By: #### A BGRTC, VENTLA ####[place] [phone] Drawsite Left Radial + Normal [facility] Comment on above: Performed By: #### A BGRTC, VENTLA ####[place] [phone] Glucose mass conc 136 mg/dL High 65-100 [facility] Comment on above: Performed By: #### A BGRTC, VENTLA ####[place] [phone] HCO3 molar conc (Bld) 25 mmol/L Normal 22-26 [facility] Comment on above: Performed By: #### A BGRTC, VENTLA ####[place] [address] Hematocrit Auto Volume Fraction (Bld) 46 % Normal 42.0-52.0 [facility] Comment on above: Performed By: #### A BGRTC, VENTLA ####[place] [address] Hemoglobin mass conc (Bld) 15 g/dL Normal 14-18 [facility] Comment on above: Performed By: #### A BGRTC, VENTLA ####[place] [address] Lactate molar conc 1.0 mmol/L Normal 0.4-2.0 [facility] Comment on above: Performed By: #### A BGRTC, VENTLA ####[place] [address] Methemoglobin 0.6 % Normal 0.4-1.5 [facility] Comment on above: Performed By: #### A BGRTC, VENTLA ####[place] [address] O2 Administered 30.0 Normal [facility] Comment on above: Performed By: #### A BGRTC, VENTLA ####[place] [address] Oxygen ppres (Bld) 97 % Normal 90-98 [facility] Comment on above: Performed By: #### A BGRTC, VENTLA ####[place] [phone] Oxygen ppres (BldA) 95 mm Hg Normal 80-100 [facility] Comment on above: Performed By: #### A BGRTC, VENTLA ####[place] [phone] Oxyhemoglobin, Art. 96 % Normal 94-100 [facility] Comment on above: Performed By: #### A BGRTC, VENTLA ####[place] [phone] pCO2 45 mm Hg Normal 35-48 [facility] Comment on above: Performed By: #### A BGRTC, VENTLA ####[place] [phone] pH (Bld) 7.36 [pH] Normal 7.35-7.45 [facility] Comment on above: Performed By: #### A BGRTC, VENTLA ####[place] [phone] PO2FI FOR WEST USE ONLY 317 mmHG Low 400-500 [facility] Comment on above: Performed By: #### A BGRTC, VENTLA ####[place] [phone] Potassium molar conc 3.7 mmol/L Normal 3.5-5.0 [facility] Comment on above: Performed By: #### A BGRTC, VENTLA ####[place] [phone] Sodium molar conc 136 mmol/L Normal 135-145 [facility] Comment on above: Performed By: #### A BGRTC, VENTLA ####[place] [phone] Base Excess Negative Normal [facility] Comment on above: Result Comment: -3 t o 3 Performed By: #### A BGRTC, VENTLA ####[place] [phone] Calcium mass conc 1.06 mmol/L Low 1.15-1.35 [facility] Comment on above: Performed By: #### A BGRTC, VENTLA ####[place] [phone] Carboxyhemoglobin, Art 0.8 % Normal <2.0 [facility] Comment on above: Performed By: #### A BGRTC, VENTLA ####[place] [phone] Chloride, Whole Bld FOR WEST USE ONLY 111 mmol/L High 98-107 [facility] Comment on above: Performed By: #### A BGRTC, VENTLA ####[place] [phone] CO2 molar conc 25 mmol/L Normal 22.0-28.0 [facility] Comment on above: Performed By: #### A BGRTC, VENTLA ####[place] [phone] Device Ventilator Normal [facility] Comment on above: Performed By: #### A BGRTC VENTLA ####[place] [phone] Drawsite Left Radial + Normal [facility] Comment on above: Performed By: #### A BGRTC, VENTLA ####[place] [phone] Glucose mass conc 133 mg/dL High 65-100 [facility] Comment on above: Performed By: #### A BGRTC, VENTLA ####[place] [phone] HCO3 molar conc (Bld) 24 mmol/L Normal 22-26 [facility] Comment on above: Performed By: #### A BGRTC, VENTLA ####[place] [phone] Hematocrit Auto Volume Fraction (Bld) 48 % Normal 42.0-52.0 [facility] Comment on above: Performed By: #### A BGRTC, VENTLA ####[place] [phone] Hemoglobin mass conc (Bld) 15.8 g/dL Normal 14-18 [facility] Comment on above: Performed By: #### A BGRTC, VENTLA ####[place] [address] Lactate molar conc 0.7 mmol/L Normal 0.4-2.0 [facility] Comment on above: Performed By: #### A BGRTC, VENTLA ####[place] [address] Methemoglobin 0.7 % Normal 0.4-1.5 [facility] Comment on above: Performed By: #### A BGRTC, VENTLA ####[place] [address] O2 Administered 100.0 Normal [facility] Comment on above: Performed By: #### A BGRTC, VENTLA ####[place] [address] Oxygen ppres (Bld) 99 % High 90-98 [facility] Comment on above: Performed By: #### A BGRTC, VENTLA ####[place] [address] Oxygen ppres (BldA) 193 mm Hg High 80-100 [facility] Comment on above: Performed By: #### A BGRTC, VENTLA ####[place] [phone] Oxyhemoglobin, Art. 98 % Normal 94-100 [facility] Comment on above: Performed By: #### A BGRTC, VENTLA ####[place] [phone] pCO2 47 mm Hg Normal 35-48 [facility] Comment on above: Performed By: #### A BGRTC, VENTLA ####[place] [phone] pH (Bld) 7.33 [pH] Low 7.35-7.45 [facility] Comment on above: Performed By: #### A BGRTC, VENTLA ####[facility] [place], [place] [phone] PO2FI FOR WEST USE ONLY 193 mmHG Low 400-500 [facility] Comment on above: Performed By: #### A BGRTC, VENTLA ####[address] [phone] Potassium molar conc 3.7 mmol/L Normal 3.5-5.0 [facility] Comment on above: Performed By: #### A BGRTC, VENTLA ####[address] [phone] Sodium molar conc 136 mmol/L Normal 135-145 [facility] Comment on above: Performed By: #### A BGRTC, VENTLA ####[address] [phone] ALLIED HEALTHon 05-08-2017 ALLIED HEALTH HNO ID: [id number] thor: Cathy Hutchins RTService: (none)Author Type: (none)Type: Allied HealthFiled: 05/08/2017 6:51 AMNote Text: Radiology Service Progress NotePATIENT NAME: Grant Blanchard OF SERVICE: May 08, 2017TIME: 6:51 AMPATIENT IDENTITY VERIFICATION COMPLETED USING TWO (2) METHODS: ID Band .PATIENT GENDER DATA: MalePATIENT RELEVANT IMPLANT DATA REVIEWED: Not ApplicableRADIOLOGY DEPARTMENT: General X-ray: Exam(s) Completed: Chest X-RayAbdomen X-Ray AbdomenPERIPHERAL IV DATA: Not applicableSIGNED BY: Cathy Hutchins [facility] 2017 6:51 AM Normal [facility] APTTon 05-08-2017 aPTT Coag time (Bld) 23.3 s Normal 23.0-32.4 [facility] Comment on above: Result Comment: Unfr [...] laboratory APTT reagent in use throughout the [facility]. Performed By: #### C BCDIF, AMYL, CMP, LIPA, ROSIE, PT, PTT ####[place] [phone] Amylaseon 05-08-2017 Amylase enzyme act/vol 43 U/L Normal 0-137 [facility] Comment on above: Performed By: #### C BCDIF, AMYL, CMP, LIPA, ROSIE, PT, PTT ####[place] [phone] Basic Metabolic Panlon 05-08 Anion gap 3 molar conc 8 mmol/L Low 9-18 [facility] Comment on above: Performed By: #### B MP ####[place] [phone] Calcium mass conc 8.3 mg/dL Low 8.5-10.5 [facility] Comment on above: Performed By: #### B MP ####[place] [phone] Chloride molar conc 108 mmol/L Normal 98-110 [facility] Comment on above: Performed By: #### B MP ####[place] [phone] CO2 molar conc 27 mmol/L Normal 23-32 [facility] Comment on above: Performed By: #### B MP ####[place] [phone] Creatinine mass conc 0.85 mg/dL Normal 0.70-1.40 [facility] Comment on above: Performed By: #### B MP ####[place] [phone] eGFR- Amer. >60 Normal >60 [facility] Comment on above: Performed By: #### B MP ####[place] [phone] GFR/1.73 sq M predicted among non-blacks MDRD vol rate/area (S/P/Bld) mL/min/{1.73_m2} Normal >60 [facility] Comment on above: Performed By: #### B MP ####[place] [phone] Glucose mass conc 109 mg/dL High 65-100 [facility] Comment on above: Performed By: #### B MP ####[place] [phone] Potassium molar conc 4.1 mmol/L Normal 3.5-5.0 [facility] Comment on above: Performed By: #### B MP ####[place] [phone] Sodium molar conc 143 mmol/L Normal 135-146 [facility] Comment on above: Performed By: #### B MP ####[place] [phone] Urea nitrogen mass conc 10 mg/dL Normal 10-25 [facility] Comment on above: Performed By: #### B MP ####[place] [phone] Anion gap 3 molar conc 18 mmol/L Normal 9-18 [facility] Comment on above: Performed By: #### B ANGELA MG1, PHOS ####[place] [phone] Calcium mass conc 8.9 mg/dL Normal 8.5-10.5 [facility] Comment on above: Result Comment: Revi ewed Performed By: #### B ANGELA MG1, PHOS ####[place] [phone] Chloride molar conc 103 mmol/L Normal 98-110 [facility] Comment on above: Performed By: #### B MP MG1, PHOS ####[place] [phone] CO2 molar conc 16 mmol/L Low 23-32 [facility] Comment on above: Performed By: #### B ANGELA MG1, PHOS ####[place] [phone] Creatinine mass conc 0.90 mg/dL Normal 0.70-1.40 [facility] Comment on above: Performed By: #### B ANGELA MG1, PHOS ####[place] [phone] eGFR- Amer. >60 Normal >60 [facility] Comment on above: Performed By: #### B ANGELA MG1, PHOS ####[place] [phone] GFR/1.73 sq M predicted among non-blacks MDRD vol rate/area (S/P/Bld) mL/min/{1.73_m2} Normal >60 [facility] Comment on above: Performed By: #### B ANGELA MG1, PHOS ####[place] [phone] Glucose mass conc 128 mg/dL High 65-100 [facility] Comment on above: Performed By: #### B ANGELA MG1, PHOS ####[place] [phone] Potassium molar conc 5.5 mmol/L High 3.5-5.0 [facility] Comment on above: Result Comment: Resu lts may be falsely increased due to interference by hemolysis. Suggest reorder as clinically indicated.Reviewed Performed By: #### B ANGELA MG1, PHOS ####[place] [phone] Sodium molar conc 137 mmol/L Normal 135-146 [facility] Comment on above: Performed By: #### B ANGELA MG1, PHOS ####[place] [phone] Urea nitrogen mass conc 13 mg/dL Normal 10-25 [facility] Comment on above: Performed By: #### B ANGELA MG1, PHOS ####[place] [phone] CBC and Differentialon 05-08 Abs Baso 0.03 k/uL Normal <0.11 [facility] Comment on above: Performed By: #### C BCDIF, AMYL, CMP, LIPA, ROSIE, PT, PTT ####[place] [address] Abs Ada 1.36 k/uL High <0.87 [facility] Comment on above: Performed By: #### C BCDIF, AMYL, CMP, LIPA, ROSIE, PT, PTT ####[place] [address] Abs Neut 18.74 k/uL High 1.45-7.50 [facility] Comment on above: Performed By: #### C BCDIF, AMYL, CMP, LIPA, ROSIE, PT, PTT ####[place] [address] Basophils/100 WBC Auto (Bld) 0.1 % Normal [facility] Comment on above: Performed By: #### C BCDIF, AMYL, CMP, LIPA, ROSIE, PT, PTT ####[place] [address] DTYPE Auto Diff Normal [facility] Comment on above: Performed By: #### C BCDIF, AMYL, CMP, LIPA, ROSIE, PT, PTT ####[place] [address] Eosinophils Auto #/vol (Bld) 10*3/uL Normal <0.46 [facility] Comment on above: Performed By: #### C BCDIF, AMYL, CMP, LIPA, ROSIE, PT, PTT ####[place] [address] Eosinophils/100 WBC Auto (Bld) 0.0 % Normal [facility] Comment on above: Performed By: #### C BCDIF, AMYL, CMP, LIPA, ROSIE, PT, PTT ####[place] [phone] Erythrocyte distribution width Auto Ratio (RBC) 11.8 % Normal 11.5-15.0 [facility] Comment on above: Performed By: #### C BCDIF, AMYL, CMP, LIPA, ROSIE, PT, PTT ####[place] [phone] Hematocrit Auto Volume Fraction (Bld) 44.4 % Normal 39.0-51.0 [facility] Comment on above: Performed By: #### C BCDIF, AMYL, CMP, LIPA, ROSIE, PT, PTT ####[place] [phone] Hemoglobin mass conc (Bld) 16.0 g/dL Normal 13.0-17.0 [facility] Comment on above: Performed By: #### C BCDIF, AMYL, CMP, LIPA, ROSIE, PT, PTT ####[place] [phone] Lymphocytes Auto #/vol (Bld) 1.76 10*3/uL Normal 1.00-4.00 [facility] Comment on above: Performed By: #### C BCDIF, AMYL, CMP, LIPA, ROSIE, PT, PTT ####[place] [phone] Lymphocytes/100 WBC Auto (Bld) 8.0 % Normal [facility] Comment on above: Performed By: #### C BCDIF, AMYL, CMP, LIPA, ROSIE, PT, PTT ####[place] [phone] MCH Auto Entitic mass (RBC) 30.7 pG Normal 26.0-34.0 [facility] Comment on above: Performed By: #### C BCDIF, AMYL, CMP, LIPA, ROSIE, PT, PTT ####[place] [phone] MCHC Auto mass conc (RBC) 36.0 g/dL Normal 30.5-36.0 [facility] Comment on above: Performed By: #### C BCDIF, AMYL, CMP, LIPA, ROSIE, PT, PTT ####[place] [address] MCV Auto Entitic volume (RBC) 85.2 fL Normal 80.0-100.0 [facility] Comment on above: Performed By: #### C BCDIF, AMYL, CMP, LIPA, ROSIE, PT, PTT ####[place] [address] Monocytes/100 WBC Auto (Bld) 6.2 % Normal [facility] Comment on above: Performed By: #### C BCDIF, AMYL, CMP, LIPA, ROSIE, PT, PTT ####[address] Neutrophils/100 WBC Auto (Bld) 85.7 % Normal [facility] Comment on above: Performed By: #### C BCDIF, AMYL, CMP, LIPA, ROSIE, PT, PTT ####[place] [phone] Platelet mean volume Auto Entitic volume (Bld) 9.6 fL Normal 9.0-12.7 [facility] Comment on above: Performed By: #### C BCDIF, AMYL, CMP, LIPA, ROSIE, PT, PTT ####[address] Platelets Auto #/vol (Bld) 314 10*3/uL Normal 150-400 [facility] Comment on above: Performed By: #### C BCDIF, AMYL, CMP, LIPA, ROSIE, PT, PTT ####[address] RBC Auto #/vol (Bld) 5.21 10*6/uL Normal 4.20-6.00 [facility] Comment on above: Performed By: #### C BCDIF, AMYL, CMP, LIPA, ROSIE, PT, PTT ####[place] [phone] WBC Auto #/vol (Bld) 21.89 10*3/uL High 3.70-11.00 [facility] Comment on above: Performed By: #### C BCDIF, AMYL, CMP, LIPA, ROSIE, PT, PTT ####[facility] [place], [place] [phone] CONSULTon 05-08-2017 CONSULT HNO ID: [id number] thor: Shay Scottervice: Infectious DiseaseAuthor Type: PhysicianType: ConsultsFiled: 05/08/2017 8:25 PMNote Text:[facility] - ConsultationGRANT BLANCHARD PDOB: 1995 AGE: 21 SEX: MMRN: [id number] ACCTNUM: [id number] SVC: PULM LOCATION: [id number] PHYSICIAN: IRIS BORJAS BISHOPDATE OF CONSULTATION: 05/08/2017CONSULTING PHYSICIAN: Shay Gomez M.D.REASON FOR CONSULT: Consult is requested to rule out meningitis.HISTORY OF PRESENT ILLNESS: This is a 21-year-old, who presents to the emergency room in transfer from [place] [facility] due to statusepilepticus.The patient apparently was acting strangely for the previous 4-5days prior to admission, confused, complaining of headache, walkingaround, taking his clothes off, and not realizing when they were off. Hewas described to be dizzy. He was in a car with his girlfriend, at [facility], where he said he began to feel funny, held on to her,but fell to the ground, and did strike his head, tonic- colonicseizures were described, with urine incontinence. He was sent to the Emergency Room at [place] and transferred to [place] and had moreseizures on the way, despite [...] given thereafter.There is no visible MAR from [place], but the only meds mentioned wereseizure meds [...] use. Drug tox tests werenegative, both at [place] and at [place], looks like the same simpletest.The patient is [...] discontinue antibiotics at any time.Shay Gomez M.D.Infectious DiseaseWR:[id number]: 05/08/2017 15:49:34T: 05/08/2017 17:12:15Job #: [id number] or bedside care time approximately 75 minutes. Normal [facility] CONSULT HNO ID: [id number] thor: Anusha Floreservice: NeurologyAuthor Type: PhysicianType: ConsultsFiled: 05/08/2017 12:17 PMNote Text: Neurology ConsultDate: May 08, 2017Patient Name: Grant Blanchard JRMRN: [id number] Attending Provider: Greg Bell for Evaluation: SeizuresHistory of Present Illness:This is Mr. Grant Blanchard JR a 21 year old with history of insomnia takesLunesta at times male who presents to the [facility] with a statusepilepticus. Mother at bedside is [...] Mother denied any drug use. Upon arrival [facility] ER patient's blood sugar was 90. While in the ER his blood pressuredropped to 80/50 and he was given fluids. His WBC count was 11.64hemoglobin 17 hematocrit 48 and platelet counts were 371. Sodium levelwas 143, potassium of 3.9, glucose of 104, BUN 17, creatinine of 1.05, ALT47, AST 26, phosphatase 52, total bilirubin of 0.7. Contacted [facility] emergency physician and I recommended another load of Keppra 15mg and to assess fosphenytoin if he continues to seize at that timepatient had received 7 mg of Ativan and a load of 50 mg Keppra. He wasnot intubated at that time and according to the notes she was transferred[place] and he was not intubated either. Urine drug screen wasnegative. Patient arrived to the ER at [place] repeat CBC showed a WBCcount of 21.89 [...] Value05/07/2017 5.2103 5.73 Platelet Count (k/uL)Date Value05/07/2017 70261 371 BUN (mg/dL)Date Value05/08/2017 1303 1403 17 [...] visit, I spent at least 50% of ihzducd-sj-bctj time in counseling, explanation of diagnosis and planning offurther management.Fabio Pratt Neurology and Neuroimmunology/Multiple SclerosisPager: [phone]:[phone] 11:42 AM Normal [facility] CONSULT PROGon 05-08-2017 Protein mass conc HNO ID: [id number] thor: Shay Echeverriaice: Infectious DiseaseAuthor Type: PhysicianType: [...] now, or wait tillcultures are negative. Normal [facility] CSF Cult and Stainon 018 CSF Cult and Stain Sp. Request/Comment: - Less than optimal volume of specimen received and processed.Smear Result - No organisms seen Few Mononuclear cells Gram stain performed on cytospun specimen. Gram stain results reviewed and confirmed by [facility] Microbiology.Culture Result - No growth 14 days Normal [facility] Comment on above: Performed By: #### C SFCUL ####[facility] [place], [place] [phone] Cell Count/Diff CSFon 2017 Clarity Nom (U) Clear Normal Clear [facility] Comment on above: Performed By: #### C CCSF ####[place] [phone] Color Nom (U) Colorless Normal Colorless [facility] Comment on above: Performed By: #### C CCSF ####[place] [phone] CSF Comment Some reference range s and other method performance specifications have not been established for this body fluid. Normal [facility] Comment on above: Performed By: #### C CCSF ####[place] [phone] CSF Tube No. FOR EAST AND WEST USE ONLY No 4 Normal [facility] Comment on above: Performed By: #### C CCSF ####[place] [phone] Lymphocytes/100 WBC Auto (Bld) 91 % High 50-90 [facility] Comment on above: Performed By: #### C CCSF ####[place] [phone] Monocytes/100 WBC Auto (Bld) 7 % Low 10-50 [facility] Comment on above: Performed By: #### C CCSF ####[place] [phone] Neutrophils/100 WBC Auto (Bld) 2 % Normal 0-3 [facility] Comment on above: Performed By: #### C CCSF ####[place] [phone] Nucleated Cells, CSF 11 /uL High 0-5 [facility] Comment on above: Result Comment: This test was developed and its performance characteristics determined by [facility]'s Adina JColleen [facility] Pathology and Laboratory Medicine [place] ([facility]).It has not been cleared or approved by the FDA. [facility] is regulated under CLIA as qualified to perform high-complexity testing.This test is used for clinical purposes. It should not be regarded as investigational or for research. Performed By: #### C CCSF ####[place] [address] RBC Auto #/vol (Bld) 0.58254 10*6/uL High 0-1 [facility] Comment on above: Performed By: #### C CCSF ####[place] [address] Comp Metabolic Panelon 05-08 Albumin mass conc 4.4 g/dL Normal 3.5-5.0 [facility] Comment on above: Performed By: #### C BCDIF, AMYL, CMP, LIPA, ROSIE, PT, PTT ####[place] [address] ALP enzyme act/vol 44 U/L Normal 40-150 [facility] Comment on above: Performed By: #### C BCDIF, AMYL, CMP, LIPA, ROSIE, PT, PTT ####[place] [address] ALT enzyme act/vol 45 U/L Normal 5-50 [facility] Comment on above: Performed By: #### C BCDIF, AMYL, CMP, LIPA, ROSIE, PT, PTT ####[place] [address] Anion gap 3 molar conc 13 mmol/L Normal 9-18 [facility] Comment on above: Performed By: #### C BCDIF, AMYL, CMP, LIPA, ROSIE, PT, PTT ####[place] [address] AST enzyme act/vol 25 U/L Normal 7-40 [facility] Comment on above: Performed By: #### C BCDIF, AMYL, CMP, LIPA, ROSIE, PT, PTT ####[place] [address] Bilirubin mass conc 0.7 mg/dL Normal 0.0-1.5 [facility] Comment on above: Performed By: #### C BCDIF, AMYL, CMP, LIPA, ROSIE, PT, PTT ####[place] [phone] Calcium mass conc 7.9 mg/dL Low 8.5-10.5 [facility] Comment on above: Performed By: #### C BCDIF, AMYL, CMP, LIPA, ROSIE, PT, PTT ####[place] [phone] Chloride molar conc 103 mmol/L Normal 98-110 [facility] Comment on above: Performed By: #### C BCDIF, AMYL, CMP, LIPA, ROSIE, PT, PTT ####[place] [phone] CO2 molar conc 25 mmol/L Normal 23-32 [facility] Comment on above: Performed By: #### C BCDIF, AMYL, CMP, LIPA, ROSIE, PT, PTT ####[place] [address] Creatinine mass conc 0.88 mg/dL Normal 0.70-1.40 [facility] Comment on above: Performed By: #### C BCDIF, AMYL, CMP, LIPA, ROSIE, PT, PTT ####[place] [phone] eGFR- Amer. >60 Normal >60 [facility] Comment on above: Performed By: #### C BCDIF, AMYL, CMP, LIPA, ROSIE, PT, PTT ####[address] GFR/1.73 sq M predicted among non-blacks MDRD vol rate/area (S/P/Bld) mL/min/{1.73_m2} Normal >60 [facility] Comment on above: Performed By: #### C BCDIF, AMYL, CMP, LIPA, ROSIE, PT, PTT ####[place] [phone] Glucose mass conc 141 mg/dL High 65-100 [facility] Comment on above: Performed By: #### C BCDIF, AMYL, CMP, LIPA, ROSIE, PT, PTT ####[place] [phone] Potassium molar conc 4.1 mmol/L Normal 3.5-5.0 [facility] Comment on above: Performed By: #### C BCDIF, AMYL, CMP, LIPA, ROSIE, PT, PTT ####[place] [phone] Protein mass conc 7.1 g/dL Normal 6.0-8.4 [facility] Comment on above: Performed By: #### C BCDIF, AMYL, CMP, LIPA, ROSIE, PT, PTT ####[place] [phone] Sodium molar conc 141 mmol/L Normal 135-146 [facility] Comment on above: Performed By: #### C BCDIF, AMYL, CMP, LIPA, ROSIE, PT, PTT ####[place] [phone] Urea nitrogen mass conc 14 mg/dL Normal 10-25 [facility] Comment on above: Performed By: #### C BCDIF, AMYL, CMP, LIPA, ROSIE, PT, PTT ####[place] [phone] Enterovirus PCRon 05-08-2017 Enterovirus PCR Negative Normal [facility] Comment on above: Result Comment: This test was developed and its performance characteristics determined by [facility]'s Adina Bishnu [facility] Pathology and Laboratory Medicine [place] ([facility]).It has not been cleared or approved by the FDA. -[facility] is regulated under CLIA as qualified to perform high-complexity testing.This test is used for clinical purposes. It should not be regarded as investigational or for research. Performed By: #### E NTPCR ####[place] [id number] [place], [place] [phone] Enterovirus PCR Srce Cerebrospinal Fluid Normal [facility] Comment on above: Performed By: #### E NTPCR ####[address] [phone] Ethanolon 05-08-2017 Ethanol mass conc mg/dL Normal <11 [facility] Comment on above: Performed By: #### A LCO ####[facility] [place], [place] [phone] Glucose, CSFon 05-08-2017 Glucose, CSF 91 mg/dL High 50-75 [facility] Comment on above: Performed By: #### C GLUC, CPROT ####[facility] [place], [place] [phone]#### HSPCRC, VDRLCF ####[facility] [address] [place], [place] [phone] HISTORY PHYSICALon 8 HISTORY PHYSICAL HNO ID: [id number] thor: ANDREA Randhawa Reservice: General Internal MedicineAuthor [...] along with bladderincontinence. They than [place] [facility] where he was found in apost-itcal state. He went for CT scan of the head where he had anotherseizure and was given ativan. CT scan of the head was limited due toasymmetry and atrifact from backboard. However the radiologist did callthe ED physician and raised concern for possible subdural hematoma alongthe tentorium and posterior falx. Due to [facility] he was intubated due to hismental [...] 08, 2017 : 5:22 PM PAGER/CONTACT #: [phone] Normal [facility] HISTORY PHYSICAL HNO ID: [id number] thor: Iris () [facility]: Critical CareAuthor Type: PhysicianType: HANDPFiled: 05/08/2017 4:45 PMNote Text:[facility] STAFF PHYSICIAN NOTE OF PERSONAL INVOLVEMENT IN [...] HERRERA. No reported fevers. Pt transferred to [facility] with :Acute respiratory failure; intubated due [...] critical care services: 46 minutes.SIGNATURE: ENA Montez INSTITUTEPAGER:[phone] of SERVICE: 05/08/2017 Normal [facility] HISTORY PHYSICAL HNO ID: [id number] thor: Greg Mckeon: TraumaAuthor Type: PhysicianType: HANDPFiled: [...] before EMS arrived. Hewas then taken to [place] ED where he continued to have seizures andgiven 7mg ativan and 1.5g Keppra x2. A CT Head and C-spine was performedbut limited 2/2 motion artifact. A hogan was placed and [facility].BRIEF DESCRIPTION OF INJURIES: superficial abrasion to lateral [...] 95 193*BE NEG 1 NEG 2HCO3 25 24CJ5UU 26 25O2HB 96 98COHB 0.9 0.8MHGB 0.6 [...] be d/w Surgery Staff Dr. Aamir Davis MDDekalb Regional Medical Center SurgeryFor any questions please contactSurgery Green Team pager [phone] weekdays.Or [phone] weeknights (6pm - 6am) and weekends.Date: 05/08/2017Time: 2:03 AMGreg Boyle, [facility] 2017 10:47 AM Normal [facility] HISTORY PHYSICAL HNO ID: [id number] thor: Barrera (Do) EloService: Critical CareAuthor Type: [...] before EMSarrived. He was then taken to [place] ED where he continued to haveseizures and given 7mg ativan and 1.5g Keppra x2. A CT Head and C-spinewas performed but limited 2/2 motion artifact. A hogan was placed and hewas transfered to [facility]. On arrival he was intubated and taken [...] non-tender, non-distended. bowel sounds normal. Nomasses, organomegaly.Lines/Tubes/Drains: hCCx6Jzjniftpfvppvjb: No deformities, edema, normal peripheral pulsesDATA: Laboratory:CBC, [...] 95 193*BE NEG 1 NEG 2HCO3 25 71IH6QC 26 25O2HB 96 98COHB 0.9 0.8MHGB 0.6 [...] discussed with ICU Staff Dr. Pedersen.Cirilo Davis MDDekalb [facility] Medical Center Surgery[C]: [phone] [P]: [phone]: 05/07/2017Time: 10:32 [facility] STAFF PHYSICIAN NOTE OF PERSONAL INVOLVEMENT IN [...] care of this patient.SIGNATURE: Barrera Pedersen, DOPAGER: [id number] of SERVICE: May 08, 2017TIME of SERVICE: 9:38 AM Normal [facility] HIV 12 Combo (Ag/Ab)on 05-08 HIV 12 Ag/Ab Non Reactive Normal Non Reactive [facility] Comment on above: Result Comment: (NOT E)HIV Information: [place] Rev. Code 3701.243(E):This information has been disclosed [...] or diagnoses. Performed By: #### H IV12C ####[place] [address] Hepatitis Acute Panel * OUTS [place] CLIENTS ONLY *on 05-08-2017 Hep B Core Ab, IgM Negative Normal Negative [facility] Comment on above: Performed By: #### H ACUTP ####[place] [address] Hepatitis A Ab IgM Negative Normal Negative [facility] Comment on above: Performed By: #### H ACUTP ####[place] [address] Hepatitis C Ab IA Negative Normal Negative [facility] Comment on above: Performed By: #### H ACUTP ####[place] [address] Herpes Simpl PCR CSFon 05-08 HSV PCR Spec Source Cerebrospinal Fluid Normal [facility] Comment on above: Performed By: #### C GLUC, CPROT ####[place] [address]#### HSPCRC, VDRLCF ####[place] [address] HSV-1 Negative Normal [facility] Comment on above: Performed By: #### C GLUC, CPROT ####[place] [address]#### HSPCRC, VDRLCF ####[place] [address] HSV-2 Negative Normal [facility] Comment on above: Performed By: #### C GLUC, CPROT ####[facility] [place], [place] [phone]#### HSPCRC, VDRLCF ####[facility] [address] [place], [place] [phone] Lipaseon 05-08-2017 Lipase enzyme act/vol 24 U/L Normal 12-70 [facility] Comment on above: Performed By: #### C BCDIF, AMYL, CMP, LIPA, ROSIE, PT, PTT ####[facility] [place], [place] [phone] MRI BRAIN WO/W IVCONon 05-08 MRI BRAIN [...] orbits and extracranial soft tissues are unremarkable.IMPRESSION:Normal study.Shirt Turner: NICO Transcribe Date/Time: May 08 2017 3:08ADictated by : DAVID NAYLOR MDThis examination was interpreted and the report reviewed and electronically signed by: DAVID NAYLOR MD on May 08 2017 3:11AM [id number] [facility] Magnesiumon 05-08-2017 Magnesium mass conc 2.2 mg/dL Normal 1.7-2.6 [facility] Comment on above: Performed By: #### B MP, MG1, PHOS ####[facility] [place], [place] [phone] NURSING PROGon 05-08-2017 Protein mass conc HNO ID: [id number] thor: Danika BradfordRn) NEFTALY Gillespieervice: Critical CareAuthor Type: Registered NurseType: Nursing Progress NoteFiled: 05/08/2017 7:27 PMNote Text: Nursing Progress: Topic: RESTRAINT NON-VIOLENTPATIENT NAME: Grant Elaine Santo JRMRN: [id number] LOCATION: [place] [address]/[id number]-TPR-48Ubv patient demonstrates Attempting to Remove Medical Devices [...] May 08, 2017TIME: 7:26 PMDanika Gillespie RN [facility] Protein mass conc HNO ID: [id number] thor: NEFTALY Piper Rnervice: Critical CareAuthor Type: Registered NurseType: Nursing Progress NoteFiled: 05/09/2017 7:32 AMNote Text: Nursing Progress NotePatient Name: Grant Elaine Santo JRMRN: [id number] Location: [place] [address]/QB-CZC-80 Daily Note:1920 Report received from day shift [...] note was completed by: Danika Gillespie RN [facility] Protein mass conc HNO ID: [id number] thor: Renae BradfordRn) NEFTALY Ansariervice: NursingAuthor Type: Registered NurseType: Nursing Progress NoteFiled: 05/08/2017 7:56 PMNote Text: Nursing Progress NotePatient Name: Grant Blanchard [facility] Daily Note: Received pt on CPAP with [...] note was completed by: Renae Ansari RN [facility] Protein mass conc HNO ID: [id number] thor: Katerine BradfordRn) NEFTALY Gomeservice: Critical CareAuthor Type: Registered NurseType: Nursing Progress NoteFiled: 05/08/2017 3:39 PMNote Text: Nursing Progress NotePatient Name: Grant Blanchard JRMRN: [id number] Location: [place] [address]/JA-POC-08 Daily Note:0700: Bedside report received from ZEFERINO [...] note was completed by: Katerine Gomes RN [facility] Protein mass conc HNO ID: [id number] thor: Katerine (Rn) NEFTALY Gomeservice: Critical CareAuthor Type: Registered NurseType: Nursing Progress NoteFiled: 05/08/2017 8:08 AMNote Text: Nursing Progress: Topic: RESTRAINT NON-VIOLENTPATIENT NAME: Grant Blanchard JRMRN: [id number] LOCATION: [place] [address]/XM-ONT-66Xlj patient demonstrates Attempting to Remove Medical Devices [...] May 08, 2017TIME: 8:08 Dot Gomes RN [facility] Protein mass conc HNO ID: [id number] thor: Debo BradfordRn) Maki Marinice: NursingAuthor Type: Registered NurseType: Nursing Progress NoteFiled: 05/08/2017 4:52 AMNote Text: Nursing Progress NotePatient Name: Grant Blanchard JRMRN: [id number] Location: [place] [address]/YD-NJN-36 Daily Note:0425: RT called to bedside to prepare for lumbar puncture.0435: senior technical specialist to come in at 0500 to replace EEG leads.0438: Dr. Godfrey at bedside to supervise. Kristopher Irwin at bedside as well.0441: Timeout completed for procedure.0451: 100 mcg f[address]anyl given per Dr. Godfrey.This note was completed by: Debo Marin RN [facility] Protein mass conc HNO ID: [id number] thor: Gavi Bose) Maki Payneice: (none)Author Type: Registered NurseType: Nursing Progress NoteFiled: 05/07/2017 10:24 PMNote Text: Nursing Progress: Topic: RESTRAINT NON-VIOLENTPATIENT NAME: Grant Blanchard JRMRN: [id number] LOCATION: [place] [address]/HT-PLY-30Eps patient demonstrates Attempting to Remove Medical Devices [...] 07, 2017TIME: 10:24 PMGavi Payne RN Normal [facility] Osmolality, Urineon 05-09-19 18 Osmolality, Urine 402 mOsm/kg Normal 50-1200 [facility] Comment on above: Performed By: #### U VIR[place] ####[facility] [address] [place], [place] [phone]#### UOSM ####[facility] [place], [place] [phone] PROCEDUREon 05-08-2017 Protein mass conc HNO ID: [id number] thor: Cirilo (Res) PhilipService: Critical CareAuthor Type: [...] into the electronic medical record on hospital discharge.[place] Protocol / Safety ChecklistThe sign in communication [...] (roughly 15cc) was collected.Opening Pressure: 37 cm Y9CWyjfyly Pressure: Not assessedFluid Appearance: ClearPatient tolerated procedure well.Complications: NoneSpecimens: Cell Count, Culture, Gram Stain, Glucose, Protein and CytologyEstimated Blood Loss 0ccSIGNATURE: Cirilo Davis MD PATIENT NAME: Grant Blanchard JRDATE: May 08, 2017 : 5:36 AM PAGER/CONTACT #: [phone] [facility] PROGRESSon 05-08-2017 Protein mass conc HNO ID: [id number] thor: Greg BoyleService: TraumaAuthor Type: PhysicianType: Progress [...] ongoing workup and treatment ofseizure disorder.Greg Boyle, [facility] 2017 10:49 AM Normal [facility] PROGRESS HNO ID: [id number] thor: Madeline (Lloyd) SadiaSerlibertade: (none)Author Type: Nurse PractitionerType: Progress NotesFiled: 05/08/2017 2:34 AMNote Text:[facility] TRANSPORT NOTEPatient Name: Grant Blanchard : 1995Service Date: May 07, 2017Referring Facility[facility] Physician: Brandon Accepting Physician: LisaJECTIVE/CHIEF COMPLAINT: Fall/SeizureREASON FOR TRANSPORT: Necessary services unavailable at referring facilityHistory of Present Illness/Injury: Known to CCT team at time of given careand summarized through review of available medical records, patient/familyinterview and from referring physician and staff.Grant Blanchard JR is a 21 year old male with a past history known to [facility] at time of transport, significant for nothing who presented [facility] s/p fall. Patient was walking out [...] physician managing the patient requested transfer to [facility] for tertiary and/or quaternary trauma services unavailable at thereferring facility.The physician managing the patient requested the [facility] CriticalCare Transport Team transport and treat the [...] thepatient's status. The patient was transported to [place] by [facility]) for tertiary and/or quaternary evaluation and management ofhis Emergent and Critical Medical condition.Upon arrival to the receiving facility, a eyer-ji-fhhg report was given [facility]keenan [facility] hospitalide nursing staff in ER. Patient care [...] probability of suddenlydeveloping.SIGNATURE:Frank Mccullough APRN-CNPAcute Care Nurse PractitionerBlanchard Valley Health System Critical Care Transport Team Normal [facility] Phosphoruson 05-08-2017 Phosphate mass conc 4.3 mg/dL Normal 2.5-4.5 [facility] Comment on above: Performed By: #### B MP, MG1, PHOS ####[facility] [place], [place] [phone] Protein, CSFon 05-08-2017 Protein, CSF 60 mg/dL High 15-45 [facility] Comment on above: Performed By: #### C GLUC, CPROT ####[facility] [place], [place] [phone]#### HSPCRC, VDRLCF ####[facility] [address] [place], [place] [phone] Protimeon 05-08-2017 INR Coag RelTime (Bld) 1.1 {INR} Normal 0.9-1.3 [facility] Comment on above: Result Comment: Xiao min K Antagonist (VKA) Therapeutic Range: INR 2 to 3 (Target INR of 2.5)Note: For patients treated with VKA drugs, such as warfarin, the [place] [employer] 2012 Guideline recommends [...] al. Chest 2012, 141:7S-47SNishimura RA, et al. [facility] 2017, 70: 252-289 Performed By: #### C BCDIF, AMYL, CMP, LIPA, ROSIE, PT, PTT ####[facility] [place], [place] [phone] PT Sec 10.9 sec Normal 9.7-13.0 [facility] Comment on above: Performed By: #### C BCDIF, AMYL, CMP, LIPA, ROSIE, PT, PTT ####[place] [address] Sodium,Urine,Randomon 2017 Sodium,Urine,Rando m 71 mmol/L Normal 14-216 [facility] Comment on above: Performed By: #### U VIR[place]IA ####[facility] [address] Chinle AveCPeshtigo, [place] [phone]#### UOSM ####[place] [phone] Toxicology Screen,Uron 05-08 Amphetamines, Urine Negative Normal Negative [facility] Comment on above: Result Comment: Cuto ff threshold at 1000 ng/mL. Performed By: #### U TOX2, UAWMIC ####[place] [phone] Barbiturates, Urine Negative Normal Negative [facility] Comment on above: Result Comment: Cuto ff threshold at 200 ng/mL. Performed By: #### U TOX2, UAWMIC ####[place] [phone] Benzodiazepines, Ur Negative Normal Negative [facility] Comment on above: Result Comment: Cuto ff threshold at 200 ng/mL. Performed By: #### U TOX2, UAWMIC ####[place] [phone] Cannabinoids, Urine Negative Normal Negative [facility] Comment on above: Result Comment: Cuto ff threshold at 50 ng/mL. Performed By: #### U TOX2, UAWMIC ####[place] [phone] Cocaine, Urine Negative Normal Negative [facility] Comment on above: Result Comment: Cuto ff threshold at 300 ng/mL. Performed By: #### U TOX2, UAWMIC ####[phone] Ethanol, Urine <11 Normal <11 [facility] Comment on above: Performed By: #### U TOX2, UAWMIC ####[phone] Opiates, Urine Negative Normal Negative [facility] Comment on above: Result Comment: Cuto ff threshold at 300 ng/mL. Performed By: #### U TOX2 UAWMIC ####[place] [phone] Oxycodone, Urine Negative Normal Negative [facility] Comment on above: Result Comment: Cuto [...] on the same specimen through Client Services ([phone]) if contacted within 48 hours of initial testing.[1]Substance Abuse and Mental Health Services Administration (2012). Clinical Drug Testing in Primary Care Technical Assistance Publication Series 32. Department of Health and Human Services, [place], p.10. Performed By: #### U TOX2 UAWMIC ####[place] [address] Phencyclidine, Urine Negative Normal Negative [facility] Comment on above: Result Comment: Cuto ff threshold at 25 ng/mL. Performed By: #### U TOX2 UAWMIC ####[place] [id number] Troponin Ton 05-08-2017 Troponin T.cardiac mass conc ug/L Normal 0.000-0.02 9 [facility] Comment on above: Performed By: #### C BCDIF, AMYL, CMP, LIPA, ROSIE, PT, PTT ####[place] [id number] Type and Screenon 05-08-2017 ABO/RH(D) Positive Normal [facility] Comment on above: Performed By: #### T SCR ####[place] [address] Urinalysison 05-08-2017 Bilirubin, Urine Negative Normal Negative [facility] Comment on above: Performed By: #### U A ####[place] [address] Clarity Clear Normal Clear [facility] Comment on above: Performed By: #### U A ####[place] [address] Color Straw Critically abnormal Yellow [facility] Comment on above: Performed By: #### U A ####[address] Comments SEE COMMENT Normal [facility] Comment on above: Result Comment: Micr oscopic not warranted Performed By: #### U A ####[address] Glucose Ql (U) Negative Normal Negative [facility] Comment on above: Performed By: #### U A ####[address] Hemoglobin/Blood,U r Negative Normal [facility] Comment on above: Performed By: #### U A ####[address] Ketones Ql (U) Negative Normal Negative [facility] Comment on above: Performed By: #### U A ####[address] Leukest Negative Normal Negative [facility] Comment on above: Performed By: #### U A ####[address] Nitrites Negative Normal [facility] Comment on above: Performed By: #### U A ####[address] pH 6.0 Normal 5.0-8.0 [facility] Comment on above: Performed By: #### U A ####[place] [address] Protein, Urine Negative Normal Negative [facility] Comment on above: Performed By: #### U A ####[place] [address] Specific [place], Ur <1.005 Low 1.005-1.03 0 [facility] Comment on above: Result Comment: Resu lt checked and verified Performed By: #### U A ####[place] [address] Urobilinogen <2.0 Normal <2.0 [facility] Comment on above: Performed By: #### U A ####[place] [address] Urinalysis with Microscopico n 05-08-2017 Bilirubin, Urine Negative Normal Negative [facility] Comment on above: Performed By: #### U TOX2, UAWMIC ####[place] [address] Clarity Clear Normal Clear [facility] Comment on above: Performed By: #### U TOX2, UAWMIC ####[place] [address] Color Yellow Normal Yellow [facility] Comment on above: Performed By: #### U TOX2, UAWMIC ####[place] [address] Comments SEE COMMENT Normal [facility] Comment on above: Result Comment: Micr oscopic Examination Performed Performed By: #### U TOX2, UAWMIC ####[place] [address] Glucose Ql (U) Negative Normal Negative [facility] Comment on above: Performed By: #### U TOX2, UAWMIC ####[place] [address] Hemoglobin/Blood,U r Small Critically abnormal Negative [facility] Comment on above: Performed By: #### U TOX2, UAWMIC ####[place] [address] INR Coag RelTime (Bld) 0-5 Critically abnormal Negative [facility] Comment on above: Performed By: #### U TOX2, UAWMIC ####[place] [address] Ketones Ql (U) Trace Critically abnormal Negative [facility] Comment on above: Performed By: #### U TOX2, UAWMIC ####[place] [address] Leukest Negative Normal Negative [facility] Comment on above: Performed By: #### U TOX2, UAWMIC ####[place] [address] Mucus Present Normal [facility] Comment on above: Performed By: #### U TOX2, UAWMIC ####[place] [address] Nitrites Negative Normal Negative [facility] Comment on above: Performed By: #### U TOX2, UAWMIC ####[address] pH 7.0 Normal 5.0-8.0 [facility] Comment on above: Performed By: #### U TOX2, UAWMIC ####[address] Protein, Urine Negative Normal Negative [facility] Comment on above: Performed By: #### U TOX2, UAWMIC ####[address] Specific [place], Ur 1.014 Normal 1.005-1.03 0 [facility] Comment on above: Performed By: #### U TOX2, UAWMIC ####[address] Urobilinogen <2.0 Normal <2.0 [facility] Comment on above: Performed By: #### U TOX2, UAWMIC ####[facility] [place], [place] [id number] WBC Rare Critically abnormal Negative [facility] Comment on above: Performed By: #### U TOX2, UAWMIC ####[facility] [place], [place] [address] VDRL on CSFon 05-08-2017 VDRL on CSF Non Reactive Normal Non Reactive [facility] Comment on above: Performed By: #### C GLUC, CPROT ####[place] [id number]#### HSPCRC, VDRLCF ####[facility] [address] [place] [phone] Vent Settings FOR WEST USE O NLYon 05-08-2017 MODE CPAP/PS [facility] Comment on above: Performed By: #### A BGRTC, VENTLA ####[place] [address] PEEP 5 [facility] Comment on above: Performed By: #### A BGRTC, VENTLA ####[address] PRESSURE SUPPORT 5 [facility] Comment on above: Performed By: #### A BGRTC, VENTLA ####[address] MODE Mode Assist Control [facility] Comment on above: Performed By: #### A BGRTC, VENTLA ####[place] [address] PEEP 10 [facility] Comment on above: Performed By: #### A BGRTC, VENTLA ####[place] [address] RATE 14 [facility] Comment on above: Performed By: #### A BGRTC, VENTLA ####[place] [phone] MODE Mode Assist Control [facility] Comment on above: Performed By: #### A BGRTC, VENTLA ####[facility] [place], [place] [phone] PEEP 5 [facility] Comment on above: Performed By: #### A BGRTC, VENTLA ####[facility] [place] [phone] RATE 16 [facility] Comment on above: Performed By: #### A BGRTC, VENTLA ####[facility] [place] [phone] TIDAL VOLUME 480 [facility] Comment on above: Performed By: #### A BGRTC, VENTLA ####[facility] [place], [place] [phone] XR ABDOMEN 1V SUPINEon 05-08 XR ABDOMEN [...] the jose. Visualized bowel gas pattern is nonobstructive.Shirt Turner: PSCRenata Transcribe Date/Time: May 08 2017 2:51PDictated by : NATA PEREZ MDThis examination was interpreted and the report reviewed and electronically signed by: NATA PEREZ MD on May 08 2017 2:52PM [id number] [facility] XR CHEST 1V FRONTAL PORTon 0 [...] LEWIS MD on May 08 2017 9:35AM [id number] [facility]2017 ALLIED HEALTH HNO ID: [id number] thor: Ra Moreno (Rt): RadiologyAuthor Type: TechnicianType: [facility] HealthFiled: 05/07/2017 9:46 PMNote Text: Radiology Service Progress NotePATIENT NAME: Grant Blanchard [facility]: [id number] OF SERVICE: May 07, 2017TIME: 9:45 PMPATIENT IDENTITY VERIFICATION COMPLETED USING TWO (2) METHODS: Patientconfirmed name verbally and ID band matches..PATIENT GENDER DATA: MalePATIENT RELEVANT IMPLANT DATA REVIEWED: Not ApplicableRADIOLOGY DEPARTMENT: CT; Exam(s) Completed: Brain and NeckPERIPHERAL IV DATA: Not applicableSIGNED BY: RT JoshMay 07, 2017 9:45 PM [facility] HNO ID: [id number] thor: Ra Moore (Rt): RadiologyAuthor Type: TechnicianType: [...] BY: Jewell Moore 2017 9:35 PM Normal [facility] APTTon 05-07-2017 aPTT 22.0 s Low 23.0-32.4 [facility] Comment on above: Result Comment: Unfr actionated [...] laboratory APTT reagent in use throughout the [facility]. CBC and Differentialon 05-07 Abs Baso 0.06 k/uL Normal <0.11 [facility] Abs Ada 1.37 k/uL High <0.87 [facility] Abs Neut 5.42 k/uL Normal 1.45-7.50 [facility] Basophils/100 WBC Auto (Bld) 0.5 % Normal [facility] Eosinophils 0.10 10*3/uL Normal <0.46 [facility] Eosinophils/100 leukocytes 0.9 % Normal [facility] Erythrocyte distribution width Auto Ratio (RBC) 12.1 % Normal 11.5-15.0 [facility] Erythrocytes (RBC) 5.73 10*6/uL Normal 4.20-6.00 [facility] Hematocrit (HCT) 48.8 % Normal 39.0-51.0 [facility] Hemoglobin mass conc (Bld) 17.0 g/dL Normal 13.0-17.0 [facility] Lymphocytes 4.69 10*3/uL High 1.00-4.00 [facility] Lymphocytes/100 leukocytes 40.3 % Normal [facility] MCH 29.7 pG Normal 26.0-34.0 [facility] MCHC mass conc (RBC) 34.8 g/dL Normal 30.5-36.0 [facility] MCV 85.2 fL Normal 80.0-100.0 [facility] Monocytes/100 leukocytes 11.8 % Normal [facility] Neutrophils/100 WBC Auto (Bld) 46.5 % Normal [facility] Platelet mean volume (PMV) 9.2 fL Normal 9.0-12.7 [facility] Platelets 371 10*3/uL Normal 150-400 [facility] WBC (Leukocytes) 11.64 10*3/uL High 3.70-11.00 [facility] CNCRITCRon 05-07-2017 CNCRITCR Critical Care Transp ort (CCT) GRANT BLANCHARD JR ([id number]) 1995 MDate Time Provider Department05/07/17 MADELINE MCCULLOUGH (LLOYD) CCT During your visit today, we recorded the following information about you:Madeline Mccullough APRN.CNP 05/08/2017 2:34 AM [facility] TRANSPORT NOTEPatient Name: Grant Blanchard JRMRN: [id number]: 1995Service Date: May 07, 2017Referring Facility: [facility] [place] Phys[facility]: Brandon Accepting Physician: LisaJECTIVE/CHIEF COMPLAINT: Fall/SeizureREASON [...] transport, significant for nothing who presented to [facility] s/pfall. Patient was walking out of a [...] physician managing the patient requested transfer to [facility] for tertiary and/or quaternary trauma services unavailable at thereferring facility.The physician managing the patient requested the [facility] Critical CareTransport Team transport and treat the patient for the purpose of tertiarycare, evaluation, and management of his emergent medical condition. Patientcondition at time of exam was: acutely ill and critically ill. Due to theunique circumstances of the patient, it [facility] referring physician.ROS:Unable [...] thepatient's status. The patient was transported to [place] by [employer](Helicopter) for tertiary and/or quaternary evaluation and management of hisEmergent and Critical Medical condition.Upon arrival to the receiving facility, a zjyd-tm-noft [facility]. Patient [...] compromise and SeizuresCardiovascular impairment, Respiratory impairment and RESIDENTIAL CARPENTER impairment which thepatient had and/or had a high probability of suddenly developing.SIGNATURE:Madeline Mccullough APRN-CNPAcute Care Nurse PractitionerBlanchard Valley Health [facility] Critical Care Transport TeamAllergies As of Date: 05/07/2017 Noted Allergy ReactionSULFA (SULFONAMIDE ANTIBIOTICS) 05/07/2017 16 - UnknownDate Reviewed: 05/07/2017Reviewed by: Nasreen (Rn) Martinez - Fully AssessedReason for Visit: Critical Care Transport [1718]Problem List As Of Date 05/07/2017 Noted Resolved Status epilepticus (HCC) [G40.901] INVALID FOR*Follow-up and Disposition History RecordedEncounter Number: [id number] Status:Closed by MADELINE MCCULLOUGH on 05/08/17 Normal [facility] CT BRAIN WO IVCONon 05-08-[address] [...] be further and better evaluated with MRI.Details above.Shirt Turner: NICO Transcribe Date/Time: May 07 2017 9:55PDictated by : CAYLA DOBBINS MDThis examination was interpreted and the report reviewed and electronically signed by: CAYLA DOBBINS MD on May 07 2017 10:30PM [id number] [facility] CT BRAIN WO IVCON * * *Final Report* * * * SEE BOTTOM OF REPORT FOR ADDENDED TEXT * * *DATE OF EXAM: May 07 2017 7:13PM [facility] 0504 - CT BRAIN WO [...] emergency room doctor on 05/07/2017 at 8:00 PM.Shirt Turner: NICO Transcribe Date/Time: May 07 2017 7:58PDictated by : KAYLAH COOPER MDThiedmar examination was interpreted and the report reviewed and electronically signed by: KAYLAH COOPER MD on May 07 2017 7:31PM ESTThis document has been addended by: KAYLAH COOPER MD on May 07 2017 8:03PM [id number] Normal [facility] CT CERVICAL SPINE WO IVCONon 05-07-2017 CT [...] be further and better evaluated with MRI.Details above.Shirt Turner: NICO Transcribe Date/Time: May 07 2017 9:55PDictated by : CAYLA DOBBINS MDThis examination was interpreted and the report reviewed and electronically signed by: CAYLA DOBBINS MD on May 07 2017 10:30PM [id number] Normal [facility] CT CERVICAL SPINE WO IVCON * * *Final Report* * *DATE OF EXAM: May 07 2017 7:13PM [facility] 0505 - CT CERVICAL SPINE [...] significant degenerative changes.IMPRESSION:Limited study. No obvious displaced fracture.Shirt Turner: PSCB Transcribe Date/Time: May 07 2017 7:32PDictated by : KAYLAH COOPER MDThiedmar examination was interpreted and the report reviewed and electronically signed by: KAYLAH COOPER MD on May 07 2017 7:36PM [id number] Normal [facility] Comp Metabolic Panelon 05-07 Alanine aminotransferase (ALT) 47 U/L Normal 5-50 [facility] Albumin 4.8 g/dL Normal 3.5-5.0 [facility] Alkaline phosphatase (ALP) 52 U/L Normal 40-150 [facility] Anion gap 17 mmol/L Normal 9-18 [facility] Aspartate aminotransferase (AST) 26 U/L Normal 7-40 [facility] Bilirubin (total) 0.7 mg/dL Normal 0.0-1.5 [facility] Calcium 9.5 mg/dL Normal 8.5-10.5 [facility] Chloride 102 mmol/L Normal 98-110 [facility] CO2 24 mmol/L Normal 23-32 [facility] Creatinine 1.05 mg/dL Normal 0.70-1.40 [facility] Glucose mass conc 104 mg/dL High 65-100 [facility] Potassium molar conc 3.9 mmol/L Normal 3.5-5.0 [facility] Protein 8.1 g/dL Normal 6.0-8.4 [facility] Sodium 143 mmol/L Normal 135-146 [facility] Urea nitrogen 17 mg/dL Normal 10-25 [facility] ED NOTEon 05-07-2017 ED NOTE HNO ID: [id number] Author: Kalyn (Rn) Jaosn RN Service: Quality Author Type: Registered Nurse Type: ED Notes Filed: 05/07/2017 9:27 PM Note Text: propofol started at 10mcg, c-collar in place, ET size 7.5, 26mm at lip. Normal [facility] ED NOTE HNO ID: [id number] thor: Ernie Yanez (Rn) NEFTALY Baezervice: Emergency MedicineAuthor Type: Registered NurseType: ED NotesFiled: 05/07/2017 8:23 PMNote Text:Dr. Taylor ordered Not to continue external stimuli to for full NeuroAssessment at this time. Due to increased agitation Normal [facility] ED NOTE HNO ID: [id number] Author: Dieter Sheriff RRT Service: Emergency Medicine Author Type: Registered Resp Therapist Type: ED Notes Filed: 05/07/2017 8:08 PM Note Text: Pt placed on 100% NRB. Pt did vomit and started to desat. Normal [facility] ED PROV NOTEon 05-07-2017 Protein mass conc HNO ID: [id number] thor: Romulo Osorio, ANDREAervice: (none)Author Type: PhysicianType: ED Provider NotesFiled: 05/07/2017 9:49 PMNote Text:ED Provider NotePatient Name: Grant Blanchard JRMRN: [id number] DATE: 05/07/17HistoryNo chief complaint on file.History provided by: EMS personnelChief Complaint: SeizuresHistory: Approximately 3 hours prior to presentation, the patient was [employer] and fell striking his head. There is a question of whetherhe had a seizure first or a seizure after he had his head. The patienthas had multiple seizures since that time. He was taking a [facility] and treated with multiple doses of Ativan and IVKeppra. He arrives obtunded as a level I TRAU[place] ALERT[place] of [place] the [...] respiratory failure, unspecified whether with hypoxia orhypercapnia ([facility]) J96.002. Status epilepticus ([facility]) G40.9013. Subdural hematoma ([facility]) I62.00PlanThe Patient was ADMITTED TO: SICU.Case discussed [...] provided. Critical care time excludesseparately billed procedures.SIGNATURE: DYLLAN FloresLEASE NOTE: Portions of the medical record may have been produced usingelectronic detail supervisor and may contain errors with respect totranslation of words which may not have been identified prior tofinalization of the chart.Romulo Osorio MD05/07/17 2149 [facility] ED PROV NOTE HNO ID: [id number] thor: ANDREA Álvarezervice: Emergency MedicineAuthor Type: PhysicianType: ED Provider NotesFiled: 05/07/2017 9:25 PMNote Text:ED Provider NotePatient Name: Grant Blanchard JRMRN: [id number] DATE: 05/07/17HistoryPatient presents with:SeizuresHPIHPI:21-year-old male with negative [...] Lymph 4.69 (H) 1.00 - 4.00 k/uL Ada% 11.8 % Abs Ada 1.37 (H) <0.87 k/uL Eosin% 0.9 % [...] phone discussing the patient [facility] Love, the radiologist called to speak to my attending, and she suspects the patient may have a small subdural hematomaalong the tentorium and posterior falx.CCT was contacted. I spoke to the trauma ED physician at [place], . He accepts the patient for transfer. Patient will go by air.Dr. Taylor consulted with neurology at [place]. Patient has had 7 mg ofativan and [...] discussed with accepting physician, Dr. Osorio.TRANSFERRED to: [place] EDCondition at time of disposition: criticalThe attending who evaluated and managed this patient was Dr. Kovacs.SIGNATURE: KIMBERLY Henderson Interpretation:RHYTHM: Sinus tachycardia at 107 beats per minuteAXIS: Normal axisINTERVALS: Normal SC intervalQRS COMPLEX: NormalST SEGMENT: Normal ST-T segmentsQT INTERVAL: NormalCOMPARED WITH PRIOR: unchangedHeather Elba (Rick) Brock, RICK05/07/172019Heather Elba (Rick) Brock, RICK05/07/17ttending NoteI have personally performed a face to face assessment of the patient andhave reviewed the PA/FRANCHISE CONSULTANT note. My renae findings include:History: Patient presents [...] to haveseizures. I contacted the neurologist from [place]. He recommendedloading with another 1500 mg of [...] on this plan. He was thentransfer[facility] for further evaluation of the traumasustained by the fall and status epilepticus.Critical CareI spent a total of 30 minutes of critical care time in the evaluation andmanagement of this patient. This was necessary to treat or preventdeterioration of the following condition(s): RESIDENTIAL CARPENTER impairment, which thepatient had and/or has a high probability of suddenly developing. Thepatient received antiepileptics and IV Fluids during the time thatcritical care was provided.I discussed the plan of care with the PA/APNand agree with the findings documented. Critical care time excludesseparately billed procedures.Adina Taylor MDOther additions or changes: NoneSignature: Adina Taylor MDDate: 05/07/2017Time: 9:22 PMRobadair Taylor MD05/07/172124 Normal [facility] HISTORY PHYSICALon 8 HISTORY PHYSICAL HNO ID: [id number] thor: Ceferino (Mau) ANDREA Manuelervice: General SurgeryAuthor Type: ResidentType: HANDPFiled: 05/08/2017 5:13 AMNote Text:TRAUMA HANDP CCHSARRIVAL DATE: 05/07/17ARRIVAL TIME: 9:25PMCATEGORY: Level 1INJURY DATE: 05/07/2017INJURY TIME: 9:00PMSubjectiveTrevor is a 21 year old White male. GCS at Scene was 11.HPI/CHIEF COMPLAINT: SeizuresPt transferred from [place] with [place], possible fall - 7mg ativan and1.5g Keppra x2 given AUDITOR SUPERVISOR.BRIEF DESCRIPTION OF INJURIES: Status epilepticusLAST FLUIDS/MEAL: unknownALLERGIESAllergen [...] (262 lb 12.6 oz) SpO2 99% BMI36.65 kg/e3NUEFH: GCS 7HEENT: Head: No lacerations or abrasions, [...] KeppraIMAGESLABS: CBC, Coags, BMP, Mg, PhosRecent Labs 05/07/18214WBC [...] 95 193*BE NEG 1 NEG 2HCO3 25 10WX5ZN 26 25O2HB 96 98COHB 0.9 0.8MHGB 0.6 0.7O2AD 30.0 100.0Assessment/PlanDIAGNOSES: Status epilepticusTREATMENT/EVALUATION PLANS: IntubationED DISPOSITION: To ICUFINAL INJURIES: No new injuries were identified after physical examinationand review of final radiological reading(s) of all studies.SENIOR RESIDENT NOTE:ATTENDING NOTE: see noteSIGNATURE: Ceferino Manuel MD PATIENT NAME: Grant Blanchard JRDATE: May 08, 2017 : 5:05 AM PAGER/CONTACT #: [facility] NURSING PROGon 05-07-2017 Protein mass conc HNO ID: [id number] thor: Nasreen Bose) Rosi: NursingAuthor Type: Registered NurseType: Nursing Progress NoteFiled: 05/08/2017 5:49 AMNote Text: Nursing Progress NotePatient Name: Grant Blanchard JRMRN: [id number] Location: [place] [id number]-[id number] Daily Note:2144: Arrived to SICU 5, intubated, placed on vent by RT, chlorhexidinebath completed, placed on [id number]: Chlorhexidine bath completed; the patient's gown was [...] updated pt family on plan of care.223: senior technical specialist and lab at bedside.0000: Pt reassessed. See flow sheet.0017: product support technician updated on STAT MRI ordered.0057: MD Ryan rounded. to order AM labs, KUB and ordered to holdKeppra dose until 0900.0151: Pt to MRI with transport, RT, and RN.0336: Pt returned from MRI and reconnected to all monitors. Familyupdated.0441: Time completed for LP.0530: senior technical specialist at bedside to place leads; LP complete. ZEFERINO Milton to lab todeliver spinal fluid samples. Family at bedside.This note was completed by: Gavi Payne RN [facility] PROGRESSon 05-07-2017 Protein mass conc HNO ID: [id number] thor: Greg Mckeon: General SurgeryAuthor Type: PhysicianType: Progress NotesFiled: 05/07/2017 9:31 PMNote Text:Full trauma HANDP in process. Brief Trauma Attending Note documentation forLevel I activation.21 yo male air transport in from [facility]. Had ? fall with seizures orseizures that preceded a same level fall.CT brain at facility showed possible small SDH, but scan quality was poordue to seizure activity.On arrival here he was having seizure activity. Intubated by ED staff forairway protection.Will repeat CT brain.To ICUNeurosurg and Neurology consults. Will admit to trauma. If no injuries,can transfer to medical service for seizure management.Greg Boyle, [facility] 2017 9:31 PM [facility] PROGRESS HNO ID: [id number] thor: Dinorah BradfordRtAmado Esteban: (none)Author Type: TechnicianType: Progress NotesFiled: 05/07/2017 8:08 PMNote Text: Radiology Service Progress NotePATIENT NAME: [facility] Blanchard [facility] [id number] OF SERVICE: May 07, 2017TIME: 8:07 PMPATIENT IDENTITY VERIFICATION COMPLETED USING TWO (2) METHODS: Patientconfirmed name verbally and Date of .PATIENT GENDER DATA: MalePATIENT RELEVANT IMPLANT DATA REVIEWED: Not ApplicableRADIOLOGY DEPARTMENT: General X-ray: Exam(s) Completed: Chest X-RayPERIPHERAL IV DATA: Not applicableSIGNED BY: RT [facility] 2017 8:07 PM [facility] PROGRESS HNO ID: [id number] thor: Ellen BradfordRt) Ra Gipson: (none)Author Type: TechnicianType: Progress NotesFiled: [...] Dayna/Dinorah Varela RT(R)May 07, 2017 7:19 PM [facility] PROGRESS HNO ID: [id number] thor: Ra Mathis (Tech): (none)Author Type: TechnicianType: Progress NotesFiled: 05/07/2017 7:19 PMNote Text: Radiology Service Progress NotePATIENT NAME: Grant Blanchard JRMRN: [id number] OF SERVICE: May 07, 2017TIME: 7:17 PMPATIENT IDENTITY VERIFICATION COMPLETED USING TWO (2) METHODS: ID Bandand Other ER staff with patient verified PT, PT unresponsive.PATIENT GENDER DATA: MalePATIENT RELEVANT IMPLANT DATA REVIEWED: Not ApplicableRADIOLOGY DEPARTMENT: CT; Exam(s) Completed: Brain and NeckPERIPHERAL IV DATA: Not applicableSIGNED BY: Petrona Moncada [facility] 2017 7:17 PM Normal [facility] Protimeon 05-07-2017 INR Coag RelTime (Bld) 1.0 {INR} Normal 0.9-1.3 [facility] Comment on above: Result Comment: Xiao min K Antagonist (VKA) Therapeutic Range: INR 2 to 3 (Target INR of 2.5)Note: For patients treated with VKA drugs, such as warfarin, the [place] [employer] [employer] 2012 Guideline recommends [...] al. Chest 2012, 141:7S-47SNishimura RA, et al. [facility] 2017, 70: 252-289 PT Sec 10.4 sec Normal 9.7-13.0 [facility] Toxicology Screen,Uron 05-07 Amphetamines, Urine Negative Normal Negative [facility] Comment on above: Result Comment: Cuto ff threshold at 1000 ng/mL. Barbiturates, Urine Negative Normal Negative [facility] Comment on above: Result Comment: Cuto ff threshold at 200 ng/mL. Benzodiazepines, Ur Negative Normal Negative [facility] Comment on above: Result Comment: Cuto ff threshold at 200 ng/mL. Cannabinoids, Urine Negative Normal Negative [facility] Comment on above: Result Comment: Cuto ff threshold at 50 ng/mL. Cocaine, Urine Negative Normal Negative [facility] Comment on above: Result Comment: Cuto ff threshold at 300 ng/mL. Ethanol, Urine <11 Normal <11 [facility] Opiates, Urine Negative Normal Negative [facility] Comment on above: Result Comment: Cuto ff threshold at 300 ng/mL. Oxycodone, Urine Negative Normal Negative [facility] Comment on above: Result Comment: Cuto [...] on the same specimen through Client Services ([phone]) if contacted within 48 hours of initial testing.[1]Substance Abuse and Mental Health Services Administration (2012). Clinical Drug Testing in Primary Care Technical Assistance Publication Series 32. Department of Health and Human Services, [place], p.10. Phencyclidine, Urine Negative Normal Negative [facility] Comment on above: Result Comment: Cuto ff [...] PRIOR STUDYSATISFACTORY POSITION OF THE ENDOTRACHEAL TUBETranscriptionist: [facility] Transcribe Date/Time: May 07 2017 9:36PDictated by : Thu QUIROZ examination was interpreted and the report reviewed and electronically signed by: DILLON LOPEZ MD on May 07 2017 9:38PM [id number] Normal [facility] XR CHEST 1V FRONTAL PORT * [...] obvious pneumothoraxCardiomediastinal silhouette: Stable cardiomediastinal silhouette.IMPRESSION:Hypoinflat ion. Atelectasis.Shirt Turner: [facility] Transcribe Date/Time: May 07 2017 8:12PDictated by : Thu GERMAN examination was interpreted and the report reviewed and electronically signed by: KAYLAH COOPER MD on May 07 2017 8:14PM [id number] Normal [facility] XR CHEST 1V FRONTAL PORT * * [...] is not enlargedIMPRESSION:Hypoinflation . No obvious acute findings.Shirt Turner: NICO Transcribe Date/Time: May 07 2017 7:39PDictated by : KAYLAH COOPER MDThis examination was interpreted and the report reviewed and electronically signed by: KAYLAH COOPER MD on May 07 2017 7:40PM [id number] Normal [facility] Vital Signs Date Time Vital Sign Value Performing Clinician Facility 04-23-2023 11:46-0400 Body height 182.88 cm [facility] 04-23-2023 11:46-0400 Body mass index (BMI) [Ratio] 40.9 kg/m2 [facility] 04-23-2023 11:46-0400 Body temperature 100.5 [degF] [facility] 04-23-2023 11:46-0400 Body weight 137.04 kg [facility] 04-23-2023 11:46-0400 Diastolic blood pressure 82 mm[Hg] [facility] 04-23-2023 11:46-0400 Heart rate 98 /min [facility] 04-23-2023 11:46-0400 Respiratory rate 18 /min [facility] 04-23-2023 11:46-0400 SaO2% (BldA) [Mass fraction] 98 % [facility] 04-23-2023 11:46-0400 Systolic blood pressure 132 mm[Hg] [facility] 02-15-2023 19:11-0500 Body temperature 99.3 [degF] ER [facility] 02-15-2023 19:11-0500 Body weight 145.78 [facility] 02-15-2023 19:11-0500 Diastolic blood pressure 102 mm[Hg] [facility] 02-15-2023 19:11-0500 Heart rate 88 /min ER [facility] 02-15-2023 19:11-0500 Respiratory rate 20 /min ER [facility] 02-15-2023 19:11-0500 SaO2% (BldA) [Mass fraction] 96 % ER [facility] 02-15-2023 19:11-0500 Systolic blood pressure 151 mm[Hg] ER [facility] 05-08-2017 19:43-0400 Body surface area Derived from formula [facility] Comment on above: Performed By: #### HACUTP ####[facility] [id number] [place], [place] [phone] 05-08-2017 07:41-0400 Body mass index (BMI) [Ratio] [facility] Comment on above: Performed By: #### FLCSF ####[id number] [place] [id number] Encounters Encounter Date Encounter Type Care Provider Facility Start: 08-09-2023 ambulatory GLORIA WALKER Facility:[facility] Start: 04-23-2023 End: 04-23-2023 ambulatory [facility] Work Phone: Start: 04-23-2023 End: 04-23-2023 Patient encounter procedure [facility] [place] Work Phone: Start: 02-15-2023 End: 02-15-2023 Emergency department patient visit ER [facility] Start: 11-27-2020 End: 11-28-[address] GLORIA WALKER Facility:[facility] Start: 11-21-2020 End: 11-22-[address] GLORIA WALKER Facility:[facility] Start: 10-31-2020 End: 10-31-[address] GLORIA WALKER Facility:[facility] Start: 07-05-2020 End: 07-06-[address] GLORIA WALKER Facility:[facility] Start: 05-20-2017 Patient encounter procedure YAZMIN Meade [facility] Start: 05-20-2017 End: 05-20-2017 [facility] Start: 05-07-2017 End: 05-11-2017 Evaluation and management of inpatient GREG BOYLE [facility] Start: 05-07-2017 End: 05-07-2017 Emergency department patient visit ADINA TAYLOR [facility] Procedures Date Procedure Procedure Detail Performing Clinician Start: 05-08-2017 Antibody screen GREG BOYLE Comment on above: Performed By: #### T SCR ####[facility] [place], [place] [phone] Payers Date Payer Category Payer Unknown [id number] 2023 Self-pay 2023 Unknown [id number] 1995 Unknown [id number] 2.16.84 [id number] 1996 Unknown [id number] 2.16.84 [id number] 1996 Unknown [id number] 2.16.84 [id number] 1996 Unknown [id number] 2.16.84 [id number] 1996 Unknown [id number] 2.16.8 [id number] 1959 Unknown [id number] Unknown [id number] 2.16.8 [id number] Unknown MMO [id number] Unknown [employer] BC/BS [id number] Worker's Compensation [id number] Social History Date Type Detail Facility Start: 04-23-2023 Tobacco smoking status NHIS Never smoked tobacco (finding) [facility] Start: 1995 Sex Assigned At Male F [facility] [place] NEGATED: Highlighted row Unknown if ever smoked [facility] Chief complaint+Reason for visit Narrative Note Date & Type Note Facility Chief complaint+Reason for visit Narrative Reason for Visit COVID-19 Contact with and (suspected) exposure to covid-19 [facility] Work Phone: Evaluation note Note Date & Type Note Facility Evaluation note Diagnosis Onset Date COVID-19 noneactive Contact with and (suspected) exposure to covid-19 noneactive [facility] Work Phone: Hospital Discharge instructions Note Date & Type Note Facility Hospital Discharge instructions No known hospital discharge instructions. [facility] Summary Purpose Family History No Family History Records FoundNo Family History Records FoundNo Family History Records FoundNo Family History Records FoundNo Family History Records FoundNo Family History Records FoundNo Family History Records Found Advance Directives No Advanced Directives Records Found Advance Directive Response Recorded Date/ Time Advance Directives No April 22 024 11:21am Additional Source Comments (unrecognized sect ion and content) No Status Records FoundNo Status Records FoundNo Status Records FoundNo Status Records FoundNo Status Records FoundNo Status Records FoundNo Status Records Found INFORMATION SOURCE (unrecogn ized section and content) DATE CREATED AUTHOR 07/29/2017 [facility] DATE CREATED AUTHOR AUTHOR'S ORGANIZ ATION 01/31/2018 [facility] DATE CREATED AUTHOR AUTHOR'S ORGANIZ ATION 09/22/2020 [facility] DATE CREATED AUTHOR AUTHOR'S ORGANIZ ATION [facility] DATE CREATED AUTHOR AUTHOR'S ORGANIZ ATION 03/16/2021 [facility] DATE CREATED AUTHOR AUTHOR'S ORGANIZ ATION 02/19/2023 [facility] DATE CREATED AUTHOR AUTHOR'S ORGANIZ ATION 08/09/2023 [facility] Care Teams (unrecognized sec tion and content) Team Status: Active Member Role Status Dates Gloria Walker MD Primary Care Provider Active Team Status: Inactive Member Role Status Jacque Walker MD Primary Care Provider Active Start: [...] BE BASED ON THE PRIMARY CLINICAL RECORDS. [facility]. provides no warranty or guarantee of the accuracy or completeness of information in this document.
[2023-08-10 09:44] LABS: Basophils Percent Auto 0.5 % (0.2-2.0); Eosinophils Absolute Auto 0.1 10^3/uL (0.0-0.7); Eosinophils Percent Auto 0.9 % (0.9-7.0); Hemoglobin 17.4 g/dL (14.0-18.0); Immature Granulocytes Abs Auto 0.02 10^3/uL (0.00-0.03); Immature Granulocytes Pct Auto 0.3 % (0.0-0.5); Lymphocytes Absolute Auto 2.6 10^3/uL (1.2-3.8); Lymphocytes Percent Auto 34.8 % (20.5-60.0); Mean Corpuscular HGB Conc 35.5 g/dL (29.9-35.2); Mean Corpuscular Hemoglobin 29.9 pg (25.9-34.0); Mean Corpuscular Volume 84.3 fL (80.0-94.0); Mean Platelet Volume 9.4 fL (9.5-13.5); Monocytes Absolute Auto 0.7 10^3/uL (0.3-0.8); Monocytes Percent Auto 9.5 % (1.7-12.0); Neutrophils Absolute Auto 4.1 10^3/uL (1.4-6.5); Platelet Count 321 10^3/uL (150-450); Red Blood Count 5.81 10^6/uL (4.70-6.10); Red Cell Distribution Width 11.6 % (11.0-15.0); White Blood Count 7.6 10^3/uL (4.0-11.0)
[2023-08-10 10:01] LABS: Estimated Average Glucose 94 mg/dL; Glycohemoglobin A1C 4.9 % (4.5-6.2)
[2023-08-10 10:04] LABS: Alanine Aminotransferase 45 U/L (16-63); Albumin Globulin Ratio 1.3; Albumin Level 4.4 g/dL (3.4-5.0); Alkaline Phosphatase 56 U/L (46-116); Anion Gap 13.8; Aspartate Amino Transferase 19 U/L (15-37); BUN Creatinine Ratio 12.3; Calcium 9.4 mg/dL (8.5-10.1); Carbon Dioxide 25.6 mmol/L (21.0-32.0); Chloride 105 mmol/L (98-107); Cholesterol 223 mg/dL (<=200); Estimated GFR (African America >60 (>=60); Estimated GFR (Non-African Ame >60 (>=60); Globulin 3.5 g/dL; Glucose 90 mg/dL (74-106); HDL Cholesterol 45 mg/dL (40-60); Potassium 3.4 mmol/L (3.5-5.1); Sodium 141 mmol/L (136-145); Total Protein 7.9 g/dL (6.4-8.2); Triglycerides 142 mg/dL (<=150); VLDL CHOLESTEROL 28.4 mg/dL
== END 2023-08-10 09:18 | disposition home or self-care (01) ==
LOC: LAB 09:18
PROVIDERS: PCP Family Medicine; Visit Provider Internal Medicine Interventional Cardiology
DX: R07.89 Other chest pain (principal); E66.01 Morbid (severe) obesity due to excess calories; Z13.1 Encounter for screening for diabetes mellitus; I10 Essential (primary) hypertension
CPT/HCPCS: 36415; 80053; 80061; 83036; 85025

== ENCOUNTER 2024-02-15 15:00 | Outpatient (OUT) | payer BC, SELFPAY | END 2024-02-15 15:01 | disposition home or self-care (01) | LOC: SLEEP 02-16 08:11 | PROVIDERS: PCP Family Medicine; Visit Provider Family Medicine | DX: G47.33 Obstructive sleep apnea (adult) (pediatric) (principal) | CPT/HCPCS: 95806 ==